=== PATIENT | male | born 1965 | race Caucasian/White ===

== ENCOUNTER 2018-06-10 08:28 | Day surgery (SDC) | payer OTHER ==
--- OUTSIDE RECORDS SUMMARY | 2018-06-10 08:30 | XMS REPORT | Continuity of Care Document ---
:1965 Author Organization Interface Problems Problem Status Onset Date Classification Date Comments Source Reported Medications Medication Details Route Status Patient Ordering Order Source Instructions Provider Date Allergies, Adverse Reactions, Alerts Substance Category Reaction Severity Reaction Status Date Comments Source type Reported Immunizations Immunization Date Given Site Status Last Updated Comments Source Results Order Results Value Reference Date Interpretation Comments Source Name Range Vital Signs Vital Sign Value Date Comments Source Encounters Location Location Encounter Encounter Reason Attending ADM DC Status Source Details Type Number For Provider Date Date Visit Outpatient [id number] LAINEY 04/19 [facility] [place] Outpatient [id number] LAINEY 05/11 [facility] [address] [place] [address] Outpatient [id number] LAINEY 06/21 [facility]2018 [facility] [place] [id number] Roderick Smith Active Surgical Specialty [facility] Procedures Procedure Code Date Perfomer Comments Source
[2018-06-10 08:50] LABS: Potassium 4.1 mmol/L (3.5-5.1)
[2018-06-10] MEDS ORDERED: NA CHLORIDE 0.9% 1,000 ML ONE (08:51)
[2018-06-10 08:52] LABS: Absolute Lymphocytes (CBC) 2.3 K/uL (0.7-4.9); Absolute Monocytes 0.6 K/uL (0.1-1.3); Absolute Neutrophil 7.6 K/uL (1.8-8.0); Basophils % 1.4 % (0-1.3); Eosinophils % 4.5 % (0-4.4); Hematocrit 40.7 % (39.6-49.0); RBC Red Blood Cell Count 5.13 M/uL (4.33-5.43)
[2018-06-10] MEDS ORDERED: HEPARIN 5000 UNIT/ML 1 ML VIAL ONE (08:55)
[2018-06-10] MEDS ORDERED: NS 0.9% VIAL 20 ML ONE (08:55)
[2018-06-10] MEDS: LIDOCAINE 1% MPF 30 ML VIAL ONE ×2 (09:05→10:04)
[2018-06-10] MEDS ORDERED: CEFAZOLIN/SWI 1gm 1 GM/10 ML SYR ONE (09:06)
[2018-06-10] MEDS ORDERED: FENTANYL CITR 100 MCG/2 ML ONE (09:48)
[2018-06-10] MEDS ORDERED: PROPOFOL 200 MG/20 ML VIAL IV ONE (09:48)
[2018-06-10] MEDS ORDERED: LIDOCAINE 2% MPF 5 ML VIAL ONE (09:48)
[2018-06-10] MEDS ORDERED: MIDAZOLAM HCL 2 MG/2 ML INJ ONE (09:48)
[2018-06-10] MEDS ORDERED: ONDANSETRON 4 MG/2 ML VIAL ONE (10:02)
--- NOTE | 2018-06-10 11:01 | RAD REPORT ---
EXAM DESCRIPTION: RAD - Fluoroscopy <1 Hour - 06/10/2018 10:56 am CLINICAL HISTORY: Venous catheter insertion. PORT A CATH COMPARISON: No comparisons FINDINGS: Fluoroscopy time 0.5 minutes.
--- NOTE | 2018-06-10 11:42 | RAD REPORT ---
EXAM DESCRIPTION: RAD - Chest Single View - 06/10/2018 11:36 am CLINICAL HISTORY: port-a-cath insertion Chest pain. COMPARISON: CHEST PA AND LAT 2 VIEW dated 01/30/2013 FINDINGS: Portable technique limits examination quality. The lungs are grossly clear. The heart is normal in size. Right-sided Port-A-Cath has been placed wit h tip in the SVC.No postprocedure pneumothorax. IMPRESSION: No postprocedure pneumothorax seen.
[2018-06-10] MEDS ORDERED: TRAMADOL 37.5mg/APAP 325mg PER TAB ONE (12:14)
--- NOTE | 2018-06-10 22:13 | OP ---
Date of Procedure: 06/10/2018 Surgeon: Phill Garcia MD Preoperative Diagnosis: Colon cancer. Postoperative Diagnosis: Colon cancer. Procedure: Right internal jugular Port-A-Cath placement, interpretation of fluoroscopy. Estimated Blood Loss: Minimal. Specimen: None. Findings: Normal anatomy. Anesthesia: MAC. Complications: None. Disposition: The patient tolerated the procedure in stable condition and taken to the recovery in go od general condition. Description Of Procedure: The patient was brought to the OR and placed in supine position. MAC anes thesia was begun. The patient was prepped and draped in usual sterile fashion. Lidocaine 1% infiltr ated locally. An 18-gauge needle was used to access the right IJ vein. Guidewire was passed. Posit ion was confirmed with fluoroscopy. A 3 cm counter incision was made and a pocket created. Tunnelin g device was used to tunnel the catheter between the 2 wounds. Seldinger technique used and the tip of the catheter under fluoroscopy placed at the SVC right atrial region, and then the catheter attach ed to the Port-A-Cath device. Port-A-Cath device was attached to the subcutaneous tissue with 3-0 Vi cryl. Port-A-Cath device was flushed with heparin and packed with heparin with good blood flow, and then 3-0 chromic was used to approximate the subcutaneous tissue and close the skin. Sterile dressing was applied. The patient was awakened and taken to Recovery in good gene ral condition. /MODL Voice ID: [id number] Report ID: [id number]
--- NOTE | 2018-06-10 22:13 | DS ---
Date of Discharge: 06/10/2018 Discharge Note: The patient will go to Day Surgery and home when stable. If the chest x-ray is nega tive, he will be discharged to home. Disposition: Home. Condition: Stable. Discharge Instructions: Resume home medications and diet. Activity as tolerated. No heavy lifting. Remove outer dressing in 2 days. Shower. Keep wound clean and dry. Follow up in my office in two weeks; call for appointment. Ultracet one tablet p.o. q.4 p.r.n. pain. Keep Steri-Strips on at all times. JESSICA/SHANNA Voice ID: [id number] Report ID: [id number]
== END 2018-06-10 12:45 | disposition home or self-care (01) ==
LOC: OR 08:28
PROVIDERS: ATTEND Surgery
PROC: 02HV33Z Insertion of Infusion Device into Superior Vena Cava, Percutaneous Approach (ICD-10-PCS; 2018-06-10)
PROC: 0JH63XZ Insertion of Tunneled Vascular Access Device into Chest Subcutaneous Tissue and Fascia, Percutaneous Approach (ICD-10-PCS; principal; 2018-06-10 10:00)
DX: C18.9 Malignant neoplasm of colon, unspecified (principal); E11.9 Type 2 diabetes mellitus without complications; I10 Essential (primary) hypertension; I25.10 Atherosclerotic heart disease of native coronary artery without angina pectoris; Z95.5 Presence of coronary angioplasty implant and graft; Z79.82 Long term (current) use of aspirin; Z79.84 Long term (current) use of oral hypoglycemic drugs; Z79.899 Other long term (current) drug therapy
CPT/HCPCS: 36415; 71045; 76000; 80048; 82962; 85025; C1788; J0690; J1644; J2250; J2405; J2704; J3010; J7030

== ENCOUNTER 2018-07-14 16:58 | Emergency (ER) | payer OTHER ==
--- OUTSIDE RECORDS SUMMARY | 2018-07-14 17:00 | XMS REPORT | Continuity of Care Document ---
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 Heart attack Active Problem 06/15/2018 [facility] 3 Diabetes Active Problem 06/15/2018 [facility] mellitus 0 Acid reflux Active Problem 06/15/2018 [facility] Arthritis Active Problem 06/15/2018 [facility] Change in bowel Active Problem 06/15/2018 [facility] habit Colorectal Active Problem 06/15/2018 [facility] cancer Constipation Active Problem 06/15/2018 [facility] Coronary heart Active Problem 06/15/2018 stent X1 [facility] disease<sup>1</s placed 2013 up> Diarrhea Active Problem 06/15/2018 [facility] Foot Active Problem 06/15/2018 bilateral [facility] pain<sup>2</sup> foot and nerve Gout Active Problem 06/15/2018 [facility] High cholesterol Active Problem 06/15/2018 [facility] Hypertension Active Problem 06/15/2018 [facility] Hypothyroid Active Problem 06/15/2018 [facility] Loss of appetite Active Problem 06/15/2018 [facility] Neuropathy Active Problem 06/15/2018 bilateral [facility] (<span legs and ID="[id number]" feet, walks >Confirmed</span with >)<sup>3</sup> crutches or walker Rectal bleeding Active Problem 06/15/2018 [facility] Medications Medication Details Route Status Patient Ordering Order Source Instructions Provider Date Misc Medication 350 mL, Inactive [facility] Soln-IV, IV, 019 Once, first dose 06/13/18 10:13:00 CDT, stop date 06/13/18 10:13:00 CDT propofol 30 mg=3 mL, Inactive [facility] Emulsion, IV, 019 Once, first dose 06/13/18 10:05:00 CDT, stop date 06/13/18 10:05:00 CDT propofol 50 mg=5 mL, Inactive [facility] Emulsion, IV, 019 Once, first dose 06/13/18 10:04:00 CDT, stop date 06/13/18 10:04:00 CDT lidocaine 1 mL, Inactive [facility] Injection, 019 IV, Once, first dose 06/13/18 10:04:00 CDT, stop date 06/13/18 10:04:00 CDT lidocaine 1 mL, Inactive [facility] Injection, 019 IV, Once, first dose 06/13/18 10:01:00 CDT, stop date 06/13/18 10:01:00 CDT propofol 50 mg=5 mL, Inactive [facility] Emulsion, IV, 019 Once, first dose 06/13/18 10:01:00 CDT, stop date 06/13/18 10:01:00 CDT lidocaine 1 mL, Inactive [facility] Injection, 019 IV, Once, first dose 06/13/18 9:58:00 CDT, stop date 06/13/18 9:58:00 CDT propofol 50 mg=5 mL, Inactive [facility] Emulsion, IV, 019 Once, first dose 06/13/18 9:58:00 CDT, stop date 06/13/18 9:58:00 CDT midazolam 1 mg=1 mL, Inactive [facility] Injection, 019 IV, Once, first dose 06/13/18 9:45:00 CDT, stop date 06/13/18 9:45:00 CDT fentaNYL 50 mcg=1 mL, Inactive [facility] Injection, 019 IV, Once, first dose 06/13/18 9:45:00 CDT, stop date 06/13/18 9:45:00 CDT midazolam 1 mg=1 mL, Inactive [facility] Injection, 019 IV, Once, first dose 06/13/18 9:40:00 CDT, stop date 06/13/18 9:40:00 CDT fentaNYL 50 mcg=1 mL, Inactive [facility] Injection, 019 IV, Once, first dose 06/13/18 9:40:00 CDT, stop date 06/13/18 9:40:00 CDT Lidocaine 2% 0.2 0.2 mL, Inactive [facility] mL IV Start Injection, 019 [[place]] Subcutaneous, Once PRN for other (see comment), first dose 06/13/18 8:19:00 CDT LR 1,000 mL 1,000 mL, IV, Inactive [facility] 30 mL/hr, 019 start date 06/13/18 8:19:00 CDT Aspirin 325 MG 325 mg=1 Active [facility] Enteric Coated tabs, Oral, 019 Tablet Daily, heart health Metoprolol 100 mg=1 Active [facility] Tartrate 100 MG tabs, Oral, 019 Oral Tablet BID, HTN 24 HR Isosorbide 30 mg=1 tabs, Active [facility] Mononitrate 30 Oral, qAM, 019 MG Extended heart Release Tablet furosemide 40 mg 40 mg=1 tabs, Active [facility] oral tablet Oral, Daily, 019 fluid Omeprazole 20 MG 20 mg=1 caps, Active [facility] Enteric Coated Oral, Daily, 019 Capsule acid reflux allopurinol 100 100 mg=1 Active [facility] mg oral tablet tabs, Oral, 019 BID, Gout atorvastatin 20 20 mg=1 tabs, Active [facility] mg oral tablet Oral, Daily, 019 cholesterol Metformin 1,000 mg=1 Active [facility] hydrochloride tabs, Oral, 019 1000 MG Oral BID, DM Tablet levothyroxine 25 25 mcg=1 Active [facility] mcg (0.025 mg) caps, Oral, 019 oral capsule Daily, thyroid 0.5 ML 1.5 mg, Active [facility] dulaglutide 3 Subcutaneous, 019 MG/ML Prefilled weekly on Syringe Mondays, DM [Trulicity] 3 ML insulin 60 units, Active [facility] degludec 100 Subcutaneous, 019 UNT/ML Pen Daily, DM Injector [Tresiba] Spironolactone 25 mg=1 tabs, Active [facility] 25 MG Oral Oral, Daily, 019 Tablet diuretic duloxetine 20 MG 20 mg=1 caps, Active [facility] Enteric Coated Oral, Daily, 019 Capsule depression [Cymbalta] gabapentin 300 300 mg=1 Active [facility] MG Oral Capsule caps, Oral, 019 TID, nerve pain Acetaminophen 1 tabs, Oral, Active [facility] 325 MG / As Indicated, 019 Hydrocodone PRN only, 0 Bitartrate 7.5 Refill(s), MG Oral Tablet pain Allergies, Adverse Reactions, Alerts Substance Category Reaction Severity Reaction Status Date Comments Source type Reported Tylox Assertion tongue Severe Drug Active [facility] swelling, allergy face swelling Immunizations Immunization Date Given Site Status Last Updated Comments Source Results Order Name Results Value Reference Date Interpretation Comments Source Range LABORATORY Blood 236 74 - 106 I Glucose, mg/dL 2018 Capillary Vital Signs Vital Sign Value Date Comments Source Systolic (mm Hg) 143 06/13/2018 [facility] Diastolic (mm Hg) 84 06/13/2018 [facility] Respitory Rate 20 06/13/2018 [facility] Peripheral Pulse Rate 89 06/13/2018 [facility] Systolic (mm Hg) 143 06/13/2018 [facility] Diastolic (mm Hg) 86 06/13/2018 [facility] Heart Rate 88 06/13/2018 [facility] Respitory Rate 16 06/13/2018 [facility] Respitory Rate 16 06/13/2018 [facility] Systolic (mm Hg) 135 06/13/2018 [facility] Diastolic (mm Hg) 83 06/13/2018 [facility] Heart Rate 86 06/13/2018 [facility] Temperature Oral (F) 36.6 Geri 06/13/2018 [facility] Heart Rate 87 06/13/2018 [facility] Height 175.26 cm 06/13/2018 [facility] Weight Measured 114.8 06/13/2018 [facility] Peripheral Pulse Rate 96 06/13/2018 [facility] Temperature Oral (F) 37 Geri 06/13/2018 [facility] Weight Measured 114.76 06/08/2018 [facility] Height 175.26 cm 06/08/2018 [facility] Encounters Location Location Encounter Encounter Reason Attending ADM DC Status Source Details Type Number For Provider Date Date Visit Outpatient [id number] LAINEY 04/19 [facility] [place] Outpatient [id number] LAINEY 05/11 [facility] Outpatient [id number] Roderick Smith 06/13 06/13 Active Surgical /2018 Specialty [facility] Outpatient [id number] Roderick Smith 06/13 06/13 [facility] [place] [facility] Outpatient [id number] LAINEY 06/22 [facility] [place] Outpatient [id number] LAINEY 12/21 Active [facility] [place] Procedures Procedure Code Date Perfomer Comments Source SIGMOIDOSCOPY auto-populated from [facility] FLEXIBLE W/DIRECTED 9 documented surgical SUBMUCOSAL case INJECTION ANY SUBSTANCE 50503 (N/A)<sup>1</sup&gt ; Colonoscopy [id number] [facility] 9 cardiac stent [facility] 3 Foot<sup>2</sup> [id number] bilateral foot surgery no hardware implanted [facility] patient uses crutches Knee<sup>3</sup> [id number] Right knee scope [facility] Left knee reconstruction with hardware Tonsillectomy [id number] [facility]
--- NOTE | 2018-07-14 18:17 | RAD REPORT ---
EXAM DESCRIPTION: US UPPER EXTREMITY VENOUS UNILATE07/14/2018 6:01 pm CLINICAL HISTORY: Right arm pain COMPARISON: None FINDINGS: Echogenic material consistent with acute thrombus is present within the right internal jug ular vein measuring about 5 centimeters in length. The right subclavian, right cephalic, right axillary, right brachial, right basilic, right ulnar an d right radial veins are generally compressible and demonstrate augmentation. Doppler demonstrates go od flow. IMPRESSION: Acute thrombus within the right internal jugular vein
--- NOTE | 2018-07-14 18:27 | ER ---
Nurse's Notes [facility] Name: Tl Goodwin Age: 53 yrs Sex: Male : 1965 Arrival Date: 07/14/2018 Time: 17:01 Bed 8 Private MD: Diagnosis: Venous thrombosis of right internal jugular vein Presentation: 07/14 17:04 Presenting complaint: Patient states: sent by cancer center to r/o blood clot, pt sv stated that he gets chemo all week and gets radiation weekly, stated that he noticed yesterday he started having pain and redness to the right side of his neck, he has a port a cath. Transition of care: patient was not received from another setting of care. Onset of symptoms was July 13, 2018. Care prior to arrival: None. 17:04 Method Of Arrival: Ambulatory sv 17:04 Acuity: ROSA 3 sv 18:00 Risk Assessment: Do you want to hurt yourself or someone else? Patient reports no iw desire to harm self or others. Initial Sepsis Screen: Does the patient meet any 2 criteria? No. Patient's initial sepsis screen is negative. Does the patient have a suspected source of infection? No. Patient's initial sepsis screen is negative. Historical: - Allergies: 17:06 Tylox; sv 17:06 OxyContin; sv - Home Meds: 17:31 aspirin 325 mg Oral tab 1 tab once daily [Active]; metoprolol tartrate 100 mg Oral tab sg 1 tab 2 times per day [Active]; isosorbide mononitrate 30 mg Oral Tb24 1 tab once daily [Active]; furosemide 40 mg Oral tab 1 tab 2 times per day [Active]; omeprazole 20 mg Oral cpDR 1 cap once daily [Active]; allopurinol 100 mg Oral tab 1 tab once daily [Active]; Jardiance 25 mg oral tab 1 tab once daily [Active]; atorvastatin oral 1 tab once daily [Active]; Trulicity 1.5 mg/0.5 mL subcutaneous pnij once wkly [Active]; Tresiba FlexTouch U-100 subcutaneous subcutaneous daily [Active]; levothyroxine 25 mcg tab 1 tab once daily [Active]; spironolactone 25 mg Oral tab 1 tab once daily [Active]; duloxetine 20 mg oral cpDR 1 cap [Active]; gabapentin 300 mg oral cap 2 caps 3 times per day [Active]; hydrocodone-acetaminophen 7.5-325 mg Oral tab 1 tab every 4 hours [Active]; - PMHx: 17:06 colon cancer; sv - Immunization history:: Adult Immunizations up to date. - Social history:: Smoking status: Patient/guardian denies using tobacco. - Family history:: not pertinent. - Ebola Screening: : Patient negative for fever greater than or equal to 101.5 degrees Fahrenheit, and additional compatible Ebola Virus Disease symptoms Patient denies exposure to infectious person Patient denies travel to an Ebola-affected area in the 21 days before illness onset No symptoms or risks identified at this time. - Hospitalizations: : No recent hospitalization is reported. Screenin:28 Abuse screen: Denies threats or abuse. Denies injuries from another. Nutritional iw screening: No deficits noted. Tuberculosis screening: No symptoms or risk factors identified. Fall Risk None identified. Assessment: 18:00 General: Appears in no apparent distress. Behavior is calm. Pain: Complains of pain in iw neck. Neuro: Level of Consciousness is awake, alert, obeys commands, Oriented to person, place, time, Moves all extremities. Cardiovascular: Patient's skin is warm and dry. Respiratory: Respiratory effort is even, unlabored, Respiratory pattern is regular, Denies cough. Derm: Skin is intact, is fragile. Musculoskeletal: Range of motion: intact in all extremities. Vital Signs: 17:06 BP 129 / 78; Pulse 98; Resp 18; Temp 98.3(O); Pulse Ox 100% ; Weight 112.04 kg; Height sv 5 ft. 9 in. (175.26 cm); Pain 0/10; 17:06 Body Mass Index 36.48 (112.04 kg, 175.26 cm) sv ED Course: 17:01 Patient arrived in ED. tw3 17:05 Triage completed. sv 17:07 Arm band placed on. sv 17:09 Cristina Salazar, RN is Primary Nurse. iw 17:23 Wilfrid Gutierrez MD is Attending Physician. rn 17:30 Initial lab(s) drawn, by me. Inserted saline lock: 20 gauge in right forearm, using em1 aseptic technique. Blood collected. 18:00 UPPER EXTREMITY VENOUS UNILATE In Process Unspecified. EDMS 18:00 Patient has correct armband on for positive identification. iw 18:26 XRAY Chest (1 view) In Process Unspecified. EDMS 18:26 Keri Escudero MD is Referral Physician. rn 19:00 No provider procedures requiring assistance completed. IV discontinued, intact, iw bleeding controlled, No redness/swelling at site. Pressure dressing applied. Administered Medications: 18:44 Drug: Lovenox 1 mg/kg Route: Sub-Q; Site: right lower abdomen; iw Outcome: : Discharge ordered by MD. rn 19:00 Discharged to home via wheelchair, with family. iw 19:00 Condition: good 19:00 Discharge instructions given to patient, family, Instructed on discharge instructions, follow up and referral plans. medication usage, Demonstrated understanding of instructions, follow-up care, medications, Prescriptions given X 1. 19:01 Patient left the ED. iw Signatures: Dispatcher [employer] EDMS Jazmín Dyson RN RN sv Gay, Steven, RN RN sg Williams, Irene, RN RN iw Nieto, Roman, MD MD rn Martinez, Eric em1 Ministerio, Wandy tw3
--- NOTE | 2018-07-14 18:27 | EDPHYS ---
Physician Documentation [facility] Name: Tl Goodwin Age: 53 yrs Sex: Male : 1965 Arrival Date: 07/14/2018 Time: 17:01 Bed 8 Private MD: ED Physician Wilfrid Gutierrez HPI: 07/14 17:45 This 53 yrs old Male presents to ER via Ambulatory with complaints of rn POSSIBLE BLOOD CLOT. 17:45 The patient or guardian complains of pain. The symptoms are located on the neck. Onset: rn The symptoms/episode began/occurred yesterday. Context: The problem was sustained at home, The neck injury/problem resulted from from unknown cause. The pain does not radiate. Modifying factors: The symptoms are alleviated by nothing. the symptoms are aggravated by pressure. Severity of symptoms: At their worst the symptoms were mild, in the emergency department the symptoms are unchanged. Reports sent by cancer center to rule out blood clot, reports has port-a-cath for chemo for colon cancer, reports ongoing chemo and no problem but yesterday noticed pain in right neck, mild, and line in neck portion more prominent than has been, no sob. no arm swelling. . Historical: - Allergies: 17:06 Tylox; sv 17:06 OxyContin; sv - Home Meds: 17:31 aspirin 325 mg Oral tab 1 tab once daily [Active]; metoprolol tartrate 100 mg Oral tab sg 1 tab 2 times per day [Active]; isosorbide mononitrate 30 mg Oral Tb24 1 tab once daily [Active]; furosemide 40 mg Oral tab 1 tab 2 times per day [Active]; omeprazole 20 mg Oral cpDR 1 cap once daily [Active]; allopurinol 100 mg Oral tab 1 tab once daily [Active]; Jardiance 25 mg oral tab 1 tab once daily [Active]; atorvastatin oral 1 tab once daily [Active]; Trulicity 1.5 mg/0.5 mL subcutaneous pnij once wkly [Active]; Tresiba FlexTouch U-100 subcutaneous subcutaneous daily [Active]; levothyroxine 25 mcg tab 1 tab once daily [Active]; spironolactone 25 mg Oral tab 1 tab once daily [Active]; duloxetine 20 mg oral cpDR 1 cap [Active]; gabapentin 300 mg oral cap 2 caps 3 times per day [Active]; hydrocodone-acetaminophen 7.5-325 mg Oral tab 1 tab every 4 hours [Active]; - PMHx: 17:06 colon cancer; sv - Immunization history:: Adult Immunizations up to date. - Social history:: Smoking status: Patient/guardian denies using tobacco. - Family history:: not pertinent. - Ebola Screening: : Patient negative for fever greater than or equal to 101.5 degrees Fahrenheit, and additional compatible Ebola Virus Disease symptoms Patient denies exposure to infectious person Patient denies travel to an Ebola-affected area in the 21 days before illness onset No symptoms or risks identified at this time. - Hospitalizations: : No recent hospitalization is reported. ROS: 17:45 Constitutional: Negative for fever, chills, and weight loss, Eyes: Negative for injury, rn pain, redness, and discharge, Neck: + right neck pain and mild swelling Cardiovascular: Negative for chest pain, palpitations, and edema, Respiratory: Negative for shortness of breath, cough, wheezing, and pleuritic chest pain, Abdomen/GI: Negative for abdominal pain, nausea, vomiting, diarrhea, and constipation, MS/Extremity: Negative for injury and deformity, Skin: Negative for injury, rash, and discoloration, Neuro: Negative for headache, weakness, numbness, tingling, and seizure. Exam: 17:45 Constitutional: This is a well developed, well nourished patient who is awake, alert, rn and in no acute distress. Head/Face: Normocephalic, atraumatic. Neck: Trachea midline, no thyromegaly or masses palpated, and no cervical lymphadenopathy. + palpable line in subcutaneous tissues, no erythema or masses. No crepitus. Chest/axilla: Normal chest wall appearance and motion. Nontender with no deformity. No lesions are appreciated. Respiratory: No increased work of breathing, no retractions or nasal flaring. Skin: Warm, dry with normal turgor. Normal color with no rashes, no lesions, and no evidence of cellulitis. MS/ Extremity: Pulses equal, no cyanosis. Neurovascular intact. Full, normal range of motion. Equal circumference. Neuro: Awake and alert, GCS 15, oriented to person, place, time, and situation. Cranial nerves II-XII grossly intact. Motor strength 5/5 in all extremities. Sensory grossly intact. Vital Signs: 17:06 BP 129 / 78; Pulse 98; Resp 18; Temp 98.3(O); Pulse Ox 100% ; Weight 112.04 kg; Height sv 5 ft. 9 in. (175.26 cm); Pain 0/10; 17:06 Body Mass Index 36.48 (112.04 kg, 175.26 cm) sv MDM: 17:23 Patient medically screened. rn 18:06 ED course: Consulted Dr. Garcia, unable to contact Dr. Duong, awaiting rn recommendations. . 18:24 Differential diagnosis: blood clot, line migration. Data reviewed: vital signs, nurses rn notes, radiologic studies, ultrasound, and as a result, I will discharge patient. Counseling: I had a detailed discussion with the patient and/or guardian regarding: the historical points, exam findings, and any diagnostic results supporting the discharge/admit diagnosis, radiology results, the need for outpatient follow up, to return to the emergency department if symptoms worsen or persist or if there are any questions or concerns that arise at home. Special discussion: I discussed with the patient/guardian in detail that at this point there is no indication for admission to the hospital. It is understood, however, that if the symptoms persist or worsen the patient needs to return immediately for re-evaluation. ED course: Spoke with Dr. Garcia, who spoke with Dr. Duong, requests dc home with lovenox 1mg/kg bid and f/u with dr duong for further instructions given ongoing chemo and wants to keep the line, only has 1 more week of chemo left. Patient knows how to inject himself as has gives himself insulin. . 07/14 17:30 Order name: XRAY Chest (1 view); Complete Time: 18:41 rn 07/14 17:33 Order name: UPPER EXTREMITY VENOUS UNILATE; Complete Time: 18:41 EDMS Administered Medications: 18:44 Drug: Lovenox 1 mg/kg Route: Sub-Q; Site: right lower abdomen; iw Disposition: 07/14/18 18:26 Discharged to Home. Impression: Venous thrombosis of right internal jugular vein. - Condition is Stable. - Discharge Instructions: Venous Thromboembolism Prevention. - Prescriptions for Lovenox 100 mg/mL Subcutaneous syringe - inject 1.1 milliliter by SUBCUTANEOUS route every 12 hours for 14 days; 1 box. - Medication Reconciliation Form, Thank You Letter, Antibiotic Education, Prescription Opioid Use form. - Follow up: Keri Escudero MD; When: 1 - 2 days; Reason: Recheck today's complaints, Re-evaluation by your physician. - Problem is new. - Symptoms are unchanged. Signatures: Dispatcher [employer] [facility] Jazmín Dyson RN RN sv Deonte Morse RN RN sg Cristina Salazar RN RN iw Wilfrid Gutierrez MD MD engine turner: (The following items were deleted from the chart) 17:33 17:30 Extremity Venous Uni [email or web address] ordered. [facility] 19:01 18:26 07/14/2018 18:26 Discharged to Home. Impression: Venous thrombosis of right iw internal jugular vein. Condition is Stable. Prescriptions for Lovenox 100 mg/mL Subcutaneous syringe - inject 1.1 milliliter by SUBCUTANEOUS route every 12 hours for 14 days; 1 box. and Forms are Medication Reconciliation Form, Thank You Letter, Antibiotic Education, Prescription Opioid Use. Follow up: Keri óLpez; When: 1 - 2 days; Reason: Recheck today's complaints, Re-evaluation by your physician. Problem is new. Symptoms are unchanged. rn
--- NOTE | 2018-07-14 18:33 | RAD REPORT ---
EXAM DESCRIPTION: Raina Single View07/14/2018 6:26 pm CLINICAL HISTORY: Chest pain COMPARISON: June 2018 FINDINGS: A central venous line has its tip in the superior vena cava. Right hemidiaphragm is elevat ed. The lungs appear clear of acute infiltrate. The heart is normal size IMPRESSION: No acute abnormalities displayed
[2018-07-14] MEDS ORDERED: ENOXAPARIN 100 MG/ML SYR SQ ONE (18:51)
== END 2018-07-14 19:01 | disposition home or self-care (01) ==
LOC: ER 16:58
DX: I82.C11 Acute embolism and thrombosis of right internal jugular vein (principal); D01.0 Carcinoma in situ of colon; Z79.82 Long term (current) use of aspirin; Z88.6 Allergy status to analgesic agent; Z88.5 Allergy status to narcotic agent
CPT/HCPCS: 71045; 93971; 96372; 99284; J1650

== ENCOUNTER 2018-08-05 08:26 | Day surgery (SDC) | payer OTHER ==
--- OUTSIDE RECORDS SUMMARY | 2018-08-05 08:29 | XMS REPORT | Continuity of Care Document ---
[...] Problem 06/15/2018 bilateral [facility] (<span legs and ID="[id number]" feet, walks >Confirmed</span with >)<sup>3</sup> crutches or [...] Number For Provider Date Date Visit Outpatient [id number] LAINEY 04/19 [facility] [place] Outpatient [id number] LAINEY 05/11 [facility] Outpatient [id number] Roderick Smith 06/13 06/13 [facility] /2018 [facility]ty [facility] Outpatient [id number] Roderick Smith 06/13 06/13 [facility] [place] [facility] Outpatient [id number] LAINEY 06/22 [facility] [place] Outpatient [id number] LAINEY 12/21 Active [facility] [place] Procedures Procedure Code Date Perfomer Comments Source SIGMOIDOSCOPY auto-populated from [facility] FLEXIBLE W/DIRECTED 9 documented surgical SUBMUCOSAL case INJECTION ANY SUBSTANCE 73024 (N/A)<sup>1</sup&gt ; Colonoscopy [id number] [facility] 9 cardiac stent [facility] 3 Foot<sup>2</sup> [id number] bilateral foot surgery no hardware implanted [facility] patient uses crutches Knee<sup>3</sup> [id number] Right knee scope [facility] Left knee reconstruction with hardware Tonsillectomy [id number] [facility]
[2018-08-05] MEDS ORDERED: LIDOCAINE 1% MPF 30 ML VIAL ONE (08:36)
[2018-08-05 08:45] LABS: Absolute Lymphocytes (CBC) 0.7 K/uL (0.7-4.9); Absolute Monocytes 0.5 K/uL (0.1-1.3); Basophils % 0.4 % (0-1.3); Eosinophils % 13.4 % (0-4.4); Hematocrit 37.2 % (39.6-49.0); Lymphocytes % 9.4 % (15.3-44.8); MPV 7.5 fL (7.6-11.3); Monocytes % 6.5 % (3.3-12.3); RBC Red Blood Cell Count 4.34 M/uL (4.33-5.43)
[2018-08-05] MEDS ORDERED: NA CHLORIDE 0.9% 1,000 ML ONE (08:48)
[2018-08-05] MEDS ORDERED: CEFAZOLIN/SWI 1gm 1 GM/10 ML SYR ONE (08:48)
[2018-08-05] MEDS ORDERED: MIDAZOLAM HCL 2 MG/2 ML INJ ONE (09:08)
[2018-08-05] MEDS ORDERED: PROPOFOL 200 MG/20 ML VIAL IV ONE (09:08)
[2018-08-05] MEDS ORDERED: FENTANYL CITR 100 MCG/2 ML ONE (09:09)
[2018-08-05] MEDS ORDERED: LIDOCAINE 1% MPF 2 ML AMPULE ONE (09:09)
[2018-08-05] MEDS ORDERED: INSULIN -REGULAR HUMAN 50 UNIT/0.5 ML ML ONE (09:18)
[2018-08-05 09:43] LABS: Anisocytosis 1+; Blood Morphology Comment NOTED (NOT SEEN); Platelet Estimate ADEQ
--- NOTE | 2018-08-05 20:20 | OP ---
Date of Procedure: 08/05/2018 Surgeon: Phill Garcia MD Preoperative Diagnosis: Rectal carcinoma. Postoperative Diagnosis: Rectal carcinoma. Procedure: Removal of right chest Port-A-Cath. Estimated Blood Loss: Minimal. Specimen: Port-A-Cath. Finding: Normal anatomy. Anesthesia: MAC. Complications: None. Disposition: The patient tolerated the procedure in stable condition and taken to Recovery in good g eneral condition. Procedure In Detail: The patient was brought to the OR and placed in supine position. MAC anesthesi a was begun. The patient was prepped and draped in the usual sterile fashion. Marcaine 0.5% was inf iltrated locally. A 15-blade was used to make a 3 cm incision. Subcutaneous tissue divided. Port-A -Cath device identified, freed from the surrounding tissue with sharp and blunt dissection, and then removed and sent to Pathology for identification. Wound irrigated. Bleeding controlled with cautery . Then 3-0 chromic used to reapproximate subcutaneous tissue and close the skin. Sterile dressing was applied. The patient was awakened and taken to Recovery in good general condition. /MODL Voice ID: [id number] Report ID: [id number]
--- NOTE | 2018-08-05 20:25 | DS ---
Date of Discharge: 08/05/2018 The patient will go to Day Surgery and home when stable. Disposition: Home. Condition: Stable. Discharge Instructions: Resume home medications and diet. Activity as tolerated. No heavy lifting. Remove outer dressing in 2 days. Shower. Keep wound clean and dry. Follow up in my office in 2 w eeks. Call for appointment. Tylenol No. 3 one tablet p.o. q.4 p.r.n. pain. Keep Steri-Strips on at all times. JESSICA/SHANNA Voice ID: [id number] Report ID: [id number]
== END 2018-08-05 10:58 | disposition home or self-care (01) ==
LOC: OR 08:26
PROVIDERS: ATTEND Surgery
PROC: 02PYX3Z Removal of Infusion Device from Great Vessel, External Approach (ICD-10-PCS; 2018-08-05)
PROC: 0JPT3XZ Removal of Tunneled Vascular Access Device from Trunk Subcutaneous Tissue and Fascia, Percutaneous Approach (ICD-10-PCS; principal; 2018-08-05 09:15)
DX: Z45.2 Encounter for adjustment and management of vascular access device (principal); C20 Malignant neoplasm of rectum; I10 Essential (primary) hypertension; E11.9 Type 2 diabetes mellitus without complications; Z79.82 Long term (current) use of aspirin; Z79.4 Long term (current) use of insulin; Z79.899 Other long term (current) drug therapy; Z95.5 Presence of coronary angioplasty implant and graft
CPT/HCPCS: 36415; 82947; 82962; 85025; 88300; J0690; J2001; J2250; J2704; J3010; J7030

== ENCOUNTER 2021-09-05 23:50 | Emergency (ER) | payer MEDICARE ==
--- OUTSIDE RECORDS SUMMARY | 2021-09-06 00:03 | XMS REPORT | Continuity of Care Document ---
:1965 Author Organization [facility] t Address [address] [place] [address] Care Team Providers Name Role Phone Lita Starr Primary Care Physician SMITH Attending Clinician Unavailable RUBEN Attending Clinician Unavailable Moustapha KENT OLambert Attending Clinician Stephen Rosas MD Attending Clinician [phone] Samuel Barrera Attending Clinician Clarita KENT Attending Clinician MD MOUSTAPHA O. Attending Clinician Unavailable SANAM Attending Clinician Unavailable Pastor Gerard DO Attending Clinician Sanam KENT Attending Clinician Liang SEE C Attending Clinician Unavailable Tiffany Foreman Attending Clinician [phone] MIKO Attending Clinician Unavailable DO JUDSON CROUCH Attending Clinician Unavailable MD EDA WALKER Attending Clinician Unavailable Abundio aDnielson MD Attending Clinician ABUNDIO DANIELSON Attending Clinician Unavailable ZI Attending Clinician Unavailable HUBERT MAIN Attending Clinician Unavailable DR GEMMA Attending Clinician Unavailable Joi SEE, Minerva Attending Clinician Unavailable Laurel MAGANA R Attending Clinician Cecilio KENT Attending Clinician CECILIO Attending Clinician Unavailable SCHAUBROECK_L Admitting Clinician Unavailable JARVIS Admitting Clinician Unavailable MOUSTAPHA Admitting Clinician Unavailable MD Jacquelyn GERARD Admitting Clinician Unavailable SANAM Admitting Clinician Unavailable Sanam KENT Admitting Clinician SCOUT Admitting Clinician Unavailable MD SCOUT Admitting Clinician Unavailable ABUNDIO DANIELSON Admitting Clinician Unavailable RAYRAY FUNES Admitting Clinician Unavailable DR GEMMA Admitting Clinician Unavailable Cecilio KENT Admitting Clinician CECILIO Admitting Clinician Unavailable Payers Payer Name Policy Type Policy Number Effective Date Expiration Date S ource BCBS OUT OF [id number] 2020 2020 [facility] 00:00:00 00:00:00 [facility] [id number] 2021 00:00:00 [place] [id number] 2020 [place] (PPO) 00:00:00 BCBS OF [facility] [place] [id number] 2020 OUT OF STATE 00:00:00 Problems Condition Condition Condition Status Onset Resolution Last Treating Co mments Source Name Details Category Date Date Treatment Clinician Date Stenosis Stenosis Disease Active 2020-04 Metho di of right of right 2-13 st carotid carotid 00:00: Hospita artery artery 00 l Chest pain Chest pain Disease Active 2020-04 M ethodi 2-08 st 00:00: Hospita 00 l Coronary Coronary Disease Active 2020-04 Metho di artery artery 2-08 st disease disease 00:00: Hospita involving involving 00 [place] coronary coronary artery artery Type 2 Type 2 Disease Active 2020-04 Methodi diabetes diabetes 2-08 st mellitus mellitus 00:00: Hospit a 00 l Syncope Syncope Disease Active 2020-04 Univers and and 2-06 ity of collapse collapse 00:00: [place] [id number] Medical Branch CHRISTIANO (acute CHRISTIANO (acute Disease Active 2020-04 U nivers kidney kidney 2-06 ity of injury) injury) 00:00: [place] [address] Medical Branch Perirectal Perirectal Disease Active 0 M ethodi abscess abscess 6-18 st 00:00: Hospita 00 l CHRISTIANO (acute CHRISTIANO (acute Disease Active 0 M ethodi kidney kidney 6-18 st injury) injury) 00:00: Hospita 00 l Emesis, Emesis, Disease Active 2020-[address] [facility] persistent persistent 3-05 Chloe kes 00:00: Medical 00 Center [place] Disease Active 2020-[address] lithiasis lithiasis 3-05 [facility] 00:[facility]: Medical 00 Center Transamini Transamini Disease Active 2020-[address] tis tis 3-05 [facility] Acute Acute Disease Active 2020-0 Univers diastolic diastolic 2-17 ity of congestive [place] heart 00 Medical failure failure Branch Pulmonary Pulmonary Disease Active 2020-0 Uni vers hypertensi hypertensi 2-17 it y of on on 00:00: [place] [id number] Medical Branch Chronic Chronic Disease Active 2020-0 Univers diastolic diastolic 2-17 ity of congestive [place]ive [place] heart 00 Medical failure failure Branch Dyslipidem Dyslipidem Disease Active 2020-0 U nivers ia ia 2-14 ity of 00:00: [place] [address] Medical Branch Coronary Coronary Disease Active 2020-0 Unive rs artery artery 2-14 ity of disease disease 00:00: [place] involving involving 00 Medi cherry [place] Branch coronary coronary artery of artery of [place] heart heart without without angina angina pectoris pectoris Coronary Coronary Disease Active 2020-0 [facility] artery artery 2-14 [facility] disease disease 00:00: Medical involving involving 00 Cent er [place] coronary coronary artery of artery of [place] heart heart without without angina angina pectoris pectoris Essential Essential Disease Active 2019-[address] hypertensi hypertensi 2-14 Chloe kes on on 00:00: Medical 00 Center New onset New onset Disease Active 2020-0 Uni vers of of 2-13 ity of congestive [place]ive [place] 00 Medical failure failure Branch Obesity Obesity Disease Active 2020-[address] (BMI (BMI 2-13 [facility] 30-39.9) 30-39.9) 00:00: Medica l 00 Center PROSTATIS- Diagnosis Active 2018-042019-02-20 Memoria N41.9 / 04-16 05:01:00 l UNSPECIFIE 00:00: Melecio kurtz D INJURY PROSTATIS- 00 OF N41.9 / UNSPECIFIE D INJURY OF Active 9 [facility] [place] Chronic Chronic Disease Active [facility] diastolic diastolic 11-24 [facility] heart heart 00:00: Medical failure failure 00 Center Allergic Allergic Disease Active [facility] rhinitis rhinitis 11-24 [facility] 00:[facility]: [facility] 00 Center Chronic Chronic Disease Active [facility] diarrhea diarrhea 11-24 [facility] 00:[facility]: Medical 00 Center Chronic Chronic Disease Active [facility] kidney kidney 11-24 [facility] disease disease 00:00: Medical due to due to 00 Center type 2 type 2 diabetes diabetes mellitus mellitus Hyperlipid Hyperlipid Disease Active [facility] emia emia 11-24 [facility] 00:[facility]: Medical 00 Center Peripheral Peripheral Disease Active [facility] venous venous 11-24 [facility] insufficie insufficie 00:00: Me dical ncy ncy 00 Center Polyneurop Polyneurop Disease Active [facility] athy due athy due 11-24kes to type 2 to type 2 00:00: Medi cherry diabetes diabetes 00 Center mellitus mellitus Rectal Rectal Disease Active [facility] cancer cancer 11-15 [facility] 00:00: Medical 00 [place] 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 M emoria n 1-01 17:00:25 l resistant 00:00: Yoel Staphyloco Methicilli 00 ccus n aureus resistant (organism) Staphyloco ccus aureus (organism) Active 04/05/2006 Problem 06/11/2020 MRSA X2 2006 hand MD treated Forehead MD treated no recurrence , patient states from job [facility] No known No known Disease [place] active active Health problems problems Malignant Problem 2020-06-11 Me moria neoplasm 17:00:25 l of rectum [place] Malignant neoplasm of rectum 06/11/2020 [facility] Polyp of Problem 2020-06-11 Mem oria colon 17:00:25 l Polyp of Melecio n colon 06/11/2020 [facility] Diabetes Problem Resolve 2021-02-09 Me moria mellitus d 01:21:31 l (disorder) Diabetes He rmann mellitus (disorder) Resolved Problem 02/09/2021 Medical Group,[facility] Myocardial Problem Resolve 2021-02-09 Memoria infarction d 01:21:31 l (disorder) Melecio n Myocardial infarction (disorder) Resolved Problem 02/09/2021 Medical Group,[facility] her Neuro,[facility] [place] Hypertensi Problem Active 2021-02-09 M emoria ve 01:21:31 l disorder, Yoel systemic Hypertensi arterial ve (disorder) disorder, systemic arterial (disorder) Active Problem 02/09/2021 Medical Group,[facility] her Neuro,[facility] [place] Hypothyroi Problem Active 2021-02-09 M emoria dism 01:21:31 l (disorder) Melecio n Hypothyroi dism (disorder) Active Problem 02/09/2021 Medical Group,[facility] her Neuro,[facility] [place] Morbid Problem Active 2021-02-09 Memor ia obesity 01:21:31 l (disorder) Morbid Herm katrina obesity (disorder) Active Problem 02/09/2021 Medical Group,[facility] her Neuro,[facility] [place] Neuropathy Problem Active 2021-02-09 M emoria (disorder) 01:21:31 l [place] Neuropathy (disorder) Active Problem 02/09/2021 Medical Group,[facility] her Neuro,[facility] Tremor Problem Active 2021-02-09 Memor ia (finding) 01:21:31 l Tremor [place] (finding) Active Problem 02/09/2021 Medical Group,[facility] her Neuro,[facility] [place] Fistula Problem Active 2021-02-09 Ulysses tala (disorder) 01:21:31 l Fistula [place] (disorder) Active Problem 02/09/2021 [facility] Lumbar Problem Active 2021-02-09 Memor ia radiculopa 01:21:31 l thy Lumbar [place] (disorder) radiculopa thy (disorder) Active Problem 02/09/2021 [facility] Acid Problem Active 2020-06-11 Memor ia reflux 17:00:25 l (finding) Acid [place] reflux (finding) Active Problem 06/11/2020 [facility] Arthritis Problem Active 2020-06-11 Me moria (disorder) 17:00:25 l [place] Arthritis (disorder) Active Problem 06/11/2020 [facility] Altered Problem Active 2020-06-11 Ulysses tala bowel 17:00:25 l function Altered Hayley nn (finding) bowel function (finding) Active Problem 06/11/2020 [facility] Malignant Problem Active 2020-06-11 Me moria tumor of 17:00:25 l large [place] intestine Malignant (disorder) tumor of large intestine (disorder) Active Problem 06/11/2020 [facility] Constipati Problem Active 2020-06-11 M emoria on 17:00:25 l (disorder) Melecio n Constipati on (disorder) Active Problem 06/11/2020 [facility] Coronary Problem Active 2020-06-11 Mem oria arterioscl 17:00:25 l erosis Coronary Melecio n (disorder) arterioscl erosis (disorder) Active Problem 06/11/2020 no recent problems No CP or SOB, or dizzinesss tent X1 placed 2012 [facility] Diarrhea Problem Active 2020-06-11 Mem oria (finding) 17:00:25 l Diarrhea Melecio n (finding) Active Problem 06/11/2020 [facility] Foot pain Problem Active 2020-06-11 Me moria (finding) 17:00:25 l Foot Yoel pain (finding) Active Problem 06/11/2020 bilateral foot and nerve [facility] Gout Problem Active 2020-06-11 Memor ia (disorder) 17:00:25 l Gout [place] (disorder) Active Problem 06/11/2020 [facility] Hyperchole Problem Active 2020-06-11 M emoria sterolemia 17:00:25 l (disorder) Melecio n Hyperchole sterolemia (disorder) Active Problem 06/11/2020 [facility] Loss of Problem Active 2020-06-11 Ulysses tala appetite 17:00:25 l (finding) Loss of Herm katrina appetite (finding) Active Problem 06/11/2020 [facility] Rectal Problem Active 2020-06-11 Memor ia hemorrhage 17:00:25 l (disorder) Rectal Herm katrina hemorrhage (disorder) Active Problem 06/11/2020 [facility] Colostomy Problem Active 2020-06-11 Me moria - stoma 17:00:25 l (morpholog Melecio n ic Colostomy abnormalit - stoma y) (morpholog ic abnormalit y) Active Problem [facility] Foot-drop Problem Active 2020-06-11 Me moria gait 17:00:25 l (finding) [place] Foot-drop gait (finding) Active Problem 06/11/2020 walks with a walker [facility] Incontinen Problem Active 2020-06-11 M emoria ce 17:00:25 l (finding) Yoel Incontinen ce (finding) Active Problem 06/11/2020 [facility] INFLAMMATO Diagnosis Active 2019-02-20 Memoria RY DISEASE 05:01:00 l OF [place] PROSTATE, INFLAMMATO UNSPEC RY DISEASE OF PROSTATE, UNSPEC Active [place] Allergies, Adverse Reactions, Alerts Allergy Allergy Status Severity Reaction(s) Onset Inactive Treating Comm ents Source Name Type Date Date Clinician Tyloxapo Propensi Active [place] l ty to 08-21 Health adverse 00:00: reaction 00 s Oxycodon Drug Active Swelling Per pt, [facility] t e-Acetam Allergy 06-06 swelling [facility] inophen 00:00: of the Medical face. Center Oxycodon Propensi Active Anaphylaxis M ethodi e-Acetam ty to 11-02 st inophen adverse 00:00: Hospita reaction 00 l s to drug Oxycodon Propensi Active Anaphylaxis U nivers e-Acetam ty to 10-10 ity of inophen adverse 00:00: [place] reaction 00 Medical s Branch OXYCODON DRUG Active Anaphylaxis Uni vers E-ACETAM 10-10 ity of INOPHEN 00:00: [place] 00 Medical Branch No DA Active [facility] Allergy [facility] ion Availabl e Tylox DA Active Unknown [facility] OXYCODON Allergy Active [facility]OP[facility]EN [facility] Tylox Tylox Active Memoria l Yoel Family History Family Member Diagnosis Comments Start Date Stop Date Source Natural father Diabetes [facility] Natural father Heart disease [facility] Natural mother COPD [facility] mother Diabetes [facility] Natural mother Heart disease [facility] Natural sister Heart disease [facility] Social History Social Habit Start Date Stop Date Quantity Comments Source Exposure to Not sure [facility] SARS-CoV-2 (event) History SDOH [facility] Alcohol Comment Medical C enter History SDOH [facility] Alcohol Std Drinks Medica l Center History SDOH [facility] Alcohol Binge Medical [address] ter Alcohol intake 2019-06-12 2019-06-[address] Skye es 00:00:00 00:00:00 non-drinker of Medical Ce nter alcohol (finding) Tobacco use and 2019-06-08 2019-06-[address] Chloe kes exposure 00:00:00 00:00:00 Medical Center History SDOH 2019-06-08 2019-06-08 1 ALEX Dunlap Alcohol Frequency 00:00:00 00:00:00 [facility] Social History 2019-02-17 2019-02-17 [facility] Mariya alexander 19:33:07 19:33:07 [birth year] ALEX Peck 00:00:00 00:00:00 Medical Center Smoking Status Start Date Stop Date Source Never smoked tobacco [facility] Medications Ordered Filled Start Stop Current Ordering Indication Dosage Frequency Signature Comments Components Source Medication Medication Date Date Medication? Clinician (SIG) Name Name Sod Yes [id number] DISPENSE [facility] Picosulfate 2-24 [id number] ONE KIT Hea lth -Mag Ox-Cit 00:00: Acd 00 (Clenpiq) 10-3.5-12 MG-GM -GM/160ML solution Na Yes [id number] DISPENSE [facility] Sulfate-K 2-22 [id number] ONE KIT Healt h Sulfate-Mg 00:00: Sulf 00 (Suprep Bowel Prep Kit) 17.5-3.13-1 .6 GM/177ML solution HYDROcodone 2020-04 Yes 1{tbl} Q.5D Take 1 M ethodi -acetaminop 2-[address] hen ([employer]) 21:16: mouth 2 Hos jessica 10-325 mg 00 (two) l per tablet times a day .acute pain. aspirin 325 2020-04 Yes 325mg QD Take 325 M ethodi MG tablet 2-[address] 21:16: mouth Hospita 00 daily. l levothyroxi 2020-04 Yes 50ug QD Take 50 Met hodi ne 2-[address] (SYNTHROID) 21:16: mouth Hospi ta 50 mcg 00 daily. l tablet Patient is taking Euthyrox topiramate 2020-04 Yes 100mg Q.5D Take 100 Me thodi (TOPAMAX) 2-[address] 100 MG 21:16: mouth 2 Hospita tablet 00 (two) l times a day. HYDROcodone 2020-04 Yes 1{tbl} Q.5D Take 1 M ethodi -acetaminop 2-[address] hen ([employer]) 21:16: mouth 2 Hos jessica 10-325 mg 00 (two) l per tablet times a day .acute pain. aspirin 325 2020-04 Yes 325mg QD Take 325 M ethodi MG tablet 2-[address] 21:16: mouth Hospita 00 daily. l levothyroxi 2020-04 Yes 50ug QD Take 50 Met hodi ne 2-[address] (SYNTHROID) 21:16: mouth Hospi ta 50 mcg 00 daily. l tablet Patient is taking Euthyrox topiramate 2020-04 Yes 100mg Q.5D Take 100 Me thodi (TOPAMAX) 2-[address] 100 MG 21:16: mouth 2 Hospita tablet 00 (two) l times a day. metOLazone 2020-04- No 5mg Q.[id number] Take 5 mg Methodi (ZAROXOLYN) 2-18 12-17 [id number] mouth [address] 5 MG tablet 21:16: 00:00 3D (three) Ho spita 00 :00 times a l day. Only when experienci ng excess fluid retention metOLazone 2020-04- No 5mg Q.[id number] Take 5 mg Methodi (ZAROXOLYN) 2-18 12-17 [id number] by mouth 3 [address] 5 MG tablet 21:16: 00:00 3D (three) Ho spita 00 :00 times a l day. Only when experienci ng excess fluid retention clopidogreL 2020-04- No 75mg QD Take 1 Met hodi (PLAVIX) 75 2-18 -18 tablet (75 s t mg tablet 00:00: 05:59 mg total) Ho spita 00 :00 by mouth l daily for 30 days. clopidogreL 2020-04 No 75mg QD Take 1 Met hodi (PLAVIX) 75 2-18 01-18 tablet (75 s t mg tablet 00:00: 05:59 mg total) Ho spita 00 :00 by mouth l daily for 30 days. metFORMIN 2020-04 No 1000mg QD Take 1,000 Methodi (GLUCOPHAGE 2-17 12-[address] ) 1,000 mg 21:16: 00:00 mouth Hospi ta tablet 22 :00 daily with l breakfast. insulin 2021-1 2021- No 62U QD Inject 62 Meth michael glargine 2-17 12-[address] U-300 conc 21:16: 00:00 under the H ospita (Toujeo Max 22 :00 skin l U-300 nightly. SoloStar) 300 unit/mL (3 mL) insulin pen metFORMIN 2020-04- No 1000mg QD Take 1,000 Methodi (GLUCOPHAGE 2-17 12-[address] ) 1,000 mg 21:16: 00:00 mouth Hospi ta tablet 22 :00 daily with l breakfast. insulin 2020-04- No 62U QD Inject 62 Meth michael glargine 2-17 12-[address] U-300 conc 21:16: 00:00 under the H ospita (Toujeo Max 22 :00 skin l U-300 nightly. [employer]Star) 300 unit/mL (3 mL) insulin pen metoprolol 2020-04 Yes 100mg Q.5D Take 100 Me thodi tartrate 2-[address] (LOPRESSOR) 21:16: mouth 2 Hos jessica 100 mg 18 (two) l tablet times a day. omeprazole 2020-04 Yes 20mg QD Take 20 mg M ethodi (PriLOSEC) 2-[address] 20 MG 21:16: daily. Hospita capsule 18 l empaglifloz 2020-04 Yes 25mg QD Take 25 mg Methodi in 2-[address] (JARDIANCE) 21:16: daily. Hosp rudy 25 mg 18 l tablet atorvastati 2020-04 Yes 40mg QD Take 40 mg Methodi n (LIPITOR) 2-[address] 40 MG 21:16: every Hospita tablet 18 evening. l dulaglutide 2020-04 Yes 1.5mg Q1W Inject 1.5 Methodi (TRULICITY) 2-[address] 1.5 mg/0.5 21:16: the skin Hos jessica mL pen 18 every 7 l injector days. Q Sundays gabapentin 2020-04 Yes 900mg Q.5D Take 900 Me thodi (NEURONTIN) 2-[address] 300 mg 21:16: mouth 2 Hospita capsule 18 (two) l times a day. DULoxetine 2020-04 Yes 30mg QD Take 30 mg M ethodi (CYMBALTA) 2-[address] 30 MG 21:16: every Hospita capsule 18 evening. l bromfenac 2020-04 Yes Apply to Meth michael (BROMSITE) 2-[address] 0.075 % 21:16: other Hospita drops 18 month l after injection from Dr. Cristian Pichardo metoprolol 2020-04 Yes 100mg Q.5D Take 100 Me thodi tartrate 2-[address] (LOPRESSOR) 21:16: mouth 2 Hos jessica 100 mg 18 (two) l tablet times a day. omeprazole 2020-04 Yes 20mg QD Take 20 mg M ethodi (PriLOSEC) 2-[address] 20 MG 21:16: daily. Hospita capsule 18 l empaglifloz 2020-04 Yes 25mg QD Take 25 mg Methodi in 2-[address] (JARDIANCE) 21:16: daily. Hosp rudy 25 mg 18 l tablet atorvastati 2020-04 Yes 40mg QD Take 40 mg Methodi n (LIPITOR) 2-[address] 40 MG 21:16: every Hospita tablet 18 evening. l dulaglutide 2020-04 Yes 1.5mg Q1W Inject 1.5 Methodi (TRULICITY) 2-[address] 1.5 mg/0.5 21:16: the skin Hos jessica mL pen 18 every 7 l injector days. Q Sundays gabapentin 2020-04 Yes 900mg Q.5D Take 900 Me thodi (NEURONTIN) 2-[address] 300 mg 21:16: mouth 2 Hospita capsule 18 (two) l times a day. DULoxetine 2020-04 Yes 30mg QD Take 30 mg M ethodi (CYMBALTA) 2-[address] 30 MG 21:16: every Hospita capsule 18 evening. l bromfenac 2020-04 Yes Apply to Meth michael (BROMSITE) 2-[address] 0.075 % 21:16: other Hospita drops 18 month l after injection from Dr. Cristian Pichardo furosemide 2020-04- No 40mg Q.5D Take 40 mg Methodi (LASIX) 40 2-17 12-[address] mg tablet 18:58: 00:00 (two) Hospit a 31 :00 times a l day. furosemide 2020-04- No 40mg Q.5D Take 40 mg Methodi (LASIX) 40 2-17 12-[address] mg tablet 18:58: 00:00 (two) Hospit a 31 :00 times a l day. furosemide 2020-04 Yes 40mg QD Take 1 Metho di (LASIX) 40 2-17 tablet (40 st mg tablet 00:00: mg total) Hos jessica 00 by mouth l daily. furosemide 2020-04 Yes 40mg QD Take 1 Metho di (LASIX) 40 2-17 tablet (40 st mg tablet 00:00: mg total) Hos jessica 00 by mouth l daily. insulin 2020-04- No 7U Q.[id number] Inject M ethodi LISPRO 2-17 - [id number] 0.07 mL (7 st (ADMELOG) 00:00: 05:59 3D Units Hospit a 100 unit/mL 00 :00 total) l subcutaneou under the s vial skin 3 (three) times a day with meals for 30 days. insulin 2020-04- No 7U Q.[id number] Inject M ethodi LISPRO 05-22- [id number] 0.07 mL (7 st (ADMELOG) 00:00: 05:59 3D Units Hospit a 100 unit/mL 00 :00 total) l subcutaneou under the s vial skin 3 (three) times a day with meals for 30 days. amoxicillin 2020-04- No 1{tbl} Q.5D Take 1 M ethodi -pot 2-17 12-[address] clavulanate 00:00: 05:59 mouth 2 Ho spita (Augmentin) 00 :00 (two) l 875-125 mg times a per tablet day for 7 days. amoxicillin 2020-04- No 1{tbl} Q.5D Take 1 M ethodi -pot 2-17 12-[address] clavulanate 00:00: 05:59 mouth 2 Ho spita (Augmentin) 00 :00 (two) l 875-125 mg times a per tablet day for 7 days. insulin 2020-04- No 31U Inject 31 Meth michael GLARGINE 2-17 12-[address] (LANTUS) 00:00: 05:59 under the Hos jessica 100 unit/mL 00 :00 skin once l injection for 1 (vial) dose. insulin 2020-04 No 31U Inject 31 Meth michael GLARGINE 2-17 12-[address] (LANTUS) 00:00: 05:59 under the Hos jessica 100 unit/mL 00 :00 skin once l injection for 1 (vial) dose. tolterodine 2020-04 No 4mg QD Take 4 mg Methodi LA (DETROL 2-10 12-[address] [place]) 4 MG 24 08:47: 00:00 daily. Hos jessica hr capsule 05 :00 l tolterodine 2020-04 No 4mg QD Take 4 mg Methodi LA (DETROL 2-10 12-[address] LA) 4 MG 24 08:47: 00:00 daily. Hos jessica hr capsule 05 :00 l HYDROcodone 2020-04 No 1{tbl} 1 tablet, Univers -acetaminop 05-13 12-08 Oral, ity of hen (NORCO) 07:45: 06:52 ONCE, 1 [place] 10-325 mg 00 :00 dose, On Medica l tablet 1 Wed tablet 03/12/21 at 0145, Routine DULoxetine 2020-04 Yes 30mg Take 30 mg U nivers 30 mg 2-08 by mouth ity of capsule 03:04: daily. [address] gabapentin 2020-04 Yes 900mg Take 900 Un amauri 300 mg 2-08 mg by ity of capsule 03:04: mouth 2 [place] [address] (two) Medical times Branch daily. omeprazole 2020-04 Yes 20mg Take 20 mg U nivers 20 mg 2-08 by mouth ity of capsule 03:04: daily. [address] metFORMIN 2020-04 Yes 1000mg Take 1,000 Univers 1,000 mg 2-08 mg by ity of tablet 03:04: mouth 2 [place] [address] ([facility]) Medical times [place] daily with meals. empaglifloz 2020-04 Yes 25mg Take 25 mg Univers in 2-08 by mouth ity of ([place]) 03:04: [place]. [place] [address] Branch dulaglutide 2020-04 Yes 1.5mg inject 1.5 Univers (TRULICITY) 2-08 mg under ity of 1.5 mg/0.5 03:04: the skin [place] as mL PnIj 23 weekly. Medical Indication Branch s: on wednesday insulin 2020-04 Yes 62U inject 62 Unive rs degludec 2-08 Units ity of (TRESIBA 03:04: under the [place] FLEXTOUCH 23 skin at Medical U-200) 200 bedtime. Branc h unit/mL (3 mL) InPn insulin 2020-04 Yes inject Univers lispro 2-08 under the ity of (HUMALOG 03:04: skin. [place] JOE 23 Indication Medical KWIKPEN s: per Branch U-100) 100 sliding unit/mL scale as inph needed. levothyroxi 2020-04 Yes 50ug Take 50 Uni vers ne 2-08 mcg by ity of (EUTHYROX) 03:04: mouth [place] 50 mcg 23 every Medical tablet morning. Branch furosemide 2020-04 Yes 40mg Take 40 mg U nivers 40 mg 2-08 by mouth ity of tablet 03:04: every [place] 23 morning Medical and Branch evening. tamsulosin 2020-04 Yes .4mg Take 0.4 Uni vers (FLOMAX) 2-08 mg by ity of 0.4 mg 24 03:04: mouth [place] hr capsule 23 daily. Medical Branch topiramate 2020-04 Yes 100mg Take 100 Un amauri 100 mg 2-08 mg by ity of tablet 03:04: mouth [place] 23 every Medical morning Branch and evening. aspirin 325 2020-04 Yes 325mg Take 325 U nivers mg tablet 2-08 mg by ity of 03:04: mouth [place] 23 daily. Medical Branch sulfur 2020-04- No [id number] 5mL 5 mL, Univ ers hexafluorid - 12-07 Intravenou i ty of e microsphr 17:30: 17:30 s, ONCE, 1 [place] (LUMASON) 00 :00 dose, On Medica l injection 5 Tue Branch mL 03/11/21 at 1130, Routine
philosophy faculty member approving Restricted medication : ANGELINE GRANDE KLambertHLambert omeprazole 2020-04 Yes 20mg 20 mg, Unive rs (PRILOSEC) 2-07 Oral, ity of capsule 20 15:00: DAILY, [place] mg 00 First dose Medical on [facility] 03/11/21 at 0900, Until Discontinu ed, Routine tamsulosin 2020-04 Yes .4mg 0.4 mg, [facility] ers (FLOMAX) 2 Oral, ity of capsule 0.4 15:00: DAILY, [place] mg 00 First dose Medical on [facility] 03/11/21 at 0900, Until Discontinu ed, Routine DULoxetine 2020-04 Yes 30mg 30 [facility] 2 Oral, ity of capsule 30 15:00: DAILY, [place] mg 00 First dose Medical on [facility] 03/11/21 at 0900, Until Discontinu ed, Routine atorvastati 2020-04 Yes 40mg 40 mg, [facility] ers n (LIPITOR) 2 Oral, ity of tablet 40 15:00: DAILY, [place] mg 00 First dose Medical on [facility] 03/11/21 at 0900, Until Discontinu ed, Routine aspirin 2020-04 Yes 325mg [facility], [facility] 05-12 Oral, ity of mg 15:00: DAILY, [place] 00 First dose Medical on [facility] 03/11/21 at 0900, Until Discontinu ed, Routine furosemide 2020-04 No 40mg 40 mg, [facility] ers (LASIX) 2 12- Oral, ity of tablet 40 15:00: 22:35 QAM+PM, [place] mg 00 :24 First dose Medical on [facility] 03/11/21 at 0900, Until Discontinu ed, Routine Sliding 2020-04 Yes Subcutaneo [facility] ers Scale 2-07 us, TID ity of Insulin - 14:00: MEALS, [place] Lispro 00 First dose Medical (HumaLOG) + on [facility]sbg 03/11/21 at Testing 0800, Until Discontinu ed, Routine levothyroxi 2020-04 Yes 50ug 50 mcg, Uni vers ne 2-07 Oral, ity of (SYNTHROID) 12:00: QAM-0600, [place] tablet 50 00 First dose Medi cherry mcg on [facility] 03/11/21 at 0600, Until Discontinu ed, Routine metoprolol 2020-04 Yes 100mg 100 mg, Uni vers tartrate 2-07 Oral, BID, ity o f (LOPRESSOR) 02:00: First dose [place] tablet 100 00 on [facility] Medical mg 03/10/21 at Branch 1999, Until Discontinu ed, Routine gabapentin 2020-04 Yes 900mg 900 mg, Uni vers (NEURONTIN) 2-07 Oral, BID, it y of capsule 900 02:00: First dose [place] mg 00 on [facility] Medical 03/10/21 at Branch 1999, Until Discontinu ed, Routine HYDROcodone 2020-04 Yes 1{tbl} 1 tablet, Univers -acetaminop 2-06 Oral, ity of hen (NORCO 23:55: Q6HPRN, [place] 5) 5-325 mg 52 Starting Medi cherry tablet 1 on [facility] tablet 03/10/21 at 1755, Until Discontinu ed, Routine, Pain (scale 4-6) glucagon 2020-04 Yes 1mg 1 mg, Univers (GLUCAGEN 2- Intramuscu ity of DIAGNOSTIC 23:53: lar, PRN, [place] KIT) 18 Starting Medical injection 1 on [facility] mg 03/10/21 at 1753, Until Discontinu ed, KRISTY, Blood Glucose < or = 70 mg/dL and patient is unable to swallow or has mental changes. dextrose 50 2020-04 Yes 25mL 25 mL, Univ ers % in water 2-06 Slow IV ity of (D50W) 23:53: Push, PRN, [place] injection 18 Starting Medica l 25 mL on [facility] 03/10/21 at 1753, Until Discontinu ed, KRISTY, Blood Glucose < or = 70 mg/dL and patient is unable to swallow or has mental status changes. enoxaparin 2020-04 Yes 30mg 30 mg, Unive rs (LOVENOX) 2-06 Subcutaneo ity of injection 23:00: [place], DAILY, [place] 30 mg 00 First dose Medical on Wed [place] 03/10/21 at 1700, Until Discontinu ed, Routine acetaminoph 2020-04 Yes 650mg 650 mg, Un amauri en 2-06 Oral, ity of (TYLENOL) 21:34: Q6HPRN, [place] tablet 650 54 Starting Medic al mg on [facility] 03/10/21 at 1534, Until Discontinu ed, Routine, Pain (scale 1-3) levothyroxi 2020-04- No 25ug Take 25 Un amauri ne 25 mcg 206 12-06 mcg by ity of tablet 17:01: 00:00 mouth [place] 06 :00 every Medical morning. Branch topiramate 2020-04 Yes 100 mg = 1 M emoria 100 mg oral 1-04 tab, PO, l tablet 14:57: BID, # 60 Melecio n 00 tab, 5 Refill(s), Pharmacy: [facility] 482, 175.26, cm, 05/15/20 11:11:00 PRODUCTION COORDINATOR, Height, 108.636, kg, 05/15/20 11:11:00 PRODUCTION COORDINATOR, Weight Levothyroxi 2020-04 Yes 0 Memori a ne Sodium 04 Refill(s) l 0.05 MG 14:48: [place] Oral Tablet 00 [Euthyrox] aspirin 325 2020-0 Yes 325mg QD Take 325 U T MG tablet 5-24 mg by Health 03:03: mouth 1 39 (one) time each day. ciprofloxac 0 Yes Q.5D Take by [facility] in (Cipro) 5-24 mouth 2 Health 500 MG 03:03: (two) tablet 39 times a day. loperamide Yes 2mg Take 2 mg UT (Imodium 5-24 by mouth 4 Healt h A-D) 2 MG 03:03: (four) tablet 39 times a day if needed. HYDROcodone 2020-0 Yes UT -acetaminop 5-24 Health hen ([place]) 03:03: 7.5-325 MG 39 tablet gabapentin Yes 300mg Q.[id number] Take 300 UT (Neurontin) 5-24 [id number] mg by H ealth 300 MG 03:03: 3D mouth 3 capsule 39 (three) times a day. DULoxetine Yes 20mg QD Take 20 mg U T (Cymbalta) 5-24 by mouth 1 Hea lth [address] 03:03: (one) time capsule 39 each day. Do not crush or chew. spironolact 2020-0 Yes QD Take by UT one 5-24 mouth 1 Health (Aldactone) 03:03: (one) time 25 MG 39 each day. tablet levothyroxi 2020-0 Yes Take by UT ne 5-24 mouth 1 Health (Tirosint) 03:03: (one) time 25 MCG 39 each day capsule before breakfast. Insulin 2020-0 Yes Inject UT Degludec 5-24 under the Health (TRESIBA 03:03: skin. FLEXTOUCH 39 SC) dulaglutide 2020-0 Yes 1.5mg Inject 1.5 UT (Trulicity) 5-24 mg under Heal th 1.5 03:03: the skin 1 MG/0.5ML 39 (one) time solution per week. pen-injecto r ATORVASTATI 2020-0 Yes Take by UT N CALCIUM 5-24 mouth. Health PO 03:03: 39 empaglifloz 2020-0 Yes Take by UT in 5-24 mouth. Health (Jardiance) 03:03: 25 MG 39 allopurinol 2020-0 Yes 100mg QD Take 100 U T (Zyloprim) 5-24 mg by [facility] 100 MG 03:03: mouth 1 tablet 39 (one) time each day. METFORMIN 2020-0 Yes Take by UT HCL PO 5-24 mouth. Health 03:03: 39 omeprazole 2020-0 Yes 20mg QD Take 20 mg U T (PriLOSEC) 5-24 by mouth 1 Hea lth [address] 03:03: (one) time capsule 39 each day. Do not crush or chew. furosemide 2020-0 Yes Take by UT (Lasix) 40 5-24 mouth. Health MG tablet 03:03: 39 isosorbide 2020-0 Yes 30mg QD Take 30 mg U T mononitrate 5-24 by mouth 1 He alth ER (Imdur) 03:03: (one) time 30 MG 24 hr 39 each day. tablet Do not crush or chew. metoprolol 2020-0 Yes 100mg Q.5D Take 100 UT tartrate 5-24 mg by Health (Lopressor) 03:03: mouth 2 100 MG 39 (two) tablet times a day. metoprolol 202-0 Yes 100mg Q.5D Take 100 UT tartrate 5-23 mg by Health (Lopressor) 22:03: mouth 2 100 MG 39 (two) tablet times a day. aspirin 325 2020-0 Yes 325mg QD Take 325 U T MG tablet 5-23 mg by Health 22:03: mouth 1 39 (one) time each day. ciprofloxac 0 Yes Q.5D Take by UT in (Cipro) 08-25 mouth 2 Health 500 MG 22:03: (two) tablet 39 times a day. loperamide Yes 2mg Take 2 mg UT (Imodium -23 by mouth 4 Healt h A-D) 2 MG 22:03: (four) tablet 39 times a day if needed. HYDROcodone 0 Yes UT -acetaminop 08-25 Health hen ([place]) 22:03: 7.5-325 MG 39 tablet gabapentin Yes 300mg Q.[id number] Take 300 UT (Neurontin) 08-25 [id number] mg by H ealth 300 MG 22:03: 3D mouth 3 capsule 39 (three) times a day. DULoxetine Yes 20mg QD Take 20 mg U T (Cymbalta) 08-25 by mouth 1 Hea lth [address] 22:03: (one) time capsule 39 each day. Do not crush or chew. spironolact Yes QD Take by UT one 08-25 mouth 1 Health (Aldactone) 22:03: (one) time 25 MG 39 each day. tablet levothyroxi Yes Take by UT ne 08-25 mouth 1 Health (Tirosint) 22:03: (one) time 25 MCG 39 each day capsule before breakfast. Insulin Yes Inject UT Degludec 08-25 under the Health (TRESIBA 22:03: skin. FLEXTOUCH 39 SC) dulaglutide Yes 1.5mg Inject 1.5 UT (Trulicity) 5-23 mg under Heal th 1.5 22:03: the skin 1 MG/0.5ML 39 (one) time solution per week. pen-injecto r ATORVASTATI Yes Take by UT N CALCIUM 08-25 mouth. Health PO 22:03: 39 empaglifloz Yes Take by UT in 08-25 mouth. Health (Jardiance) 22:03: 25 MG 39 allopurinol Yes 100mg QD Take 100 U T (Zyloprim) 5-23 mg by Health 100 MG 22:03: mouth 1 tablet 39 (one) time each day. METFORMIN Yes Take by UT HCL PO 5-23 mouth. Health 22:03: 39 omeprazole Yes 20mg QD Take 20 mg U T (PriLOSEC) 5-23 by mouth 1 Hea lth [address] 22:03: (one) time capsule 39 each day. Do not crush or chew. furosemide Yes Take by UT (Lasix) 40 5-23 mouth. Health MG tablet 22:03: 39 isosorbide Yes 30mg QD Take 30 mg U T mononitrate 5-23 by mouth 1 He alth ER (Imdur) 22:03: (one) time 30 MG 24 hr 39 each day. tablet Do not crush or chew. metoprolol Yes 100mg Q.5D Take 100 UT tartrate 5-23 mg by Health (Lopressor) 22:03: mouth 2 100 MG 39 (two) tablet times a day. aspirin 325 Yes 325mg QD Take 325 U T MG tablet 5-23 mg by Health 22:03: mouth 1 39 (one) time each day. ciprofloxac 0 Yes Q.5D Take by UT in (Cipro) 5-23 mouth 2 Health 500 MG 22:03: (two) tablet 39 times a day. loperamide Yes 2mg Take 2 mg UT (Imodium 5-23 by mouth 4 Healt h A-D) 2 MG 22:03: (four) tablet 39 times a day if needed. HYDROcodone 0 Yes UT -acetaminop 5-23 Health hen ([place]) 22:03: 7.5-325 MG 39 tablet gabapentin 0 Yes 300mg Q.[id number] Take 300 UT (Neurontin) 5-23 [id number] mg by H ealth 300 MG 22:03: 3D mouth 3 capsule 39 (three) times a day. DULoxetine Yes 20mg QD Take 20 mg U T (Cymbalta) 5-23 by mouth 1 Hea lth [address] 22:03: (one) time capsule 39 each day. Do not crush or chew. spironolact Yes QD Take by UT one 5-23 mouth 1 Health (Aldactone) 22:03: (one) time 25 MG 39 each day. tablet levothyroxi Yes Take by UT ne 5-23 mouth 1 Health (Tirosint) 22:03: (one) time 25 MCG 39 each day capsule before breakfast. Insulin Yes Inject UT Degludec 5-23 under the Health (TRESIBA 22:03: skin. FLEXTOUCH 39 SC) dulaglutide Yes 1.5mg Inject 1.5 UT (Trulicity) 5-23 mg under Heal th 1.5 22:03: the skin 1 MG/0.5ML 39 (one) time solution per week. pen-injecto r ATORVASTATI Yes Take by UT N CALCIUM 5-23 mouth. Health PO 22:03: 39 empaglifloz Yes Take by UT in 5-23 mouth. Health (Jardiance) 22:03: 25 MG 39 allopurinol Yes 100mg QD Take 100 U T (Zyloprim) 5-23 mg by [facility] 100 MG 22:03: mouth 1 tablet 39 (one) time each day. METFORMIN Yes Take by UT HCL PO 5-23 mouth. Health 22:03: 39 omeprazole Yes 20mg QD Take 20 mg U T (PriLOSEC) 5-23 by mouth 1 Hea lth [address] 22:03: (one) time capsule 39 each day. Do not crush or chew. furosemide Yes Take by [place] (Lasix) 40 5-23 mouth. Health MG tablet 22:03: 39 isosorbide Yes 30mg QD Take 30 mg U T mononitrate 5-23 by mouth 1 He alth ER (Imdur) 22:03: (one) time 30 MG 24 hr 39 each day. tablet Do not crush or chew. metoprolol 0 Yes 100mg Q.5D Take 100 UT tartrate 5-23 mg by [facility] (Lopressor) 22:03: mouth 2 100 MG 39 (two) tablet times a day. aspirin 325 0 Yes 325mg QD Take 325 U T MG tablet 5-23 mg by Health 22:03: mouth 1 39 (one) time each day. ciprofloxac 2020-0 Yes Q.5D Take by UT in (Cipro) 08-25 mouth 2 Health 500 MG 22:03: (two) tablet 39 times a day. loperamide Yes 2mg Take 2 mg UT (Imodium 08-25 by mouth 4 Healt h A-D) 2 MG 22:03: (four) tablet 39 times a day if needed. HYDROcodone 0 Yes UT -acetaminop 08-25 Health hen ([place]) 22:03: 7.5-325 MG 39 tablet gabapentin Yes 300mg Q.[id number] Take 300 UT (Neurontin) 08-25 [id number] mg by H ealth 300 MG 22:03: 3D mouth 3 capsule 39 (three) times a day. DULoxetine Yes 20mg QD Take 20 mg U T (Cymbalta) 08-25 by mouth 1 Hea lth [address] 22:03: (one) time capsule 39 each day. Do not crush or chew. spironolact Yes QD Take by UT one 08-25 mouth 1 Health (Aldactone) 22:03: (one) time 25 MG 39 each day. tablet levothyroxi Yes Take by UT ne 08-25 mouth 1 Health (Tirosint) 22:03: (one) time 25 MCG 39 each day capsule before breakfast. Insulin Yes Inject UT Degludec 08-25 under the Health (TRESIBA 22:03: skin. FLEXTOUCH 39 SC) dulaglutide Yes 1.5mg Inject 1.5 UT (Trulicity) -23 mg under Heal th 1.5 22:03: the skin 1 MG/0.5ML 39 (one) time solution per week. pen-injecto r ATORVASTATI Yes Take by UT N CALCIUM 08-25 mouth. Health PO 22:03: 39 empaglifloz 0 Yes Take by UT in 08-25 mouth. Health (Jardiance) 22:03: 25 MG 39 allopurinol 0 Yes 100mg QD Take 100 U T (Zyloprim) 5- mg by Health 100 MG 22:03: mouth 1 tablet 39 (one) time each day. METFORMIN Yes Take by UT HCL PO 5-23 mouth. Health 22:03: 39 omeprazole Yes 20mg QD Take 20 mg U T (PriLOSEC) 5-23 by mouth 1 Hea lth [address] 22:03: (one) time capsule 39 each day. Do not crush or chew. furosemide Yes Take by UT (Lasix) 40 5-23 mouth. Health MG tablet 22:03: 39 isosorbide Yes 30mg QD Take 30 mg U T mononitrate 5-23 by mouth 1 He alth ER (Imdur) 22:03: (one) time 30 MG 24 hr 39 each day. tablet Do not crush or chew. topiramate Yes 50 mg = 1 Me moria 50 MG Oral 2-10 tab, PO, l Tablet 17:26: BID, # 60 Melecio n [Topamax] 00 tab, 4 Refill(s), Pharmacy: [facility] 482, 175.26, cm, 05/15/20 11:11:00 PRODUCTION COORDINATOR, Height, 108.636, kg, 05/15/20 11:11:00 PRODUCTION COORDINATOR, Weight Lactated No IV, start Ulysses tala Ringers 1-25 date l Injection 19:56: 04/29/20 Herm katrina 13:56:00 PRODUCTION COORDINATOR, stop date 04/29/20 13:56:00 PRODUCTION COORDINATOR propofol No 40 mg = 4 Ulysses tala 1-25 mL, l 19:33: Emulsion, [place] 00 IV, Once, first dose 04/29/20 13:33:00 PRODUCTION COORDINATOR, stop date 04/29/20 13:33:00 PRODUCTION COORDINATOR propofol No 40 mg = 4 Ulysses tala 1-25 mL, l 19:29: Emulsion, [place] 00 IV, Once, first dose 04/29/20 13:29:00 PRODUCTION COORDINATOR, stop date 04/29/20 13:29:00 PRODUCTION COORDINATOR LR 1,000 mL No 1,000 mL, M emoria 1-25 IV, 75 l 19:29: mL/hr, Yoel 00 start date 04/29/20 13:29:00 PRODUCTION COORDINATOR, 2.28, m2 Saline Lock No 10 mL, Ulysses tala Flush 1-25 Soln, IV l 19:29: Push, As [place] 00 Indicated PRN for flush, first dose 04/29/20 13:29:00 PRODUCTION COORDINATOR Demerol HCl No 12.5 mg = M emoria 1-25 0.5 mL, l 19:29: Injection, [place] 00 IV Push, Once PRN for shivers, first dose 04/29/20 13:29:00 PRODUCTION COORDINATOR Albuterol No 2.5 mg = 3 Me moria 0.83 MG/ML 1-25 mL, Soln, l Inhalant 19:29: NEB, Once Herm katrina Solution 00 PRN for wheezing, first dose 04/29/20 13:29:00 PRODUCTION COORDINATOR Levalbutero No 0.63 mg = M emoria l 0.21 1-25 3 mL, l MG/ML 19:29: Soln, NEB, Melecio n Inhalant 00 Once PRN Solution for [Xopenex] wheezing, first dose 04/29/20 13:29:00 PRODUCTION COORDINATOR Ondansetron No 4 mg = 2 Me moria 1-25 mL, l 19:29: Injection, [place] 00 IV Push, q15min PRN for nausea, order duration: 2 doses, first dose 04/29/20 13:29:00 PRODUCTION COORDINATOR, stop date Limited # of times Promethazin No 12.5 mg = M emoria e 1-25 0.5 mL, l 19:29: Injection, [place] 00 IM, Once PRN for vomiting, first dose 04/29/20 13:29:00 PRODUCTION COORDINATOR Hydralazine No 10 mg = Mem oria 1-25 0.5 mL, l 19:29: Injection, [place] 00 IV Push, As Indicated PRN for hypertensi on, first dose 04/29/20 13:29:00 PRODUCTION COORDINATOR, SBP Hold Parameter: less than 100 mmHg Diphenhydra No 25 mg = Mem oria mine 1-25 0.5 mL, l 19:29: Injection, [place] 00 IV Push, Once PRN for itching, first dose 04/29/20 13:29:00 PRODUCTION COORDINATOR propofol No 40 mg = 4 Ulysses tala 1-25 mL, l 19:26: Emulsion, [place] 00 IV, Once, first dose 04/29/20 13:26:00 PRODUCTION COORDINATOR, stop date 04/29/20 13:26:00 PRODUCTION COORDINATOR Lactated 2020-0 No IV, start Ulysses tala Ringers 1-25 date l Injection 19:25: 04/29/20 Herm 13:25:00 PRODUCTION COORDINATOR, stop date 04/29/20 13:25:00 PRODUCTION COORDINATOR lidocaine No 100 mg = 5 Me moria 1-25 mL, l 19:24: Injection, [place] 00 IV, Once, first dose 04/29/20 13:24:00 PRODUCTION COORDINATOR, stop date 04/29/20 13:24:00 PRODUCTION COORDINATOR LR 1,000 mL No 1,000 mL, M emoria 1-25 IV, 30 l 17:00: mL/hr, start date 04/29/20 11:00:00 PRODUCTION COORDINATOR, 2.28, m2 Lidocaine Yes 0.2 mL, Memor ia 2% 0.2 mL 04-29 Injection, l IV Start 17:00: Subcutaneo Her bradshaw [[facility]] 00 , Once PRN for other (see comment), first dose 04/29/20 11:00:00 PRODUCTION COORDINATOR topiramate 2019-0 Yes 50 mg = 1 Me moria 50 MG Oral 01-01 tab, PO, l Tablet 16:25: BID, # 60 Melecio n [Topamax] 00 tab, 4 Refill(s), Pharmacy: [facility] 482, 175.26, cm, 01/02/20 11:03:00 CDT, Height, 107.273, kg, 01/02/20 11:03:00 CDT, Weight Metolazone 2019-0 Yes 5 mg, PO, Me moria 9- Daily, # l 16:11: 15 tab, 0 Refill(s) proMETHazin 2020-0 2020- No 12.5mg 12.5 mg, Univers e 6-17 06-17 IV ity of (PHENERGAN) 06:30: 05:25 [place], [place] 12.5 mg in 00 :00 ONCE, 1 Medica l NaCl 0.9% dose, Wed Branc h (NS) 50 mL 09/20/19 at piggyback 0130, 50 mL metroNIDAZO 2019- 2020- No 500mg 500 mg, U nivers LE (FLAGYL) 09-19 Oral, ity of tablet 500 06:15: 05:10 ONCE, 1 [place] as mg 00 :00 dose, Wed Medical 09/20/19 at Branch 0115, KRISTY
Re ason for Anti-Infec tive: Documented Infection< br>Documen wesley Infection Site: Urine
D uration of Therapy: 7 days levoFLOXaci 2019- 2020- No 500mg 500 mg, IV Univers n in D5W 09-19 [facility], ity of (LEVAQUIN) 05:15: 05:33 ONCE, 1 [place] 500 mg/100 00 :00 dose, Wed Medi cherry mL 09/20/19 at [place] 0015, 100 500 mg mL
Reas on for Anti-Infec tive: Documented Infection< br>Documen [place] Infection Site: Urine
D uration of Therapy: 7 days FENTanyl PF 2020- No 50ug 50 mcg, Un amauri (SUBLIMAZE 09-19 Slow IV ity o f (PF)) 04:30: 03:29 Push, [place] injection 00 :00 ONCE, 1 Medical 50 mcg dose, [facility] 09/19/19 at 2330, STAT iohexol 2019-0 2020- No 115mL 115 mL, Unive rs (OMNIPAQUE 09-19 Intravenou it y of 350 02:15: 02:06 s, ONCE, 1 [place] BULK-100 00 :00 dose, Tue Medica l mL) 09/19/19 at [place] injection 2115, 115 mL Routine FENTanyl PF 2019- 2020- No 50ug 50 mcg, Un amauri (SUBLIMAZE 09-19 Slow IV ity o f (PF)) 01:45: 01:00 Push, [place] injection 00 :00 ONCE, 1 Medical 50 mcg dose, [facility] 09/19/19 at 2045, STAT NaCl 0.9% 2019- 2020- No 500mL at 999 Univ ers (NS) bolus 09-19 mL/hr, 500 it y of infusion 01:15: 02:55 mL, IV [place] 500 mL 00 :00 Infusion, Medical ONCE, 1 Branch dose, 09/19/19 at 2015, KRISTY proMETHazin 2020-0 Yes [id number] 25mg Take 1 Univers e 25 mg 6-17 tablet by ity of tablet 00:00: mouth [place] 00 every 6 Medical (six) Branch hours as needed for Nausea and Vomiting (N/V). proMETHazin 2020-0 2020- No [id number] 25mg Take 1 Univers e 25 mg 6-17 12-06 tablet by ity of tablet 00:00: 00:00 mouth [place] 00 :00 every 6 Medical (six) Branch hours as needed for Nausea and Vomiting (N/V). levoFLOXaci 2020-0 2020- No [id number] 500mg Take 1 Univers n 500 mg -19 09-28 tablet by ity o f tablet 00:00: 04:59 mouth [place] 00 :00 every 24 Medical (twenty-fo Branch ur) hours for 10 days. metroNIDAZO 2019-0 2019- No [id number] 500mg Take 1 Univers LE 500 mg -19 09-28 tablet by ity of tablet 00:00: 04:59 mouth [place] 00 :00 every 8 Medical (eight) Branch hours for 10 days. furosemide 2020-0 Yes hypertensio 40mg Take [address] [facility] (LASIX) 40 3-09 n by mouth [facility] tablet 12:19: once in Medic al 08 morning. Center DULoxetine 2020-0 Yes 30mg Take [address] [facility] [address] [facility] (CYMBALTA) 3-09 by mouth [facility] 30 MG 12:19: once in Medical capsule 08 evening. Center gabapentin 2020-0 Yes 300mg Q.5D Take [address] (NEURONTIN) 3-09 mg by [facility] 300 MG 12:19: mouth 2 Medical capsule 08 (two) Center times daily. atorvastati 2020-0 Yes 40mg QD Take [address] [facility] n (LIPITOR) 3-09 by mouth Luke s 40 MG 12:19: daily. Medical tablet 08 Center levothyroxi 2020-0 Yes 25ug Take [address] [facility] ne 3-09 mcg by [facility] (SYNTHROID, 12:19: mouth Medic al LEVOTHROID) 08 Every Center 25 MCG morning on tablet an empty stomach. tamsulosin 2020-0 Yes .4mg Take 0.[address] [facility] (FLOMAX) 3-09 mg by [facility] 0.4 mg Cap 12:19: mouth once M edical 24 hr 08 in Center capsule morning. metoprolol 2020-0 Yes 100mg QD Take [address] succinate 3-09 mg by [facility] (TOPROL-XL) 12:19: mouth Medic al 100 MG 24 08 daily. Center hr tablet omeprazole 2020-0 Yes 20mg Take [address] (PRILOSEC 3-09 by mouth [facility] OTC) 20 MG 12:19: once in Medi cherry tablet 08 morning. Center insulin 2020-[address] [facility] lispro 3-09 subcutaneo [facility] (HUMALOG) 12:19: usly 3 Medica l 100 unit/mL 08 (three) Cente r InPn times daily before meals. insulin 2020-0 Yes 60U Inject 60 [facility] degludec 3-09 Units [facility] (TRESIBA 12:19: subcutaneo Med ical FLEXTOUCH 08 usly once Cente r U-200) 200 at unit/mL (3 bedtime. mL) InPn metFORMIN 2020-0 Yes 1000mg Q.5D Take 1,[address] [facility] (GLUCOPHAGE 3-09 mg by [facility] ) 1000 MG 12:19: mouth 2 Medic al tablet 08 (two) Center times daily. empaglifloz 2020-0 Yes 25mg Take [address] [facility] in 3-09 by mouth [facility] (JARDIANCE) 12:19: once in Med ical 25 mg 08 morning. Center tablet dulaglutide 2020-0 Yes 1.5mg Inject 1.[address] [facility] (TRULICITY) 3-09 mg [facility] 1.5 mg/0.5 12:19: subcutaneo M edical mL PnIj 08 usly every Center 7 days Every Wednesday.Onc e a week. . bromfenac 2020-0 Yes .075% Q.5D Apply [facility] (BROMSITE) 3-09 0.075 % to Skye es 0.075 % 12:19: eye(s) 2 Medica l Drop 08 (two) Center times daily Administer ed by post shots in the eye. . AMILoride 2020-0 Yes 5mg Take [address] [facility] (MIDAMOR) 5 3-09 by mouth 2 Chloe kes MG tablet 12:19: (two) Medical 08 times Center daily with breakfast and dinner Patient states he takes two 5mg tablets twice daily before breakfast and dinner. . furosemide 2020-0 Yes hypertensio 40mg Take [address] [facility] (LASIX) 40 3-09 n by mouth [facility] MG tablet 12:19: once in Medic al 08 morning. Center DULoxetine 2020-0 Yes 30mg Take [address] (CYMBALTA) 3-09 by mouth [facility] 30 MG 12:19: once in Medical capsule 08 evening. Center gabapentin 2020-0 Yes 300mg Q.5D Take [address] (NEURONTIN) 3-09 mg by [facility] 300 MG 12:19: mouth 2 Medical capsule 08 (two) Center times daily. atorvastati 2020-0 Yes 40mg QD Take [address] [facility] n (LIPITOR) 3-09 by mouth Luke s 40 MG 12:19: daily. Medical tablet 08 Center levothyroxi 2020-0 Yes 25ug Take [address] [facility] ne 3-09 mcg by [facility] (SYNTHROID, 12:19: mouth Medic al LEVOTHROID) 08 Every Center 25 MCG morning on tablet an empty stomach. tamsulosin 2020-0 Yes .4mg Take 0.[address] [facility] (FLOMAX) 3-09 mg by [facility] 0.4 mg Cap 12:19: mouth once M edical 24 hr 08 in Center capsule morning. metoprolol 2020-0 Yes 100mg QD Take [address] succinate 3-09 mg by [facility] (TOPROL-XL) 12:19: mouth Medic al 100 MG 24 08 daily. Center hr tablet omeprazole 2020-0 Yes 20mg Take [address] (PRILOSEC 3-09 by mouth [facility] OTC) 20 MG 12:19: once in Medi cherry tablet 08 morning. Center insulin 2020-[address] [facility] lispro 3-09 subcutaneo [facility] (HUMALOG) 12:19: usly 3 Medica l 100 unit/mL 08 (three) Cente r InPn times daily before meals. insulin 2020-0 Yes 60U Inject 60 [facility] degludec 3-09 Units [facility] (TRESIBA 12:19: subcutaneo Med ical FLEXTOUCH 08 usly once Cente r U-200) 200 at unit/mL (3 bedtime. mL) InPn metFORMIN 2020-0 Yes 1000mg Q.5D Take 1,[address] [facility] (GLUCOPHAGE 3-09 mg by [facility] ) 1000 MG 12:19: mouth 2 Medic al tablet 08 (two) Center times daily. empaglifloz 2020-0 Yes 25mg Take [address] [facility] in 3-09 by mouth [facility] (JARDIANCE) 12:19: once in Med ical 25 mg 08 morning. Center tablet dulaglutide 2020-0 Yes 1.5mg Inject 1.[address] [facility] (TRULICITY) 3-09 mg [facility] 1.5 mg/0.5 12:19: subcutaneo M edical mL PnIj 08 usly every Center 7 days Every Wednesday.Onc e a week. . bromfenac 2020-0 Yes .075% Q.5D Apply [facility] (BROMSITE) 3-09 0.075 % to Skye es 0.075 % 12:19: eye(s) 2 Medica l Drop 08 (two) Center times daily Administer ed by MD post shots in the eye. . AMILoride 2020-0 Yes 5mg Take [address] [facility] (MIDAMOR) 5 3-09 by mouth 2 Chloe kes MG tablet 12:19: (two) Medical 08 times Center daily with breakfast and dinner Patient states he takes two 5mg tablets twice daily before breakfast and dinner. . ergocalcife 2020-0 Yes [id number] Take Univers rol, 2-22 50,000 ity of vitamin d2, 00:00: Units by [place] 2,500 unit 00 mouth Medical Cap weekly. Branch ergocalcife 2020-0 Yes [id number] Take [facility], 2-22 50,000 ity of vitamin d2, 00:00: Units by [place] 2,500 unit 00 mouth Medical Cap weekly. Branch ergocalcife 2020-0 Yes [id number] Take [facility], 2-22 50,000 ity of vitamin d2, 00:00: Units by [place] 2,500 unit 00 mouth Medical Cap weekly. Branch ergocalcife 2020-0 202- No [id number] Take [facility] ro[facility], 2-22 12-06 50,000 ity of vitamin d2, 00:00: 00:00 Units by [place] 2,500 unit 00 :00 mouth Medical Cap weekly. Branch calcitrioL 2020-0 Yes [id number] .5ug Take 1 U nivers 0.5 mcg 2-21 capsule by ity of capsule 00:00: mouth [place] 00 daily. Medical [facility] calcitrioL 2020-0 Yes [id number] .5ug Take 1 [facility] n[facility] 0.5 mcg 2-21 capsule by ity of capsule 00:00: mouth [place] 00 daily. Medical Branch calcitrioL 2020-0 Yes [id number] .5ug Take 1 [facility] nivers 0.5 mcg 2-21 capsule by ity of capsule 00:00: mouth [place] 00 daily. Medical Branch calcitrioL 2020-0 2021- No [id number] .5ug Take 1 [facility] 0.5 mcg 2-21 12-06 capsule by ity o f capsule 00:00: 00:00 mouth [place] 00 :00 daily. Medical Branch DULoxetine 2020-0 Yes 30mg Take 30 mg U nivers 30 mg 2-20 by mouth ity of capsule 21:41: daily. [place] [address] Medical Branch gabapentin 2020-0 Yes 900mg Take 900 Un amauri 300 mg 2-20 mg by ity of capsule 21:41: mouth 2 [place] [address] (two) Medical times Branch daily. omeprazole 2020-0 Yes 20mg Take 20 mg U nivers 20 mg 2-20 by mouth ity of capsule 21:41: daily. [place] [address] Medical Branch metFORMIN 2020-0 Yes 1000mg Take 1,000 Univers 1,000 mg 2-20 mg by ity of tablet 21:41: mouth 2 [place] [address] (two) Medical times Branch daily with meals. empaglifloz 2020-0 Yes 25mg Take 25 mg Univers in 2-20 by mouth ity of (JARDIANCE) 21:41: [place]. [place] 25 [place] Tab 16 Medical Branch dulaglutide 2020-0 Yes 1.5mg inject 1.5 Univers (TRULICITY) 2-20 mg under ity of 1.5 mg/0.5 21:41: the skin [place] as mL PnIj 16 weekly. Medical Indication Branch s: on wednesday insulin 2020-0 Yes 60U inject 60 Unive rs degludec 2-20 Units ity of (TRESIBA 21:41: under [place] FLEXTOUCH 16 skin at Medical U-200) 200 bedtime. Branc h unit/mL (3 mL) InPn levothyroxi 2020-0 Yes 25ug Take 25 Uni vers ne 25 mcg 2-20 mcg by ity of tablet 21:41: mouth [place] 16 every Medical morning. Branch insulin 2020-0 Yes inject Univers lispro 2-20 under the ity of (HUMALOG 21:41: skin. [place] [address] Indication Medical KWIKPEN s: per Branch U-100) 100 sliding unit/mL scale as inph needed. DULoxetine 2020-0 Yes 30mg Take 30 mg U nivers 30 mg 2-20 by mouth ity of capsule 21:41: daily. [address] Branch gabapentin 2020-0 Yes 900mg Take 900 Un amauri 300 mg 2-20 mg by ity of capsule 21:41: mouth 2 [place] [address] (two) Medical times [place] daily. omeprazole 2020-0 Yes 20mg Take 20 mg U nivers 20 mg 2-20 by mouth ity of capsule 21:41: daily. [address] metFORMIN 2020-0 Yes 1000mg Take 1,000 Univers 1,000 mg 2-20 mg by ity of tablet 21:41: mouth 2 [place] [address] (two) Medical times [place] daily with meals. empaglifloz 2020-0 Yes 25mg Take 25 mg Univers in 2-20 by mouth ity of (JARDIANCE) 21:41: daily. [place] 25 mg [facility] dulaglutide 2020-0 Yes 1.5mg inject 1.5 Univers (TRULICITY) 2-20 mg under ity of 1.5 mg/0.5 21:41: the skin [place] as mL PnIj 16 weekly. Medical Indication Branch s: on wednesday insulin 2020-0 Yes 60U inject 60 Unive rs degludec 2-20 Units ity of (TRESIBA 21:41: under [place] FLEXTOUCH 16 skin at Medical U-200) 200 bedtime. Branc h unit/mL (3 mL) InPn levothyroxi 2020-0 Yes 25ug Take 25 Uni vers ne 25 mcg 2-20 mcg by ity of tablet 21:41: mouth [place] 16 every Medical morning. Branch insulin 2020-0 Yes inject Univers lispro 2-20 under the ity of (HUMALOG 21:41: skin. [place] [address] Indication Medical KWIKPEN s: per Branch U-100) 100 sliding unit/mL scale as inph needed. DULoxetine 2020-0 Yes 30mg Take 30 mg U nivers 30 mg 2-20 by mouth ity of capsule 21:41: daily. [address] Branch gabapentin 2020-0 Yes 900mg Take 900 Un amauri 300 mg 2-20 mg by ity of capsule 21:41: mouth 2 [place] [address] (two) Medical times Branch daily. omeprazole 2020-0 Yes 20mg Take 20 mg U nivers 20 mg 2-20 by mouth ity of capsule 21:41: daily. [address] Branch metFORMIN 2020-0 Yes 1000mg Take 1,000 Univers 1,000 mg 2-20 mg by ity of tablet 21:41: mouth 2 [place] [address] (two) Medical times [place] daily with meals. empaglifloz 2020-0 Yes 25mg Take 25 mg Univers in 2-20 by mouth ity of (JARDIANCE) 21:41: daily. [place] 25 mg [facility] Medical Branch dulaglutide 2019-0 Yes 1.5mg inject 1.5 Univers (TRULICITY) 2-20 mg under ity of 1.5 mg/0.5 21:41: the skin [place] as mL PnIj 16 weekly. Medical Indication Branch s: on wednesday insulin 2019-0 Yes 60U inject 60 Unive rs degludec 2-20 Units ity of (TRESIBA 21:41: under the [place] FLEXTOUCH 16 skin at [facility] U-200) 200 bedtime. Branc h unit/mL (3 mL) InPn levothyroxi 2020-0 Yes 25ug Take 25 Uni vers ne 25 mcg 2-20 mcg by ity of tablet 21:41: mouth [place] [address] every Medical morning. Branch insulin 2019-0 Yes inject Univers lispro 2-20 under the ity of (HUMALOG 21:41: skin. [place] JOE 16 Indication Medical KWIKPEN s: per Branch U-100) 100 sliding unit/mL scale as inph needed. furosemide 2019-0 2020- No 40mg Take 40 mg Univers 40 mg 2-20 02-20 by mouth ity of tablet 19:18: 00:00 every [place] 25 :00 morning Medical and Branch evening. furosemide 2020-0 Yes 80mg 80 mg, Unive rs (LASIX) 2-20 Oral, ity of tablet 80 15:00: QAM+PM, [place] mg 00 First dose Medical on [place] Branch 05/25/19 at 0900, Until Discontinu ed, Routine losartan 2020-0 Yes 50mg 50 mg, Univers (COZAAR) 2-20 Oral, ity of tablet 50 15:00: DAILY, [place] mg 00 First dose Medical on [place] Branch 05/25/19 at 0900, Until Discontinu ed, Routine furosemide 2019-0 2020- No 10mg/h 10 mg/hr Univers (LASIX) 250 2-20 -20 (10 ity of mg in NaCl 00:30: 14:44 mL/hr), IV [place] 0.9% (NS) 00 :00 Infusion, Medic al infusion CONTINUOUS Branc h , Starting 05/24/19 at 1830, Until [place] 05/25/19 at 0844 aMILoride 5 2020-0 Yes [id number] 10mg Take 2 Univers mg tablet 2-20 tablets by ity of 00:00: mouth 2 [place] 00 (two) Medical times Branch daily before breakfast and dinner. HYDROcodone 2020-0 Yes [id number] 1{tbl} Take 1 Univers -acetaminop 2-20 tablet by ity of hen 10-325 00:00: mouth [place] mg tablet 00 every 6 Medical (six) Branch hours as needed for Pain (scale 4-6). metOLazone 2020-0 Yes [id number] Take 1 U nivers 5 mg tablet 2-20 tablet po ity of 00:00: qd prn for [place] 00 weight Medical gain more Branch than 2 pounds or swelling thiamine 2020-0 Yes [id number] 500mg Take 1 Un amauri HCl 2-20 tablet by ity of (VITAMIN 00:00: mouth [place] B-1) 500 mg 00 daily. Medica l tablet Branch bumetanide 2020-0 Yes [id number] 2mg Take 1 U nivers 2 mg tablet 2-20 tablet by ity of 00:00: mouth 2 [place] 00 (two) Medical times Branch daily. aMILoride 5 2020-0 Yes [id number] 10mg Take 2 Univers mg tablet 2-20 tablets by ity of 00:00: mouth 2 [place] 00 (two) Medical times Branch daily before breakfast and dinner. HYDROcodone 2020-0 Yes [id number] 1{tbl} Take 1 Univers -acetaminop 2-20 tablet by ity of hen 10-325 00:00: mouth [place] mg tablet 00 every 6 Medical (six) Branch hours as needed for Pain (scale 4-6). metOLazone 2020-0 Yes [id number] Take 1 U nivers 5 mg tablet 2-20 tablet po ity of 00:00: qd prn for weight Medical gain more Branch than 2 pounds or swelling thiamine 2020-0 Yes [id number] 500mg Take 1 Un amauri HCl 2-20 tablet by ity of (VITAMIN 00:00: mouth [place] B-1) 500 mg 00 daily. Medica l tablet Branch bumetanide 2020-0 Yes [id number] 2mg Take 1 U nivers 2 mg tablet 2-20 tablet by ity of 00:00: mouth 2 [place] 00 (two) Medical times Branch daily. HYDROcodone 2020-0 Yes [id number] 1{tbl} Take 1 Univers -acetaminop 2-20 tablet by ity of hen 10-325 00:00: mouth [place] mg tablet 00 every 6 Medical (six) Branch hours as needed for Pain (scale 4-6). metOLazone 2020-0 Yes [id number] Take 1 U nivers 5 mg tablet 2-20 tablet po ity of 00:00: qd prn for weight Medical gain more Branch than 2 pounds or swelling aMILoride 5 2020-0 Yes [id number] 10mg Take 2 Univers mg tablet 2-20 tablets by ity of 00:00: mouth 2 (two) Medical times Branch daily before breakfast and dinner. HYDROcodone 2020-0 Yes [id number] 1{tbl} Take 1 Univers -acetaminop 2-20 tablet by ity of hen 10-325 00:00: mouth [place] mg tablet 00 every 6 Medical (six) Branch hours as needed for Pain (scale 4-6). metOLazone 2020-0 Yes [id number] Take 1 U nivers 5 mg tablet 2-20 tablet po ity of 00:00: qd prn for weight Medical gain more Branch than 2 pounds or swelling thiamine 2020-0 Yes [id number] 500mg Take 1 Un amauri HCl 2-20 tablet by ity of (VITAMIN 00:00: mouth [place] B-1) 500 mg 00 daily. Medica l tablet Branch bumetanide 2020-0 Yes [id number] 2mg Take 1 U nivers 2 mg tablet 2-20 tablet by ity of 00:00: mouth 2 [place] (two) Medical times Branch daily. aMILoride 5 2020- No [id number] 10mg Take 2 Univers mg tablet 05-25- tablets by ity of 00:00: 00:00 mouth 2 [place] 00 :00 (two) Medical times Branch daily before breakfast and dinner. thiamine 2020- No [id number] 500mg Take 1 U nivers HCl -20 - tablet by ity of (VITAMIN 00:00: 00:00 mouth [place] B-1) 500 mg 00 :00 daily. Medica l tablet Branch bumetanide 2020- No [id number] 2mg Take 1 Univers 2 mg tablet 05-25- tablet by it y of 00:00: 00:00 mouth 2 [place] 00 :00 (two) Medical times Branch daily. thiamine 2019- Yes 100mg 100 mg, Unive rs (VITAMIN 2-18 Slow IV ity of B1) 22:45: Push, [place] injection 00 DAILY, Medical 100 mg First dose Branch on Wed05/23/19 at 1645, Until Discontinu ed, Routine aMILoride 2019-0 Yes 10mg 10 mg, Univer s (MIDAMOR) 05-22 Oral, ity of tablet 10 22:30: BIDAC, [place] mg 00 First dose Medical on Wed [place] 05/22/19 at 1630, Until Discontinu ed, Routine furosemide 2019- No 80mg 80 mg, IV U nivers (LASIX) 05-22 Push, TID, ity o f injection 20:00: 23:25 First dose [place] 80 mg 00 :56 on [facility] 05/22/19 at Branch 1400, Until Discontinu ed, KRISTY KCL 2019-0 2020- No 40meq 40 mEq, Univers (KLOR-CON 05-22 Oral, ity of M20) tablet 16:45: 17:35 ONCE, 1 [place] 40 mEq 00 :00 dose, [facility] 05/22/19 at Branch 1045, Routine metOLazone 2020-0 Yes 5mg 5 mg, Univer s (ZAROXOLYN) 2-17 Oral, ity of tablet 5 mg 16:00: DAILY, [place] 00 First dose Medical on [facility] 05/22/19 at 1000, Until Discontinu ed, Routine insulin 2020-0 Yes 65U 65 Units, Unive rs glargine 2-17 Subcutaneo ity o f (LANTUS 03:00: us, QHS, [place] U-100) 00 First dose Medical injection on [place] Branch 65 Units 05/21/19 at 2100, Until Discontinu ed omeprazole 2020-0 Yes 20mg 20 mg, Unive rs (PRILOSEC) 2-17 Oral, BID, ity of capsule 20 02:00: First dose [place] mg 00 on [facility] 05/21/19 at Branch 2000, Until Discontinu ed, Routine furosemide 2020-0 2020- No 80mg 80 mg, IV U nivers (LASIX) 2-17 02-17 Push, ity of injection 02:00: 15:49 Q12H, [place] 80 mg 00 :39 First dose Medical on [facility] 05/21/19 at 2000, Until Discontinu ed, KRISTY KCL 2020-0 2020- No 40meq 40 mEq, Univers (KLOR-CON 16 -16 Oral, ity of M20) tablet 18:00: 18:12 ONCE, 1 [place] 40 mEq 00 :00 dose, [facility] 05/21/19 at Branch 1200, Routine HYDROcodone 2020-0 Yes 1{tbl} 1 tablet, Univers -acetaminop 2-16 Oral, ity of hen (NORCO) 03:11: Q6HPRN, [place] 10-325 mg 35 Starting Medica l tablet 1 [facility] tablet 05/20/19 at 2111, Until Discontinu ed, Routine, Pain (scale 4-6) calcitrioL 2020-0 Yes .5ug 0.5 mcg, Uni vers (ROCALTROL) 2-15 Oral, ity of capsule 0.5 15:00: DAILY, [place] mcg 00 First dose Medical on [facility] 05/20/19 at 0900, Until Discontinu ed, Routine ergocalcife 2020-0 Yes [id number] 50,000 Un amauri rol 2-15 Units, ity of (vitamin 15:00: Oral, [place] d2) 00 QWEEKLY, Medical (CALCIFEROL First dose Br anch ) capsule on [facility] 50,000 05/20/19 at Units 0900, Until Discontinu ed, Routine losartan 2020-0 2020- No 100mg 100 mg, Univ ers (COZAAR) 2-15 02-20 Oral, ity of tablet 100 15:00: 03:05 DAILY, [place] mg 00 :38 First dose Medical on Sat Branch 05/20/19 at 0900, Until Discontinu ed, Routine simethicone 2020-0 Yes 80mg 80 mg, Univ ers (GAS RELIEF 2-15 Oral, ity of (SIMETHICON 02:46: PC+HSPRN, [place] E)) 44 Starting Medical chewable Fri Branch tablet 80 05/19/19 at mg 2045, Until Discontinu ed, Routine, Gas alum-mag 2020-0 Yes 30mL 30 mL, Univers hydroxide-s -15 Oral, ity of imeth 02:46: Q6HPRN, [place] (MAALOX 31 Starting Medical PLUS / Fri Branch MAG-AL 05/19/19 at PLUS) 2045, 200-200-20 Until mg/5 mL Discontinu suspension ed, 30 mL Routine, Indigestio n aMILoride 2019-0 2020- No 10mg 10 mg, Unive rs (MIDAMOR) 05-19-17 Oral, ity of tablet 10 17:30: 15:37 DAILY, [place] mg 00 :24 First dose Medical on Wed Branch 05/19/19 at 1130, Until Discontinu ed, Routine DULoxetine 2019-0 Yes 30mg 30 mg, Unive rs (CYMBALTA) - Oral, ity of capsule 30 15:00: DAILY, [place] mg 00 First dose Medical on Wed Branch 05/19/19 at 0900, Until Discontinu ed, Routine Sliding 2020-0 Yes Subcutaneo Univ ers Scale 2-14 us, TID ity of Insulin - 14:00: MEALS+HS, [place] Lispro 00 First dose Medical (HumaLOG) + on Wed Branch Fsbg 05/19/19 at Testing 0800, Until Discontinu ed, Routine furosemide 2019-0 2020- No 40mg 40 mg, IV U nivers (LASIX) 05-19-16 Push, ity of injection 14:00: 21:46 Q12H, [place] 40 mg 00 :11 First dose Medical on Fri Branch 05/19/19 at 0800, Until Discontinu ed, KRISTY glucagon 2020-0 Yes 1mg 1 mg, Univers (GLUCAGEN -14 Intramuscu ity of DIAGNOSTIC 03:22: lar, PRN, [place] KIT) 19 Starting Medical injection 1 [place] mg 05/18/19 at 2121, Until Discontinu ed, KRISTY, Blood Glucose < or = 70 mg/dL and patient is unable to swallow or has mental changes. dextrose 50 2020-0 Yes 25mL 25 mL, Univ ers % in water 2-14 Slow IV ity of (D50W) 03:22: Push, PRN, [place] injection 19 Starting Medica l 25 mL [place] Branch 05/18/19 at 2121, Until Discontinu ed, KRISTY, Blood Glucose < or = 70 mg/dL and patient is unable to swallow or has mental status changes. gabapentin 2020-0 Yes 900mg 900 mg, Uni vers (NEURONTIN) 2-14 Oral, BID, it y of capsule 900 03:00: First dose [place] mg 00 on [place] Medical 05/18/19 at Branch 2100, Until Discontinu ed, Routine metoprolol 2020-0 Yes 100mg 100 mg, Uni vers tartrate 2-14 Oral, BID, ity o f (LOPRESSOR) 03:00: First dose [place] tablet 100 00 on [place] Medical mg 05/18/19 at Branch 2100, Until Discontinu ed, Routine insulin 2020-0 2020- No 60U 60 Units, Univ ers glargine -14 -16 Subcutaneo ity of (LANTUS 03:00: 21:46 us, [facility], [place] U-100) 00 :48 First dose Medical injection on [place] Branch 60 Units 05/18/19 at 2100, Until Discontinu ed aspirin 325 2020-0 2020- No 325mg Take 325 Univers mg tablet 05-19-13 mg by ity of 02:47: 00:00 mouth [place] 45 :00 daily. Medical Branch acetaminoph 2020-0 2020- No 650mg 650 mg, U nivers en 2-14 -14 Oral, ity of (TYLENOL) 02:30: 01:23 ONCE, 1 [place] tablet 650 00 :00 dose, [place] Medi cherry mg 05/18/19 at Branch 2030, KRISTY acetaminoph 2020-0 Yes 650mg 650 mg, Un amauri en 2-14 Oral, ity of (TYLENOL) 02:14: Q6HPRN, [place] tablet 650 52 Starting Medic al mg [place] 05/18/19 at 2014, Until Discontinu ed, Routine, Pain (scale 1-3) furosemide 2019- 2020- No 40mg 40 mg, IV U nivers (LASIX) 05-19 Push, ity of injection 02:00: 01:06 ONCE, 1 [place] 40 mg 00 :00 dose, [place] [facility] 05/18/19 at Branch 2000, KRISTY Phenazopyri 2018-04 Yes 200 mg = 1 Memoria dine 18 tab, PO, l hydrochlori 14:37: TID, PRN He rmann de 200 MG 00 Dysuria, X Oral Tablet 3 day, # 9 [Pyridium] tab, 0 Refill(s), Pharmacy: [facility] [id number] lidocaine 2018-04 No Route: IV, Me moria (ANES) 04-22 Drug form: l 14:35: INJ, ONCE, Stop date: 02/20/19 8:35:00 PRODUCTION COORDINATOR fentaNYL 2018-04 No Route: IV, Mem oria (ANES) 04-22 Drug form: l 14:35: INJ, ONCE, Stop date: 02/20/19 8:35:00 PRODUCTION COORDINATOR propofol 2018-04 No Route: IV, Mem oria (ANES) 04-22 Drug form: l 14:35: INJ, ONCE, Stop date: 02/20/19 8:35:00 PRODUCTION COORDINATOR ceFAZolin 2018-04 No Route: IV, Me moria (ANES) 04-22 Drug form: l 14:35: INJ, ONCE, Stop date: 02/20/19 8:35:00 PRODUCTION COORDINATOR ondansetron 2018-04 No Route: IV, Memoria (ANES) 04-22 Drug form: l 14:35: INJ, ONCE, Stop date: 02/20/19 8:35:00 PRODUCTION COORDINATOR dexamethaso 2018-04 No Route: IV, Memoria ne (ANES) 04-22 Drug form: l 14:35: INJ, ONCE, Stop date: 02/20/19 8:35:00 PRODUCTION COORDINATOR Hydralazine 2018-04 No Notes: [place]a 04-22 (Same as: l 14:24: Apresoline ) Push over 5 minutes Labetalol 2018-04 No 10 mg, 2 [place] 1-18 mL, Route: l 14:24: IVP, Drug [place] 00 form: INJ, Q5Min, Dosing Weight 105, kg, PRN Elevated BP, Start date: 02/20/19 8:24:00 PRODUCTION COORDINATOR, Duration: 5 doses or times, Stop date: Limited # of times, 0 Ketorolac 2018-04 Yes 4 days Memor ia -18 l 14:24: MEDICATION WASTE Product Size: 30 mg Product Wasted: ___ mg Oxycodone 2018-04 No 5 mg, Memoria Hydrochlori 04-22 Route: PO, l de 5 MG 14:24: Drug form: Herm katrina Oral Tablet 00 TAB, Q4H, Dosing Weight 105, kg, PRN Pain Score 4-6, Start date: 02/20/19 8:24:00 PRODUCTION COORDINATOR, Duration: 30 day, Stop date: 03/22/19 8:23:00 PRODUCTION COORDINATOR Fentanyl 2018-04 No Notes: Memoria 18 (Same as: l 14:24: Sublimaze) Preservat nupur free. Oxycodone 2018-04 No 10 mg, Memori a 18 Route: NG, l 14:24: Drug form: Yoel 00 LIQ, Q4H, Dosing Weight 105, kg, PRN Pain Score 7-10, Start date: 02/20/19 8:24:00 PRODUCTION COORDINATOR, Duration: 30 day, Stop date: 03/22/19 8:23:00 PRODUCTION COORDINATOR Hydromorpho 2018-04 No Notes: Ulysses tala ne -18 Same as: l 14:24: Dilaudid Flumazenil 2018-04 No Notes: Memor ia -18 (Same as: l 14:24: Romazicon) Naloxone 2018-04 No Notes: Memoria -18 Same as l 14:24: Narcan Atropine 2018-04 No Notes: Mem oria -18 MEDICATION l 14:24: WASTE Product Size: 0.4 mg Product Wasted: ___ mg Diphenhydra 2018-04 No Notes: Ulysses tala mine -18 (Same as: l 14:24: Benadryl) Racepinephr 2018-04 No Notes: Ulysses tala ine -18 (racepinep l 14:24: hrine *2.25% inh 0.5ml SOLN) (Same as:S2) Meperidine 2018-04 No Notes: Memor ia 1-18 (Same as: l 14:24: Demerol) "Use Precaution in Elderly, Seizure disorders, and Renal impairment " Ondansetron 2018-04 No Notes: Ulysses tala 1-18 (Same as: l 14:24: Zofran) MEDICATION WASTE Product Size: 4 mg Product Wasted: ___ mg Dexamethaso 2018-04 No Notes: U[place]es tala ne -18 Concentrat l 14:24: ion: Yoel 00 4mg/ml Promethazin 2018-04 No Notes: Do M emoria e -18 not give l 14:24: IV push. (Same as: Phenergan) 72 HR 2018-04 Yes Notes: Memoria Scopolamine -18 Change l 0.0139 14:24: patch [place] MG/HR 00 every 72 Transdermal hours Patch (Same as: Transderm- Scop) Insulin 2018-04 No Notes: Memoria Lispro -18 (Same as: l 14:24: Humalog) Roll in palms of hands gently; Do not shake vigorously . WASTE: F/P - Black; E - Municipal Trash Bin Stable for 28 days at room temperatur e. Expires in days from ____Date midazolam 2018-04 No Route: IV, Me moria (ANES) -18 Drug form: l 14:24: SOLN, [place] 00 ONCE, Stop date: 02/20/19 8:24:00 PRODUCTION COORDINATOR Reglan 2018-04 No 20 mg, Memoria 1-18 Route: IV, l 14:00: PRE OP, Yoel 00 Dosing Weight 105, kg, Start date: 02/20/19 8:00:00 PRODUCTION COORDINATOR, Duration: 30 day, Stop date: 03/22/19 7:59:00 PRODUCTION COORDINATOR Famotidine 2018-04 No 20 mg, Memor ia 18 Route: IV, l 14:00: PRE OP, Yoel 00 Dosing Weight 105, kg, Start date: 02/20/19 8:00:00 PRODUCTION COORDINATOR, Duration: 30 day, Stop date: 03/22/19 7:59:00 PRODUCTION COORDINATOR Acetaminoph 2018-04 No 1,000 mg, M emoria en 18 Route: PO, l 14:00: PRE OP, [place] Dosing Weight 105, kg, Start date: 02/20/19 8:00:00 PRODUCTION COORDINATOR, Duration: 30 day, Stop date: 03/22/19 7:59:00 PRODUCTION COORDINATOR Lactated 2018-04 No Route: IV, Mem oria [place] -18 Total l Injection 13:48: Volume: Hayley nn IV (ANES) 00 1,000, 1000 mL Start date: 02/20/19 7:48:00 PRODUCTION COORDINATOR, Stop date: 02/20/19 8:48:00 PRODUCTION COORDINATOR Calcium 2018-04 No 1,000 mL, Memor ia Chloride 18 Rate: 75 l 0.0014 12:07: ml/hr, MEQ/ML / 00 Infuse Potassium over: 13.3 Chloride hr, Route: 0.004 IV, Dosing MEQ/ML / Weight 105 Sodium kg, Total Chloride Volume: 0.103 1,000, MEQ/ML / Start Sodium date: Lactate 02/20/19 0.028 6:07:00 MEQ/ML PRODUCTION COORDINATOR, Injectable Duration: Solution 30 day, Stop date: 03/22/19 6:06:00 PRODUCTION COORDINATOR, 2.29, m2, 0 celecoxib 2018-04 No Notes: Memori a 1-18 NSAID. l 12:07: Please Yoel check indication . Not for seizure. (Same As: CeleBREX) gabapentin 2018-04 No Notes: Memor ia 1-18 (Same as: l 12:07: Neurontin) Yoel 00 Lidocaine 2018-04 No Notes: Memori a Hydrochlori 1-18 Preservati l de 10 MG/ML 12:07: ve free. He rmann Injectable 00 (Same as: Solution Xylocaine MPF) Hydralazine 2018-04 No Notes: Ulysses tala 1-18 (Same as: l 12:07: Apresoline [place] 00 ) Push over 5 minutes 72 HR 2018-04 No Notes: Memoria Scopolamine 1-18 Change l 0.0139 12:07: patch [place] MG/HR 00 every 72 Transdermal hours Patch (Same as: Transderm- Scop) Insulin 2018-04 No Notes: Memoria Lispro 1-18 (Same as: l 12:07: Humalog) Yoel 00 Roll in palms of hands gently; Do not shake vigorously . WASTE: F/P - Black; E - Municipal Trash Bin Stable for 28 days at room temperatur e. Expires in days from ____Date 3 ML 2018-04 Yes SUB-Q Memoria Insulin 1-15 l Lispro 100 19:44: Yoel UNT/ML Pen 00 Injector [Humalog] 0.5 ML 2018-04 Yes SUB-Q, 0 Memoria dulaglutide 1-15 Refill(s) l 3 MG/ML 19:43: Yoel Prefilled 00 Syringe [Trulicity] rivaroxaban 2018-04 Yes 4 tabs, Mem oria 2.5 MG Oral 1-15 PO, QAM l Tablet 19:42: Yoel [Xarelto] 00 duloxetine 2018-04 Yes 30 mg = 1 Me moria 30 MG 0-23 cap, PO, l Enteric 20:26: Daily, # Melecio n Coated 00 90 cap, 1 Capsule Refill(s), [Cymbalta] Pharmacy: [facility] 808 Ciprofloxac 2018-04 Yes 250 mg = 1 Memoria in 250 MG 0-17 tab, PO, l Oral Tablet 16:11: Q12H, # 60 Yoel [Cipro] 00 tab, 0 Refill(s), Pharmacy: [facility] 482 tramadol 2018-04 Yes 50 mg = 1 Ulysses tala hydrochlori 0-17 tab, PO, l de 50 MG 16:11: Q6H, PRN Hayley nn Oral Tablet 00 Pain Score [Ultram] 7-10, # 20 tab, 0 Refill(s) Phenazopyri Yes 200 mg = 1 Memoria dine 9-25 tab, PO, l hydrochlori 19:18: TID, PRN He rmkatrina de 200 MG 00 Dysuria, X Oral Tablet 5 day, # [Pyridium] 15 tab, 0 Refill(s), Pharmacy: [facility] 482 Fluconazole Yes 150 mg = 1 Memoria 150 MG Oral 9-23 tab, PO, l Tablet 15:24: ONCE, # 1 Melecio n [Diflucan] 00 tab, 0 Refill(s), Pharmacy: [facility] Cephalexin No 500 mg = 1 M emoria 500 MG Oral 9-23 cap, PO, l Capsule 14:15: BID, start Herm katrina [Keflex] 00 the day before scope procedure, X 3 day, # 6 cap, 0 Refill(s), Pharmacy: [facility] Ciprofloxac Yes 500 mg = 1 Memoria in 500 MG 9-20 tab, PO, l Oral Tablet 16:46: Q12H, Hayley nn [Cipro] 00 Start the day before your scope procedure, X 3 day, # 6 tab, 0 Refill(s), Pharmacy: [facility] Tamsulosin Yes 0.4 mg = 1 M emoria hydrochlori 9-20 cap, PO, l de 0.4 MG 14:55: Daily, # Herm katrina Oral 00 90 cap, 3 Capsule Refill(s), [Flomax] Pharmacy: [facility] tamsulosin Yes .4mg QD Take 0.4 Met hodi (FLOMAX) 9-[address] 0.4 mg 00:00: [facility] capsule 00 daily. l tamsulosin Yes .4mg QD Take 0.4 Met hodi (FLOMAX) 9-[address] 0.4 mg 00:00: mouth [facility] capsule 00 daily. l Misc No 350 mL, Memoria Medication 3-11 Soln-IV, l 15:13: IV, Once, first dose 06/13/18 10:13:00 CDT, stop date 06/13/18 10:13:00 CDT propofol 2018-0 No 30 mg = 3 Ulysses tala 3-11 mL, l 15:05: Emulsion, Yoel 00 IV, Once, first dose 06/13/18 10:05:00 CDT, stop date 06/13/18 10:05:00 CDT propofol 2018-0 No 50 mg = 5 Ulysses tala 3-11 mL, l 15:04: Emulsion, [place] 00 IV, Once, first dose 06/13/18 10:04:00 CDT, stop date 06/13/18 10:04:00 CDT lidocaine 2019-0 No 1 mL, Memoria 3-11 Injection, l 15:04: IV, Once, Yoel 00 first dose 06/13/18 10:04:00 CDT, stop date 06/13/18 10:04:00 CDT lidocaine 2019-0 No 1 mL, Memoria 3-11 Injection, l 15:01: IV, Once, first dose 06/13/18 10:01:00 CDT, stop date 06/13/18 10:01:00 CDT propofol 2019-0 No 50 mg = 5 Ulysses tala 3-11 mL, l 15:01: Emulsion, [place] 00 IV, Once, first dose 06/13/18 10:01:00 CDT, stop date 06/13/18 10:01:00 CDT lidocaine 2019-0 No 1 mL, [place] 3-11 Injection, l 14:58: IV, Once, first dose 06/13/18 9:58:00 CDT, stop date 06/13/18 9:58:00 CDT propofol 2019-0 No 50 mg = 5 [place] 3-11 mL, l 14:58: Emulsion, [place] 00 IV, Once, first dose 06/13/18 9:58:00 CDT, stop date 06/13/18 9:58:00 CDT midazolam 2019-0 No 1 mg = 1 [place] 3-11 mL, l 14:45: Injection, [place] 00 IV, Once, first dose 06/13/18 9:45:00 CDT, stop date 06/13/18 9:45:00 CDT fentaNYL 2019-0 No 50 mcg = 1 Mem oria 3-11 mL, l 14:45: Injection, Yoel 00 IV, Once, first dose 06/13/18 9:45:00 CDT, stop date 06/13/18 9:45:00 CDT midazolam 2019-0 No 1 mg = 1 Ulysses tala 3-11 mL, l 14:40: Injection, [place] 00 IV, Once, first dose 06/13/18 9:40:00 CDT, stop date 06/13/18 9:40:00 CDT fentaNYL 2019-0 No 50 mcg = 1 Mem oria 3-11 mL, l 14:40: Injection, [place] 00 IV, Once, first dose 06/13/18 9:40:00 CDT, stop date 06/13/18 9:40:00 CDT Lidocaine 2018-0 No 0.2 mL, Memor ia 2% 0.2 mL 3-11 Injection, l IV Start 13:19: Subcutaneo [facility] [[facility]] 00 , Once PRN for other (see comment), first dose 06/13/18 8:19:00 CDT LR 1,000 mL 2019-0 No 1,000 mL, M emoria 3-11 IV, 30 l 13:19: mL/hr, [place] 00 start date 06/13/18 8:19:00 CDT Aspirin 325 2019- Yes 325 mg = 1 Memoria MG Enteric 3-06 tabs, l Coated 18:10: Oral, Yoel Tablet 00 Daily, heart health Metoprolol 2018- Yes 100 mg = 1 M emoria Tartrate 3-06 tabs, l 100 MG Oral 18:10: Oral, BID, Yoel Tablet 00 HTN 24 HR 2018-0 No 30 mg = 1 Memoria Isosorbide 3-06 tabs, l Mononitrate 18:10: Oral, qAM, [place] 30 MG 00 heart Extended Release Tablet furosemide 2018- Yes 40 mg = 1 Me moria 40 mg oral 3-06 tabs, l tablet 18:10: Oral, [place] 00 Daily, fluid Omeprazole 2019- Yes 20 mg = 1 Me moria 20 MG 3-06 caps, l Enteric 18:10: Oral, Yoel Coated 00 Daily, Capsule acid reflux allopurinol 2018-0 No 100 mg = 1 Memoria 100 mg oral 3-06 tabs, l tablet 18:06: Oral, BID, Hayley nn 00 Gout atorvastati 2018-0 Yes 20 mg = 1 M emoria n 20 mg 3-06 tabs, l oral tablet 18:06: Oral, Hayley nn 00 Daily, cholestero l Metformin 2018-0 Yes 1,000 mg = Me moria hydrochlori 3-06 1 tabs, l de 1000 MG 18:06: Oral, BID, H ermann Oral Tablet 00 DM levothyroxi No 25 mcg = 1 Memoria ne 25 mcg 3-06 caps, l (0.025 mg) 18:04: Oral, Melecio n oral 00 Daily, capsule thyroid 0.5 ML Yes 1.5 mg, Memoria dulaglutide -06 Subcutaneo l 3 MG/ML 18:04: us, weekly Herm katrina Prefilled 00 on Syringe Mondays, [Trulicity] DM 3 ML Yes 60 units, Memoria insulin - Subcutaneo l degludec 18:04: us, Daily, Her bradshaw 100 UNT/ML 00 DM Pen Injector [Tresiba] Spironolact No 25 mg = 1 M emoria one 25 MG 3-06 tabs, l Oral Tablet 17:59: Oral, Hayley nn 00 Daily, diuretic duloxetine Yes 20 mg = 1 Me moria 20 MG 3-06 caps, l Enteric 17:59: Oral, Yoel Coated Daily, Capsule depression [Cymbalta] gabapentin Yes 300 mg = 1 M emoria 300 MG Oral 3-06 caps, l Capsule 17:59: Oral, TID, Herm katrina 00 nerve pain Acetaminoph Yes 1 tabs, Mem oria en 325 MG / 3-06 Oral, As l Hydrocodone 17:59: Indicated, [place] Bitartrate 00 PRN only, 7.5 MG Oral 0 Tablet Refill(s), pain duloxetine No 20 mg = 1 Me moria 20 MG 2-06 cap, PO, l Enteric 22:26: Daily, X Melecio n Coated 00 30 day, # Capsule 30 cap, 3 [Cymbalta] Refill(s), Pharmacy: [id number] levothyroxi Yes 25 Memori a ne 25 mcg 1-15 microgram l (0.025 mg) 17:30: = 1 tab, Her bradshaw oral tablet 00 PO, Daily, # 30 tab, 0 Refill(s) empaglifloz Yes 25 mg = 1 M emoria in 25 MG 1-15 tab, PO, l Oral Tablet 17:30: QAM, 0 Herm katrina [Jardiance] 00 Refill(s) omeprazole Yes 20 mg = 1 Me moria 20 mg oral 1-15 cap, PO, l delayed 17:30: Daily, # Melecio n release 00 30 cap, 0 capsule Refill(s) allopurinol Yes 100 mg = 1 Memoria 100 mg oral 1-15 tab, PO, l tablet 17:30: Daily, # Yoel 00 90 tab, 1 Refill(s) Tresiba 2018-0 Yes SUB-Q, Memoria FlexTouch 1-15 Daily, 0 l 17:30: Refill(s) Yoel 00 metoprolol Yes 100 mg = 1 M emoria tartrate 1-15 tab, PO, l 100 mg oral 17:30: BID, # 60 H ermann tablet 00 tab, 0 Refill(s) Aspirin 325 Yes 325 mg = 1 Memoria MG Oral 1-15 tab, PO, l Tablet 17:30: Daily, # Yoel 00 30 tab, 0 Refill(s) atorvastati Yes 40 mg = 1 M emoria n 40 mg 1-15 tab, PO, l oral tablet 17:30: Bedtime, # Yoel 00 30 tab, 0 Refill(s) isosorbide Yes 30 mg = 1 Me moria mononitrate 1-15 tab, PO, l 30 mg oral 17:30: QAM, # 30 He rmann tablet, 00 tab, 0 extended Refill(s) release gabapentin Yes 600 mg = 1 M emoria 600 MG Oral 1-15 tab, PO, l Tablet 17:30: TID, # 270 Hayley nn 00 tab, 0 Refill(s) Furosemide Yes 40 mg = 1 Me moria 40 MG Oral 1-15 tab, PO, l Tablet 17:30: BID, 0 [place] 00 Refill(s) Acetaminoph 20190 Yes 1 tab, PO, Memoria en 325 MG / 1-15 Q6H, PRN l Hydrocodone 17:30: Pain, # 28 [place] Bitartrate 00 tab, 0 7.5 MG Oral Refill(s) Tablet spironolact Yes 25 mg = 1 M emoria one 25 mg 1-15 tab, PO, l oral tablet 17:30: Daily, # He rmann 00 30 tab, 3 Refill(s) Metformin 2019-0 Yes 1,000 mg = Me moria hydrochlori 1-15 1 tab, PO, l de 1000 MG 17:30: BID-Meals, H ermann Oral Tablet 00 # 30 tab, 0 Refill(s) Insulin Yes Use three Unive rs Syringe-Nee 7-08 needles ity o f dle U-100 00:00: daily [place] (BD INSULIN 00 Medical SYRINGE Branch ULTRA-FINE) 0.5 mL 31 gauge x 5/16 Syrg Insulin Yes Use as Univers [place], 7-08 directed ity of Disposable, 00:00: daily [place] (PEN 00 Medical NEEDLE) 31 Branch gauge x 5/16" Ndle Insulin Yes Use three Unive rs Syringe-Nee 7-08 needles ity o f dle U-100 00:00: daily [place] (BD INSULIN 00 Medical SYRINGE Branch ULTRA-FINE) 0.5 mL 31 gauge x 5/16 Syrg Insulin Yes Use as Univers [place], 10-10 directed ity of Disposable, 00:00: daily [place] (PEN 00 Medical NEEDLE) 31 Branch gauge x 5/16" Ndle Insulin Yes Use three Unive rs Syringe-Nee 7-08 needles ity o f dle U-100 00:00: daily [place] (BD INSULIN 00 Medical SYRINGE Branch ULTRA-FINE) 0.5 mL 31 gauge x 5/16 Syrg Insulin Yes Use as Univers [place], 08 directed ity of Disposable, 00:00: daily [place] (PEN 00 Medical NEEDLE) 31 Branch gauge x 5/16" Ndle Insulin Yes Use three Unive rs Syringe-Nee 7-08 needles ity o f dle U-100 00:00: daily [place] (BD INSULIN 00 Medical SYRINGE Branch ULTRA-FINE) 0.5 mL 31 gauge x 5/16 Syrg Insulin Yes Use as Univers [place], 08 directed ity of Disposable, 00:00: daily [place] (PEN 00 Medical NEEDLE) 31 Branch gauge x 5/16" Ndle Insulin 2020- No 40U inject 40 Univ ers Detemir 10-10 02-13 Units ity of (LEVEMIR 00:00: 00:00 under the [place] as FLEXTOUCH) 00 :00 skin at Medica l 100 unit/mL bedtime. Bran ch (3 mL) injection insulin 2019- No 8U inject 8 Unive rs regular 10-10- Units ity of human 00:00: 00:00 under the [place] (NOVOLIN R) 00 :00 skin 3 Medica l 100 unit/mL (three) Branc h injection times daily before meals. losartan-hy 2020- No 1{tbl} Take 1 U nivers drochloroth 09-29 tablet by it y of iazide 00:00: 00:00 mouth [place] (HYZAAR) 00 :00 daily. Medical 100-25 mg Branch per tablet acetaminoph 2019- No TAKE 1 Uni vers en-codeine 09-13 TABLET BY ity of (TYLENOL 00:00: 00:00 MOUTH [place] #3) 300-30 00 :00 EVERY 6 Medica l mg tablet HOURS Branch NEEDED FOR PAIN INVOKANA 2019- No TAKE 1/2 Univ ers 100 mg 09-13 TABLET BY ity of tablet 00:00: 00:00 MOUTH [place] 00 :00 TWICE A Medical DAY Branch isosorbide 2020- No 30mg Take 30 mg Univers mononitrate 09-13 by mouth ity of (IMDUR) 30 00:00: 00:00 [place]. [place] mg 24 hr 00 :00 Medical tablet Branch sulfamethox 2020- No TAKE 2 Uni vers azole-trime 08-25- TABLETS BY i ty of thoprim 00:00: 00:00 MOUTH [place] (BACTRIM 00 :00 TWICE A Medical DS) 800-160 DAY FOR 7 Bra nch mg per DAYS tablet metoprolol Yes TAKE 1 Unive rs tartrate 5-21 TABLET BY ity of (LOPRESSOR) 00:00: MOUTH [place] 100 mg 00 TWICE A Medical tablet DAY Branch metoprolol Yes TAKE 1 Unive rs tartrate 5-21 TABLET BY ity of (LOPRESSOR) 00:00: MOUTH [place] 100 mg 00 TWICE A Medical tablet DAY Branch metoprolol Yes TAKE 1 Unive rs tartrate 5-21 TABLET BY ity of (LOPRESSOR) 00:00: MOUTH [place] 100 mg 00 TWICE A Medical tablet DAY Branch metoprolol Yes TAKE 1 Unive rs tartrate 5-21 TABLET BY ity of (LOPRESSOR) 00:00: MOUTH [place] 100 mg 00 TWICE A Medical tablet DAY Branch atorvastati Yes 40mg Take 40 mg Univers n (LIPITOR) 5-19 by mouth ity of 40 mg 00:00: daily. [place] tablet Medical [place] atorvastati Yes 40mg Take 40 mg Univers n (LIPITOR) 5-19 by mouth ity of 40 mg 00:00: daily. [place] tablet Medical [place] atorvastati Yes 40mg Take 40 mg Univers n (LIPITOR) 5-19 by mouth ity of 40 mg 00:00: daily. [place] tablet Medical [place] atorvastati Yes 40mg Take 40 mg Univers n (LIPITOR) 5-19 by mouth ity of 40 mg 00:00: daily. [place] tablet Medical [place] Vital Signs Vital Name Observation Time Observation Value Comments Source Systolic blood 2021-03-12 05:36:00 134 mm[Hg] Univer sity of pressure [facility] Diastolic blood 2021-03-12 05:36:00 78 mm[Hg] Unive rsity of [facility] Heart rate 2021-03-12 05:36:00 80 /min [facility] Body temperature 2021-03-12 05:36:00 36.5 Geri [facility] 2021-03-12 05:36:00 16 /min [facility] Oxygen saturation in 2021-03-12 05:36:00 98 /min [facility] Arterial blood by [facility] Pulse oximetry [place] Body weight 2021-03-11 10:18:00 113.399 kg [facility] BMI 2021-03-11 10:18:00 36.92 kg/m2 [facility] Body height 2021-03-10 22:45:00 175.3 cm [facility] Systolic blood 2019-09-20 05:00:00 136 mm[Hg] Univer sity of [facility] Diastolic blood 2019-09-20 05:00:00 94 mm[Hg] Unive rsity of pressure [facility] Heart rate 2019-09-20 05:00:00 93 /min [facility] Respiratory rate 2019-09-20 05:00:00 19 /min Univ ersity of [place] [facility] Oxygen saturation in 2019-09-20 05:00:00 94 /min University of Arterial blood by [facility] Pulse oximetry Branch Body temperature 2019-09-20 03:02:05 37.22 Geri Univ ersity of [place] [facility] Body height 2019-09-20 00:15:00 175.3 cm Universi ty [facility] [place] [facility] Body weight 2019-09-20 00:15:00 102.059 kg Universi ty [facility] [place] [facility] BMI 2019-09-20 00:15:00 33.23 kg/m2 [facility]i ty [facility] [place] [facility] Systolic blood 2019-09-20 05:00:00 136 mm[Hg] Univer sity of pressure [place] [facility] Diastolic blood 2019-09-20 05:00:00 94 mm[Hg] Unive rsity of pressure [facility] Branch Heart rate 2019-09-20 05:00:00 93 /min Universi ty of [place] [facility] Respiratory rate 2019-09-20 05:00:00 19 /min Univ ersity of [place] [facility] Oxygen saturation in 2019-09-20 05:00:00 94 /min University of Arterial blood by [facility] Pulse oximetry Branch Body temperature 2019-09-20 03:02:05 37.22 Geri Univ ersity of [place] [facility] Body height 2019-09-20 00:15:00 175.3 cm Universi ty [facility] [place] [facility] Body weight 2019-09-20 00:15:00 102.059 kg [facility]i ty [facility] [place] [facility] BMI 2019-09-20 00:15:00 33.23 kg/m2 [facility]i ty [facility] [place] [facility] Height 2019-06-04 21:53:00 175.26 CM Weight 2019-06-04 21:53:00 101.78 KG Systolic blood 2019-05-25 17:00:00 126 mm[Hg] Univer sity of pressure [place] [facility] Diastolic blood 2019-05-25 17:00:00 70 mm[Hg] Unive rsity of pressure [place] [facility] Heart rate 2019-05-25 17:00:00 77 /min Universi ty of [facility] Branch Body temperature 2019-05-25 17:00:00 36.61 Geri Univ ersity of [place] [facility] Respiratory rate 2019-05-25 17:00:00 18 /min Univ ersity [facility] Oxygen saturation in 2019-05-25 17:00:00 92 /min University of Arterial blood by [facility] Pulse oximetry Branch Body weight 2019-05-24 13:21:00 112.492 kg Universi ty of [facility] BMI 2019-05-24 13:21:00 36.62 kg/m2 Universi ty [facility] Body height 2019-05-22 10:18:00 175.3 cm Universi ty [facility] Systolic blood 2019-05-25 17:00:00 126 mm[Hg] Univer sity of pressure [facility] Diastolic blood 2019-05-25 17:00:00 70 mm[Hg] Unive rsity of pressure [facility] Heart rate 2019-05-25 17:00:00 77 /min Universi ty [facility] Body temperature 2019-05-25 17:00:00 36.61 Geri Univ ersity [facility] Respiratory rate 2019-05-25 17:00:00 18 /min Univ ersity [facility] Oxygen saturation in 2019-05-25 17:00:00 92 /min University of Arterial blood by [facility] Pulse oximetry Branch Body weight 2019-05-24 13:21:00 112.492 kg Universi ty of [facility] BMI 2019-05-24 13:21:00 36.62 kg/m2 Universi ty [facility] Body height 2019-05-22 10:18:00 175.3 cm Universi ty [facility] Systolic blood 2021-03-22 01:35:51 127 mm[Hg] Method ist [facility] pressure Diastolic blood 2021-03-22 01:35:51 76 mm[Hg] [facility] pressure Heart rate 2021-03-22 01:35:51 67 /min [facility] Body temperature 2021-03-22 01:35:51 35.89 Geri [facility] Respiratory rate 2021-03-22 01:35:51 18 /min [facility] Oxygen saturation in 2021-03-22 01:35:51 98 /min [facility] Arterial blood by Pulse oximetry Body weight 2021-03-21 10:36:20 118.888 kg [facility] BMI 2021-03-21 10:36:20 39.85 kg/m2 [facility] Body height 2021-03-12 10:00:00 172.7 cm [facility] Systolic (mm Hg) 2021-02-06 14:32:00 Ulysses rial [place] Diastolic (mm Hg) 2021-02-06 14:32:00 Mem orial Yoel Heart Rate 2021-02-06 14:32:00 Memorial [place] Respitory Rate 2021-02-06 14:32:00 Memori al Yoel Systolic (mm Hg) 2020-05-15 17:11:00 Ulysses rial [place] Diastolic (mm Hg) 2020-05-15 17:11:00 Mem orial Yoel Heart Rate 2020-05-15 17:11:00 [facility] [place] Height 2020-05-15 17:11:00 [facility] 2020-05-15 17:11:00 [facility] BMI Calculated 2020-05-15 17:11:00 Memori al [place] Respitory Rate 2020-04-29 20:41:00 Memori al [place] Systolic (mm Hg) 2020-04-29 20:41:00 Ulysses rial [place] Diastolic (mm Hg) 2020-04-29 20:41:00 Mem orial [place] Heart Rate 2020-04-29 20:20:00 Memorial Yoel Respitory Rate 2020-04-29 20:20:00 Memori al Yoel Systolic (mm Hg) 2020-04-29 20:20:00 Ulysses rial [place] Diastolic (mm Hg) 2020-04-29 20:20:00 Mem orial Yoel Heart Rate 2020-04-29 20:10:00 Memorial [place] Respitory Rate 2020-04-29 20:10:00 Memori al [place] Systolic (mm Hg) 2020-04-29 20:10:00 Ulysses rial [place] Diastolic (mm Hg) 2020-04-29 20:10:00 Mem orial [place] Heart Rate 2020-04-29 20:00:00 Memorial Yoel Temperature Oral (F) 2020-04-29 19:50:00 36.1 Geri [facility] Yoel Temperature Oral (F) 2020-04-29 17:05:00 36.8 Geri [facility] Yoel Height 2020-04-29 17:05:00 175.26 cm Memorial [place] Height 2020-04-24 23:24:00 175.26 cm Memorial [place] Systolic (mm Hg) 2020-01-02 16:03:00 Ulysses rial [place] Diastolic (mm Hg) 2020-01-02 16:03:00 Mem orial Yoel Heart Rate 2020-01-02 16:03:00 Memorial Yoel Respitory Rate 2020-01-02 16:03:00 Memori al Yoel Height 2020-01-02 16:03:00 175.26 cm [facility] Yoel Weight 2020-01-02 16:03:00 Memorial [place] BMI Calculated 2020-01-02 16:03:00 Memori al Yoel Systolic (mm Hg) 2019-08-25 19:37:00 Ulysses rial Yoel Diastolic (mm Hg) 2019-08-25 19:37:00 Mem orial Yoel Heart Rate 2019-08-25 19:37:00 Memorial [place] Respitory Rate 2019-08-25 19:37:00 Memori al [place] Temperature Oral (F) 2019-08-25 19:37:00 98.2 F Memorial Yoel Height 2019-08-25 19:37:00 175.26 cm Memorial [place] Weight 2019-08-25 19:37:00 Memorial Yoel BMI Calculated 2019-08-25 19:37:00 Memori al [place] Systolic (mm Hg) 2019-03-09 17:04:00 Ulysses rial [place] Diastolic (mm Hg) 2019-03-09 17:04:00 Mem orial Yoel Heart Rate 2019-03-09 17:04:00 Memorial Yoel Height 2019-03-09 17:04:00 175.26 cm Memorial [place] Weight 2019-03-09 17:04:00 Memorial [place] BMI Calculated 2019-03-09 17:04:00 Memori al [place] Respitory Rate 2019-02-20 15:40:00 Memori al [place] Systolic (mm Hg) 2019-02-20 15:40:00 Ulysses rial [place] Diastolic (mm Hg) 2019-02-20 15:40:00 Mem orial Yoel Respitory Rate 2019-02-20 15:25:00 Memori al [place] Systolic (mm Hg) 2019-02-20 15:25:00 Ulysses rial [place] Diastolic (mm Hg) 2019-02-20 15:25:00 Mem orial Yoel Respitory Rate 2019-02-20 15:10:00 Memori al [place] Systolic (mm Hg) 2019-02-20 15:10:00 Ulysses rial [place] Diastolic (mm Hg) 2019-02-20 15:10:00 Mem orial [place] Heart Rate 2019-02-20 12:30:00 Memorial Yoel Weight 2019-02-20 12:15:00 Memorial [place] BMI Calculated 2019-02-20 12:15:00 Memori al Yoel Heart Rate 2019-02-17 19:15:00 [facility] Yoel Height 2019-02-17 19:15:00 175.26 cm [facility] Yoel Systolic (mm Hg) 2019-01-25 19:48:00 Ulysses rial Yoel Diastolic (mm Hg) 2019-01-25 19:48:00 Mem orial Yoel Heart Rate 2019-01-25 19:48:00 [facility] Yoel Respitory Rate 2019-01-25 19:48:00 Memori al [place] Height 2019-01-25 19:48:00 175.26 cm [facility] Yoel Weight 2019-01-25 19:48:00 [facility] [place] BMI Calculated 2019-01-25 19:48:00 Memori al [place] Systolic (mm Hg) 2019-01-19 15:41:00 Ulysses rial [place] Diastolic (mm Hg) 2019-01-19 15:41:00 Mem orial Yoel Heart Rate 2019-01-19 15:41:00 Memorial [place] Height 2019-01-19 15:41:00 175.26 cm Memorial [place] Weight 2019-01-19 15:41:00 Memorial [place] BMI Calculated 2019-01-19 15:41:00 Memori al [place] Systolic (mm Hg) 2018-12-28 18:17:00 Ulysses rial Yoel Diastolic (mm Hg) 2018-12-28 18:17:00 Mem orial [place] Heart Rate 2018-12-28 18:17:00 [facility] [place] Temperature Oral (F) 2018-12-28 18:17:00 97.8 F [facility] [place] Height 2018-12-28 18:17:00 175.26 cm [facility] Yoel Weight 2018-12-28 18:17:00 [facility] [place] BMI Calculated 2018-12-28 18:17:00 Memori al [place] Height 2018-12-23 14:14:00 175.26 cm [facility] [place] Weight 2018-12-23 14:14:00 [facility] Yoel BMI Calculated 2018-12-23 14:14:00 Memori al [place] Systolic (mm Hg) 2018-12-23 14:14:00 Ulysses rial [place] Diastolic (mm Hg) 2018-12-23 14:14:00 Mem orial [place] Heart Rate 2018-12-23 14:14:00 [facility] [place] Systolic (mm Hg) 2018-11-21 18:52:00 Ulysses rial Yoel Diastolic (mm Hg) 2018-11-21 18:52:00 Mem orial [place] Heart Rate 2018-11-21 18:52:00 Memorial [place] Height 2018-11-21 18:52:00 175.26 cm [facility] [place] Weight 2018-11-21 18:52:00 [facility] Yoel BMI Calculated 2018-11-21 18:52:00 Memori al [place]el Systolic (mm Hg) 2018-06-13 15:51:00 Ulysses rial [place] Diastolic (mm Hg) 2018-06-13 15:51:00 Mem orial [place] Respitory Rate 2018-06-13 15:51:00 Memori al Yoel Systolic (mm Hg) 2018-06-13 15:20:00 Ulysses rial [place] Diastolic (mm Hg) 2018-06-13 15:20:00 Mem orial [place] Heart Rate 2018-06-13 15:20:00 [facility] Yoel Respitory Rate 2018-06-13 15:20:00 Memori al [place] Respitory Rate 2018-06-13 15:10:00 Memori al [place] Systolic (mm Hg) 2018-06-13 15:10:00 Ulysses rial [place] Diastolic (mm Hg) 2018-06-13 15:10:00 Mem orial Yoel Heart Rate 2018-06-13 15:10:00 [facility] [place] Temperature Oral (F) 2018-06-13 15:00:00 36.6 Geri [facility] [place] Heart Rate 2018-06-13 15:00:00 [facility] [place] Height 2018-06-13 13:17:00 175.26 cm [facility] Yo[place] Temperature Oral (F) 2018-06-13 13:17:00 37 Geri [facility] [place] Height 2018-06-08 17:11:00 175.26 cm [facility] [place]el Systolic (mm Hg) 2018-05-11 22:33:00 Ulysses rial [place] Heart Rate 2018-05-11 22:33:00 [facility] [place] Respitory Rate 2018-05-11 22:33:00 Memori al Yoel Height 2018-05-11 22:33:00 175.26 cm [facility] Yo[place] Weight 2018-05-11 22:33:00 [facility] [place] BMI Calculated 2018-05-11 22:33:00 Memori al [place] BMI Calculated 2018-04-19 16:50:00 Memori al [place] Height 2018-04-19 16:50:00 172.72 cm [facility] [place] Weight 2018-04-19 16:50:00 [facility] [place] Heart Rate 2018-04-19 16:50:00 [facility] [place] Systolic (mm Hg) 2018-04-19 16:50:00 Ulysses rial [place] Diastolic (mm Hg) 2018-04-19 16:50:00 Mem orial Yoel Respitory Rate 2018-04-19 16:50:00 Memori al [place] Procedures Procedure Date / Time Performing Source Performed Clinician POC GLUCOSE 2021-03-22 [facility] 01:38:00 BASIC METABOLIC PANEL 2021-03-21 [facility] 22:08:00 [facility]UCOSE 2021-03-21 [facility] 20:38:00 POC GLUCOSE 2021-03-21 Adam [facility] 18:09:00 POC GLUCOSE 2021-03-21 Adam Ger[facility] 13:55:00 POC GLUCOSE 2021-03-21 Adam Ger[facility] 12:34:00 POC GLUCOSE 2021-03-21 Adam Gerard [facility] 03:46:00 POC GLUCOSE 2021-03-21 Adam [facility] 01:23:00 POC GLUCOSE 2021-03-21 Adam [facility] 00:44:00 POC GLUCOSE 2021-03-21 Adam Ger[facility] 00:24:00 POC GLUCOSE 2021-03-20 [facility] 23:36:00 POC GLUCOSE 2021-03-20 [facility] 22:00:00 IR STENT CERVICAL CAROTID W 2021-03-20 [facility] EMBOLIZATION PROTEC RIGHT 21:43:15 US GUIDED VASCULAR ACCESS 2021-03-20 CharlesadwoaMatthias alejandre [facility] 21:43:15 Wilberto ARTERIAL LINE 2021-03-20 [facility]endra [facility] 20:06:45 Samuel POC GLUCOSE 2021-03-20 [facility] 19:02:00 POC GLUCOSE 2021-03-20 [facility] 17:47:00 POC GLUCOSE 2021-03-20 [facility] 13:39:00 POC GLUCOSE 2021-03-20 [facility] 12:44:00 HC COMPLETE BLD COUNT W/AUTO 2021-03-20 Adma Gerard [facility] DIFF 10:26:00 BASIC METABOLIC PANEL 2021-03-20 Adam Gerard [facility] 10:26:00 ESTIMATED GFR 2021-03-20 Adam Gerard [facility] 10:26:00 MAGNESIUM LEVEL 2021-03-20 Adam Gerard [facility] 10:26:00 PHOSPHORUS LEVEL 2021-03-20 [facility] 10:26:00 POC GLUCOSE 2021-03-20 Adam [facility] 03:29:00 POC GLUCOSE 2021-03-19 Adam [facility] 22:49:00 POC GLUCOSE 2021-03-19 Adam [facility] 18:22:00 POC GLUCOSE 2021-03-19 Adam [facility]ard [facility] 15:11:00 BASIC METABOLIC PANEL 2021-03-19 [facility] 10[facility]00 [facility] COMPLETE BLD COUNT W/AUTO 2021-03-19 Adam Gerard [facility] DIFF 10:25:00 ESTIMATED GFR 2021-03-19 Adam Gerardist [facility] 10:25:00 POC GLUCOSE 2021-03-19 [facility] 03:03:00 POC GLUCOSE 2021-03-18 [facility] 22:48:00 POC GLUCOSE 2021-03-18 [facility] 18:34:00 COVID-19 QUALITATIVE RT-PCR 2021-03-18 Adam Gerard [facility] 18:30:00 POC GLUCOSE 2021-03-18 [facility] 13:43:00 BASIC METABOLIC PANEL 2021-03-18 [facility] 12:25:00 ESTIMATED GFR 2021-03-18 Adam Gerardist [facility] 12:25:00 POC GLUCOSE 2021-03-18 [facility] 03:46:00 POC GLUCOSE 2021-03-17 [facility] 23:20:00 POC GLUCOSE 2021-03-17 [facility] 17:26:00 PLATELET FUNCTION P2Y12 2021-03-17 Matthias Huntley [facility] 15:13:00 Wilberto POC GLUCOSE 2021-03-17 [facility] 13:32:00 BASIC METABOLIC PANEL 2021-03-17 [facility] 11:33:00 ESTIMATED GFR 2021-03-17 [facility] 11:33:00 POC GLUCOSE 2021-03-17 [facility] 10:51:00 URINE CULTURE 2021-03-17 [facility] 05:50:00 SODIUM LEVEL, URINE, RANDOM 2021-03-17 [facility] [facility] 03:51:00 UREA NITROGEN, URINE, RANDOM 2021-03-17 [facility] 03:51:00 CREATININE LEVEL, URINE, 2021-03-17 [facility] RANDOM 03:51:00 URINALYSIS SCREEN AND 2021-03-17 [facility] MICROSCOPY, WITH REFLEX TO 03:49:00 CULTURE POC GLUCOSE 2021-03-17 [facility] 03:08:00 POC GLUCOSE 2021-03-16 [facility] 22:56:00 US RENAL 2021-03-16 [facility] 22:15:00 BASIC METABOLIC PANEL 2021-03-16 Adam Gerard [facility] 20:41:00 ESTIMATED GFR 2021-03-16 [facility] 20:41:00 POC GLUCOSE 2021-03-16 [facility] 17:54:00 POC GLUCOSE 2021-03-16 [facility] 12:43:00 POC GLUCOSE 2021-03-16 [facility]ist [facility] 01:07:00 POC GLUCOSE 2021-03-15 [facility] 23:17:00 POC GLUCOSE 2021-03-15 [facility] 19:14:00 POC GLUCOSE 2021-03-15 [facility]ist [facility] 14:06:00 BASIC METABOLIC PANEL 2021-03-15 Adam Gerard [facility] 11:07:00 ESTIMATED GFR 2021-03-15 [facility] 11:07:00 CBC HEMOGRAM 2021-03-15 [facility] 11:07:00 POC GLUCOSE 2021-03-15 [facility] 02:06:00 POC GLUCOSE 2021-03-15 [facility]ist [facility] 00:16:00 POC GLUCOSE 2021-03-14 [facility] 17:34:00 POC GLUCOSE 2021-03-14 [facility]ist [facility] 12:28:00 HC COMPLETE BLD COUNT W/AUTO 2021-03-14 Adam Gerard [facility] DIFF 11:40:00 BASIC METABOLIC PANEL 2021-03-14 Adam Gerard [facility] 11:40:00 ESTIMATED GFR 2021-03-14 Moustapha, [facility] 11:40:00 POC GLUCOSE 2021-03-14 [facility] 03:14:00 MRA NECK WO CONTRAST [facility] 23[facility]50:00 Russel MRI BRAIN WO CONTRAST [facility] 23:30:00 MRA HEAD WO CONTRAST 2021 [facility] 23:15:00 Russel POC GLUCOSE 2021 [facility] 22:37:00 POC GLUCOSE 2021 [place] Adam Jacquelyn [facility] 21:24:00 POC GLUCOSE 2021 [facility] 17:28:00 POC GLUCOSE 2021 Adam [facility] 15:04:00 HC COMPLETE BLD COUNT W/AUTO 2021 MoustaphaAdam Lambert [facility] DIFF 10:50:00 BASIC METABOLIC PANEL 2021 [place] [facility] 10:50:00 ESTIMATED GFR 2021 [facility] 10:50:00 ECG PRE/POST OP 2021 Yesenia, [facility] 08:24:59 Leobardo ECG PRE/POST OP 2021 Yesenia, [facility] 04:01:19 Leobardo POC GLUCOSE 2021 [facility] 02:30:00 CV LEFT HE[facility] CATH LV [facility] 01:58:18 [facility]18 CV ANGIOGRAM CAROTID OR 2021 [facility] INNOMINATE ARTERY UNILATERAL 01:58:18 BASIC METABOLIC PANEL 2021-03-12 [facility] 19:32:00 ESTIMATED GFR 2021-03-12 [facility]00 TROPONIN T 2021-03-12 [facility] 19:32:00 TTE COMPLETE, W CONTRAST, W 2021-03-12 [facility] DOPPLER ([id number]) 19:29:00 POC GLUCOSE 2021-03-12 [facility] 19:11:00 POC GLUCOSE 2021-03-12 [facility] 14:23:00 US CAROTID DUPLEX BILATERAL 2021-03-12 [facility] 14:15:00 COVID-19 ANTI-SPIKE IGG 2021-03-12 [facility] ANTIBODY TITER 12:25:00 COVID-19 SEROLOGY PATIENT 2021-03-12 [facility] SURVEILLANCE 12:25:00 HC COMPLETE BLD COUNT W/AUTO 2021-03-12 [facility] DIFF 12:25:00 HEMOGLOBIN A1C 2021-03-12 [place] Adam [facility] 12:25:00 LIPID PANEL 2021-03-12 [facility] 12:25:00 THYROID STIMULATING HORMONE 2021-03-12 [facility] 12:25:00 T4, FREE 2021-03-12 [place] Adam [facility] 12:25:00 TROPONIN T 2021-03-12 [place] Adam [facility] 12:25:00 PROTHROMBIN TIME WITH INR 2021-03-12 [facility] 12:25:00 SMEAR REVIEW 2021-03-12 [facility] 12:25:00 ECG 12-LEAD 2021-03-12 [facility] 12:21:06 POC GLUCOSE 2021-03-12 [place] Adam [facility] 11:05:00 POCT GLUCOSE (AUTOMATED) 2021-03-12 [facility] 01:37:00 [facility] POCT GLUCOSE (AUTOMATED) 2021-03-11 [facility] 22:40:00 [facility] TRANSTHORACIC ECHO (TTE) 2021-03-11 [facility] COMPLETE W/ CONTRAST 16:51:00 Medical [facility] CAROTID DUPLEX BILATERAL - BY 2021-03-11 Fariba Marion [facility] VASCULAR LAB 16:07:22 [facility] POCT GLUCOSE (AUTOMATED) 2021-03-11 Fariba Marion [facility] 13:34:00 [facility] BASIC METABOLIC PANEL (NA, K, 2021-03-11 Fariba Marion [facility] CL, CO2, GLUCOSE, BUN, 10:52:00 [facility] ranch CREATININE, CA) LIPID PANEL ([id number])(TOTAL 2021-03-11 [facility] CHOLESTEROL, TRIGLYCERIDES, 10:52:00 [facility] HDL) CBC WITH DIFF 2021-03-11 Fariba Marion [facility] 10:52:00 [facility] GLYCOSYLATED HEMOGLOBIN (A1C) 2021-03-11 [facility] 10:52:00 [facility] XR CHEST 1 VW 2021-03-11 [facility] 06:27:00 [facility] COVID-19 (ID NOW RAPID 2021-03-[address] [facility] TESTING) 18:28:00 [facility] LAB ONLY COVID INTERPRETATION 2021-03-10 Rochelle Gerard [facility] 18:28:00 [facility] MAGNESIUM 2021-03-10 Rochelle Gerard [facility] 18:27:00 [facility] TROPONIN I 2021-03-10 Rochelle Gerard [facility] 18:27:00 [facility] COMP. METABOLIC PANEL ([id number]) 2021-03-10 Rochelle Gerard [facility] 18:27:00 [facility] CBC WITH DIFF 2021-03-10 Rochelle Gerard [facility] 18:27:00 [facility] N-TERMINAL PRO-BNP 2021-03-10 Rochelle Gerard [facility] 18:27:00 [facility] HB ECG ROUTINE & RHYTHM STRIP 2021-03-10 Rochelle Gerard [facility] 17:53:52 [facility] CONSENT/REFUSAL FOR DIAGNOSIS 2021-03-10 Doctor Unassigned, [facility] AND TREATMENT 17:49:43 [facility] COLONOSCOPY FLEXIBLE; 2020-04-29 [facility] DIAGNOSTIC; INCL. COLLECTION 19:31:00 OF SPECIMENS [id number] (N/A)<sup>1</sup> Colon<sup>2</sup> 2019-10-04 [facility] Hayley nn 05:00:00 CT ABDOMEN PELVIS W CONTRAST 2019-09-20 Dell Danielson [facility] 02:10:51 Medical Branch US TESTICULAR TORSION 2019-09-20 Kelly Sauer [facility] 01:45:30 Medical Branch COMP. METABOLIC PANEL ([id number]) 2019-09-20 [facility] 01:01[facility]00 [facility] CBC WITH DIFFERENTIAL 2019-09-20 [facility] 01:01:00 Medical Branch URINALYSIS 2019-09-20 Dell Danielson [facility] 01:01:00 Medical Branch NOTICE OF PRIVACY PRACTICES 2019-09-20 Doctor Unassigned, [facility] 00:09:47 [facility] CONSENT/REFUSAL FOR DIAGNOSIS 2019-09-20 Doctor Unassigned, [facility] AND TREATMENT 00:08:07 [facility] POCT GLUCOSE (AUTOMATED) 2019-05-25 [facility] 17:04:00 [facility] POCT GLUCOSE (AUTOMATED) 2019-05-25 [facility] 14:05:00 [facility] BASIC METABOLIC PANEL (NA, K, 2019-05-25 Fariba Marion [facility] CL, CO2, GLUCOSE, BUN, 10:28:00 [facility] CREATININE, CA) N-TERMINAL PRO-BNP 2019-05-25 Ayala Samuels [facility] 10:28:00 Medical Branch POCT GLUCOSE (AUTOMATED) 2019-05-25 [facility] 06:14:00 [facility] POCT GLUCOSE (AUTOMATED) 2019-05-25 [facility] 02:51:00 [facility] POCT GLUCOSE (AUTOMATED) 2019-05-24 [facility] 21:17:00 [facility] POCT GLUCOSE (AUTOMATED) 2019-05-24 Cecilio [facility] 17:28:00 Medical Branch POCT GLUCOSE (AUTOMATED) 2019-05-24 [facility] 13:29:00 [facility] BASIC METABOLIC PANEL (NA, K, 2019-05-24 Fariba [facility] [place] CL, CO2, GLUCOSE, BUN, 10:29:00 Medical B ranch CREATININE, CA) CBC WITH DIFFERENTIAL 2019-05-24 Fariba Marion [facility] 10:29:00 Medical Branch POCT GLUCOSE (AUTOMATED) 2019-05-24 Cecilio [facility] [place] 07:00:00 Medical Branch POCT GLUCOSE (AUTOMATED) 2019-05-24 Cecilio, [facility] [place] 01:25:00 Medical Branch POCT GLUCOSE (AUTOMATED) 2019-05-23 Cecilio, [facility] [place] 22:21:00 Medical Branch POCT GLUCOSE (AUTOMATED) 2019-05-23 Cecilio, [facility] [place] 16:49:00 Medical Branch POCT GLUCOSE (AUTOMATED) 2019-05-23 Cecilio, [facility] [place] 13:39:00 Medical Branch BASIC METABOLIC PANEL (NA, K, 2019-05-23 Giuliano [facility] [place] CL, CO2, GLUCOSE, BUN, 09:08:00 Medical B ranch CREATININE, CA) POCT GLUCOSE (AUTOMATED) 2019-05-23 Cecilio [facility] [place] 01:46:00 Medical Branch POCT GLUCOSE (AUTOMATED) 2019-05-22 Cecilio [facility] [place] 22:18:00 Medical Branch POCT GLUCOSE (AUTOMATED) 2019-05-22 Cecilio [facility] [place] 17:20:00 Medical Branch US RETROPERITONEAL COMPLETE 2019-05-22 Cecilio [facility] 17:00:17 [facility] Branch POCT GLUCOSE (AUTOMATED) 2019-05-22 Cecilio [facility] [place] 13:12:00 Medical Branch MAGNESIUM 2019-05-22 Cecilio [facility] 09:49:00 Medical Branch BASIC METABOLIC PANEL (NA, K, 2019-05-22 Giuliano Hernandes [facility] [place] CL, CO2, GLUCOSE, BUN, 09:49:00 Medical B ranch CREATININE, CA) POCT GLUCOSE (AUTOMATED) 2019-05-22 Cecilio [facility] [place] 03:07:00 Medical Branch POCT GLUCOSE (AUTOMATED) 2019-05-21 Cecilio, [facility] [place] 22:37:00 Medical Branch POCT GLUCOSE (AUTOMATED) 2019-05-21 Cecilio Giuliano [facility] 17:34:00 Medical Branch POCT GLUCOSE (AUTOMATED) 2019-05-21 Cecilio [facility] 13:23:00 Medical Branch BASIC METABOLIC PANEL (NA, K, 2019-05-21 Giuliano Hernandes [facility] [place] CL, CO2, GLUCOSE, BUN, 09:20:00 Medical B ranch CREATININE, CA) POCT GLUCOSE (AUTOMATED) 2019-05-21 Giuliano Hernandes [facility] 01:49:00 Medical Branch POCT GLUCOSE (AUTOMATED) 2019-05-20 Cecilio [facility] 21:43:00 Medical Branch POCT GLUCOSE (AUTOMATED) 2019-05-20 Cecilio [facility] 17:28:00 [facility] MICROALBUMIN URINE 2019-05-20 Keenan Morales [facility] 14:18:00 [facility] URINALYSIS 2019-05-20 Keenan Morales [facility] 14:18:00 Medical Branch ELECTROPHORESIS, URINE FOR 2019-05-20 Keenan Morales [facility] PANEL 14:18:00 Medical Branch POCT GLUCOSE (AUTOMATED) 2019-05-20 Giuliano Hernandes [facility] 13:35:00 Medical Branch NEUTROPHIL CYTOPLASMIC AB, 2019-05-20 Keenan Morales [facility] IGG 11:04:00 [facility] PHOSPHORUS 2019-05-20 Keenan Morales [facility] ex 11:04:00 Medical Branch MAGNESIUM 2019-05-20 Cecilio [facility] 11:04:00 [facility] RHEUMATOID FACTOR 2019-05-20 Keenan Morales [facility] 11:04:00 Medical Branch BASIC METABOLIC PANEL (NA, K, 2019-05-20 Giuliano Hernandes [facility] [place] CL, CO2, GLUCOSE, BUN, 11:04:00 Medical B ran CREATININE, CA) ELECTROPHORESIS, SERUM 2019-05-20 Keenan Morales [facility] 11:03:00 [facility] ANTI-NUCLEAR ANTIBODY SCREEN 2019-05-20 [facility] 11:03[facility]00 [facility] HEPATITIS B SURFACE ANTIBODY 2019-05-20 [facility] 11:03:00 [facility] HEPATITIS B SURFACE ANTIGEN 2019-05-20 Keenan Morales [facility] 11:03:00 [facility] HCV ANTIBODY 2019-05-20 Keenan Morales [facility] 11:03:00 [facility] HBC ANTIBODY (IGM & IGG) 2019-05-[address] [facility] 11:03:00 [facility] IMMUNOFIXATION, SERUM 2019-05-20 Keenan Moraels [facility] 11:03:00 [facility] POCT GLUCOSE (AUTOMATED) 2019-05-20 Cecilio [facility] 01:53:00 [facility] POCT GLUCOSE (AUTOMATED) 2019-05-19 Cecilio [facility] 22:32:00 [facility] POCT GLUCOSE (AUTOMATED) 2019-05-19 Cecilio [facility] 17:17:00 [facility] ECHO ROUTINE W/DOPPLER COLOR 2019-05-19 Angeline Grande K.HLambert [facility] 15:40:23 [facility] BILATERAL VENOUS DUPLEX LOWER 2019-05-19 Omega Sendkay K.H Lambert [facility] EXTREMITY BY VASCULAR LAB 15:00:26 [facility] POCT GLUCOSE (AUTOMATED) 2019-05-19 Cecilio [facility] 14:04:00 [facility]INALYSIS 2019-05-19 [facility] 11:45:00 [facility] PROTEIN CREAT RATIO URINE 2019-05-19 [facility] 11:45:00 [facility] VITAMIN B12, LEVEL 2019-05-19 [facility] 09:57:00 [facility] FOLATE 2019-05-19 [facility] 09:57:00 [facility] BASIC METABOLIC PANEL (NA, K, 2019-05-19 Connor [facility] CL, CO2, GLUCOSE, BUN, 09:57:00 [facility] ran CREATININE, CA) IRON PANEL 2019-05-19 [facility] 09:57:00 [facility] CBC WITH DIFFERENTIAL 2019-05-19 [facility] 09:57:00 [facility] VITAMIN D, 25-OH 2019-05-19 [facility] 09:57:00 [facility] Branch VITAMIN B1 (THIAMINE), WHOLE 2019-05-19 [facility] 09:57:00 [facility] POCT GLUCOSE (AUTOMATED) 2019-05-19 Giuliano Hernandes [facility] 02:34:00 Medical Branch EKG-12 LEAD 2019-05-18 Epifanio Chapman [facility] 23:27:21 [facility] GAMMA GLUTAMYLTRANSFERASE 2019-05-[address] [facility] 22:33:00 Medical Branch CREATINE KINASE 2019-05-18 [facility] 22:33:00 Medical Branch LIPASE 2019-05-18 Jessenia Barragan [facility] 22:33:00 [facility] FERRITIN SERUM 2019-05-18 [facility] 22:33:00 [facility] TROPONIN I 2019-05-18 Jessenia Barragan [facility] 22:33:00 [facility] THYROID STIMULATING HORMONE 2019-05-18 [facility] 22:33:00 [facility] COMP. METABOLIC PANEL ([id number]) 2019-05-18 Jessenia Barragan [facility] 22:33:00 [facility] CBC WITH DIFFERENTIAL 2019-05-18 Jessenia Barragan [facility] 22:33:00 [facility] GLYCOSYLATED HEMOGLOBIN (A1C) 2019-05-18 Fariba Marion [facility] 22:33:00 [facility] N-TERMINAL PRO-BNP 2019-05-18 Jessenia Barragan [facility] 22:33:00 [facility] XR CHEST 2 VW 2019-05-18 Jessenia Barragan [facility] 21:29:15 [facility] EKG-12 LEAD 2019-05-18 Jessenia Barragan [facility] xa 21:11:21 Medical Branch CONSENT/REFUSAL FOR DIAGNOSIS 2019-05-18 Doctor Unassigned, [facility] AND TREATMENT 20:56:58 [facility] Measurement of post-voiding 2019-03-09 Ulysses Diallo residual urine and/or bladder 17:15:00 capacity by ultrasound, non-imaging Cystoscopy<sup>1</sup> 2019-02-20 [facility] 06:00:00 SIGMOIDOSCOPY FLEXIBLE 2018-06-13 [facility] W/DIRECTED SUBMUCOSAL 14:59:00 INJECTION ANY SUBSTANCE [id number] (N/A)<sup>1</sup> cardiac stent 2012-04-05 [facility] 00:00:00 Amputation [facility] Angiogram [facility] Arthroscopy of knee [facility] bradshaw Colectomy [facility] Colonoscopy [facility] Foot joint operations [facility] Hernia repair [facility] Tonsillectomy [facility] Foot<sup>2</sup> [facility] n Knee<sup>3</sup> [facility] n Plan of Care Planned Activity Planned Date Details Comments Source Future Scheduled 2021-05-13 COVID-19 VACCINE (1) Met [facility] Test 15:06:30 [code = COVID-19 VACCINE (1)] Future Scheduled 2021-05-13 DIABETES: RETINAL EYE [facility] Test 15:06:30 EXAM [code = DIABETES: RETINAL EYE EXAM] Future Scheduled 2021-05-13 DIABETIC FOOT EXAM [facility] Test 15:06:30 [code = DIABETIC FOOT EXAM] Future Scheduled 2021-05-13 Hepatitis C screening [facility] Test 15:06:30 (procedure) [code = 695362298] Future Scheduled 2021-05-13 COLONOSCOPY SCREENING [facility] Test 15:06:30 [code = COLONOSCOPY SCREENING] Future Scheduled 2021-05-13 SHINGLES VACCINES (#1) [facility] Test 15:06:30 [code = SHINGLES VACCINES (#1)] Future Scheduled 2021-05-13 INFLUENZA VACCINE Method [facility] Test 15:06:30 [code = INFLUENZA VACCINE] Future Scheduled 2021-05-06 COVID-19 VACCINE (1) Met [facility] Test 15:21:26 [code = COVID-19 VACCINE (1)] Future Scheduled 2021-05-06 DIABETES: RETINAL EYE [facility] Test 15:21:26 EXAM [code = DIABETES: RETINAL EYE EXAM] Future Scheduled 2021-05-06 DIABETIC FOOT EXAM [facility] Test 15:21:26 [code = DIABETIC FOOT EXAM] Future Scheduled 2021-05-06 Hepatitis C screening [facility] Test 15:21:26 (procedure) [code = 216841757] Future Scheduled 2021-05-06 [facility] 15:21:26 [code = COLONOSCOPY SCREENING] Future Scheduled 2021-05-06 [facility]LES [facility]INES (#[facility] 15:21:26 [code = SHINGLES VACCINES (#1)] Future Scheduled 2021-05-06 INFLUENZA VACCINE [facility] Test 15:21:26 [code = INFLUENZA VACCINE] Future Scheduled 2020-12-04 INFLUENZA VACCINE (#1) [facility] 00:[facility]00 [code = INFLUENZA Medical Ce nter VACCINE (#1)] Future Scheduled 2020-12-04 INFLUENZA VACCINE (#1) [facility] 00:00:00 [code = INFLUENZA Medical Ce nter VACCINE (#1)] Future Scheduled 2020-05-20 Urine screening for [facility] Test 00:00:00 protein (procedure) Medical Center [code = 296417279] Future Scheduled 2020-05-20 Urine screening for [facility] Test 00:00:00 protein (procedure) Medical Center [code = 786655871] Future Scheduled 2020-04-[address] [facility] Test 00:00:00 (12+) [code = Medical Center DEPRESSION SCREENING (12+)] Future Scheduled 2020-04-[address] [facility] Test 00:00:00 (12+) [code = Medical Center DEPRESSION SCREENING (12+)] Future Scheduled 2019-06-[address] [facility] Test 00:00:00 measurement Medical Center (procedure) [code = 81399627] Future Scheduled 2019-06-[address] [facility] Test 00:00:00 [facility] Center (procedure) [code = 79211330] Future Scheduled 2015 SHINGLES VACCINES ([address] [facility] Test 00:00:00 of 2) [code = SHINGLES Medic al Center VACCINES (1 of 2)] Future Scheduled 2015 SHINGLES VACCINES ([address] [facility] Test 00:00:00 of 2) [code = SHINGLES Medic al Center VACCINES (1 of 2)] Future Scheduled [address] [facility] 00:[facility]:00 (procedure) [code = Medical Center 72251402] Future Scheduled [address] [facility] Test 00:00:00 (procedure) [code = Medical Center 41359357] Future Scheduled 1984 DTAP/TDAP/TD VACCINES [facility] 00:00:00 (1 - Tdap) [code = Medical C enter DTAP/TDAP/TD VACCINES (1 - Tdap)] Future Scheduled 1984 DTAP/TDAP/TD VACCINES [facility] 00:00:00 (1 - Tdap) [code = Medical C enter DTAP/TDAP/TD VACCINES (1 - Tdap)] Future Scheduled 1983 HEPATITIS C [facility]CRE[facility]ING [facility] 00:00:00 [code = HEPATITIS C Medical Center SCREENING] Future Scheduled 1983 HEPATITIS C [facility]CRE[facility] 00:00:00 [code = HEPATITIS C Medical Center SCREENING] Future Scheduled 1977 COVID-19 VACCINE (1) [facility] Test 00:00:00 [code = COVID-[address] VACCINE (1)] Future Scheduled 1977 COVID-19 VACCINE (1) [facility] Test 00:00:00 [code = COVID-[address] VACCINE (1)] Future Scheduled 1975 DIABETIC EYE EXAM [facility] Test 00:00:00 [code = DIABETIC EYE Medical Center EXAM] Future Scheduled [address] [facility] Test 00:00:00 examination Medical Center (regime/therapy) [code = 718374003] Future Scheduled 1975 DIABETIC EYE EXAM [facility] Test 00:00:00 [code = DIABETIC EYE Medical Center EXAM] Future Scheduled [address] [facility] Test 00:00:00 examination Medical Center (regime/therapy) [code = 764491437] Future Scheduled [address] [facility] Test 00:00:00 0-64 YRS (1 of 2 - Medical C enter PPSV23) [code = PNEUMOCOCCAL VACCINE 0-64 YRS (1 of 2 - PPSV23)] Future Scheduled [address] [facility] Test 00:00:00 0-64 YRS (1 of 2 - Medical C enter PPSV23) [code = PNEUMOCOCCAL VACCINE 0-64 YRS (1 of 2 - PPSV23)] Future Scheduled [address] [facility] 00:00:00 [facility] ([facility] [code = 408442066] Future Scheduled [address] [facility] Test 00:00:00 [facility] colon (procedure) [code = 720218164] Encounters Start End Encounter Admission Attending Care Care Encounter Source Date/Time Date/Time Type Type Clinicians Facility Department ID 2021-09-02 Outpatient SMITH, DELROY [facility] [id number] [place] 11:57:08 [id number] [facility] 2021-06-25 Outpatient SMITH, [facility] [id number] [place] 12:06:05 [id number] [facility] 2021-06-24 [facility] [id number] [place] 10:47:00 [id number] [facility] 2021-05-19 Outpatient SMITH, DELROY [facility] [id number] [place] 12:41:00 [facility] 2021-01-06 Outpatient SMITH, [facility] [id number] [place] 12:28:28 [facility] 2020-08-22 Outpatient SMITH, [facility] [id number] [place] 17:28:02 [facility] 2020-08-10 Outpatient SMITH, [facility] [id number] [place] 03:01:55 [facility] 2019-06-07 Inpatient [facility] [id number] [place] 22:22:00 [id number] 2021-08-25 2021-08-25 Outpatient [facility] 108 86-2021 [place] 10:01:00 10:01:00 _L 0523 [facility] 2021-08-06 2021-08-06 Outpatient SARAH SMITH [id number] [place] 09:30:00 09:30:00 23 l Yoel 2021-06-25 2021-06-25 Office Delroy Smith 1.2.840.114 [id number] [place] 11:45:00 13:16:41 [facility] 350.1.13.58 [facility] 9.2.7.2.686 [phone] 3 2021-06-13 2021-06-13 Outpatient DELROY SMITH [facility] 021 [id number] [place] 00:00:00 00:00:[address] 2021-06-09 2021-06-09 Outpatient DELROY SMITH [facility] [id number] [place] 00:00:00 00:00:[address] 2021-05-19 2021-05-19 Office Delroy Smith [facility] 1.2.840.114 [id number] [place] 12:00:00 12:48:58 Visit SUG[place] 350.1.13.58 [facility] 9.2.7.2.686 PLA[address] 4 [id number] AND 3 WOMENS 2021-04-03 2021-04-03 Outpatient [facility] 108 86-2020 [place] 10:16:00 10:16:00 _L 1230 [facility] 2021-03-12 2021-03-21 [facility] Moustapha, 1.2.840.1 [id number] Methodi 03:21:00 21:16:00 Encounter Adam Valladares 51209.1.[address] 3.430.2.7 Hospit a .3.330806 l .8 2021-03-20 2021-03-20 Anesthesia Zac Rosas 1.2.840.1 [id number] Methodi 13:39:00 15:55:00 Event Mich Barrera 90572.1.[address] 3.430.2.7 Hospit a .3.750453 l .8 2021-03-12 2021-03-12 Surgery Attar, 1.2.840.1 [id number] Methodi 18:20:00 19:45:[address] 3.430.2.7 Hospit a .3.461669 l .8 2021-03-10 2021-03-12 Outpatient [facility] [id number] [facility] 11:51:00 02:14:00 FARIBA landaverde [facility] 2021-03-10 2021-03-12 Emergency Rochelle Gerard [facility] 1.2.8 40.114 [id number] [facility] 11:51:00 02:14:00 Fariba Marion 350.1.13.10 ity [facility] 4.2.7.2.686 [facility] [id number] [facility] 081 Branch 2021-03-12 2021-03-12 Orders Liang, 1.2.840.1 [id number] Methodi 00:00:00 00:00:00 Only Holly C [address]18.1.[address] 3.430.2.7 Hospit a .3.515455 l .8 2021-03-12 2021-03-12 Travel 1.2.840.1 1.2.099.140 [id number] Methodi 00:00:00 00:00:[address] 3.430.2.7 0.2.7.3.698 Ho spita .3.575057 084.8 l .8 2021-02-06 2021-02-07 Outpatient nullFlavo MNA [id number] [place] 14:00:00 04:59:59 r Neurology 22 l Austin Yoel 2021-01-06 2021-01-06 Office Delroy Smith [facility] 1.2.840.114 12 [id number] [place] 11:27:34 12:48:30 Visit [place] 350.1.13.58 [facility] 9.2.7.2.686 PLA[address] 2 [id number] AND 3 WOMENS 2020-11-18 2020-11-18 Outpatient [facility] 108 86-2020 [place] 05:14:00 05:14:00 _L 0816 [facility] 2020-11-18 2020-11-18 Outpatient [facility] cd4 [id number] 00:00:00 00:00:00 , Lili ed6-11eb-9 Tiffany [id number]-[id number] 99315e 2020-11-18 2020-11-18 Outpatient [facility] 2ae hj39s-n 00:00:00 00:00:00 , Lili ef3-11eb-b Tiffany [id number] [id number] 2020-09-04 2020-09-04 Ambulatory nullFlavo MNA [id number] [place] 16:00:00 16:00:00 Pre-Reg r Neurology 21 l Vivien [place] 2020-08-22 2020-08-22 Office Delroy Smith [facility] 1.2.840.114 12 [id number] [place] 16:06:20 17:25:30 Visit [place] 350.1.13.58 [facility] 9.2.7.2.686 PLA[address] 6 [id number] AND 3 WOMENS 2020-05-15 2020-05-16 Outpatient nullFlavo MNA [id number] [place] 16:45:00 05:59:59 r Neurology 20 l [place] 2020-04-29 2020-04-29 Outpatient nullFlavo [facility] 9706 2 [place] 16:35:25 20:47:00 r [facility] 2020-01-02 2020-01-03 Outpatient nullFlavo MNA [id number] [place] 16:00:00 04:59:59 r Neurology 19 l [facility] 2019-10-31 2019-10-31 Outpatient [facility] [id number] [place] 11:00:00 11:00:00 18 l [place] 2019-10-27 2019-10-27 Ambulatory nullFlavo MNA [id number] [place] 19:15:00 19:15:00 Pre-Reg r Neurology 17 l [facility] 2019-09-21 2019-10-11 Inpatient MCCARTAN, [facility] [id number] [place] 00:00:00 00:00:00 JOVANY [address] 2019-10-10 2019-10-10 Ambulatory nullFlavo MNA [id number] [place] 19:45:00 19:45:00 Pre-Reg r Neurology 14 l [facility] 2019-10-10 2019-10-10 Ambulatory nullFlavo MNA 85143 [id number] [place] 19:45:00 19:45:00 Pre-Reg r Neurology 16 l [facility] 2019-10-10 2019-10-10 Ambulatory nullFlavo MNA [id number] [id number] [place] 19:45:00 19:45:00 Pre-Reg r Neurology 15 l [place] Yoel 2019-09-19 2019-09-20 Emergency Erum [facility] 1.2.716.453 [id number] [facility] 19:09:28 00:57:00 Dell Sung 350.1.13.10 itfarida [facility] 4.2.7.2.686 [facility] [id number] [place] [address] Branch 2019-09-19 2019-09-20 Emergency X ERUM [facility] ERT [id number] Univers 19:09:28 00:57:00 DELL itfarida [facility] 2019-09-19 2019-09-20 [facility] 1.2.378.142 [id number] 19:09:28 00:57:00 Dell Sung 350.1.13.10 [place] 4.2.7.2.686 [place] [id number] [facility] 2019-08-30 2019-08-30 Emergency BANG PINON [facility] 064 [id number] [place] 00:00:00 00:00:00 214 Method i 2019-08-25 2019-08-26 Outpatient nullFlavo MNA [id number] [place] 19:15:00 04:59:59 r Neurology 13 l [place] 2019-08-23 2019-08-23 Outpatient DELROY SMITH [facility] [id number] [place] 00:00:00 00:00:00 872 Method i 2019-07-21 2019-07-21 [facility] [id number] [place] 00:00:00 00:00:00 086 Method i 2019-06-27 2019-06-27 Ambulatory nullFlavo MNA [id number] [id number] [place] 21:00:00 21:00:00 Pre-Reg r Neurology 12 l [place] 2019-06-20 2019-06-20 Ambulatory nullFlavo [facility] [id number] [place] 14:30:00 14:30:00 Pre-Reg r Urology 11 l Wilburn Hayley [facility] 2019-06-04 2019-06-06 Inpatient C MARILYN MENENDEZ [facility] TELE [id number] [facility] 18:11:00 12:35:00 [facility] 2019-05-31 2019-05-31 Ambulatory nullFlavo [place] [id number] [place] 17:15:00 17:15:00 Pre-Reg r Neurology 09 l [place] 2019-05-26 2019-05-26 Transition Milla Tamez 1.2.840.114 [id number] [facility] 00:00:00 00:00:00 of Care Regulo Baly 350.1.13.10 ity [facility] 4.2.7.2.686 [facility] [id number] [facility] 403 Branch 2019-05-26 2019-05-26 Transition Milla Tamez 1.2.840.114 [id number] 00:00:00 00:00:00 of Care Regulo Baly 350.1.13.10 [place] 4.2.7.2.686 [id number] [facility] 2019-05-18 2019-05-25 [facility] 1.2.840.11 4 [id number] Univers 16:11:39 15:40:00 Encounter Giuliano Hernandes 350.1.13.10 ity [facility] 4.2.7.2.686 [facility] [id number] [facility] 081 Branch 2019-05-18 2019-05-25 Inpatient X GIULIANO HERNANDES [facility] [id number] Univers 16:11:39 15:40:00 ity [facility] 2019-05-18 2019-05-25 [facility] 1.2.840.11 [id number] 16:11:39 15:40:00 Encounter Giuliano Hernandes 350.1.13.10 [place] 4.2.7.2.686 [place] [id number] [facility] 2019-04-03 2019-04-03 Outpatient DELROY SMITH [facility] [id number] [place] 00:00:00 00:00:[address] 2019-03-09 2019-03-10 Outpatient nullFlavo [facility] [id number] [place] 17:00:00 05:59:59 r Urology 08 l [facility] 2019-02-20 2019-02-20 Day nullFlavo [facility] [id number] [place] 11:01:00 15:45:00 Surgery r [place] 08 l Wilburn Hayley 2019-02-20 2019-02-20 Outpatient [facility] URO 7508 FB 05:01:00 05:01:00 2019-02-17 2019-02-17 Outpatient DELROY SMITH [facility] [id number] [place] 00:00:00 00:00:[address] 2019-02-09 2019-02-09 Ambulatory nullFlavo [facility] [id number] [place] 20:00:00 20:00:00 Pre-Reg r Urology 10 l Wilburn Hayley [facility] 2019-01-25 2019-01-26 Outpatient nullFlavo [place] [id number] [place] 19:45:00 04:59:59 r Neurology 03 l [place] 2019-01-19 2019-01-20 Outpatient nullFlavo [facility] [id number] [place] 15:45:00 04:59:59 r Urology 07 l Wilburn Hayley [facility] 2018-12-28 2018-12-29 Outpatient nullFlavo [facility] [id number] [place] 18:30:00 04:59:59 r Urology 06 l Wilburn Hayley [facility] 2018-12-26 2018-12-28 Phone nullFlavo [facility] [id number] Mem[place] 14:14:37 04:59:59 Message r Urology 01 l Wilburn Hayley [facility] 2018-12-26 2018-12-27 Between nullFlavo [facility] [id number] [place] 15:23:07 15:23:07 Visit r Urology 05 l Wilburn Hayley [facility] 2018-12-23 2018-12-24 Outpatient nullFlavo [facility] [id number] [place] 14:15:00 04:59:59 r Urology 05 l Wilburn Hayley [facility] 2018-11-21 2018-11-22 Outpatient nullFlavo [facility] [id number] [place] 18:30:00 04:59:59 r Urology 04 l Wilburn Hayley [facility] 2018-06-22 2018-06-22 Outpatient MHIE [facility] [id number] [place] 14:45:00 14:45:00 02 l Yoel 2018-06-13 2018-06-13 Outpatient nullFlavo [facility] [id number] 2 Mem[place] 12:37:00 16:00:00 r Yoel l [facility] 2018-05-11 2018-05-12 Outpatient nullFlavo MNA [id number] [place] 21:00:00 05:59:59 r Neurology 01 l Vivien [place] 2018-04-19 2018-04-20 Outpatient nullFlavo MNA [id number] [id number] [place] 17:15:00 05:59:59 r Neurology 00 l [facility] Results Test Description Test Time Test Comments Results Result Comments Source SARS-CoV-2 (COVID-19) RNA [Presence] in Respiratory sp ecimen by 2021-06-10 00:32:00 SEBASTIÁN with probe detection Test Item Value Reference Range Interpretation Comme nts SARS-CoV-2 (COVID-19) RNA [Presence] in Respiratory specimen by Not detected SEBASTIÁN with probe detection (test code = 64458-2) Whether patient is employed in a healthcare setting (test code = Un known 39104-8) Whether the patient has symptoms related to condition of interest U nknown (test code = 91419-4) Whether the patient was hospitalized for condition of interest Unkn own (test code = 63216-7) Whether the patient was admitted to intensive care unit (ICU) for U nknown condition of interest (test code = 25166-9) Whether patient resides in a congregate care setting (test code = U nknown 08547-2) status (test code = 33908-1) Unknown Date and time of symptom onset (test code = 48347-0) Unknown POC qatcbip0206-07-10 01:39:32 Test Item Value Reference Range Interpretation Comments POC glucose (test code 128 mg/dL 65-99 H Opera tor Name: = 67308-5) SocietyOnen Device ID: [id number] able: TM Notified release engineer Interpretation Abnormal (test code = 58567-4) [facility] bdexhks1824-14-42 01:39:32 Test Item Value Reference Range Interpretation Comments POC glucose (test code 128 mg/dL 65-99 H Opera tor Name: = 29866-0) Tiempyhawn Device ID: [id number] able: TM Notified release engineer Interpretation Abnormal (test code = 53241-8) [facility] RNA [Presence] in Respiratory specimen by SEBASTIÁN with probe dbbimqhex7880-83-59 13:42:31 Test Item Value Reference Range Interpretation Comments SARS-CoV-2 (COVID-19) RNA Not detected Not-Detected [Presence] in Respiratory specimen by SEBASTIÁN with probe detection (test code = 20685-1) Whether patient is employed in a healthcare setting (test code = 18125-3) Whether the patient has symptoms related to condition of interest (test code = 56465-6) Patient was hospitalized because of this condition (test code = 19286-3) Whether the patient was admitted to intensive care unit (ICU) for condition of interest (test code = 02642-0) Whether patient resides in a congregate care setting (test code = 21845-9) ECG Pre/Post Op (PRN)2021 17:59:26 Test Item Value Reference Range Interpretation Comments Ventricular rate (test code = 253) Atrial rate (test code = 255) MO interval (test code = 266) QRSD interval (test code = 260) QT interval (test code = 264) QTC interval (test code = 265) P axis 1 (test code = 267) QRS axis 1 (test code = 268) T wave axis (test code = 270) EKG impression (test Sinus rhythm with code = 273) frequent premature ventricular complexes-Left axis deviation-Nonspecific intraventricular block-Inferior infarct (cited on or before 12-MAR-2021)-T wave abnormality, consider anterolateral ischemia-Abnormal ECG-In automated comparison with ECG of 12-MAR-2021 22:01,-premature ventricular complexes are now present-Nonspecific intraventricular block has replaced Right bundle branch block- Massiel SerranoECG Pre/Post Op (PRN)2021 17:59:26 Test Item Value Reference Range Interpretation Comments Ventricular rate (test code = 253) Atrial rate (test code = 255) MO interval (test code = 266) QRSD interval (test code = 260) QT interval (test code = 264) QTC interval (test code = 265) P axis 1 (test code = 267) QRS axis 1 (test code = 268) T wave axis (test code = 270) EKG impression (test Sinus rhythm with code = 273) frequent premature ventricular complexes-Left axis deviation-Nonspecific intraventricular block-Inferior infarct (cited on or before 12-MAR-2021)-T wave abnormality, consider anterolateral ischemia-Abnormal ECG-In automated comparison with ECG of 12-MAR-2021 22:01,-premature ventricular complexes are now present-Nonspecific intraventricular block has replaced Right bundle branch block- [address]2021-12-08 22:45:11 Test Item Value Reference Range Interpretation Comments Ventricular rate (test code = 253) Atrial rate (test code = 255) MO interval (test code = 266) QRSD interval (test code = 260) QT interval (test code = 264) QTC interval (test code = 265) P axis 1 (test code = 267) QRS axis 1 (test code = 268) T wave axis (test code = 270) EKG impression (test ^^^ Poor data quality, code = 273) interpretation may be adversely affected-Normal sinus rhythm-Left axis deviation-Right bundle branch block- [address]2021-12-08 22:45:11 Test Item Value Reference Range Interpretation Comments Ventricular rate (test code = 253) Atrial rate (test code = 255) MO interval (test code = 266) QRSD interval (test code = 260) QT interval (test code = 264) QTC interval (test code = 265) P axis 1 (test code = 267) QRS axis 1 (test code = 268) T wave axis (test code = 270) EKG impression (test ^^^ Poor data quality, code = 273) interpretation may be adversely affected-Normal sinus rhythm-Left axis deviation-Right bundle branch block- [facility] GLUCOSE (AUTOMATED)2021-03-12 03:00:06 Test Item Value Reference Range Interpretation Comments POCT GLU (test code = 7235506119) 279 mg/dL 70-110 H Lab Interpretation (test code = Abnormal 10163-4) [facility] GLUCOSE (AUTOMATED)2021-03-11 22:53:20 Test Item Value Reference Range Interpretation Comments POCT GLU (test code = 0650520760) 262 mg/dL 70-110 H Lab Interpretation (test code = Abnormal 34587-3) [facility] GLUCOSE (AUTOMATED)2021-03-11 13:49:43 Test Item Value Reference Range Interpretation Comments POCT GLU (test code = 3939503441) 225 mg/dL 70-110 H Lab Interpretation (test code = Abnormal 09706-1) [facility] Metabolic Panel (NA, K, CL, CO2, GLUCOSE, BUN, CREATININE, CA)2021-03-11 13:32:17 Test Item Value Reference Range Interpretation Comments NA (test code = 137 mmol/L 135-145 4214369950) K (test code = 3.8 mmol/L 3.5-5.0 2024551145) CL (test code = 99 mmol/L 98-108 2704309506) CO2 TOTAL (test code = 28 mmol/L 23-31 2419536073) AGAP (test code = 2-16 7280026893) BUN (test code = 50 mg/dL 7-23 H 5769313921) GLUCOSE (test code = 243 mg/dL 70-110 H 5188932159) CREATININE (test code = 1.55 mg/dL 0.60-1.25 H 3138029458) CALCIUM (test code = 9.4 mg/dL 8.6-10.6 4056782713) eGFR (test code = mL/min/1.73m2 5602642414) CAROLIN (test code = CAROLIN) Association of Glomerular Filtration Rate (GFR) and Staging of Kidney Disease* + --+ --+ ------+| GFR (mL/min/1.73 m2) ?| With Kidney Damage ?| ?Without Kidney Damage+ --------+ --------+ +| ?>90 ?| ?Stage one ?| ? Normal ?+ ---+ ---+ -------+| ?60-89 ?| ?Stage two ?| ? Decreased GFR ? + --+ --+ ------+| ?30-59 ?| ?Stage three ?| ? Stage three ? + --+ --+ ------+| ?15-29 ?| ?Stage four ? | ? Stage four ?+ ---+ ---+ -------+| ?<15 (or dialysis) ? ?| ?Stage five ? | ? Stage five ?+ ---+ ---+ -------+ *Each stage assumes the associated GFR level has been in effect for at least three months. ?Stages 1 to 5, with or without kidney disease, indicate chronic kidney disease. Notes: Determination of stages one and two (with eGFR >59mL/min/1.73 m2) requires estimation of kidney damage for at least three months as defined by structural or functional abnormalities of the kidney, manifested by either:Pathological abnormalities or Markers of kidney damage (including abnormalities in the composition of the blood or urine or abnormalities in imaging tests). Lab Interpretation Abnormal (test code = 81426-1) [facility]11 13:29:15 Test Item Value Reference Range Interpretation Comments HGB A1C (test code = 8.9 % 4.0-5.7 H 4548-4) CAROLIN (test code = CAROLIN) Reference RangesNormal: <5.7%Prediabetes: 5.7 - 6.4%Diabetes: > 6.5% Lab Interpretation (test Abnormal code = 97730-8) [facility] (Total Cholesterol, Triglycerides, HDL) - Npmhtal6204-79-87 12:53:15 Test Item Value Reference Range Interpretation Comments CHOL (test code = 149 mg/dL 120-200 2209999488) HDL (test code = 21 mg/dL >40 L 9381136410) HDLC RATIO (test code = See_Comment H [Au tomated message] 7976642123) The system cartmi generated this result transmit wesley reference range : <=5.0. The refe rence range was not u sed to interpret th is result as normal/abnormal . TRIG (test code = 275 mg/dL 30-170 H 8925288138) LDL CHOL (test code = 73 mg/dL See_Comment [Auto mated message] 06266-7) The system cartmi generated this result transmit wesley reference range : <=160. The refe rence range was not u sed to interpret th is result as normal/abnormal . VLDL (test code = 55 mg/dL 5-60 6685102073) Lab Interpretation (test Abnormal code = 60411-5) [facility] Adzgypzmoohs1779-74-70 12:19:51 Test Item Value Reference Range Interpretation Comments WBC (test code = See_Comment [Automated 6690-2) message] The sy stem which generated this result transmitted reference range : 4.20 - 10.70 10*3/?L. The reference range was not used to interpret this result as normal/abnormal . RBC (test code = See_Comment [Automated 789-8) message] The sy stem which generated this result transmitted reference range : 4.26 - 5.52 10*6/?L. The reference range was not used to interpret this result as normal/abnormal . HGB (test code = 12.6 g/dL 12.2-16.4 718-7) HCT (test code = 39.0 % 38.4-49.3 4544-3) MCV (test code = 80.2 fL 81.7-95.6 L 787-2) MCH (test code = 25.9 pg 26.1-32.7 L 785-6) MCHC (test code = 32.3 g/dL 31.2-35.0 786-4) RDW-SD (test code = 47.0 fL 38.5-51.6 37242-5) RDW-CV (test code = 16.3 % 12.1-15.4 H 788-0) PLT (test code = See_Comment [Automated 777-3) message] The sy stem which generated this result transmitted reference range : 150 - 328 10*3/ ?L. The reference r siddharth was not used to interpret this result as normal/abnormal . MPV (test code = 10.0 fL 9.8-13.0 77164-0) NRBC/100 WBC (test See_Comment [Automat ed code = 1649749785) message] The system which generated this result transmitted reference range : 0.0 - 10.0 /100 WBCs. The refer ence range was not u sed to interpret th is result as normal/abnormal . NRBC x10^3 (test code <0.01 See_Comment [Auto mated = 2857336898) message] The s ystem which generated this result transmitted reference range : 10*3/?L. The reference range was not used to interpret this result as normal/abnormal . GRAN MAT (NEUT) % 67.9 % (test code = 770-8) IMM GRAN % (test code 0.60 % = 2569342356) LYMPH % (test code = 16.3 % 736-9) MONO % (test code = 7.2 % 5905-5) EOS % (test code = 6.6 % 713-8) BASO % (test code = 1.4 % 706-2) GRAN MAT x10^3(ANC) 6.42 10*3/uL 1.99-6.95 (test code = 5173059968) IMM GRAN x10^3 (test 0.06 10*3/uL 0.00-0.06 code = 5067198653) LYMPH x10^3 (test code 1.54 10*3/uL 1.09-3.23 = 731-0) MONO x10^3 (test code 0.68 10*3/uL 0.36-1.02 = 742-7) EOS x10^3 (test code = 0.62 10*3/uL 0.06-0.53 H 711-2) BASO x10^3 (test code 0.13 10*3/uL 0.01-0.09 H = 704-7) Lab Interpretation Abnormal (test code = 69446-0) [facility] [id number] 19:00:01 Test Item Value Reference Interpretation Comments Range TROPONIN I (test 0.019 ng/mL See_Comment [Automated code = 7626176917) message] The system which generated this result transmitted reference range : <=0.034. The reference range was not used to interpret this result as normal/abnormal . CAROLIN (test code = Reference (Normal) CAROLIN) Range (defined by the 99th percentile reference limit): <= 0.034 ng/mL Note: Cardiac troponin begins to rise 3-4 hours after the onset of ischemia. Repeat in 4-6 hours if the sample was drawn within 3-4 hours of the onset of the symptom and found normal. Diagnosis of myocardial injury is made with acute changes in cTn concentrations with at least one serial sample above the 99th percentile upper reference limit (URL), taken together with the patient's clinical presentation. Biotin has been reported to cause a negative bias, interpret results relative to patient's use of biotin. Lab Interpretation Normal (test code = 42367-0) [facility] A[facility]-[id number] 18:56:59 Test Item Value Reference Range Interpretation Comments NT-proBNP (test code 1970 pg/mL See_Comment H [Autom ated = 8189476647) message] The system which generated this result transmitted reference range : <=125. The reference range was not used to interpret this result as normal/abnormal . CAROLIN (test code = CAROLIN) Biotin has been reported to cause a negative bias, interpret results relative to patient's use of biotin. Lab Interpretation Abnormal (test code = 25937-5) [facility] 18:48:20 Test Item Value Reference Range Interpretation Comments MAGNESIUM (test code = 7773846975) 2.0 mg/dL 1.7-2.4 Lab Interpretation (test code = Normal 76099-0) [facility]OLIC PAN[facility] (56328)2021-03-10 18:48:19 Test Item Value Reference Range Interpretation Comments NA (test code = 134 mmol/L 135-145 L 0833144820) K (test code = 4.9 mmol/L 3.5-5.0 0602926159) CL (test code = 98 mmol/L 98-108 6771630396) CO2 TOTAL (test code = 24 mmol/L 23-31 8074310698) AGAP (test code = 2-16 4548117274) BUN (test code = 54 mg/dL 7-23 H 4197261557) GLUCOSE (test code = 307 mg/dL 70-110 H 9772258192) CREATININE (test code = 1.52 mg/dL 0.60-1.25 H 7513383147) TOTAL BILI (test code = 0.7 mg/dL 0.1-1.7 5743593581) CALCIUM (test code = 9.0 mg/dL 8.6-10.6 9250714519) T PROTEIN (test code = 7.1 g/dL 6.3-8.2 3119609999) ALBUMIN (test code = 3.8 g/dL 3.5-5.0 0335767356) ALK PHOS (test code = 91 U/L 34-122 4929042192) ALTv (test code = 15 U/L 5-50 2-6) AST(SGOT) (test code = 32 U/L 13-40 4055790060) eGFR (test code = mL/min/1.73m2 8686138332) CAROLIN (test code = CAROLIN) Association of Glomerular Filtration Rate (GFR) and Staging of Kidney Disease* + --+ --+ ------+| GFR (mL/min/1.73 m2) ?| With Kidney Damage ?| ?Without Kidney Damage+ --------+ --------+ +| ?>90 ?| ?Stage one ?| ? Normal ?+ ---+ ---+ -------+| ?60-89 ?| ?Stage two ?| ? Decreased GFR ? + --+ --+ ------+| ?30-59 ?| ?Stage three ?| ? Stage three ? + --+ --+ ------+| ?15-29 ?| ?Stage four ? | ? Stage four ?+ ---+ ---+ -------+| ?<15 (or dialysis) ? ?| ?Stage five ? | ? Stage five ?+ ---+ ---+ -------+ *Each stage assumes the associated GFR level has been in effect for at least three months. ?Stages 1 to 5, with or without kidney disease, indicate chronic kidney disease. Notes: Determination of stages one and two (with eGFR >59mL/min/1.73 m2) requires estimation of kidney damage for at least three months as defined by structural or functional abnormalities of the kidney, manifested by either:Pathological abnormalities or Markers of kidney damage (including abnormalities in the composition of the blood or urine or abnormalities in imaging tests). Lab Interpretation Abnormal (test code = 60843-5) [facility] WITH [id number] 18:36:20 Test Item Value Reference Range Interpretation Comments WBC (test code = See_Comment H [Automated 9190-2) message] The sy stem which generated this result transmitted reference range : 4.20 - 10.70 10*3/?L. The reference range was not used to interpret this result as normal/abnormal . RBC (test code = See_Comment [Automated 789-8) message] The sy stem which generated this result transmitted reference range : 4.26 - 5.52 10*6/?L. The reference range was not used to interpret this result as normal/abnormal . HGB (test code = 12.7 g/dL 12.2-16.4 718-7) HCT (test code = 39.8 % 38.4-49.3 4544-3) MCV (test code = 80.7 fL 81.7-95.6 L 787-2) MCH (test code = 25.8 pg 26.1-32.7 L 785-6) MCHC (test code = 31.9 g/dL 31.2-35.0 786-4) RDW-SD (test code = 47.2 fL 38.5-51.6 30679-8) RDW-CV (test code = 16.2 % 12.1-15.4 H 788-0) PLT (test code = See_Comment [Automated 777-3) message] The sy stem which generated this result transmitted reference range : 150 - 328 10*3/ ?L. The reference r siddharth was not used to interpret this result as normal/abnormal . MPV (test code = 9.5 fL 9.8-13.0 L 75923-9) NRBC/100 WBC (test See_Comment [Automat ed code = 9033069840) message] The system which generated this result transmitted reference range : 0.0 - 10.0 /100 WBCs. The refer ence range was not u sed to interpret th is result as normal/abnormal . NRBC x10^3 (test code <0.01 See_Comment [Auto mated = 9208790656) message] The s ystem which generated this result transmitted reference range : 10*3/?L. The reference range was not used to interpret this result as normal/abnormal . GRAN MAT (NEUT) % 76.2 % (test code = 770-8) IMM GRAN % (test code 0.70 % = 4389898921) LYMPH % (test code = 10.3 % 736-9) MONO % (test code = 6.4 % 5905-5) EOS % (test code = 5.1 % 713-8) BASO % (test code = 1.3 % 706-2) GRAN MAT x10^3(ANC) 8.46 10*3/uL 1.99-6.95 H (test code = 6136287769) IMM GRAN x10^3 (test 0.08 10*3/uL 0.00-0.06 H code = 0582984419) LYMPH x10^3 (test code 1.14 10*3/uL 1.09-3.23 = 731-0) MONO x10^3 (test code 0.71 10*3/uL 0.36-1.02 = 742-7) EOS x10^3 (test code = 0.57 10*3/uL 0.06-0.53 H 711-2) BASO x10^3 (test code 0.14 10*3/uL 0.01-0.09 H = 704-7) Lab Interpretation Abnormal (test code = 87387-0) [facility] Test Item Value Reference Range Interpretation Comments Blood Glucose, Capillary (test code = 140 74-106 Blood Glucose, Capillary) [facility] coronavirus 2 RNA [Presence] in Respiratory specimen by SEBASTIÁN with probe [id number] 17:49:09 Test Item Value Reference Range Interpretation Comments SARS coronavirus 2 RNA Not detected Not-Detected [Presence] in Respiratory specimen by SEBASTIÁN with probe detection (test code = 15157-9) SARS coronavirus 2 RNA [Presence] in Respiratory specimen by SEBASTIÁN with probe [id number] 07:53:35 Test Item Value Reference Range Interpretation Comments SARS coronavirus 2 RNA Not detected Not-Detected [Presence] in Respiratory specimen by SEBASTIÁN with probe detection (test code = 85120-0) SARS coronavirus 2 RNA [Presence] in Respiratory specimen by SEBASTIÁN with probe [id number] 05:34:32 Test Item Value Reference Range Interpretation Comments SARS coronavirus 2 RNA Not detected Not-Detected [Presence] in Respiratory specimen by SEBASTIÁN with probe detection (test code = 56071-4) CT ABDOMEN PELVIS W [id number] 03:51:27 1. ?Focal circumferential thickening of the rectum is consistent patient'shistory of known rectal ma lignancy. Locules of free air surrounding thisthickened segment of rectum likely represent containedperforation.2. 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 No perirenalfluid collections.4. Hepatosplenomegaly with diffuse hepatic steatosis. These findings were relayed to and acknowledged by at 2237 09/2019. Preliminary Report Dictated by Resident: Hugo Torres MD., have reviewed this study and agree with the abovereport.EXAM: CT ABDOMEN AND PELVIS WITH CONTRAST HISTORY: History of metastatic rectal cancer. COMPARISON: None. DOSE: Total exam DLP 642 mGy-cm TECHNIQUE AND FINDINGS: Contiguous axial imaging from the level of the lungbases through the pubic symphysis was performed after the uncomplicatedadministration of 120 cc of intravenous Omnipaque contrast. Coronal andsagittal reconstructions were obtained. ?Auto mA and/or iterativereconstruction were used to reduce radiation dose. FINDINGS: LOWER THORAX: The lungs bases are clear. Left lower lobe pleuralthickening. No cardiomegaly. Dense coronary arterial calcification of theleft anterior descending coronary artery. Multivessel coronarycalcifications. LIVER: Hepatomegaly (22.2 cm in the craniocaudal dimension). The he paticparenchyma is mildly heterogenous, suggestive of geographic regions ofill- defined fatty sparing. No focal hepatic lesions. ?Normal contour. GALLBLADDER AND BILIARY TREE: Prior cholecystectomy. SPLEEN: Splenomegaly (14.3 cm).. PANCREAS: No ductal dilation or masses. ADRENAL GLANDS: No adrenal nodules. KIDNEYS: Diffuse perinephric stranding. The left renal cortex appearspatchy and heterogenous (2:80). Mild left hydronephrosis and hydroureterwith enhancing uroepithelium. Mild right hydroureter with enhancinguroepithelium. No perinephric fluid collections identified. No stones ormasses. PERITONEUM AND RETROPERITONEUM: Bilateral inguinal hernias contain fat. LYMPH NODES: A 1.1 cm paraesophageal lymph node (2:2). Multiple nonspecificretroperitoneal lymph nodes as well as lymph nodes at the root of themesentery measuring up to 9 mm in size. GI TRACT: The tyler of the rectum are diffusely thickened, consistent withpatient's history of rectal malignancy. Multiple locules of free air areseen surrounding the rectum which raises suspicion for rectal perforation.. PELVIS/BLADDER: A 2.7 x 3.8 by 9.4 cm (AP x TV x CC) ill-defined presacralfluid collection with locules of free air most likely represents aperirectal abscess (6:79). The urinary bladder is markedly distended with air-fluid level andcircum ferentially thickened tyler. This raises suspicion for fistulaformation with the aforementioned rectal malignancy. Diabetic type vas deferens calcifications VESSELS: Calcifications of the ostium of theceliac trunk and proximal SHERRIE. BONES AND SOFT TISSUES: No suspicious lytic or sclerotic bony lesions. Diffuse caudal body wall anasarca. [facility], Radiant Results Inft User - 09/19/2019 10:52 PM CDTEXAM: CT ABDOMEN AND PELVIS WITH CONTRASTHISTORY: History of metastatic rectal cancer.COMPARISON: None.DOSE:Total exam DLP 642 mGy-cmTECHNIQUE AND FINDINGS: Contiguous axial imaging from the level of the lungbases through the pubic symphysis was performed after the uncomplicatedadministration of 120 cc of intravenous Omnipaque contrast. Coronal andsagittal reconstructions were obtained. Auto mA and/or iterativereconstruction were used to reduce radiation dose.FINDINGS:LOWER THORAX: The lungs bases are clear. Left lower lobe pleuralthickening. No cardiomegaly. Dense coronary arterial calcification of theleft anterior descending coronary artery. Multivessel coronarycalcifications.LIVER: Hepatomegaly (22.2cm in the craniocaudal dimension). The hepaticparenchyma is mildly heterogenous, suggestive of geogra phic regions ofill-defined fatty sparing. No focal hepatic lesions. Normal contour.GALLBLADDER AND BILIARY TREE: Prior cholecystectomy. SPLEEN: Splenomegaly (14.3 cm)..PANCREAS: No ductal dilation or masses.ADRENAL GLANDS: No adrenal nodules.KIDNEYS: Diffuse perinephric stranding. The left renal cortex appearspatchy and heterogenous (2:80). Mild left hydronephrosis and hydroureterwith enhancing uroepithelium. Mild right hydroureter with enhancinguroepithelium. No perinephric fluid collections identified. No stones ormasses.PERITONEUM AND RETROPERITONEUM: Bilateral inguinal hernias contain fat.LYMPH NODES: A 1.1 cm paraesophageal lymph node (2:2). Multiple nonspecificretroperitoneal lymph nodes aswell as lymph nodes at the root of themesentery measuring up to 9 mm in size.GI TRACT: The tyler of the rectum are diffusely thickened, consistent withpatient's history of rectal malignancy. Multiple locules of free air areseen surrounding the rectum which raises suspicion for rectal perforation..PELVIS/BLADDER: A 2.7 x 3.8 by 9.4 cm (AP x TV x CC) ill-defined presacralfluid collection with locules of free air most likely represents aperirectal abscess (6:79).The urinary bladder is markedly distended with air-fluid level andcircumferentially thickened tyler. This raises suspicion for fistulaformation with the aforementioned rectal malignancy.Diabetic type vas deferens calcificationsVESSELS: Calcifications of the ostium of the celiac trunk and proximal SHERRIE.BONES AND SOFT TISSUES: No suspicious lytic or sclerotic bony lesions.Diffuse caudal body wall anasarca.IMPRESSION1. Focal circumferential thickening of the rectum is consistent patient'shistory of known rectal malignancy. Locules of free air surrounding thisthickened segment of rectum likely represent contained perforation.2. A 2.7 x 3.8 by9.4 cm (AP x TV x CC) cm presacral perirectal abscess.This abscess is likely secondary to rectal fistula formation.3. 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 No perirenalfluid collections.4. Hepatosplenomegaly with diffuse hepatic steatosis.These findings were relayed to and acknowledged by at 2237 09/19/2019.Preliminary Report Dictated by Resident: Hugo Mahoney MD., have reviewed this study and agree with the abovereport.[facility] [id number] 02:41:28 No sonographic features of testicular torsion. Small left hydrocele, possibly reactive. PreliminaryReport Dictated by Resident: Jakob Watson I, Hugo ?Deluna, MD., have reviewed this study and agree with the abovereport.EXAM: US TESTICULAR TORSION HISTORY: testicular pain COMPARISON: No prior studies available for comparison. TECHNIQUE: Real-time grayscale and color Doppler images through thescrotum. FINDINGS: RIGHT TESTICLE: Normal size, shape, and echotexture without a focal lesion.The right testicle measures 4.1 x 3.0 x 2.4 cm (16 mL). LEFT TESTICLE: Normal size, shape, and echotexture without a focal lesion.The left testicle measures 4.0 x 2.3 x 2.7 cm (13 mL). EPIDIDYMIDES: The right epididymal head is heterogeneously echogenic andmildly enlarged measuring 1.3 x 1.4 x 1.3 cm. The left epididymal headmeasures 0.7 x 1.1 x 1.0 cm and contains two subcentimeter epididymal headcysts. BLOOD FLOW: Symmetric flow on color and spectral Doppler. SCROTUM: Small left hydrocele. VARICOCELE: None. [facility], Radiant Results Inft User - 09/19/2019 9:42 PM CDTEXAM: US TESTICULAR TORSIONHISTORY: testicular pain COMPARISON: No prior studies available for comparison. TECHNIQUE: Real-time grayscale and color Doppler images through thescrotum.FINDINGS: RIGHT TESTICLE: Normal size, shape, and echotexture without a focal lesion.The right testicle measures 4.1 x 3.0 x 2.4 cm (16 mL). LEFT TESTICLE: Normal size, shape, and echotexture without a focal lesion.The left testicle measures 4.0 x 2.3 x 2.7 cm (13 mL). EPIDIDYMIDES: The right epididymal head is heterogeneously echogenic andmildly enlarged measuring 1.3 x 1.4 x 1.3 cm. The left epididymal headmeasures 0.7 x 1.1 x 1.0 cm and contains two subcentimeter epididymal headcysts.BLOOD FLOW: Symmetric flow on color and spectral Doppler. SCROTUM: Small left hydrocele.VARICOCELE: None.IMPRESSIONNo sonographic features of testicular torsion.Small left hydrocele, possibly reactive.Preliminary Report Dictated by Resident: Jakob Reyes, Hugo Deluna MD., have reviewed this study and agree with the abovereport.[facility]. METABOLIC PANEL ([id number])2019-09-20 01:49:00 Test Item Value Reference Range Interpretation Comments NA (test code = 141 mmol/L 135-145 9175184902) K (test code = 4.2 mmol/L 3.5-5 9182182615) CL (test code = 100 mmol/L 98-108 3755142576) CO2 TOTAL (test code = 29 mmol/L 23-31 0090225589) AGAP (test code = 2-16 3620448540) BUN (test code = 20 mg/dL 7-23 3018397753) GLUCOSE (test code = 150 mg/dL 70-110 H 5348904833) CREATININE (test code = 0.96 mg/dL 0.6-1.25 2308391640) TOTAL BILI (test code = 0.4 mg/dL 0.1-1.9 3811446459) CALCIUM (test code = 8.8 mg/dL 8.6-10.6 9817600978) T PROTEIN (test code = 7.0 g/dL 6.3-8.2 2539693071) ALBUMIN (test code = 3.4 g/dL 3.5-5 L 1696875955) ALK PHOS (test code = 95 U/L 34-122 5905217359) ALTv (test code = 8 U/L 5-50 1742-6) AST(SGOT) (test code = 12 U/L 13-40 L 7813961986) eGFR Calculation mL/min/1.73m2 (Non-) (test code = 8512856566) eGFR Calculation mL/min/1.73m2 () (test code = 7489930147) CAROLIN (test code = CAROLIN) Association of Glomerular Filtration Rate (GFR) and Staging of Kidney Disease* + --+ --+ ------+| GFR (mL/min/1.73 m2) ?| With Kidney Damage ?| ?Without Kidney Damage+ --------+ --------+ +| ?>90 ?| ?Stage one ?| ? Normal ?+ ---+ ---+ -------+| ?60-89 ?| ?Stage two ?| ? Decreased GFR ? + --+ --+ ------+| ?30-59 ?| ?Stage three ?| ? Stage three ? + --+ --+ ------+| ?15-29 ?| ?Stage four ? | ? Stage four ?+ ---+ ---+ -------+| ?<15 (or dialysis) ? ?| ?Stage five ? | ? Stage five ?+ ---+ ---+ -------+ *Each stage assumes the associated GFR level has been in effect for at least three months. ?Stages 1 to 5, with or without kidney disease, indicate chronic kidney disease. Notes: Determination of stages one and two (with eGFR >59mL/min/1.73 m2) requires estimation of kidney damage for at least three months as defined by structural or functional abnormalities of the kidney, manifested by either:Pathological abnormalities or Markers of kidney damage (including abnormalities in the composition of the blood or urine or abnormalities in imaging tests). Lab Interpretation Abnormal (test code = 13382-2) [facility] Test Item Value Reference Range Interpretation Comments APPEARANCE (test code = Cloudy Clear A 2979693905) COLOR (test code = Yellow Yellow 7942001446) PH (test code = 4.8-8.0 3151070715) SP GRAVITY (test code = 1.003-1.030 6518027171) GLU U QUAL (test code = 500 mg/dL Normal A 8295584618) BLOOD (test code = 2+ Negative A 4271268390) KETONES (test code = Negative Negative 0815906786) PROTEIN (test code = 100 mg/dL Negative A 2887-8) UROBILIN (test code = Normal Normal 8784802546) BILIRUBIN (test code = Negative Negative 1518815464) NITRITE (test code = Negative Negative 9841281008) LEUK RAÚL (test code = 500/uL Negative A 5969890780) RBC/HPF (test code = See_Comment H [Autom ated message] 3533958277) The system cartmi generated this result transmit wesley reference range : 0 - 3 HPF. The refe rence range was not u sed to interpret th is result as normal/abnormal . WBC/HPF (test code = >182 See_Comment H [Autom ated message] 0163093631) The system cartmi generated this result transmit wesley reference range : 0 - 5 HPF. The refe rence range was not u sed to interpret th is result as normal/abnormal . BACTERIA (test code = Many Negative A 6619842244) MUCOUS (test code = Slight Negative LPF A 0644252082) WBC CLUMPS (test code = See_Comment H [Au tomated message] 0635147465) The system cartmi generated this result transmit wesley reference range : <=1 HPF. The refere nce range was not u sed to interpret th is result as normal/abnormal . YEAST BUD (test code = See_Comment [Aut omated message] 4939093041) The system cartmi generated this result transmit wesley reference range : <=1 HPF. The refere nce range was not u sed to interpret th is result as normal/abnormal . Lab Interpretation (test Abnormal code = 40676-9) [facility] WITH [id number] 01:11:00 Test Item Value Reference Range Interpretation Comments WBC (test code = See_Comment [Automated 6690-2) message] The sy stem which generated this result transmitted reference range : 4.20 - 10.70 10*3/?L. The reference range was not used to interpret this result as normal/abnormal . RBC (test code = See_Comment L [Automated 789-8) message] The sy stem which generated this result transmitted reference range : 4.26 - 5.52 10*6/?L. The reference range was not used to interpret this result as normal/abnormal . HGB (test code = 10.0 g/dL 12.2-16.4 L 718-7) HCT (test code = 31.9 % 38.4-49.3 L 4544-3) MCV (test code = 79.8 fL 81.7-95.6 L 787-2) MCH (test code = 25.0 pg 26.1-32.7 L 785-6) MCHC (test code = 31.3 g/dL 31.2-35 786-4) RDW-SD (test code = 42.2 fL 38.5-51.6 60349-6) RDW-CV (test code = 14.5 % 12.1-15.4 788-0) PLT (test code = See_Comment H [Automated 777-3) message] The sy stem which generated this result transmitted reference range : 150 - 328 10*3/ ?L. The reference r siddharth was not used to interpret this result as normal/abnormal . MPV (test code = 8.8 fL 9.8-13 L 51428-6) NRBC/100 WBC (test See_Comment [Automat ed code = 5889574865) message] The system which generated this result transmitted reference range : 0.0 - 10.0 /100 WBCs. The refer ence range was not u sed to interpret th is result as normal/abnormal . NRBC x10^3 (test code <0.01 See_Comment [Auto mated = 6700655029) message] The s ystem which generated this result transmitted reference range : 10*3/?L. The reference range was not used to interpret this result as normal/abnormal . GRAN MAT (NEUT) % 78.5 % (test code = 770-8) IMM GRAN % (test code 0.60 % = 4070806757) LYMPH % (test code = 9.7 % 736-9) MONO % (test code = 7.3 % 5905-5) EOS % (test code = 3.0 % 713-8) BASO % (test code = 0.9 % 706-2) GRAN MAT x10^3(ANC) 7.75 10*3/uL 1.99-6.95 H (test code = 0666877874) IMM GRAN x10^3 (test 0.06 10*3/uL 0-0.06 code = 4897324024) LYMPH x10^3 (test code 0.96 10*3/uL 1.09-3.23 L = 731-0) MONO x10^3 (test code 0.72 10*3/uL 0.36-1.02 = 742-7) EOS x10^3 (test code = 0.30 10*3/uL 0.06-0.53 711-2) BASO x10^3 (test code 0.09 10*3/uL 0.01-0.09 = 704-7) Lab Interpretation Abnormal (test code = 62573-9) [facility], [facility], NON-SPECIFIC, UP TO 1 HOUR 2019-06-27 09:22:00Reason for exam:->ERCPFINAL REPORT A fluoroscopic unit was utilized for a procedure performed in the operating room. No interpretation was requested. Please refer to the operative report regarding findings. Please refer to PACS for patient radiation dose information. Signed: JR Meena, Dell Mccauleydennis Verified Date/Time: 06/27/2019 09:22:30 Reading Location: [facility] Reading Room TISSUE [id number] 19:28:00Surgical Pathology Report Case: [id number] Authorizing Provider: Rubén Thakur MD Collected: 06/09/20192227 Ordering Location: [address] Received: 06/12/2019 0849 Service Pathologist: Cristina Ruano MD Specimen: Gallbladder A. GALLBLADDER, CHOLECYSTECTOMY: - ACUTE GANGRENOUS CHOLECYSTITIS WITH CHOLELITHIASIS - NEGATIVE FOR DYSPLASIA OR MAL IGNANCY Signing Pathologist Direct Phone Line: [phone] signed by Cristina Ruano MD on 06/18/2019 at 7:28 [id number] cholecystitis Gallbladder Received in formalin labeled with the patient's name, accession number and "gallbladder" is a 5.5 x 1.9 x 1.5 cm previously disrupted gallbladder with a 0.2 cm in length x 0.2 cm in diameter attached cystic duct. The serosa is purple-pink, focally hemorrhagic and smooth to diffusely disrupted. Sectioning reveals a 2.0 x 1.5 x 0.6 cm aggregate of black multifaceted calculi and green soft tissue. The mucosa is dillon-brown, focally green and trabeculated. There are no calculi lodged within the cystic duct. The wall measures 0.3 cmthick. Approver sections are submitted as follows in A1-A2, with the inked cystic structure margin in A1. PA/ew Performed.POCT- GLUCOSE [id number] 07:56:00 Test Item Value Reference Range Interpretation Comments POC-GLUCOSE METER 313 mg/dL 70-110 H : TESTED A T [facility] 6720 (SORIN) (test code = RON [place]DANA RI, 1538) [address]: Trade Union Secretary/Techni edward ID = [id number] for TERESA CELESTE BASIC METABOLIC [id number] 05:30:00 Test Item Value Reference Range Interpretation Comments SODIUM (BEAKER) (test 134 meq/L 136-145 L code = 381) POTASSIUM (BEAKER) 4.2 meq/L 3.5-5.1 (test code = 379) CHLORIDE (BEAKER) 104 meq/L 98-107 (test code = 382) CO2 (BEAKER) (test 23 meq/L 22-29 code = 355) BLOOD UREA NITROGEN 27 mg/dL 7-21 H (BEAKER) (test code = 354) CREATININE (BEAKER) 1.26 mg/dL 0.57-1.25 H (test code = 358) GLUCOSE RANDOM 370 mg/dL 70-105 H (BEAKER) (test code = 652) CALCIUM (BEAKER) 8.3 mg/dL 8.4-10.2 L (test code = 697) EGFR (BEAKER) (test INSUFFIC IENT CLINICAL code = 1092) DATA TO CALCULA TE ESTIMATED GFR. [employer] Secretary ID - NICO [id number] 05:29:00 Test Item Value Reference Range Interpretation Comments PHOSPHORUS (BEAKER) (test code = 2.0 mg/dL 2.3-4.7 L 604) [employer] Secretary ID - NICO [id number] 05:29:00 Test Item Value Reference Range Interpretation Comments MAGNESIUM (BEAKER) (test code = 2.1 mg/dL 1.6-2.6 627) [employer] Secretary ID - NICO LHEPATIC FUNCTION [id number] 05:29:00 Test Item Value Reference Range Interpretation Comments TOTAL PROTEIN (BEAKER) (test code = 6.0 gm/dL 6.0-8.3 770) ALBUMIN (BEAKER) (test code = 1145) 2.8 g/dL 3.5-5.0 L BILIRUBIN TOTAL (BEAKER) (test code 0.8 mg/dL 0.2-1.2 = 377) BILIRUBIN DIRECT (BEAKER) (test 0.5 mg/dL 0.1-0.5 code = 706) ALKALINE PHOSPHATASE (BEAKER) (test 636 U/L 40-150 H code = 346) AST (SGOT) (BEAKER) (test code = 19 U/L 5-34 353) ALT (SGPT) (BEAKER) (test code = 34 U/L 6-55 347) [employer] Secretary ID - PIAYA LCBC W/PLT COUNT & AUTO [id number] 05:07:00 Test Item Value Reference Range Interpretation Comments WHITE BLOOD CELL COUNT (BEAKER) 10.7 K/ L 3.5-10.5 H (test code = 775) RED BLOOD CELL COUNT (BEAKER) 3.65 M/ L 4.63-6.08 L (test code = 761) HEMOGLOBIN (BEAKER) (test code = 9.6 GM/DL 13.7-17.5 L 410) HEMATOCRIT (BEAKER) (test code = 31.1 % 40.1-51.0 L 411) MEAN CORPUSCULAR VOLUME (BEAKER) 85.2 fL 79.0-92.2 (test code = 753) MEAN CORPUSCULAR HEMOGLOBIN 26.3 pg 25.7-32.2 (BEAKER) (test code = 751) MEAN CORPUSCULAR HEMOGLOBIN CONC 30.9 GM/DL 32.3-36.5 L (BEAKER) (test code = 752) RED CELL DISTRIBUTION WIDTH 14.8 % 11.6-14.4 H (BEAKER) (test code = 412) PLATELET COUNT (BEAKER) (test 269 K/CU MM 150-450 code = 756) MEAN PLATELET VOLUME (BEAKER) 9.7 fL 9.4-12.4 (test code = 754) NUCLEATED RED BLOOD CELLS 0 /100 WBC 0-0 (BEAKER) (test code = 413) NEUTROPHILS RELATIVE PERCENT 80 % (BEAKER) (test code = 429) LYMPHOCYTES RELATIVE PERCENT 8 % (BEAKER) (test code = 430) MONOCYTES RELATIVE PERCENT 6 % (BEAKER) (test code = 431) EOSINOPHILS RELATIVE PERCENT 6 % (BEAKER) (test code = 432) BASOPHILS RELATIVE PERCENT 1 % (BEAKER) (test code = 437) NEUTROPHILS ABSOLUTE COUNT 8.54 K/ L 1.78-5.38 H (BEAKER) (test code = 670) LYMPHOCYTES ABSOLUTE COUNT 0.80 K/ L 1.32-3.57 L (BEAKER) (test code = 414) MONOCYTES ABSOLUTE COUNT (BEAKER) 0.59 K/ L 0.30-0.82 (test code = 415) EOSINOPHILS ABSOLUTE COUNT 0.60 K/ L 0.04-0.54 H (BEAKER) (test code = 416) BASOPHILS ABSOLUTE COUNT (BEAKER) 0.07 K/ L 0.01-0.08 (test code = 417) IMMATURE GRANULOCYTES-RELATIVE 1 % 0-1 PERCENT (BEAKER) (test code = 2801) POCT-GLUCOSE [id number] 21:49:00 Test Item Value Reference Range Interpretation Comments POC-GLUCOSE METER 298 mg/dL 70-110 H : TESTED A T [facility] 6720 (BEAKER) (test code = [facility], 153) 21645: Trade Union Secretary/Techni edward ID = [id number] for GR AHAM, DANIELLE POCT-GLUCOSE [id number] 16:11:00 Test Item Value Reference Range Interpretation Comments POC-GLUCOSE METER 250 mg/dL 70-110 H : TESTED A T [facility] 6720 (BEAKER) (test code = [facility], 1538) [id number]: Trade Union Secretary/Techni edward ID = [id number] for SHIELDS-YANEZ, D OROTHY POCT-GLUCOSE [id number] 12:15:00 Test Item Value Reference Range Interpretation Comments POC-GLUCOSE METER 202 mg/dL 70-110 H : TESTED A T [facility] 6720 (BEAKER) (test code = [facility], 1538) [id number]: Trade Union Secretary/Techni edward ID = [id number] for SHIELDS-YANEZ, D OROTHY POCT-GLUCOSE [id number] 08:23:00 Test Item Value Reference Range Interpretation Comments POC-GLUCOSE METER 206 mg/dL 70-110 H : TESTED A T [facility] 6720 (BEAKER) (test code = [facility], 1538) [id number]: Trade Union Secretary/Techni edward ID = [id number] for SHIELDS-YANEZ, D OROTHY CBC W/PLT COUNT & AUTO [id number] 07:45:00 Test Item Value Reference Range Interpretation Comments WHITE BLOOD CELL COUNT (BEAKER) 12.6 K/ L 3.5-10.5 H (test code = 775) RED BLOOD CELL COUNT (BEAKER) 3.80 M/ L 4.63-6.08 L (test code = 761) HEMOGLOBIN (BEAKER) (test code = 10.1 GM/DL 13.7-17.5 L 410) HEMATOCRIT (BEAKER) (test code = 32.6 % 40.1-51.0 L 411) MEAN CORPUSCULAR VOLUME (BEAKER) 85.8 fL 79.0-92.2 (test code = 753) MEAN CORPUSCULAR HEMOGLOBIN 26.6 pg 25.7-32.2 (BEAKER) (test code = 751) MEAN CORPUSCULAR HEMOGLOBIN CONC 31.0 GM/DL 32.3-36.5 L (BEAKER) (test code = 752) RED CELL DISTRIBUTION WIDTH 15.2 % 11.6-14.4 H (BEAKER) (test code = 412) PLATELET COUNT (BEAKER) (test 274 K/CU MM 150-450 code = 756) MEAN PLATELET VOLUME (BEAKER) 10.0 fL 9.4-12.4 (test code = 754) NUCLEATED RED BLOOD CELLS 0 /100 WBC 0-0 (BEAKER) (test code = 413) NEUTROPHILS RELATIVE PERCENT 84 % (BEAKER) (test code = 429) LYMPHOCYTES RELATIVE PERCENT 6 % (BEAKER) (test code = 430) MONOCYTES RELATIVE PERCENT 6 % (BEAKER) (test code = 431) EOSINOPHILS RELATIVE PERCENT 3 % (BEAKER) (test code = 432) BASOPHILS RELATIVE PERCENT 1 % (BEAKER) (test code = 437) NEUTROPHILS ABSOLUTE COUNT 10.52 K/ L 1.78-5.38 H (BEAKER) (test code = 670) LYMPHOCYTES ABSOLUTE COUNT 0.75 K/ L 1.32-3.57 L (BEAKER) (test code = 414) MONOCYTES ABSOLUTE COUNT (BEAKER) 0.69 K/ L 0.30-0.82 (test code = 415) EOSINOPHILS ABSOLUTE COUNT 0.42 K/ L 0.04-0.54 (BEAKER) (test code = 416) BASOPHILS ABSOLUTE COUNT (BEAKER) 0.08 K/ L 0.01-0.08 (test code = 417) IMMATURE GRANULOCYTES-RELATIVE 1 % 0-1 PERCENT (BEAKER) (test code = 2801) BASIC METABOLIC [id number] 07:37:00 Test Item Value Reference Range Interpretation Comments SODIUM (BEAKER) (test 136 meq/L 136-145 code = 381) POTASSIUM (BEAKER) 4.2 meq/L 3.5-5.1 (test code = 379) CHLORIDE (BEAKER) 103 meq/L 98-107 (test code = 382) CO2 (BEAKER) (test 21 meq/L 22-29 L code = 355) BLOOD UREA NITROGEN 29 mg/dL 7-21 H (BEAKER) (test code = 354) CREATININE (BEAKER) 1.45 mg/dL 0.57-1.25 H (test code = 358) GLUCOSE RANDOM 222 mg/dL 70-105 H (BEAKER) (test code = 652) CALCIUM (BEAKER) 8.2 mg/dL 8.4-10.2 L (test code = 697) EGFR (BEAKER) (test INSUFFIC IENT CLINICAL code = 1092) DATA TO CALCULA TE ESTIMATED GFR. Trade Union Secretary ID Jie WALSH [id number] 07:33:00 Test Item Value Reference Range Interpretation Comments PHOSPHORUS (BEAKER) (test code = 3.5 mg/dL 2.3-4.7 604) Trade Union Secretary ID - NICO [id number] 07:33:00 Test Item Value Reference Range Interpretation Comments MAGNESIUM (BEAKER) (test code = 2.0 mg/dL 1.6-2.6 627) Trade Union Secretary ID - NICO LHEPATIC FUNCTION [id number] 07:33:00 Test Item Value Reference Range Interpretation Comments TOTAL PROTEIN (BEAKER) (test code = 6.0 gm/dL 6.0-8.3 770) ALBUMIN (BEAKER) (test code = 1145) 2.8 g/dL 3.5-5.0 L BILIRUBIN TOTAL (BEAKER) (test code 1.0 mg/dL 0.2-1.2 = 377) BILIRUBIN DIRECT (BEAKER) (test 0.7 mg/dL 0.1-0.5 H code = 706) ALKALINE PHOSPHATASE (BEAKER) (test 802 U/L 40-150 H code = 346) AST (SGOT) (BEAKER) (test code = 33 U/L 5-34 353) ALT (SGPT) (BEAKER) (test code = 57 U/L 6-55 H 347) Trade Union Secretary ID - NICO FOYOCT-GLUCOSE [id number] 21:46:00 Test Item Value Reference Range Interpretation Comments POC-GLUCOSE METER 258 mg/dL 70-110 H : TESTED A T [facility] 6720 (BEAKER) (test code = [facility] [place], 1538) [id number]: Trade Union Secretary/Techni edward ID = [id number] for DANIELLE MCDOWELL POCT-GLUCOSE [id number] 16:01:00 Test Item Value Reference Range Interpretation Comments POC-GLUCOSE METER 229 mg/dL 70-110 H : TESTED A T [facility] 6720 (BEAKER) (test code = [facility] [place], 1538) 17045: Trade Union Secretary/Techni edward ID = [id number] for LEFTY, D OROTHY CBC W/PLT COUNT & AUTO [id number] 06:42:00 Test Item Value Reference Range Interpretation Comments WHITE BLOOD CELL COUNT (BEAKER) 12.8 K/ L 3.5-10.5 H (test code = 775) RED BLOOD CELL COUNT (BEAKER) 4.38 M/ L 4.63-6.08 L (test code = 761) HEMOGLOBIN (BEAKER) (test code = 11.5 GM/DL 13.7-17.5 L 410) HEMATOCRIT (BEAKER) (test code = 37.4 % 40.1-51.0 L 411) MEAN CORPUSCULAR VOLUME (BEAKER) 85.4 fL 79.0-92.2 (test code = 753) MEAN CORPUSCULAR HEMOGLOBIN 26.3 pg 25.7-32.2 (BEAKER) (test code = 751) MEAN CORPUSCULAR HEMOGLOBIN CONC 30.7 GM/DL 32.3-36.5 L (BEAKER) (test code = 752) RED CELL DISTRIBUTION WIDTH 15.0 % 11.6-14.4 H (BEAKER) (test code = 412) PLATELET COUNT (BEAKER) (test 303 K/CU MM 150-450 code = 756) MEAN PLATELET VOLUME (BEAKER) 9.7 fL 9.4-12.4 (test code = 754) NUCLEATED RED BLOOD CELLS 0 /100 WBC 0-0 (BEAKER) (test code = 413) NEUTROPHILS RELATIVE PERCENT 89 % (BEAKER) (test code = 429) LYMPHOCYTES RELATIVE PERCENT 5 % (BEAKER) (test code = 430) MONOCYTES RELATIVE PERCENT 4 % (BEAKER) (test code = 431) EOSINOPHILS RELATIVE PERCENT 1 % (BEAKER) (test code = 432) BASOPHILS RELATIVE PERCENT 1 % (BEAKER) (test code = 437) NEUTROPHILS ABSOLUTE COUNT 11.37 K/ L 1.78-5.38 H (BEAKER) (test code = 670) LYMPHOCYTES ABSOLUTE COUNT 0.60 K/ L 1.32-3.57 L (BEAKER) (test code = 414) MONOCYTES ABSOLUTE COUNT (BEAKER) 0.55 K/ L 0.30-0.82 (test code = 415) EOSINOPHILS ABSOLUTE COUNT 0.08 K/ L 0.04-0.54 (BEAKER) (test code = 416) BASOPHILS ABSOLUTE COUNT (BEAKER) 0.09 K/ L 0.01-0.08 H (test code = 417) IMMATURE GRANULOCYTES-RELATIVE 1 % 0-1 PERCENT (BEAKER) (test code = 2801) [id number] 06:42:00 Test Item Value Reference Range Interpretation Comments PHOSPHORUS (BEAKER) (test code = 4.9 mg/dL 2.3-4.7 H 604) Trade Union Secretary ID - SAMMY [id number] 06:42:00 Test Item Value Reference Range Interpretation Comments MAGNESIUM (BEAKER) (test code = 2.2 mg/dL 1.6-2.6 627) Trade Union Secretary ID - SAMMY MHEPATIC FUNCTION [id number] 06:42:00 Test Item Value Reference Range Interpretation Comments TOTAL PROTEIN (BEAKER) (test code = 6.7 gm/dL 6.0-8.3 770) ALBUMIN (BEAKER) (test code = 1145) 3.3 g/dL 3.5-5.0 L BILIRUBIN TOTAL (BEAKER) (test code 1.3 mg/dL 0.2-1.2 H = 377) BILIRUBIN DIRECT (BEAKER) (test 0.8 mg/dL 0.1-0.5 H code = 706) ALKALINE PHOSPHATASE (BEAKER) (test 1240 U/L 40-150 H code = 346) AST (SGOT) (BEAKER) (test code = 50 U/L 5-34 H 353) ALT (SGPT) (BEAKER) (test code = 83 U/L 6-55 H 347) Trade Union Secretary ID - SAMMY MBASIC METABOLIC [id number] 06:42:00 Test Item Value Reference Range Interpretation Comments SODIUM (BEAKER) (test 137 meq/L 136-145 code = 381) POTASSIUM (BEAKER) 4.5 meq/L 3.5-5.1 (test code = 379) CHLORIDE (BEAKER) 103 meq/L 98-107 (test code = 382) CO2 (BEAKER) (test 20 meq/L 22-29 L code = 355) BLOOD UREA NITROGEN 28 mg/dL 7-21 H (BEAKER) (test code = 354) CREATININE (BEAKER) 1.48 mg/dL 0.57-1.25 H (test code = 358) GLUCOSE RANDOM 224 mg/dL 70-105 H (BEAKER) (test code = 652) CALCIUM (BEAKER) 8.7 mg/dL 8.4-10.2 (test code = 697) EGFR (BEAKER) (test INSUFFIC IENT CLINICAL code = 1092) DATA TO CALCULA TE ESTIMATED GFR. Trade Union Secretary ID - SAMMY MPOCT-GLUCOSE [id number] 22:31:00 Test Item Value Reference Range Interpretation Comments POC-GLUCOSE METER 185 mg/dL 70-110 H : TESTED A T [facility] 6720 (BEAKER) (test code = [facility], 1538) [id number]: Trade Union Secretary/Techni edward ID = [id number] for SA COJULIANNA POCT-GLUCOSE [id number] 18:54:00 Test Item Value Reference Range Interpretation Comments POC-GLUCOSE METER 165 mg/dL 70-110 H : TESTED A T [facility] 6720 (BEAKER) (test code = [facility], 1538) [id number]: Trade Union Secretary/Techni edward ID = [id number] for SM LILIBETH GONG POCT-GLUCOSE [id number] 16:45:00 Test Item Value Reference Range Interpretation Comments POC-GLUCOSE METER 175 mg/dL 70-110 H : TESTED A T [facility] 6720 (BEAKER) (test code = [facility], 1538) 10467: Trade Union Secretary/Techni edward ID = [id number] for BE MJ CHAIDEZ POCT-GLUCOSE [id number] 13:11:00 Test Item Value Reference Range Interpretation Comments POC-GLUCOSE METER 212 mg/dL 70-110 H : TESTED A T [facility] 6720 (BEAKER) (test code = [facility] [place], 1538) [id number]: Trade Union Secretary/Techni edward ID = [id number] for Blake OLEA BASIC METABOLIC [id number] 07:00:00 Test Item Value Reference Range Interpretation Comments SODIUM (BEAKER) (test 136 meq/L 136-145 code = 381) POTASSIUM (BEAKER) 3.8 meq/L 3.5-5.1 (test code = 379) CHLORIDE (BEAKER) 100 meq/L 98-107 (test code = 382) CO2 (BEAKER) (test 29 meq/L 22-29 code = 355) BLOOD UREA NITROGEN 28 mg/dL 7-21 H (BEAKER) (test code = 354) CREATININE (BEAKER) 1.34 mg/dL 0.57-1.25 H (test code = 358) GLUCOSE RANDOM 186 mg/dL 70-105 H (BEAKER) (test code = 652) CALCIUM (BEAKER) 9.1 mg/dL 8.4-10.2 (test code = 697) EGFR (BEAKER) (test INSUFFIC IENT CLINICAL code = 1092) DATA TO CALCULA TE ESTIMATED GFR. Trade Union Secretary ID - SAMMY [id number] 06:51:00 Test Item Value Reference Range Interpretation Comments PHOSPHORUS (BEAKER) (test code = 4.0 mg/dL 2.3-4.7 604) Trade Union Secretary ID - SAMMY [id number] 06:51:00 Test Item Value Reference Range Interpretation Comments MAGNESIUM (BEAKER) (test code = 2.1 mg/dL 1.6-2.6 627) Trade Union Secretary ID - SAMMY MHEPATIC FUNCTION [id number] 06:51:00 Test Item Value Reference Range Interpretation Comments TOTAL PROTEIN (BEAKER) (test code = 6.4 gm/dL 6.0-8.3 770) ALBUMIN (BEAKER) (test code = 1145) 3.1 g/dL 3.5-5.0 L BILIRUBIN TOTAL (BEAKER) (test code 1.3 mg/dL 0.2-1.2 H = 377) BILIRUBIN DIRECT (BEAKER) (test 0.8 mg/dL 0.1-0.5 H code = 706) ALKALINE PHOSPHATASE (BEAKER) (test 1450 U/L 40-150 H code = 346) AST (SGOT) (BEAKER) (test code = 63 U/L 5-34 H 353) ALT (SGPT) (BEAKER) (test code = 125 U/L 6-55 H 347) Trade Union Secretary DAISY CHRISTIANSON [facility] W/PLT COUNT & AUTO [id number] 06:29:00 Test Item Value Reference Range Interpretation Comments WHITE BLOOD CELL COUNT (BEAKER) 6.8 K/ L 3.5-10.5 (test code = 775) RED BLOOD CELL COUNT (BEAKER) 4.26 M/ L 4.63-6.08 L (test code = 761) HEMOGLOBIN (BEAKER) (test code = 11.2 GM/DL 13.7-17.5 L 410) HEMATOCRIT (BEAKER) (test code = 35.1 % 40.1-51.0 L 411) MEAN CORPUSCULAR VOLUME (BEAKER) 82.4 fL 79.0-92.2 (test code = 753) MEAN CORPUSCULAR HEMOGLOBIN 26.3 pg 25.7-32.2 (BEAKER) (test code = 751) MEAN CORPUSCULAR HEMOGLOBIN CONC 31.9 GM/DL 32.3-36.5 L (BEAKER) (test code = 752) RED CELL DISTRIBUTION WIDTH 14.9 % 11.6-14.4 H (BEAKER) (test code = 412) PLATELET COUNT (BEAKER) (test 277 K/CU MM 150-450 code = 756) MEAN PLATELET VOLUME (BEAKER) 9.8 fL 9.4-12.4 (test code = 754) NUCLEATED RED BLOOD CELLS 0 /100 WBC 0-0 (BEAKER) (test code = 413) NEUTROPHILS RELATIVE PERCENT 63 % (BEAKER) (test code = 429) LYMPHOCYTES RELATIVE PERCENT 19 % (BEAKER) (test code = 430) MONOCYTES RELATIVE PERCENT 8 % (BEAKER) (test code = 431) EOSINOPHILS RELATIVE PERCENT 7 % (BEAKER) (test code = 432) BASOPHILS RELATIVE PERCENT 1 % (BEAKER) (test code = 437) NEUTROPHILS ABSOLUTE COUNT 4.28 K/ L 1.78-5.38 (BEAKER) (test code = 670) LYMPHOCYTES ABSOLUTE COUNT 1.31 K/ L 1.32-3.57 L (BEAKER) (test code = 414) MONOCYTES ABSOLUTE COUNT (BEAKER) 0.52 K/ L 0.30-0.82 (test code = 415) EOSINOPHILS ABSOLUTE COUNT 0.50 K/ L 0.04-0.54 (BEAKER) (test code = 416) BASOPHILS ABSOLUTE COUNT (BEAKER) 0.08 K/ L 0.01-0.08 (test code = 417) IMMATURE GRANULOCYTES-RELATIVE 1 % 0-1 PERCENT (BEAKER) (test code = 2801) CREATININE, RANDOM [id number] 20:38:00 Test Item Value Reference Range Interpretation Comments CREATININE URINE (BEAKER) (test 28.9 mg/dL code = 375) Reference Range: No NormalsOperator ID - BSUREA NITROGEN, RANDOM [id number] 20:38:00 Test Item Value Reference Range Interpretation Comments UREA NITROGEN URINE (BEAKER) (test 213 mg/dL code = 538) Reference Range: No NormalsOperator ID - BSMR, ABDOMEN, [id number] 17:57:00 Reason for exam:->elevated lftsWhat is the patient's sedation requirement?- >No SedationIs the patient claustrophobic?->NoFINAL REPORT TECHNIQUE: MRI of the abdomen and MRCP WITHOUT intravenous contrast. 3- D volume reconstructions were obtained to evaluate the biliary ductal system. INDICATION: 54-year-old man with elevated LFTs and biliary obstruction suspected. COMPARISON: Abdomen ultrasound 06/08/2019. FINDINGS: ABSENCE OF INTRAVENOUS CONTRAST DECREASES SENSITIVITY FOR DETECTION OF FOCAL LESIONSAND VASCULAR PATHOLOGY. LOWER THORAX: Unremarkable. LIVER: No hepatic signal abnormality. No focal hepatic lesions. BILIARY: Gallbladder is contracted, limiting its evaluation. Apparent focal thickenedwall of the midportion of the gallbladder. Punctate T1 hyperintense foci in the gallbladder lumen. No pericholecystic edema/fluid. 0.5 cm round T2 hypointense filling defect in the distal common bile duct, likely a stone. Intrahepatic and extrahepatic bile ducts are normal in caliber.SPLEEN: No splenomegaly.PANCREAS: No focal masses or ductal dilatation. ADRENALS: No adrenal nodules.KIDNEYS/URETERS: No hydronephrosis or solid mass lesions. PERITONEUM/RETROPERITONEUM: No free fluid.LYMPH NODES: No lymphadenopathy.VESSELS: Unremarkable. GI TRACT: No distention or wall thickening. BONES AND SOFT TISSUES: Unremarkable. IMPRESSION:Contracted gallbladder with apparent focal thickened wall in its midportion. This finding is nonspecific, however sessile gallbladder polyp/neoplasm cannot be excluded. Suspected gallbladder sludge and/or cholelithiasis. Choledocholithiasis in the distal common bile duct without biliary ductal dilatation. Signed: Nimo De Dios MDReport Verified Date/Time: 06/08/2019 17:57:22 Reading Location: [facility] C013Y CT Body Reading Room POCT- GLUCOSE [id number] 17:01:00 Test Item Value Reference Range Interpretation Comments POC-GLUCOSE METER 309 mg/dL 70-110 H : TESTED A T [facility] 6720 ([employer]) (test code = [place], 1538) 41[address]: Trade Union Secretary/Techni edward ID = [id number] for DA VIS, KEYAIRA U/S, ABDOMINAL, [id number] 10:54:00Abdomen limited area? Add comment if clarification is needed.->Gall BladderReason for exam:->RUQ pain and vomitingShould this be performed at the bedside?->YesFINAL REPORT Ultrasound of the Abdomen and Duplex Doppler dated 06/08/2019. ARTURO HNIQUE: Sonographic assessment of the abdomen was performed as well as a detailed duplex Doppler assessment of the liver including spectral wave forms and color-flow analysis of the major vascular structures. Clinical History: R/O Portal vein thrombosis. Comparison study: None. Findings: The liver is normal in echotexture with no focal masses. It measures 16 cm in length. There is no evidence of intra or extrahepatic biliary dilatation with the common bile duct measuring 3.2 mm. The gallbladder is markedly contracted. Echogenic foci seen in the region of the gallbladder may represent stones or sludge. The spleen measures 12 cm no splenic masses visualized. The pancreas is within normal limits. Noascites is present. The right kidney measures 12.6 x 6.6 x 5.9 cm and left kidney measures 11.6 x 6.4 x 4.9 cm, both within normal limits. No pleural effusions are seen. The proximal aorta and IVC are unremarkable. Doppler interrogation of the liver demonstrates a main portal vein diameter measuring8.6 cm with a peak systolic velocity of 26 cm/sec. Hepatopetal inflow is seen in the right, left, main portal and splenic veins. The resistive indices in the proper, right and left hepatic arteries are 0.7, 0.6, and 0.6 respectively. Outflow with appropriate directionality is seen in the IVC, hepaticvenous confluence as well as the right, middle and left hepatic veins. Impression: 1. Markedly contracted gallbladder with possible stones or sludge. Recommend HIDA scan to exclude cholecystitis.2. Normal hepatic Doppler. Signed: Ashkan Palmer MDReport Verified Date/Time: 06/08/2019 10:54:35 Reading Location: [address] Radiology Reading Room U/S, DUPLEX, [id number] 10:54:00Reason for exam:->Rule out portal vein thrombosisShould this be performed at the bedside?->YesFINAL REPORT Ultrasound of the Abdomen and Duplex Doppler dated 06/08/2019. TECHNIQUE: Sonographic assessment of the abdomen was performed as well as a detailed duplex Doppler assessment of the liver including spectral wave forms and color-flow analysis of the major vascular structures. Clinical History: R/O Portal vein thrombosis. Comparison study: None. Findings: The liver is normal in echotexture with no focal masses. It measures 16 cm in length. There is no evidence of intra or extrahepatic biliary dilatation with the common bile duct measuring 3.2 mm. The gallbladder is markedly contracted. Echogenic foci seen in the region of the gallbladder may represent stones or sludge. The spleen measures 12 cm no splenic masses visualized. The pancreas is within normal limits. Noascites is present. The right kidney measures 12.6 x 6.6 x 5.9 cm and left kidney measures 11.6 x 6.4 x 4.9 cm, both within normal limits. No pleural effusions are seen. The proximal aorta and IVC are unremarkable. Doppler interrogation of the liver demonstrates a main portal vein diameter measuring8.6 cm with a peak systolic velocity of 26 cm/sec. Hepatopetal inflow is seen in the right, left, main portal and splenic veins. The resistive indices in the proper, right and left hepatic arteries are 0.7, 0.6, and 0.6 respectively. Outflow with appropriate directionality is seen in the IVC, hepaticvenous confluence as well as the right, middle and left hepatic veins. Impression: 1. Markedly contracted gallbladder with possible stones or sludge. Recommend HIDA scan to exclude cholecystitis.2. Normal hepatic Doppler. Signed: Ashkan Palmer MDReport Verified Date/Time: 06/08/2019 10:54:35 Reading Location: [address] Radiology Reading Room COMPREHENSIVE METABOLIC [id number] 07:11:00 Test Item Value Reference Range Interpretation Comments TOTAL PROTEIN 6.5 gm/dL 6.0-8.3 (BEAKER) (test code = 770) ALBUMIN (BEAKER) 3.2 g/dL 3.5-5.0 L (test code = 1145) ALKALINE PHOSPHATASE 1747 U/L 40-150 H (BEAKER) (test code = 346) BILIRUBIN TOTAL 3.5 mg/dL 0.2-1.2 H (BEAKER) (test code = 377) SODIUM (BEAKER) (test 137 meq/L 136-145 code = 381) POTASSIUM (BEAKER) 4.1 meq/L 3.5-5.1 (test code = 379) CHLORIDE (BEAKER) 103 meq/L 98-107 (test code = 382) CO2 (BEAKER) (test 24 meq/L 22-29 code = 355) BLOOD UREA NITROGEN 34 mg/dL 7-21 H (BEAKER) (test code = 354) CREATININE (BEAKER) 1.62 mg/dL 0.57-1.25 H (test code = 358) GLUCOSE RANDOM 143 mg/dL 70-105 H (BEAKER) (test code = 652) CALCIUM (BEAKER) 8.9 mg/dL 8.4-10.2 (test code = 697) AST (SGOT) (BEAKER) 256 U/L 5-34 H (test code = 353) ALT (SGPT) (BEAKER) 210 U/L 6-55 H (test code = 347) EGFR (BEAKER) (test INSUFFIC IENT CLINICAL code = 1092) DATA TO CALCULA TE ESTIMATED GFR. Trade Union Secretary DAISY - TYRA WSpecimen slightly [id number] 07:02:00 Test Item Value Reference Range Interpretation Comments LIPASE (BEAKER) (test code = 749) 52 U/L 8-78 Trade Union Secretary ID - TYRA SALAMANCApecimen slightly ictericCBC W/PLT COUNT & AUTO [id number] 06:41:00 Test Item Value Reference Range Interpretation Comments WHITE BLOOD CELL COUNT (BEAKER) 7.8 K/ L 3.5-10.5 (test code = 775) RED BLOOD CELL COUNT (BEAKER) 4.26 M/ L 4.63-6.08 L (test code = 761) HEMOGLOBIN (BEAKER) (test code = 11.3 GM/DL 13.7-17.5 L 410) HEMATOCRIT (BEAKER) (test code = 35.3 % 40.1-51.0 L 411) MEAN CORPUSCULAR VOLUME (BEAKER) 82.9 fL 79.0-92.2 (test code = 753) MEAN CORPUSCULAR HEMOGLOBIN 26.5 pg 25.7-32.2 (BEAKER) (test code = 751) MEAN CORPUSCULAR HEMOGLOBIN CONC 32.0 GM/DL 32.3-36.5 L (BEAKER) (test code = 752) RED CELL DISTRIBUTION WIDTH 15.0 % 11.6-14.4 H (BEAKER) (test code = 412) PLATELET COUNT (BEAKER) (test 284 K/CU MM 150-450 code = 756) MEAN PLATELET VOLUME (BEAKER) 10.1 fL 9.4-12.4 (test code = 754) NUCLEATED RED BLOOD CELLS 0 /100 WBC 0-0 (BEAKER) (test code = 413) NEUTROPHILS RELATIVE PERCENT 70 % (BEAKER) (test code = 429) LYMPHOCYTES RELATIVE PERCENT 15 % (BEAKER) (test code = 430) MONOCYTES RELATIVE PERCENT 7 % (BEAKER) (test code = 431) EOSINOPHILS RELATIVE PERCENT 7 % (BEAKER) (test code = 432) BASOPHILS RELATIVE PERCENT 1 % (BEAKER) (test code = 437) NEUTROPHILS ABSOLUTE COUNT 5.43 K/ L 1.78-5.38 H (BEAKER) (test code = 670) LYMPHOCYTES ABSOLUTE COUNT 1.20 K/ L 1.32-3.57 L (BEAKER) (test code = 414) MONOCYTES ABSOLUTE COUNT (BEAKER) 0.51 K/ L 0.30-0.82 (test code = 415) EOSINOPHILS ABSOLUTE COUNT 0.51 K/ L 0.04-0.54 (BEAKER) (test code = 416) BASOPHILS ABSOLUTE COUNT (BEAKER) 0.09 K/ L 0.01-0.08 H (test code = 417) IMMATURE GRANULOCYTES-RELATIVE 1 % 0-1 PERCENT (BEAKER) (test code = 2801) COMPREHENSIVE METABOLIC [id number] 04:22:00 Test Item Value Reference Range Interpretation Comments TOTAL PROTEIN 6.3 gm/dL 6.0-8.3 (BEAKER) (test code = 770) ALBUMIN (BEAKER) 3.1 g/dL 3.5-5.0 L (test code = 1145) ALKALINE PHOSPHATASE 1731 U/L 40-150 H (BEAKER) (test code = 346) BILIRUBIN TOTAL 3.9 mg/dL 0.2-1.2 H (BEAKER) (test code = 377) SODIUM (BEAKER) (test 137 meq/L 136-145 code = 381) POTASSIUM (BEAKER) 4.0 meq/L 3.5-5.1 (test code = 379) CHLORIDE (BEAKER) 102 meq/L 98-107 (test code = 382) CO2 (BEAKER) (test 24 meq/L 22-29 code = 355) BLOOD UREA NITROGEN 37 mg/dL 7-21 H (BEAKER) (test code = 354) CREATININE (BEAKER) 1.61 mg/dL 0.57-1.25 H (test code = 358) GLUCOSE RANDOM 159 mg/dL 70-105 H (BEAKER) (test code = 652) CALCIUM (BEAKER) 8.7 mg/dL 8.4-10.2 (test code = 697) AST (SGOT) (BEAKER) 272 U/L 5-34 H (test code = 353) ALT (SGPT) (BEAKER) 208 U/L 6-55 H (test code = 347) EGFR (BEAKER) (test INSUFFIC IENT CLINICAL code = 1092) DATA TO CALCULA TE ESTIMATED GFR. [employer] Secretary ID - TYRA WSpecimen slightly ictericHEPATIC FUNCTION [id number] 04:05:00 Test Item Value Reference Range Interpretation Comments TOTAL PROTEIN (BEAKER) (test code = 6.3 gm/dL 6.0-8.3 770) ALBUMIN (BEAKER) (test code = 1145) 3.1 g/dL 3.5-5.0 L BILIRUBIN TOTAL (BEAKER) (test code 3.9 mg/dL 0.2-1.2 H = 377) BILIRUBIN DIRECT (BEAKER) (test 3.1 mg/dL 0.1-0.5 H code = 706) ALKALINE PHOSPHATASE (BEAKER) (test 1731 U/L 40-150 H code = 346) AST (SGOT) (BEAKER) (test code = 272 U/L 5-34 H 353) ALT (SGPT) (BEAKER) (test code = 208 U/L 6-55 H 347) [employer] Secretary ID - TYRA SALAMANCApecimejerardo slightly ictericCBC W/PLT COUNT & AUTO [id number] 03:43:00 Test Item Value Reference Range Interpretation Comments WHITE BLOOD CELL COUNT (BEAKER) 7.6 K/ L 3.5-10.5 (test code = 775) RED BLOOD CELL COUNT (BEAKER) 4.15 M/ L 4.63-6.08 L (test code = 761) HEMOGLOBIN (BEAKER) (test code = 11.1 GM/DL 13.7-17.5 L 410) HEMATOCRIT (BEAKER) (test code = 34.3 % 40.1-51.0 L 411) MEAN CORPUSCULAR VOLUME (BEAKER) 82.7 fL 79.0-92.2 (test code = 753) MEAN CORPUSCULAR HEMOGLOBIN 26.7 pg 25.7-32.2 (BEAKER) (test code = 751) MEAN CORPUSCULAR HEMOGLOBIN CONC 32.4 GM/DL 32.3-36.5 (BEAKER) (test code = 752) RED CELL DISTRIBUTION WIDTH 15.1 % 11.6-14.4 H (BEAKER) (test code = 412) PLATELET COUNT (BEAKER) (test 280 K/CU MM 150-450 code = 756) MEAN PLATELET VOLUME (BEAKER) 10.1 fL 9.4-12.4 (test code = 754) NUCLEATED RED BLOOD CELLS 0 /100 WBC 0-0 (BEAKER) (test code = 413) NEUTROPHILS RELATIVE PERCENT 70 % (BEAKER) (test code = 429) LYMPHOCYTES RELATIVE PERCENT 15 % (BEAKER) (test code = 430) MONOCYTES RELATIVE PERCENT 7 % (BEAKER) (test code = 431) EOSINOPHILS RELATIVE PERCENT 6 % (BEAKER) (test code = 432) BASOPHILS RELATIVE PERCENT 1 % (BEAKER) (test code = 437) NEUTROPHILS ABSOLUTE COUNT 5.34 K/ L 1.78-5.38 (BEAKER) (test code = 670) LYMPHOCYTES ABSOLUTE COUNT 1.13 K/ L 1.32-3.57 L (BEAKER) (test code = 414) MONOCYTES ABSOLUTE COUNT (BEAKER) 0.55 K/ L 0.30-0.82 (test code = 415) EOSINOPHILS ABSOLUTE COUNT 0.42 K/ L 0.04-0.54 (BEAKER) (test code = 416) BASOPHILS ABSOLUTE COUNT (BEAKER) 0.08 K/ L 0.01-0.08 (test code = 417) IMMATURE GRANULOCYTES-RELATIVE 1 % 0-1 PERCENT (BEAKER) (test code = 2801) COMPREHENSIVE METABOLIC MEJIA *WW*2019-06-06 03:41:00 Test Item Value Reference Range Interpretation Comments GLUCOSE (test code = 06D) 126 mg/dL 75-100 H SODIUM (test code = 01A) 137 mmol/L 136-145 POTASSIUM (test code = 01B) 3.9 mmol/L 3.6-5.1 CHLORIDE (test code = 04A) 103 mmol/L 98-107 CO2 (test code = 02A) 26 mmol/L 22-32 ANION GAP (test code = ANG) 11.9 mmol/L BUN (test code = 05D) 51 mg/dL 7-18 H CREATININE (test code = 03E) 1.6 mg/dL 0.7-1.3 H BUN/CREA (test code = BCR) 32 12-20 H CALCIUM (test code = 09D) 8.3 mg/dL 8.3-9.5 BILI TOTAL (test code = 11A) 0.6 mg/dL 0.2-1.0 PROTEIN (test code = 07D) 7.1 g/dL 6.4-8.2 ALBUMIN (test code = 08D) 2.6 g/dL 3.5-4.8 L GLOBULIN (test code = GLB) 4.6 g/dL 1.5-3.8 H ALB/GLOB (test code = AGRR) 0.6 1.0-2.6 L ALK PHOS (test code = 35A) 736 IU/L 42-121 H AST (test code = 30A) 17 IU/L <=42 ALT (test code = 31A) 62 IU/L <=78 CBC (INCLUDES AUTOMATED DIFFERENTIAL)*[id number] 03:22:00 Test Item Value Reference Range Interpretation Comments WBC (test code = WBC) 9.4 10\\S\\3/uL 4.5-11.0 RBC (test code = RBC) 4.34 10\\S\\6/uL 4.20-5.60 HGB (test code = HBG) 11.7 g/dL 14.0-18.0 L HCT (test code = HCT) 35.2 % 35.0-46.0 MCV (test code = MCV) 81.1 fL 80.0-94.0 MCH (test code = MCH) 27.0 pg 27.0-31.0 MCHC (test code = MCHC) 33.2 g/dL 32.0-36.0 RDW (test code = RDW) 14.5 % 11.5-14.5 PLT (test code = PLT) 302 10\\S\\3/uL 130-400 MPV (test code = MPV) 9.5 fL 9.4-12.4 NEUTROP # (test code = NE#) 6.4 10\\S\\3/uL 2.0-8.0 LYMPH # (test code = LY#) 1.5 10\\S\\3/uL 1.2-4.0 MONOCYTE # (test code = MO#) 0.8 10\\S\\3/uL 0.0-1.1 EOSINOPH # (test code = EO#) 0.4 10\\S\\3/uL 0.0-0.7 BASOPHIL # (test code = BA#) 0.1 10\\S\\3/uL 0.0-0.3 IG # (test code = IG#) 0.10 10\\S\\3/uL 0.00-0.06 H NRBC # (test code = NRBC#) 0.00 10\\S\\3/uL 0.00-0.01 NEUTROPH % (test code = NE%) 68.1 % 35.0-73.0 LYMPH % (test code = LY%) 16.2 % 20.0-55.0 L MONO % (test code = MO%) 8.8 % 2.5-10.0 EOSINOPH % (test code = EO%) 4.6 % 0.0-5.0 BASOPHIL % (test code = BA%) 1.2 % 0.0-2.0 IG % (test code = IG%) 1.1 % 0.0-0.8 H NRBC% (test code = NRBC%) 0.0 % 0.0-0.2 MANDIFF (test code = WMDIFF) NO NO RBC MORPH (test code = NORMAL WRBCMOR) GLUCOMETER GLUCOSE- LAB USE [id number] 20:50:00 Test Item Value Reference Range Interpretation Comments GLUCOMETER (test code 438 mg/dL 70-100 H CLEANE D METERMeter ID: = GMG) [id number] tor: 3103 EPI FLORES GLUCOMETER GLUCOSE- LAB USE [id number] 20:48:00 Test Item Value Reference Range Interpretation Comments GLUCOMETER (test code 264 mg/dL 70-100 H CLEANE D METERMeter ID: = GMG) [id number] tor: 3103 EPI FLORES GLUCOMETER GLUCOSE- LAB USE [id number] 17:04:00 Test Item Value Reference Range Interpretation Comments GLUCOMETER (test code = 350 mg/dL 70-100 H Mete r ID: GMG) [id number] tor: 9507 HAYDE K AUR GLUCOMETER GLUCOSE- LAB USE [id number] 12:36:00 Test Item Value Reference Range Interpretation Comments GLUCOMETER (test code = 138 mg/dL 70-100 H Mete r ID: GMG) [id number] tor: 9507 HAYDE K AUR GLUCOMETER GLUCOSE- LAB USE [id number] 08:47:00 Test Item Value Reference Range Interpretation Comments GLUCOMETER (test code = 140 mg/dL 70-100 H Mete r ID: GMG) [id number] tor: 9507 HAYDE K AUR GLYCOHEMOGLOBIN *WW*2019-06-05 07:33:00 Test Item Value Reference Range Interpretation Comments Hb A1C % (test code = HBA) 9.3 % 4.2-6.3 H COMPREHENSIVE METABOLIC MEJIA *WW*2019-06-05 05:20:00 Test Item Value Reference Range Interpretation Comments GLUCOSE (test code = 06D) 233 mg/dL 75-100 H SODIUM (test code = 01A) 132 mmol/L 136-145 L POTASSIUM (test code = 01B) 3.9 mmol/L 3.6-5.1 CHLORIDE (test code = 04A) 96 mmol/L 98-107 L CO2 (test code = 02A) 28 mmol/L 22-32 ANION GAP (test code = ANG) 11.9 mmol/L BUN (test code = 05D) 59 mg/dL 7-18 H CREATININE (test code = 03E) 1.8 mg/dL 0.7-1.3 H BUN/CREA (test code = BCR) 33 12-20 H CALCIUM (test code = 09D) 8.5 mg/dL 8.3-9.5 BILI TOTAL (test code = 11A) 0.8 mg/dL 0.2-1.0 PROTEIN (test code = 07D) 7.3 g/dL 6.4-8.2 ALBUMIN (test code = 08D) 2.7 g/dL 3.5-4.8 L GLOBULIN (test code = GLB) 4.6 g/dL 1.5-3.8 H ALB/GLOB (test code = AGRR) 0.6 1.0-2.6 L ALK PHOS (test code = 35A) 938 IU/L 42-121 H AST (test code = 30A) 24 IU/L <=42 ALT (test code = 31A) 94 IU/L <=78 H MAGNESIUM WW2019-06-05 05:15:00 Test Item Value Reference Range Interpretation Comments MAGNESIUM (test code = 48A) 2.8 mg/dL 1.8-2.4 H CBC (INCLUDES AUTOMATED DIFFERENTIAL)*[id number] 05:07:00 Test Item Value Reference Range Interpretation Comments WBC (test code = WBC) 8.6 10\\S\\3/uL 4.5-11.0 RBC (test code = RBC) 4.34 10\\S\\6/uL 4.20-5.60 HGB (test code = HBG) 11.6 g/dL 14.0-18.0 L HCT (test code = HCT) 34.7 % 35.0-46.0 L MCV (test code = MCV) 80.0 fL 80.0-94.0 MCH (test code = MCH) 26.7 pg 27.0-31.0 L MCHC (test code = MCHC) 33.4 g/dL 32.0-36.0 RDW (test code = RDW) 14.5 % 11.5-14.5 PLT (test code = PLT) 323 10\\S\\3/uL 130-400 MPV (test code = MPV) 9.7 fL 9.4-12.4 NEUTROP # (test code = NE#) 5.7 10\\S\\3/uL 2.0-8.0 LYMPH # (test code = LY#) 1.6 10\\S\\3/uL 1.2-4.0 MONOCYTE # (test code = MO#) 0.7 10\\S\\3/uL 0.0-1.1 EOSINOPH # (test code = EO#) 0.5 10\\S\\3/uL 0.0-0.7 BASOPHIL # (test code = BA#) 0.1 10\\S\\3/uL 0.0-0.3 IG # (test code = IG#) 0.05 10\\S\\3/uL 0.00-0.06 NRBC # (test code = NRBC#) 0.00 10\\S\\3/uL 0.00-0.01 NEUTROPH % (test code = NE%) 66.0 % 35.0-73.0 LYMPH % (test code = LY%) 18.4 % 20.0-55.0 L MONO % (test code = MO%) 8.0 % 2.5-10.0 EOSINOPH % (test code = EO%) 5.6 % 0.0-5.0 H BASOPHIL % (test code = BA%) 1.4 % 0.0-2.0 IG % (test code = IG%) 0.6 % 0.0-0.8 NRBC% (test code = NRBC%) 0.0 % 0.0-0.2 MANDIFF (test code = WMDIFF) NO NO RBC MORPH (test code = NORMAL WRBCMOR) GLUCOMETER GLUCOSE- LAB USE [id number] 04:53:00 Test Item Value Reference Range Interpretation Comments GLUCOMETER (test code 240 mg/dL 70-100 H CLEANE D METERMeter ID: = GMG) [id number] tor: 5533 SG WAR A COMPREHENSIVE METABOLIC MEJIA *WW*2019-06-05 00:35:00 Test Item Value Reference Range Interpretation Comments GLUCOSE (test code = 06D) 291 mg/dL 75-100 H SODIUM (test code = 01A) 130 mmol/L 136-145 L POTASSIUM (test code = 01B) 4.6 mmol/L 3.6-5.1 CHLORIDE (test code = 04A) 93 mmol/L 98-107 L CO2 (test code = 02A) 30 mmol/L 22-32 ANION GAP (test code = ANG) 11.6 mmol/L BUN (test code = 05D) 62 mg/dL 7-18 H CREATININE (test code = 03E) 1.9 mg/dL 0.7-1.3 H BUN/CREA (test code = BCR) 32 12-20 H CALCIUM (test code = 09D) 8.5 mg/dL 8.3-9.5 BILI TOTAL (test code = 11A) 0.8 mg/dL 0.2-1.0 PROTEIN (test code = 07D) 7.2 g/dL 6.4-8.2 ALBUMIN (test code = 08D) 2.6 g/dL 3.5-4.8 L GLOBULIN (test code = GLB) 4.5 g/dL 1.5-3.8 H ALB/GLOB (test code = AGRR) 0.6 1.0-2.6 L ALK PHOS (test code = 35A) 969 IU/L 42-121 H AST (test code = 30A) 25 IU/L <=42 ALT (test code = 31A) 106 IU/L <=78 H LIPID PANEL WW2019-06-05 00:35:00 Test Item Value Reference Range Interpretation Comments CHOLESTROL (test code = 44A) 135 mg/dL 140-200 L TRIGLYCERI (test code = 42B) 268 mg/dL <=149 H HDL (test code = 83D) 27.0 mg/dL 40.0-60.0 L LDL (test code = 34B) 72 mg/dL <=99 CHL/HDL (test code = CHR) 4.9 0.0-3.4 H GLUCOMETER GLUCOSE- LAB USE [id number] 00:29:00 Test Item Value Reference Range Interpretation Comments GLUCOMETER (test code 299 mg/dL 70-100 H CLEANE D METERMeter ID: = GM) [id number] tor: 5533 SG WAR A MAGNESIUM WW2019-06-05 00:29:00 Test Item Value Reference Range Interpretation Comments MAGNESIUM (test code = 48A) 2.5 mg/dL 1.8-2.4 H CBC (INCLUDES AUTOMATED DIFFERENTIAL)*[id number] 00:18:00 Test Item Value Reference Range Interpretation Comments WBC (test code = WBC) 9.9 10\\S\\3/uL 4.5-11.0 RBC (test code = RBC) 4.28 10\\S\\6/uL 4.20-5.60 HGB (test code = HBG) 11.3 g/dL 14.0-18.0 L HCT (test code = HCT) 34.1 % 35.0-46.0 L MCV (test code = MCV) 79.7 fL 80.0-94.0 L MCH (test code = MCH) 26.4 pg 27.0-31.0 L MCHC (test code = MCHC) 33.1 g/dL 32.0-36.0 RDW (test code = RDW) 14.4 % 11.5-14.5 PLT (test code = PLT) 326 10\\S\\3/uL 130-400 MPV (test code = MPV) 9.6 fL 9.4-12.4 NEUTROP # (test code = NE#) 7.0 10\\S\\3/uL 2.0-8.0 LYMPH # (test code = LY#) 1.6 10\\S\\3/uL 1.2-4.0 MONOCYTE # (test code = MO#) 0.7 10\\S\\3/uL 0.0-1.1 EOSINOPH # (test code = EO#) 0.4 10\\S\\3/uL 0.0-0.7 BASOPHIL # (test code = BA#) 0.1 10\\S\\3/uL 0.0-0.3 IG # (test code = IG#) 0.05 10\\S\\3/uL 0.00-0.06 NRBC # (test code = NRBC#) 0.00 10\\S\\3/uL 0.00-0.01 NEUTROPH % (test code = NE%) 71.1 % 35.0-73.0 LYMPH % (test code = LY%) 16.0 % 20.0-55.0 L MONO % (test code = MO%) 7.3 % 2.5-10.0 EOSINOPH % (test code = EO%) 3.8 % 0.0-5.0 BASOPHIL % (test code = BA%) 1.3 % 0.0-2.0 IG % (test code = IG%) 0.5 % 0.0-0.8 NRBC% (test code = NRBC%) 0.0 % 0.0-0.2 MANDIFF (test code = WMDIFF) NO NO RBC MORPH (test code = NORMAL WRBCMOR) GLUCOMETER GLUCOSE- LAB USE [id number] 20:50:00 Test Item Value Reference Range Interpretation Comments GLUCOMETER (test code 306 mg/dL 70-100 H CLEANE D METERMeter ID: = GMG) [id number] tor: 2013 RAFAEL MORALES ELECTROPHORESIS, [id number] 18:20:00 Test Item Value Reference Range Interpretation Comments T PROTEIN (test code = 5.7 g/dL 6.3-8.2 L 0743786967) ALBUMIN (test code = 2.4 g/dL 3-4.8 L 2692612353) ALPHA 1 (test code = 0.4 g/dL 0.2-0.4 6663574778) ALPHA 2 (test code = 1.2 g/dL 0.6-1.2 5867615689) BETA (test code = 0.9 g/dL 0.7-1.4 6035776814) GAMMA (test code = 0.8 g/dL 1-1.8 L 6646257222) Electrophoresis M-spike present in the Interpretation (test gamma region of serum code = 7586713856) (0.2 g/dL) (identified as IgM-[place] by immunofixation electrophoresis) and urine (identified as free kappa light chain by immunofixation electrophoresis).Moder ate hypoalbuminemia. Hypogammaglobulinemia. Non-selective proteinuria. Lab Interpretation Abnormal (test code = 57416-9) [id number] 18:19:00 Test Item Value Reference Range Interpretation Comments T PROTEIN (test code = 5.8 g/dL 6.3-8.2 L 0983817418) ALBUMIN (test code = 2.8 g/dL 3.5-5 L 2110942102) IgG (test code = 665 mg/dL 636-1600 8789776749) IgA (test code = 316 mg/dL 70-312 H 8806001285) IgM (test code = 222 mg/dL 56-352 3164778523) VAL INTERP (test code = M-spike present in 2610713701) the gamma region of serum, identified as IgM-[place]. There is an additional faint band present in urine identified as kappa free light chain. ?Gamma globulin at upper limit of normal in serum, IgA. Lab Interpretation (test Abnormal code = 85044-8) [facility] GLUCOSE (AUTOMATED)2019-05-25 17:37:00 Test Item Value Reference Range Interpretation Comments POCT GLU (test code = 7714738339) 242 mg/dL 70-110 H Lab Interpretation (test code = Abnormal 65057-4) [facility] GLUCOSE (AUTOMATED)2019-05-25 14:18:00 Test Item Value Reference Range Interpretation Comments POCT GLU (test code = 1847107486) 184 mg/dL 70-110 H Lab Interpretation (test code = Abnormal 87272-7) [id number] 12:16:00 Test Item Value Reference Range Interpretation Comments NT-proBNP (test code 1630 pg/mL See_Comment H [Autom ated = 7715584862) message] The system which generated this result transmitted reference range : <=125. The reference range was not used to interpret this result as normal/abnormal . CAROLIN (test code = CAROLIN) Biotin has been reported to cause a negative bias, interpret results relative to patient's use of biotin. Lab Interpretation Abnormal (test code = 99637-5) [facility] (NA, K, CL, CO2, GLUCOSE, BUN, CREATININE, CA)2019-05-25 12:09:00 Test Item Value Reference Range Interpretation Comments NA (test code = 136 mmol/L 135-145 2371222849) K (test code = 4.5 mmol/L 3.5-5 1155867636) CL (test code = 101 mmol/L 98-108 6716283478) CO2 TOTAL (test code = 26 mmol/L 23-31 5936319871) AGAP (test code = 2-16 9337561813) BUN (test code = 44 mg/dL 7-23 H 8597853018) GLUCOSE (test code = 215 mg/dL 70-110 H 7186308796) CREATININE (test code = 1.27 mg/dL 0.6-1.25 H 2512344233) CALCIUM (test code = 8.9 mg/dL 8.6-10.6 4754630755) eGFR Calculation mL/min/1.73m2 (Non-) (test code = 3107128433) eGFR Calculation mL/min/1.73m2 () (test code = 9086763324) CAROLIN (test code = CAROLIN) Association of Glomerular Filtration Rate (GFR) and Staging of Kidney Disease* + --+ --+ ------+| GFR (mL/min/1.73 m2) ?| With Kidney Damage ?| ?Without Kidney Damage+ --------+ --------+ +| ?>90 ?| ?Stage one ?| ? Normal ?+ ---+ ---+ -------+| ?60-89 ?| ?Stage two ?| ? Decreased GFR ? + --+ --+ ------+| ?30-59 ?| ?Stage three ?| ? Stage three ? + --+ --+ ------+| ?15-29 ?| ?Stage four ? | ? Stage four ?+ ---+ ---+ -------+| ?<15 (or dialysis) ? ?| ?Stage five ? | ? Stage five ?+ ---+ ---+ -------+ *Each stage assumes the associated GFR level has been in effect for at least three months. ?Stages 1 to 5, with or without kidney disease, indicate chronic kidney disease. Notes: Determination of stages one and two (with eGFR >59mL/min/1.73 m2) requires estimation of kidney damage for at least three months as defined by structural or functional abnormalities of the kidney, manifested by either:Pathological abnormalities or Markers of kidney damage (including abnormalities in the composition of the blood or urine or abnormalities in imaging tests). Lab Interpretation Abnormal (test code = 39403-8) [facility] GLUCOSE (AUTOMATED)2019-05-25 06:20:00 Test Item Value Reference Range Interpretation Comments POCT GLU (test code = 7312304073) 296 mg/dL 70-110 H Lab Interpretation (test code = Abnormal 60767-8) [facility] GLUCOSE (AUTOMATED)2019-05-25 02:54:00 Test Item Value Reference Range Interpretation Comments POCT GLU (test code = 1983869325) 316 mg/dL 70-110 H Lab Interpretation (test code = Abnormal 53230-2) [facility] GLUCOSE (AUTOMATED)2019-05-24 23:20:00 Test Item Value Reference Range Interpretation Comments POCT GLU (test code = 6086825298) 236 mg/dL 70-110 H Lab Interpretation (test code = Abnormal 30189-4) [facility], IGG (IFA)2019-05-24 19:08:00 Test Item Value Reference Range Interpretation Comments GBM IgG(IFA) Negative Negative Specimen is he molyzed. (test code = Results may be adversely 04008-8) affected.INTERP RETIVE INFORMATION: ?G BM Ab, IgG (IFA) When pres ent, IgG antibody to gold merular basement membra ne (GBM) antigen detecte d by either indirect fluore scent antibody (IFA) or multiplex bead assay help s support a diagnosis of Go odpasture syndrome. ?Vaz scott, the combined result of both assays performe d during initial evaluat ion improves the diagnostic sensitivity for disease. A positive result in one o r both assays should be confi rmed by renal biopsy. Test d eveloped and characteristics determined by [facility]. See Compliance Stat ement D: [facility]/CSP erformed by [facility],[address], [place] [address] nlg .[employer], Jimmie Womack MD, Lab. Senior Telecommunications SpecialistWin[facility] ([facility]2019-05-24 17:55:00 Test Item Value Reference Range Interpretation Comments POCT GLU (test code = 6665052865) 234 mg/dL 70-110 H Lab Interpretation (test code = Abnormal 17228-7) [facility] GLUCOSE (AUTOMATED)2019-05-24 13:46:00 Test Item Value Reference Range Interpretation Comments POCT GLU (test code = 6025033445) 193 mg/dL 70-110 H Lab Interpretation (test code = Abnormal 58238-9) [facility] METABOLIC PANEL (NA, K, CL, CO2, GLUCOSE, BUN, CREATININE, CA)2019-05-24 12:42:00 Test Item Value Reference Range Interpretation Comments NA (test code = 136 mmol/L 135-145 4879683919) K (test code = 4.3 mmol/L 3.5-5 0139451789) CL (test code = 99 mmol/L 98-108 9625881742) CO2 TOTAL (test code = 27 mmol/L 23-31 4266475954) AGAP (test code = 2-16 5610120862) BUN (test code = 40 mg/dL 7-23 H 7843863087) GLUCOSE (test code = 202 mg/dL 70-110 H 3891054774) CREATININE (test code = 1.26 mg/dL 0.6-1.25 H 4538124726) CALCIUM (test code = 8.4 mg/dL 8.6-10.6 L 9002483952) eGFR Calculation mL/min/1.73m2 (Non-) (test code = 6177542348) eGFR Calculation mL/min/1.73m2 () (test code = 5487285483) CAROLIN (test code = CAROLIN) Association of Glomerular Filtration Rate (GFR) and Staging of Kidney Disease* + --+ --+ ------+| GFR (mL/min/1.73 m2) ?| With Kidney Damage ?| ?Without Kidney Damage+ --------+ --------+ +| ?>90 ?| ?Stage one ?| ? Normal ?+ ---+ ---+ -------+| ?60-89 ?| ?Stage two ?| ? Decreased GFR ? + --+ --+ ------+| ?30-59 ?| ?Stage three ?| ? Stage three ? + --+ --+ ------+| ?15-29 ?| ?Stage four ? | ? Stage four ?+ ---+ ---+ -------+| ?<15 (or dialysis) ? ?| ?Stage five ? | ? Stage five ?+ ---+ ---+ -------+ *Each stage assumes the associated GFR level has been in effect for at least three months. ?Stages 1 to 5, with or without kidney disease, indicate chronic kidney disease. Notes: Determination of stages one and two (with eGFR >59mL/min/1.73 m2) requires estimation of kidney damage for at least three months as defined by structural or functional abnormalities of the kidney, manifested by either:Pathological abnormalities or Markers of kidney damage (including abnormalities in the composition of the blood or urine or abnormalities in imaging tests). Lab Interpretation Abnormal (test code = 90746-3) [facility] WITH [id number] 12:15:00 Test Item Value Reference Range Interpretation Comments WBC (test code = See_Comment [Automated 6690-2) message] The sy stem which generated this result transmitted reference range : 4.20 - 10.70 10*3/?L. The reference range was not used to interpret this result as normal/abnormal . RBC (test code = See_Comment L [Automated 209-8) message] The sy stem which generated this result transmitted reference range : 4.26 - 5.52 10*6/?L. The reference range was not used to interpret this result as normal/abnormal . HGB (test code = 10.2 g/dL 12.2-16.4 L 718-7) HCT (test code = 33.9 % 38.4-49.3 L 4544-3) MCV (test code = 86.7 fL 81.7-95.6 787-2) MCH (test code = 26.1 pg 26.1-32.7 785-6) MCHC (test code = 30.1 g/dL 31.2-35 L 786-4) RDW-SD (test code = 47.8 fL 38.5-51.6 20416-1) RDW-CV (test code = 15.0 % 12.1-15.4 788-0) PLT (test code = See_Comment H [Automated 777-3) message] The sy stem which generated this result transmitted reference range : 150 - 328 10*3/ ?L. The reference r siddharth was not used to interpret this result as normal/abnormal . MPV (test code = 10.0 fL 9.8-13 26383-2) NRBC/100 WBC (test See_Comment [Automat ed code = 6031136006) message] The system which generated this result transmitted reference range : 0.0 - 10.0 /100 WBCs. The refer ence range was not u sed to interpret th is result as normal/abnormal . NRBC x10^3 (test code <0.01 See_Comment [Auto mated = 4475835482) message] The s ystem which generated this result transmitted reference range : 10*3/?L. The reference range was not used to interpret this result as normal/abnormal . GRAN MAT (NEUT) % 65.5 % (test code = 770-8) IMM GRAN % (test code 0.70 % = 9355596442) LYMPH % (test code = 17.8 % 736-9) MONO % (test code = 7.6 % 5905-5) EOS % (test code = 7.1 % 713-8) BASO % (test code = 1.3 % 706-2) GRAN MAT x10^3(ANC) 4.40 10*3/uL 1.99-6.95 (test code = 6591324758) IMM GRAN x10^3 (test 0.05 10*3/uL 0-0.06 code = 2108698483) LYMPH x10^3 (test code 1.20 10*3/uL 1.09-3.23 = 731-0) MONO x10^3 (test code 0.51 10*3/uL 0.36-1.02 = 742-7) EOS x10^3 (test code = 0.48 10*3/uL 0.06-0.53 711-2) BASO x10^3 (test code 0.09 10*3/uL 0.01-0.09 = 704-7) Lab Interpretation Abnormal (test code = 33965-2) [facility] GLUCOSE (AUTOMATED)2019-05-24 07:05:00 Test Item Value Reference Range Interpretation Comments POCT GLU (test code = 9336029464) 249 mg/dL 70-110 H Lab Interpretation (test code = Abnormal 43019-0) [facility] GLUCOSE (AUTOMATED)2019-05-24 01:27:00 Test Item Value Reference Range Interpretation Comments POCT GLU (test code = 3613368003) 301 mg/dL 70-110 H Lab Interpretation (test code = Abnormal 34978-5) [facility], [id number] 22:59:00 Test Item Value Reference Range Interpretation Comments ANCA TITER (test code <1:20 See_Comment The AN CA IFA is <1:20; = 96910-0) therefore, no f urther testing will be performed.INTER PRETIVE INFORMATION: Anti-Neutrophil Cyto Ab, IgG Neutrophil Cytoplasmic Antibodies (C-A NCA = granular cytopl asmic staining, P-ANC A = perinuclear sta ining) are found in the se rum of over 90 percent of p atients with certain necroti zing systemic vascul itides, and usually in less than 5 percent of jamia ents with collagen vascul ar disease or arthritis.Pe rformed by [employer] [facility],[address] [facility], [facility] [address] snn .[employer] , Jimmie Womack MD, Lab. Director [Autom ated message] The sy stem which generated this result transmitted ref erence range: <1:20. T he reference range was not u sed to interpret this result as normal/abnormal . [facility] GLUCOSE (AUTOMATED)2019-05-23 22:28:00 Test Item Value Reference Range Interpretation Comments POCT GLU (test code = 7714879793) 239 mg/dL 70-110 H Lab Interpretation (test code = Abnormal 32500-7) [facility], [id number] 20:20:00 Test Item Value Reference Range Interpretation Comments ALB U EP (test code = 1754-1) 2+ [facility] (THIAMINE), WHOLE [id number] 19:41:00 Test Item Value Reference Range Interpretation Comments Vitamin B1, Whole 52 nmol/L 70-180 L INTERPRETI VE Blood (test code = INFORMATI ON: Vitamin 75923-0) B1, Whole Blood This assay measures the concentration o f thiamine diphos phate (TDP), the prim pierre active form of vitamin B1. Approximate ly 90 percent of rene min B1 present in whol e blood is TDP. Thiamin e and thiamine monophosphate, which comprise the re maining 10 percent, are not measured. Test developed and characteristics determined by [employer]. S ee Compliance Stat ement B: [employer]/CSP erforme d by [employer],50 0 [facility], [facility],[place] [address] slv .[employer], Jimmie Young MD, Lab. Direct or Lab Interpretation Abnormal (test code = 31738-0) [facility]CLEAR ANTIBODY [id number] 19:16:00 Test Item Value Reference Range Interpretation Comments FRANKY (test code = Negative Negative [id number]) CAROLIN (test code = CAROLIN) Negative - No Anti-Nuclear Antibodies detected by IFA.Positive - FRANKY IFA screen performed with a 1:80 dilution in adults and a 1:40 dilution in pediatrics. Any FRANKY "Positive" will have titer performed and reported separately.Negative - No Anti-Nuclear Antibodies detected by IFA.Positive - FRANKY IFA screen performed with a 1:80 dilution in adults and a 1:40 dilution in pediatrics. Any FRANKY "Positive" will have titer performed and reported separately. Lab Interpretation (test Normal code = 06619-0) [facility] GLUCOSE (AUTOMATED)2019-05-23 18:58:00 Test Item Value Reference Range Interpretation Comments POCT GLU (test code = 3486424080) 174 mg/dL 70-110 H Lab Interpretation (test code = Abnormal 46371-2) [facility] GLUCOSE (AUTOMATED)2019-05-23 17:17:00 Test Item Value Reference Range Interpretation Comments POCT GLU (test code = 0170338785) 281 mg/dL 70-110 H Lab Interpretation (test code = Abnormal 17408-8) [facility]NA, K, CL, CO2, GLUCOSE, BUN, CREATININE, CA)2019-05-23 10:25:00 Test Item Value Reference Range Interpretation Comments NA (test code = 135 mmol/L 135-145 3877730928) K (test code = 4.3 mmol/L 3.5-5 9691925409) CL (test code = 99 mmol/L 98-108 1971346441) CO2 TOTAL (test code = 28 mmol/L 23-31 0332582751) AGAP (test code = 2-16 4226202588) BUN (test code = 34 mg/dL 7-23 H 0033386111) GLUCOSE (test code = 230 mg/dL 70-110 H 7877615184) CREATININE (test code = 1.13 mg/dL 0.6-1.25 9445751021) CALCIUM (test code = 8.6 mg/dL 8.6-10.6 3110165703) eGFR Calculation mL/min/1.73m2 (Non-) (test code = 0418605603) eGFR Calculation mL/min/1.73m2 () (test code = 1334733738) CAROLIN (test code = CAROLIN) Association of Glomerular Filtration Rate (GFR) and Staging of Kidney Disease* + --+ --+ ------+| GFR (mL/min/1.73 m2) ?| With Kidney Damage ?| ?Without Kidney Damage+ --------+ --------+ +| ?>90 ?| ?Stage one ?| ? Normal ?+ ---+ ---+ -------+| ?60-89 ?| ?Stage two ?| ? Decreased GFR ? + --+ --+ ------+| ?30-59 ?| ?Stage three ?| ? Stage three ? + --+ --+ ------+| ?15-29 ?| ?Stage four ? | ? Stage four ?+ ---+ ---+ -------+| ?<15 (or dialysis) ? ?| ?Stage five ? | ? Stage five ?+ ---+ ---+ -------+ *Each stage assumes the associated GFR level has been in effect for at least three months. ?Stages 1 to 5, with or without kidney disease, indicate chronic kidney disease. Notes: Determination of stages one and two (with eGFR >59mL/min/1.73 m2) requires estimation of kidney damage for at least three months as defined by structural or functional abnormalities of the kidney, manifested by either:Pathological abnormalities or Markers of kidney damage (including abnormalities in the composition of the blood or urine or abnormalities in imaging tests). Lab Interpretation Abnormal (test code = 09393-3) [facility] GLUCOSE (AUTOMATED)2019-05-23 02:02:00 Test Item Value Reference Range Interpretation Comments POCT GLU (test code = 8346976135) 289 mg/dL 70-110 H Lab Interpretation (test code = Abnormal 20420-7) [facility] GLUCOSE (AUTOMATED)2019-05-22 22:38:00 Test Item Value Reference Range Interpretation Comments POCT GLU (test code = 7704572390) 228 mg/dL 70-110 H Lab Interpretation (test code = Abnormal 80238-5) [facility] GLUCOSE (AUTOMATED)2019-05-22 17:22:00 Test Item Value Reference Range Interpretation Comments POCT GLU (test code = 3705743058) 201 mg/dL 70-110 H Lab Interpretation (test code = Abnormal 56795-0) [facility] [id number] 17:06:40 Unremarkable sonographic appearance of kidneys and bladder. EXAM: US RETROPERITONEAL COMPLETE HISTORY: 54 year-old man with CHRISTIANO . TECHNIQUE: Ultrasound of kidneys and bladder was performed with grayscaleand selected color Doppler imaging. Approver images were obtained forthe record. COMPARISON: None FINDINGS: KIDNEYS:RIGHT:Length: Normal, 11.7 cm.Parenchyma: Normal renal cortical echogenicity and thickness. No focalsolid or cystic renal lesions are detected.Collecting System: No hydronephrosis.Other: None. LEFT:Length: Normal, 11.9 cm.Parenchyma: Normal renal cortical echogenicity and thickness. No focalsolid or cystic renal lesions are detected.Collecting System: No hydronephrosis.Other: None. BLADDER: Bladder is distended and unremarkable OTHER: None. [facility], Radiant Results Inft 05/22/2019 11:07 AM CSTEXAM: US RETROPERITONEAL COMPLETEHISTORY: 54 year-old man with CHRISTIANO .TECHNIQUE: Ultrasound of kidneys and bladder was performed with grayscaleand selected color Doppler imaging. Approver images were obtained forthe record.COMPARISON: NoneFINDINGS: KIDNEYS:RIGHT:Length: Normal, 11.7 cm.Parenchyma: Normal renal cortical echogenicity and thickness. No focalsolid or cystic renal lesions are detected.Collecting System: No hydronephrosis.Other: None.LEFT:Length: Normal, 11.9 cm.Parenchyma: Normal renal cortical echogenicity and thickness. No focalsolid or cystic renal lesionsare detected.Collecting System: No hydronephrosis.Other: None.BLADDER: Bladder is distended and unremarkableOTHER: None.IMPRESSIONUnremarkable sonographic appearance of kidneys and bladder. [facility]2019-05-22 13:42:00 Test Item Value Reference Range Interpretation Comments POCT GLU (test code = 0105939417) 162 mg/dL 70-110 H Lab Interpretation (test code = Abnormal 35173-7) [facility] (NA, K, CL, CO2, GLUCOSE, BUN, CREATININE, CA)2019-05-22 12:05:00 Test Item Value Reference Range Interpretation Comments NA (test code = 137 mmol/L 135-145 8126951134) K (test code = 3.8 mmol/L 3.5-5 9752966892) CL (test code = 101 mmol/L 98-108 6140641378) CO2 TOTAL (test code = 30 mmol/L 23-31 8393215387) AGAP (test code = 2-16 7532689874) BUN (test code = 30 mg/dL 7-23 H 8648492320) GLUCOSE (test code = 204 mg/dL 70-110 H 6917756178) CREATININE (test code = 1.08 mg/dL 0.6-1.25 1326266024) CALCIUM (test code = 8.3 mg/dL 8.6-10.6 L 9591265614) eGFR Calculation mL/min/1.73m2 (Non-) (test code = 9545911112) eGFR Calculation mL/min/1.73m2 () (test code = 5322415311) CAROLIN (test code = CAROLIN) Association of Glomerular Filtration Rate (GFR) and Staging of Kidney Disease* + --+ --+ ------+| GFR (mL/min/1.73 m2) ?| With Kidney Damage ?| ?Without Kidney Damage+ --------+ --------+ +| ?>90 ?| ?Stage one ?| ? Normal ?+ ---+ ---+ -------+| ?60-89 ?| ?Stage two ?| ? Decreased GFR ? + --+ --+ ------+| ?30-59 ?| ?Stage three ?| ? Stage three ? + --+ --+ ------+| ?15-29 ?| ?Stage four ? | ? Stage four ?+ ---+ ---+ -------+| ?<15 (or dialysis) ? ?| ?Stage five ? | ? Stage five ?+ ---+ ---+ -------+ *Each stage assumes the associated GFR level has been in effect for at least three months. ?Stages 1 to 5, with or without kidney disease, indicate chronic kidney disease. Notes: Determination of stages one and two (with eGFR >59mL/min/1.73 m2) requires estimation of kidney damage for at least three months as defined by structural or functional abnormalities of the kidney, manifested by either:Pathological abnormalities or Markers of kidney damage (including abnormalities in the composition of the blood or urine or abnormalities in imaging tests). Lab Interpretation Abnormal (test code = 89579-8) [facility] 12:05:00 Test Item Value Reference Range Interpretation Comments MAGNESIUM (test code = 6782982186) 2.2 mg/dL 1.7-2.4 Lab Interpretation (test code = Normal 45512-4) [facility] GLUCOSE (AUTOMATED)2019-05-22 03:38:00 Test Item Value Reference Range Interpretation Comments POCT GLU (test code = 4018104555) 274 mg/dL 70-110 H Lab Interpretation (test code = Abnormal 65772-4) [facility] GLUCOSE (AUTOMATED)2019-05-21 22:57:00 Test Item Value Reference Range Interpretation Comments POCT GLU (test code = 1726911829) 238 mg/dL 70-110 H Lab Interpretation (test code = Abnormal 43417-9) [facility] GLUCOSE (AUTOMATED)2019-05-21 17:37:00 Test Item Value Reference Range Interpretation Comments POCT GLU (test code = 6184573066) 213 mg/dL 70-110 H Lab Interpretation (test code = Abnormal 33319-2) [facility] [id number] 15:31:00 Test Item Value Reference Interpretation Comments Range CREAT U (test code 72.2 mg/dL = 0258779697) MICROALB U (test 1380 ug/mL 0-45 H code = 21210-3) MICROAL/CR (test See_Comment H [Automated code = 9318-7) message] The system which generated this result transmitted reference range: 0 - 30 mg/g of creatinine. The reference range was not used to interpret this result as normal/abnormal . CAROLIN (test code = Normal: <30 mg/g CAROLIN) creatinineMicroalbuminu tala: 30 - 299 mg/g creatinineClinical albuminuria: > 300 mg/g creatinine Lab Interpretation Abnormal (test code = 28925-6) [facility]2019-05-21 13:55:00 Test Item Value Reference Range Interpretation Comments POCT GLU (test code = 2023693602) 153 mg/dL 70-110 H Lab Interpretation (test code = Abnormal 05510-7) [facility] METABOLIC PANEL (NA, K, CL, CO2, GLUCOSE, BUN, CREATININE, CA)2019-05-21 10:28:00 Test Item Value Reference Range Interpretation Comments NA (test code = 137 mmol/L 135-145 7432451255) K (test code = 3.7 mmol/L 3.5-5 6712547104) CL (test code = 101 mmol/L 98-108 2231708217) CO2 TOTAL (test code = 31 mmol/L 23-31 9785578915) AGAP (test code = 2-16 6275379655) BUN (test code = 24 mg/dL 7-23 H 1925968385) GLUCOSE (test code = 199 mg/dL 70-110 H 2216206094) CREATININE (test code = 1.08 mg/dL 0.6-1.25 6486789276) CALCIUM (test code = 8.2 mg/dL 8.6-10.6 L 3332011653) eGFR Calculation mL/min/1.73m2 (Non-) (test code = 0984786896) eGFR Calculation mL/min/1.73m2 () (test code = 4919881116) CAROLIN (test code = CAROLIN) Association of Glomerular Filtration Rate (GFR) and Staging of Kidney Disease* + --+ --+ ------+| GFR (mL/min/1.73 m2) ?| With Kidney Damage ?| ?Without Kidney Damage+ --------+ --------+ +| ?>90 ?| ?Stage one ?| ? Normal ?+ ---+ ---+ -------+| ?60-89 ?| ?Stage two ?| ? Decreased GFR ? + --+ --+ ------+| ?30-59 ?| ?Stage three ?| ? Stage three ? + --+ --+ ------+| ?15-29 ?| ?Stage four ? | ? Stage four ?+ ---+ ---+ -------+| ?<15 (or dialysis) ? ?| ?Stage five ? | ? Stage five ?+ ---+ ---+ -------+ *Each stage assumes the associated GFR level has been in effect for at least three months. ?Stages 1 to 5, with or without kidney disease, indicate chronic kidney disease. Notes: Determination of stages one and two (with eGFR >59mL/min/1.73 m2) requires estimation of kidney damage for at least three months as defined by structural or functional abnormalities of the kidney, manifested by either:Pathological abnormalities or Markers of kidney damage (including abnormalities in the composition of the blood or urine or abnormalities in imaging tests). Lab Interpretation Abnormal (test code = 41487-9) [facility] GLUCOSE (AUTOMATED)2019-05-21 01:54:00 Test Item Value Reference Range Interpretation Comments POCT GLU (test code = 3608373657) 240 mg/dL 70-110 H Lab Interpretation (test code = Abnormal 47389-3) [facility] GLUCOSE (AUTOMATED)2019-05-20 22:11:00 Test Item Value Reference Range Interpretation Comments POCT GLU (test code = 5824766418) 207 mg/dL 70-110 H Lab Interpretation (test code = Abnormal 36370-8) [facility] [id number] 19:22:00 Test Item Value Reference Range Interpretation Comments RF (test code = <20 See_Comment [Automated message] 8292879184) The system cartmi generated this result transmitted ref erence range: <20 IU/m L. The reference range was not used to int erpret this result as normal/abnormal . Lab Interpretation (test Normal code = 94801-3) [facility] SURFACE [id number] 17:41:00 Test Item Value Reference Range Interpretation Comments HBsAB (test code = Negative 2821011443) HBsAb mIU/mL Semi-Quantitative (test code = 8686219579) CAROLIN (test code = Interpretation: CAROLIN) ?Hepatitis B Surface Antibody ? Negative - Patient is considered to be not immune to infection with HBV. ? ? Positive - Anti-HBs detected at greater than or equal to 12 mIU/mL. ?Patient is considered to be immune to infection with HBV. ? [facility]CV [id number] 17:41:00 Test Item Value Reference Range Interpretation Comments HCV Ab (test code = 41895-5) Negative HCV Semi-Quantitative (test code = 67032-3) [facility] ANTIBODY (IGM & IGG)2019-05-20 17:41:00 Test Item Value Reference Range Interpretation Comments HBC (test code = 7914792363) Negative HBC Semi-Quantitative (test code = 0766244447) [facility]2019-[facility]-20 17:40:00 Test Item Value Reference Range Interpretation Comments POCT GLU (test code = 0936706635) 195 mg/dL 70-110 H Lab Interpretation (test code = Abnormal 35856-3) [facility] B SURFACE [id number] 17:22:00 Test Item Value Reference Range Interpretation Comments HBsAg Semi-Quantitative (test code = Negative Negative 5195-3) [facility] 14:59:00 Test Item Value Reference Range Interpretation Comments APPEARANCE (test code = Clear Clear 1768173225) COLOR (test code = Zuleyma Yellow A 0899249776) PH (test code = 4.8-8.0 1063737955) SP GRAVITY (test code = 1.003-1.030 6808493684) GLU U QUAL (test code = 500 mg/dL Normal A 8537762593) BLOOD (test code = 1+ Negative A 1433634790) KETONES (test code = Negative Negative 1120492996) PROTEIN (test code = 100 mg/dL Negative A 2887-8) UROBILIN (test code = 4.0 mg/dL Normal A 5214141146) BILIRUBIN (test code = 2 mg/dL Negative A 7995279795) NITRITE (test code = Negative Negative 3042639262) LEUK RAÚL (test code = Negative Negative 8152733414) RBC/HPF (test code = See_Comment H [Autom ated message] 9029889673) The system cartmi generated this result transmit wesley reference range : 0 - 3 HPF. The refe rence range was not u sed to interpret th is result as normal/abnormal . WBC/HPF (test code = See_Comment [Autom ated message] 6751734845) The system cartmi generated this result transmit wesley reference range : 0 - 5 HPF. The refe rence range was not u sed to interpret th is result as normal/abnormal . BACTERIA (test code = Few Negative A 1836439184) MUCOUS (test code = Slight Negative LPF A 7639071788) Lab Interpretation (test Abnormal code = 23407-3) [facility]2019-05-20 13:41:00 Test Item Value Reference Range Interpretation Comments POCT GLU (test code = 0336450197) 191 mg/dL 70-110 H Lab Interpretation (test code = Abnormal 28668-2) [facility] METABOLIC PANEL (NA, K, CL, CO2, GLUCOSE, BUN, CREATININE, CA)2019-05-20 11:39:00 Test Item Value Reference Range Interpretation Comments NA (test code = 137 mmol/L 135-145 8869119613) K (test code = 4.5 mmol/L 3.5-5 1756479847) CL (test code = 101 mmol/L 98-108 2828281997) CO2 TOTAL (test code = 32 mmol/L 23-31 H 3070766621) AGAP (test code = 2-16 1038551831) BUN (test code = 20 mg/dL 7-23 4063748362) GLUCOSE (test code = 195 mg/dL 70-110 H 2349707198) CREATININE (test code = 0.87 mg/dL 0.6-1.25 5259197899) CALCIUM (test code = 8.5 mg/dL 8.6-10.6 L 2913353777) eGFR Calculation mL/min/1.73m2 (Non-) (test code = 6547739599) eGFR Calculation mL/min/1.73m2 () (test code = 1983951958) CAROLIN (test code = CAROLIN) Association of Glomerular Filtration Rate (GFR) and Staging of Kidney Disease* + --+ --+ ------+| GFR (mL/min/1.73 m2) ?| With Kidney Damage ?| ?Without Kidney Damage+ --------+ --------+ +| ?>90 ?| ?Stage one ?| ? Normal ?+ ---+ ---+ -------+| ?60-89 ?| ?Stage two ?| ? Decreased GFR ? + --+ --+ ------+| ?30-59 ?| ?Stage three ?| ? Stage three ? + --+ --+ ------+| ?15-29 ?| ?Stage four ? | ? Stage four ?+ ---+ ---+ -------+| ?<15 (or dialysis) ? ?| ?Stage five ? | ? Stage five ?+ ---+ ---+ -------+ *Each stage assumes the associated GFR level has been in effect for at least three months. ?Stages 1 to 5, with or without kidney disease, indicate chronic kidney disease. Notes: Determination of stages one and two (with eGFR >59mL/min/1.73 m2) requires estimation of kidney damage for at least three months as defined by structural or functional abnormalities of the kidney, manifested by either:Pathological abnormalities or Markers of kidney damage (including abnormalities in the composition of the blood or urine or abnormalities in imaging tests). Lab Interpretation Abnormal (test code = 47942-0) [facility] 11:39:00 Test Item Value Reference Range Interpretation Comments MAGNESIUM (test code = 4329167405) 2.1 mg/dL 1.7-2.4 Lab Interpretation (test code = Normal 73175-6) [facility]2020-[facility] 11:39:00 Test Item Value Reference Range Interpretation Comments PHOSPHORUS (test code = 3463521574) 3.4 mg/dL 2.5-5 Lab Interpretation (test code = Normal 40748-5) [facility]2019-05-20 02:21:00 Test Item Value Reference Range Interpretation Comments POCT GLU (test code = 1766818424) 284 mg/dL 70-110 H Lab Interpretation (test code = Abnormal 48004-6) [facility] GLUCOSE (AUTOMATED)2019-05-19 22:36:00 Test Item Value Reference Range Interpretation Comments POCT GLU (test code = 0778241710) 235 mg/dL 70-110 H Lab Interpretation (test code = Abnormal 12571-6) [facility] GLUCOSE (AUTOMATED)2019-05-19 18:01:00 Test Item Value Reference Range Interpretation Comments POCT GLU (test code = 6715027544) 284 mg/dL 70-110 H Lab Interpretation (test code = Abnormal 81133-7) [facility] B12, [id number] 17:49:00 Test Item Value Reference Range Interpretation Comments VIT B12 (test code = 331 pg/mL 240-930 7498219083) CAROLIN (test code = CAROLIN) Biotin has been reported to cause a positive bias, interpret results relative to patient's use of biotin. Lab Interpretation (test Normal code = 82069-1) [facility] 17:49:00 Test Item Value Reference Range Interpretation Comments FOLATE SER (test code = 9.1 ng/mL 3-20 Biot in has been 6965689054) reported to cau se a positive bias, interpret resul ts relative to patient's use o f biotin. Lab Interpretation (test Normal code = 01241-9) [facility] D, [id number] 17:03:00 Test Item Value Reference Range Interpretation Comments VIT D 25OH (test code = <13 25-80 L 98585-3) CAROLIN (test code = CAROLIN) Deficiency: <20 ng/mLInsufficiency: 20-24 ng/mLOptimal: 25-80 ng/mL Lab Interpretation (test Abnormal code = 55978-9) [facility] GLUCOSE (AUTOMATED)2019-05-19 14:10:00 Test Item Value Reference Range Interpretation Comments POCT GLU (test code = 7156372485) 152 mg/dL 70-110 H Lab Interpretation (test code = Abnormal 40661-8) [facility]OTE[facility] CREAT RATIO URINE [id number] 12:34:00 Test Item Value Reference Range Interpretation Comments T. PROT U (test code = 81 mg/dL 2888-6) CREAT U (test code = 34.6 mg/dL 1658413328) Protein/Creatinine Ratio 0.0-2.0 H Urine (test code = 5955969678) CAROLIN (test code = CAROLIN) Random Urine Total Protein Reference Ranges Random Specimen: ? Less than 10 mg/dLFirst Morning Specimen: ? ?Less than 20 mg/dL ? Lab Interpretation (test Abnormal code = 03510-6) [facility] 12:34:00 Test Item Value Reference Range Interpretation Comments APPEARANCE (test code = Clear Clear 8652303260) COLOR (test code = Yellow Yellow 5409836791) PH (test code = 4.8-8.0 9752962460) SP GRAVITY (test code = 1.003-1.030 6805538108) GLU U QUAL (test code = 500 mg/dL Normal A 3678039794) BLOOD (test code = 1+ Negative A 0588464659) KETONES (test code = Negative Negative 5389143285) PROTEIN (test code = 30 mg/dL Negative A 2887-8) UROBILIN (test code = 2.0 mg/dL Normal A 4497716749) BILIRUBIN (test code = Negative Negative 8952704445) NITRITE (test code = Negative Negative 2647109984) LEUK RAÚL (test code = Negative Negative 3698336178) RBC/HPF (test code = See_Comment [Autom ated message] 7116432424) The system cartmi generated this result transmit wesley reference range : 0 - 3 HPF. The refe rence range was not u sed to interpret th is result as normal/abnormal . WBC/HPF (test code = See_Comment [Autom ated message] 6875302824) The system cartmi generated this result transmit wesley reference range : 0 - 5 HPF. The refe rence range was not u sed to interpret th is result as normal/abnormal . BACTERIA (test code = Negative Negative 0979139599) MUCOUS (test code = Slight Negative LPF A 4913097595) Lab Interpretation (test Abnormal code = 13009-5) [facility]ON [id number] 12:12:00 Test Item Value Reference Range Interpretation Comments IRON (test code = 2289611385) 63 ug/dL 50-160 TIBC (test code = 0293405150) 224 ug/dL 250-410 L % FE SAT (test code = 8041721970) 28 % 20-50 Lab Interpretation (test code = Abnormal 65237-8) [facility] Metabolic Panel (NA, K, CL, CO2, GLUCOSE, BUN, CREATININE, CA)2019-05-19 11:25:00 Test Item Value Reference Range Interpretation Comments NA (test code = 140 mmol/L 135-145 0263434951) K (test code = 3.8 mmol/L 3.5-5 3927714484) CL (test code = 102 mmol/L 98-108 7621523573) CO2 TOTAL (test code = 34 mmol/L 23-31 H 4066807787) AGAP (test code = 2-16 9586805350) BUN (test code = 16 mg/dL 7-23 7603977578) GLUCOSE (test code = 203 mg/dL 70-110 H 1549918061) CREATININE (test code = 0.99 mg/dL 0.6-1.25 1951961051) CALCIUM (test code = 8.5 mg/dL 8.6-10.6 L 7421108858) eGFR Calculation mL/min/1.73m2 (Non-) (test code = 9229265996) eGFR Calculation mL/min/1.73m2 () (test code = 6404225149) CAROLIN (test code = CAROLIN) Association of Glomerular Filtration Rate (GFR) and Staging of Kidney Disease* + --+ --+ ------+| GFR (mL/min/1.73 m2) ?| With Kidney Damage ?| ?Without Kidney Damage+ --------+ --------+ +| ?>90 ?| ?Stage one ?| ? Normal ?+ ---+ ---+ -------+| ?60-89 ?| ?Stage two ?| ? Decreased GFR ? + --+ --+ ------+| ?30-59 ?| ?Stage three ?| ? Stage three ? + --+ --+ ------+| ?15-29 ?| ?Stage four ? | ? Stage four ?+ ---+ ---+ -------+| ?<15 (or dialysis) ? ?| ?Stage five ? | ? Stage five ?+ ---+ ---+ -------+ *Each stage assumes the associated GFR level has been in effect for at least three months. ?Stages 1 to 5, with or without kidney disease, indicate chronic kidney disease. Notes: Determination of stages one and two (with eGFR >59mL/min/1.73 m2) requires estimation of kidney damage for at least three months as defined by structural or functional abnormalities of the kidney, manifested by either:Pathological abnormalities or Markers of kidney damage (including abnormalities in the composition of the blood or urine or abnormalities in imaging tests). Lab Interpretation Abnormal (test code = 77778-5) [facility] WITH [id number] 11:00:00 Test Item Value Reference Range Interpretation Comments WBC (test code = See_Comment [Automated 2090-2) message] The sy stem which generated this result transmitted reference range : 4.20 - 10.70 10*3/?L. The reference range was not used to interpret this result as normal/abnormal . RBC (test code = See_Comment L [Automated 259-8) message] The sy stem which generated this result transmitted reference range : 4.26 - 5.52 10*6/?L. The reference range was not used to interpret this result as normal/abnormal . HGB (test code = 9.6 g/dL 12.2-16.4 L 718-7) HCT (test code = 31.6 % 38.4-49.3 L 4544-3) MCV (test code = 84.9 fL 81.7-95.6 787-2) MCH (test code = 25.8 pg 26.1-32.7 L 785-6) MCHC (test code = 30.4 g/dL 31.2-35 L 786-4) RDW-SD (test code = 43.7 fL 38.5-51.6 59505-9) RDW-CV (test code = 14.3 % 12.1-15.4 788-0) PLT (test code = See_Comment [Automated 777-3) message] The sy stem which generated this result transmitted reference range : 150 - 328 10*3/ ?L. The reference r siddharth was not used to interpret this result as normal/abnormal . MPV (test code = 9.5 fL 9.8-13 L 69432-0) NRBC/100 WBC (test See_Comment [Automat ed code = 1893496618) message] The system which generated this result transmitted reference range : 0.0 - 10.0 /100 WBCs. The refer ence range was not u sed to interpret th is result as normal/abnormal . NRBC x10^3 (test code <0.01 See_Comment [Auto mated = 0583623947) message] The s ystem which generated this result transmitted reference range : 10*3/?L. The reference range was not used to interpret this result as normal/abnormal . GRAN MAT (NEUT) % 77.3 % (test code = 770-8) IMM GRAN % (test code 0.40 % = 1006335171) LYMPH % (test code = 11.5 % 736-9) MONO % (test code = 6.3 % 5905-5) EOS % (test code = 3.8 % 713-8) BASO % (test code = 0.7 % 706-2) GRAN MAT x10^3(ANC) 6.94 10*3/uL 1.99-6.95 (test code = 4936762861) IMM GRAN x10^3 (test 0.04 10*3/uL 0-0.06 code = 4991585967) LYMPH x10^3 (test code 1.03 10*3/uL 1.09-3.23 L = 731-0) MONO x10^3 (test code 0.57 10*3/uL 0.36-1.02 = 742-7) EOS x10^3 (test code = 0.34 10*3/uL 0.06-0.53 711-2) BASO x10^3 (test code 0.06 10*3/uL 0.01-0.09 = 704-7) Lab Interpretation Abnormal (test code = 27878-0) [id number] 04:29:00 Test Item Value Reference Range Interpretation Comments FERRITIN (test code = 392.0 ng/mL 18-464 2783938425) CAROLIN (test code = CAROLIN) Biotin has been reported to cause a negative bias, interpret results relative to patient's use of biotin. Lab Interpretation (test Normal code = 37758-0) [facility] [id number] 04:25:00 Test Item Value Reference Range Interpretation Comments TSH (test code = See_Comment [Automated message] [id number]) The system cartmi generated this result transmitted ref erence range: 0.45 - 4 .70 mIU/L. The refe rence range was not u sed to interpret this result as normal/abnor mal. Lab Interpretation (test Normal code = 99338-6) [facility]AT[facility] [id number] 03:53:00 Test Item Value Reference Range Interpretation Comments CK (test code = 8169397002) 111 U/L 33-194 Lab Interpretation (test code = Normal 89549-9) [facility]AMMA [id number] 03:53:00 Test Item Value Reference Range Interpretation Comments GGT (test code = 9247154034) 273 U/L 13-58 H Lab Interpretation (test code = Abnormal 55427-2) [facility]YCOSYLATED H[facility]OGLOBIN (A1C)2019-05-19 03:11:00 Test Item Value Reference Interpretation Comments Range HGB A1C (test code = See_Comment H [Autom ated 4548-4) message] The system which generated this result transmitted reference range : 4.0 - 6.0 % NGSP. The reference range was not used to interpret this result as normal/abnormal . CAROLIN (test code = %A1C (NGSP) CAROLIN) Interpretation (ADA)4.8-5.6 ? ? Normal or (Non-Diabetic Range)5.7-6.4 ? ? Increased Risk (Pre-Diabetic)>6.5 ?Diabetes Indicated Lab Interpretation Abnormal (test code = 26687-2) [facility]2019-05-19 02:38:00 Test Item Value Reference Range Interpretation Comments POCT GLU (test code = 7777064273) 291 mg/dL 70-110 H Lab Interpretation (test code = Abnormal 09871-5) [facility]OPON[facility] [id number] 00:47:00 Test Item Value Reference Range Interpretation Comments TROPONIN I (test 0.026 ng/mL See_Comment [Automated code = 0088789140) message] The system which generated this result transmitted reference range : <=0.034. The reference range was not used to interpret this result as normal/abnormal . CAROLIN (test code = Equal or Less than CAROLIN) 0.034 ng/ml---Normal ?Note: Cardiac troponin begins to rise 3-4 hours after the onset of ischemia. Repeat in 4-6 hours if the sample was drawn within 3-4 hours of the onset of the symptom and found normal. Between 0.035 and 0.120 ng/mL--- Borderline. Questionable myocardial injury or necrosis ? ?Note: Serial measurement may be necessary to confirm or exclude the diagnosis of myocardial injury or necrosis; Clinical correlation (symptoms, EKGs, imaging studies, and others) required; Repeat in 4-6 hours if clinically indicated. ? Equal or Higher than 0.121 ng/mL---Abnormal. Myocardial Injury or Necrosis Likely ? Biotin has been reported to cause a negative bias, interpret results relative to patient's use of biotin. ? Lab Interpretation Normal (test code = 47829-2) [facility]N-TERMINAL [id number] 00:44:00 Test Item Value Reference Range Interpretation Comments NT-proBNP (test code 3530 pg/mL See_Comment H [Autom ated = 2100582565) message] The system which generated this result transmitted reference range : <=125. The reference range was not used to interpret this result as normal/abnormal . CAROLIN (test code = CAROLIN) Biotin has been reported to cause a negative bias, interpret results relative to patient's use of biotin. Lab Interpretation Abnormal (test code = 94261-3) [facility]LIPASE2020-[facility] 00:35:00 Test Item Value Reference Range Interpretation Comments LIPASE (test code = 2904724927) 34 U/L 0-220 Lab Interpretation (test code = Normal 67825-2) [facility]. METABOLIC PANEL (77095)2019-05-19 00:35:00 Test Item Value Reference Range Interpretation Comments NA (test code = 139 mmol/L 135-145 6558051017) K (test code = 3.5 mmol/L 3.5-5 6205597852) CL (test code = 101 mmol/L 98-108 1541119617) CO2 TOTAL (test code = 29 mmol/L 23-31 8325767881) AGAP (test code = 2-16 3154588779) BUN (test code = 14 mg/dL 7-23 1682715210) GLUCOSE (test code = 212 mg/dL 70-110 H 4129530334) CREATININE (test code = 0.99 mg/dL 0.6-1.25 5872906453) TOTAL BILI (test code = 1.1 mg/dL 0.1-1.4 5698495090) CALCIUM (test code = 8.8 mg/dL 8.6-10.6 1275953079) T PROTEIN (test code = 6.5 g/dL 6.3-8.2 4888709107) ALBUMIN (test code = 3.6 g/dL 3.5-5 8990393896) ALK PHOS (test code = 501 U/L 34-122 H 5527197133) ALTv (test code = 84 U/L 5-50 H 1742-6) AST(SGOT) (test code = 121 U/L 13-40 H 3128240470) eGFR Calculation mL/min/1.73m2 (Non-) (test code = 4192546251) eGFR Calculation mL/min/1.73m2 () (test code = 3950211037) CAROLIN (test code = CAROLIN) Association of Glomerular Filtration Rate (GFR) and Staging of Kidney Disease* + --+ --+ ------+| GFR (mL/min/1.73 m2) ?| With Kidney Damage ?| ?Without Kidney Damage+ --------+ --------+ +| ?>90 ?| ?Stage one ?| ? Normal ?+ ---+ ---+ -------+| ?60-89 ?| ?Stage two ?| ? Decreased GFR ? + --+ --+ ------+| ?30-59 ?| ?Stage three ?| ? Stage three ? + --+ --+ ------+| ?15-29 ?| ?Stage four ? | ? Stage four ?+ ---+ ---+ -------+| ?<15 (or dialysis) ? ?| ?Stage five ? | ? Stage five ?+ ---+ ---+ -------+ *Each stage assumes the associated GFR level has been in effect for at least three months. ?Stages 1 to 5, with or without kidney disease, indicate chronic kidney disease. Notes: Determination of stages one and two (with eGFR >59mL/min/1.73 m2) requires estimation of kidney damage for at least three months as defined by structural or functional abnormalities of the kidney, manifested by either:Pathological abnormalities or Markers of kidney damage (including abnormalities in the composition of the blood or urine or abnormalities in imaging tests). Lab Interpretation Abnormal (test code = 81820-7) [facility] WITH [id number] 00:26:00 Test Item Value Reference Range Interpretation Comments WBC (test code = See_Comment [Automated 8690-2) message] The sy stem which generated this result transmitted reference range : 4.20 - 10.70 10*3/?L. The reference range was not used to interpret this result as normal/abnormal . RBC (test code = See_Comment L [Automated 789-8) message] The sy stem which generated this result transmitted reference range : 4.26 - 5.52 10*6/?L. The reference range was not used to interpret this result as normal/abnormal . HGB (test code = 10.7 g/dL 12.2-16.4 L 718-7) HCT (test code = 35.2 % 38.4-49.3 L 4544-3) MCV (test code = 83.8 fL 81.7-95.6 787-2) MCH (test code = 25.5 pg 26.1-32.7 L 785-6) MCHC (test code = 30.4 g/dL 31.2-35 L 786-4) RDW-SD (test code = 43.2 fL 38.5-51.6 64371-5) RDW-CV (test code = 14.3 % 12.1-15.4 788-0) PLT (test code = See_Comment H [Automated 777-3) message] The sy stem which generated this result transmitted reference range : 150 - 328 10*3/ ?L. The reference r siddharth was not used to interpret this result as normal/abnormal . MPV (test code = 9.6 fL 9.8-13 L 47144-3) NRBC/100 WBC (test See_Comment [Automat ed code = 1668895868) message] The system which generated this result transmitted reference range : 0.0 - 10.0 /100 WBCs. The refer ence range was not u sed to interpret th is result as normal/abnormal . NRBC x10^3 (test code See_Comment [Auto mated = 7029746566) message] The s ystem which generated this result transmitted reference range : 10*3/?L. The reference range was not used to interpret this result as normal/abnormal . GRAN MAT (NEUT) % 79.2 % (test code = 770-8) IMM GRAN % (test code 0.80 % = 7336968360) LYMPH % (test code = 10.8 % 736-9) MONO % (test code = 4.8 % 5905-5) EOS % (test code = 3.7 % 713-8) BASO % (test code = 0.7 % 706-2) GRAN MAT x10^3(ANC) 7.64 10*3/uL 1.99-6.95 H (test code = 4001234410) IMM GRAN x10^3 (test 0.08 10*3/uL 0-0.06 H code = 9058801014) LYMPH x10^3 (test code 1.04 10*3/uL 1.09-3.23 L = 731-0) MONO x10^3 (test code 0.46 10*3/uL 0.36-1.02 = 742-7) EOS x10^3 (test code = 0.36 10*3/uL 0.06-0.53 711-2) BASO x10^3 (test code 0.07 10*3/uL 0.01-0.09 = 704-7) Lab Interpretation Abnormal (test code = 43826-4) [facility] 2 [id number] 21:34:42HISTORY: SOB. TECHNIQUE: 1 PA and 2 lateral views of the chest are obtained. No priorchest study available for comparison. FINDINGS: No acute pneumonia detected. Increased markings are seensurrounding the maycol and in the lower lungs which could be acute congestionsecondary to viral infection/bronchitis. Less likely possibility is chronicpulmonary fibrosis. Cardiothoracic ratio of approximately 14/36.2 cm isconsistent with normal cardiac size. Minimal old fracture deformity of T10 vertebral body noted. No acutecompression fracture detected. No aggressive bone lesions are visualized. CONCLUSIONS: Mild increased markings in central and lower lungs, probablyacute inflammatory congestion from viral infe ction/bronchitis.[facility], Radiant Results Inft User - 05/18/2019 3:35 PM CSTHISTORY: SOB.TECHNIQUE: 1 PA and 2 lateral views of the chest are obtained. No priorchest study available for comparison.FINDINGS: No acute pneumonia detected. Increased markings are seensurrounding the maycol and in the lower lungs which could be acute congestionsecondary to viral infection/bronchitis. Less likely possibility ischronicpulmonary fibrosis. Cardiothoracic ratio of approximately 14/36.2 cm isconsistent with normalcardiac size.Minimal old fracture deformity of T10 vertebral body noted. No acutecompression fracture detected. No aggressive bone lesions are visualized.CONCLUSIONS: Mild increased markings in centraland lower lungs, probablyacute inflammatory congestion from viral infection/bronchitis.[facility]EL 2019-[facility]-17 19:49:00 Test Item Value Reference Range Interpretation Comments Creatinine Lvl (test code = Creatinine 1.44 0.50-1.40 Lvl) [facility]2019-11-15 19:49:00 Test Item Value Reference Range Interpretation Comments Sodium Lvl (test code = Sodium Lvl) 137 135-145 [facility]2019-11-15 19:49:00 Test Item Value Reference Range Interpretation Comments Potassium Lvl (test code = Potassium 4.5 3.5-5.1 Lvl) [facility]2019-11-15 19:49:00 Test Item Value Reference Range Interpretation Comments Chloride Lvl (test code = Chloride Lvl) 105 95-109 [facility]2019-11-15 19:49:00 Test Item Value Reference Range Interpretation Comments CO2 (test code = CO2) 21 24-32 [facility]2019-11-15 19:49:00 Test Item Value Reference Range Interpretation Comments Calcium Lvl (test code = Calcium Lvl) 8.7 8.5-10.5 [facility]2019-11-15 19:49:00 Test Item Value Reference Range Interpretation Comments eGFR (test code = eGFR) 55 [facility]2019-11-15 19:49:00 Test Item Value Reference Range Interpretation Comments AGAP (test code = AGAP) 15.5 10.0-20.0 [facility]KudexxkYQSLZIUDII6888-79-57 19:49:00 Test Item Value Reference Range Interpretation Comments WBC (test code = WBC) 9.6 3.7-10.4 [facility] CenterHjbuvibTDRBSUSBWI9340-09-74 19:49:00 Test Item Value Reference Range Interpretation Comments RBC (test code = RBC) 5.02 4.70-6.10 [facility] CenterObapngaZLIBEHFNQQ5793-69-18 19:49:00 Test Item Value Reference Range Interpretation Comments Hgb (test code = Hgb) 14.2 14.0-18.0 [facility] CenterLpaxwajRDMRKZNYAB8630-02-83 19:49:00 Test Item Value Reference Range Interpretation Comments Hct (test code = Hct) 41.6 42.0-54.0 [facility] CenterUuopcizUECXTGLYKI7557-01-38 19:49:00 Test Item Value Reference Range Interpretation Comments MCV (test code = MCV) 82.9 80.0-94.0 [facility] CenterHnwgurzNBINAHCLRB9121-58-30 19:49:00 Test Item Value Reference Range Interpretation Comments MCH (test code = MCH) 28.3 pg 27.0-31.0 [facility] CenterYerxubaQRSCCCBBOA0622-13-36 19:49:00 Test Item Value Reference Range Interpretation Comments MCHC (test code = MCHC) 34.1 32.0-36.0 [facility] CenterZkajgxmXJSTJQBUQM9431-93-60 19:49:00 Test Item Value Reference Range Interpretation Comments RDW (test code = RDW) 19.4 11.5-14.5 [facility] CenterHxyyvvgLFJAXJCECE2970-82-54 19:49:00 Test Item Value Reference Range Interpretation Comments Platelet (test code = Platelet) 297 133-450 [facility] CenterBljaatnUXESQEPFTK6515-80-33 19:49:00 Test Item Value Reference Range Interpretation Comments MPV (test code = MPV) 7.0 7.4-10.4 [facility] CenterFcfefetXBXTSNTRDL4944-79-59 19:49:00 Test Item Value Reference Range Interpretation Comments Segs (test code = Segs) 81.8 45.0-75.0 [facility] CenterOzcevkwRJKPXMTRQG0013-11-36 19:49:00 Test Item Value Reference Range Interpretation Comments Lymphocytes (test code = Lymphocytes) 9.6 20.0-40.0 [facility] CenterHgnzbqtWDZDEIFRJA3421-98-36 19:49:00 Test Item Value Reference Range Interpretation Comments Monocytes (test code = Monocytes) 4.5 2.0-12.0 [facility] CenterRrenplgGGYOFKITZC1704-33-51 19:49:00 Test Item Value Reference Range Interpretation Comments Eosinophils (test code = 2.8 See_Comment [A utomated message] The Eosinophils) system which ge nerated this result tra nsmitted reference range : <=4.0. The reference r siddharth was not used to int erpret this result as normal/abnormal . [facility] CenterMancgyuSEAADNZGHR7629-00-82 19:49:00 Test Item Value Reference Range Interpretation Comments Basophils (test code = 1.3 See_Comment [Aut omated message] The Basophils) system which ge nerated this result tra nsmitted reference range : <=1.0. The reference r siddharth was not used to int erpret this result as normal/abnormal . [facility] CenterDkrbseiQFXLKBEYMR3688-23-46 19:49:00 Test Item Value Reference Range Interpretation Comments Neutrophils # (test code = Neutrophils 7.8 1.5-8.1 #) [facility] CenterUktlmrkFIGIOGPETI3151-02-65 19:49:00 Test Item Value Reference Range Interpretation Comments Lymphocytes # (test code = Lymphocytes 0.9 1.0-5.5 #) [facility] CenterUuslfvbSWXSQYLDAF0346-31-94 19:49:00 Test Item Value Reference Range Interpretation Comments Monocytes # (test code 0.4 See_Comment [Aut omated message] The = Monocytes #) system which generated this result tra nsmitted reference range : <=0.8. The reference r siddharth was not used to int erpret this result as normal/abnormal . [facility] CenterBscleujUXTRYMCUVJ1948-28-06 19:49:00 Test Item Value Reference Range Interpretation Comments Eosinophils # (test code 0.3 See_Comment [A utomated message] The = Eosinophils #) system whic h generated this result tra nsmitted reference range : <=0.5. The reference r siddharth was not used to int erpret this result as normal/abnormal . [facility] CenterQbgyzpgWXVZBQYCZQ8985-66-31 19:49:00 Test Item Value Reference Range Interpretation Comments Basophils # (test code 0.1 See_Comment [Aut omated message] The = Basophils #) system which generated this result tra nsmitted reference range : <=0.2. The reference r siddharth was not used to int erpret this result as normal/abnormal . [facility] [id number] 19:49:00 Test Item Value Reference Range Interpretation Comments Hgb A1C (test code = Hgb A1C) 10.4 [facility] CenterCHEM [id number] 19:49:00 Test Item Value Reference Range Interpretation Comments Glucose Lvl (test code = Glucose Lvl) 305 70-99 [facility] CenterSuper Heat Games [id number] 19:49:00 Test Item Value Reference Range Interpretation Comments BUN (test code = BUN) 30 7-22 [facility] CenterWasnkdnXCYENAKTAM3276-93-35 13:28:00 Test Item Value Reference Range Interpretation Comments Blood Glucose, Capillary (test code = 236 74-106 Blood Glucose, Capillary) [facility]
[2021-09-06] MEDS ORDERED: ONDANSETRON 4 MG/2 ML VIAL ONE (00:51)
[2021-09-06] MEDS ORDERED: MORPHINE 4 MG/ML SYR ONE (00:51)
[2021-09-06] MEDS ORDERED: NA CHLORIDE 0.9% 1,000 ML ONE (00:51)
[2021-09-06 01:19] LABS: Absolute Lymphocytes (CBC) 1.3 K/uL (0.7-4.9); Hematocrit 34.2 % (39.6-49.0); Lymphocytes % 7.7 % (15.3-44.8); RBC Red Blood Cell Count 4.29 M/uL (4.33-5.43)
[2021-09-06 01:30] LABS: Urine Amorphous Sediment 3+ /HPF (NONE SEEN); Urine Bacteria >50 /HPF (NONE SEEN); Urine Mucus 3+ /HPF (NONE SEEN); Urine RBC TNTC /HPF (NONE SEEN)
[2021-09-06 01:37] LABS: Albumin 2.6 g/dL (3.4-5.0); Bilirubin Total 0.3 mg/dL (0.2-1.0); Potassium 3.4 mmol/L (3.5-5.1); Protein, Total 7.8 g/dL (6.4-8.2)
[2021-09-06] MEDS ORDERED: CEFTRIAXONE 1000 MG/VIAL ONE (03:04)
[2021-09-06] MEDS ORDERED: NA CHLORIDE 0.9% 50 ML ONE (03:04)
--- NOTE | 2021-09-06 03:35 | ER ---
Nurse's Notes [facility] Name: Tl Goodwin Age: 56 yrs Sex: Male : 1965 Arrival Date: 09/05/2021 Time: 23:55 Bed 11 Private MD: Diagnosis: Stage IV Colon CA;Colovesicular fistula Presentation: 09/06 00:21 Chief complaint: Patient states: he noticed a change in the color of his urine about an bb hour ago and had blood in his urine. Coronavirus screen: At this time, the client does not indicate any symptoms associated with coronavirus-19. Ebola Screen: No symptoms or risks identified at this time. Initial Sepsis Screen: Does the patient meet any 2 criteria? No. Patient's initial sepsis screen is negative. Does the patient have a suspected source of infection? Yes: Dysuria/Frequency/Urgency/UTI Acute abdominal pain. Risk Assessment: Do you want to hurt yourself or someone else? Patient reports no desire to harm self or others. Onset of symptoms was September 06, 2021. 00:21 Method Of Arrival: Wheelchair bb 00:21 Acuity: ROSA 2 bb Historical: - Allergies: 00:23 OxyContin; bb 00:23 Tylox; bb - Immunization history:: Client reports having NOT received the Covid vaccine. - Social history:: Smoking status: Patient denies any tobacco usage or history of. Screenin:12 Abuse screen: Denies threats or abuse. Denies injuries from another. Nutritional as6 screening: No deficits noted. Tuberculosis screening: No symptoms or risk factors identified. Fall Risk None identified. Assessment: 01:11 General: Appears in no apparent distress. Behavior is calm, cooperative. Pain: as6 Complains of pain in right hand, left hand, right foot and left foot. Neuro: Lowe Agitation-Sedation Scale (RASS): 0 - Alert and Calm Level of Consciousness is awake, alert, obeys commands, Oriented to person, place, time, situation. Cardiovascular: JVD is absent Patient's skin is warm and dry. Respiratory: Respiratory effort is even, unlabored, Respiratory pattern is regular, symmetrical. : Reports burning with urination, hematuria. 04:14 Reassessment: Patient appears in no apparent distress at this time. Patient and/or as6 family updated on plan of care and expected duration. Pain level reassessed. 05:47 Reassessment: transfer initiated to [facility] spoke to transfer center who will call bb back with availability. 06:10 Reassessment: Patient is alert, oriented x 3, equal unlabored respirations, skin bb warm/dry/pink. Pt is A\\T\\O x 4, resp unlabored, pt states "I refuse to go to [facility]" Dr Horton notified and at bedside for discussion of pts plan of care. 06:28 Reassessment: pt decided to be discharged and will go to [facility] pt verbalized bb understanding of and agrees to plan of care discharge instructions given pt assisted to exit via wheelchair accompanied by spouse. 08:49 Reassessment: Spoke with patient to make him aware of positive covid results. Pt is ss grateful. Vital Signs: 00:21 BP 115 / 63; Pulse 89; Resp 18 S; Temp 99(O); Pulse Ox 99% on R/A; Weight 102.51 kg bb (R); Height 5 ft. 9 in. (175.26 cm) (R); Pain 9/10; 01:13 BP 103 / 46; Pulse 88; Resp 18 S; Pulse Ox 100% on R/A; Pain 8/10; as6 02:30 BP 116 / 62; Pulse 81; Resp 18 S; Pulse Ox 96% on R/A; as6 04:13 BP 111 / 68; Pulse 85; Resp 20 S; Pulse Ox 97% on R/A; as6 06:10 BP 113 / 63; Pulse 82; Resp 16 S; Pulse Ox 97% on R/A; bb 00:21 Body Mass Index 33.37 (102.51 kg, 175.26 cm) bb ED Course: 09/05 23:55 Patient arrived in ED. ja2 23:59 Sebastián Horton DO is Attending Physician. ms3 09/06 00:23 Triage completed. bb 00:23 Arm band placed on Patient placed in an exam room, on a stretcher, on pulse oximetry. bb Family accompanied patient. 00:37 Rico Sweeney, ESA is Primary Nurse. as6 00:58 Inserted saline lock: 22 gauge in right forearm, using aseptic technique. Blood as6 collected. 01:12 Placed in gown. Bed in low position. Call light in reach. Side rails up X2. Adult w/ as6 patient. Pulse ox on. NIBP on. Warm blanket given. 06:41 No provider procedures requiring assistance completed. IV discontinued, intact, bb bleeding controlled, No redness/swelling at site. Pressure dressing applied. Administered Medications: 01:00 Drug: NS 0.9% 1000 ml Route: IV; Rate: 1000 ml; Site: right forearm; as6 03:40 Follow up: Response: No adverse reaction; IV Status: Completed infusion; IV Intake: as6 1000ml 01:00 Drug: morphine 4 mg Route: IVP; Infused Over: 4 mins; Site: right forearm; as6 03:40 Follow up: Response: No adverse reaction; RASS: Alert and Calm (0) as6 01:00 Drug: Zofran (Ondansetron) 4 mg Route: IVP; Site: right forearm; as6 03:40 Follow up: Response: No adverse reaction as6 03:12 Drug: Rocephin (cefTRIAXone) 1 grams Route: IV; Rate: calculated rate; Site: right as6 forearm; 03:41 Follow up: Response: No adverse reaction; IV Status: Completed infusion; IV Intake: 35ybss2 06:41 Drug: HYDROcodone-acetaminophen 5 mg-325 mg 1 tabs Route: PO; bb 06:41 Follow up: Response: Medication administered at discharge. bb Medication: 01:12 VIS not applicable for this client. as6 Intake: 03:40 IV: 1000ml; Total: 1000ml. as6 03:41 IV: 50ml; Total: 1050ml. as6 Outcome: 03:35 ER care complete, transfer ordered by MD. ms3 06:23 Discharge ordered by MD. ms3 06:42 Discharged to home via wheelchair, with family. bb 06:42 Condition: stable 06:42 Discharge instructions given to patient, family, Instructed on discharge instructions, follow up and referral plans. Demonstrated understanding of instructions, follow-up care. 06:43 Patient left the ED. bb Signatures: Neeta Moore RN RN Amanda Morel RN RN Sebastián Nunes DO DO ms3 Mavis James 2 Rico Sweeney RN RN as6 Corrections: (The following items were deleted from the chart) 00:23 00:23 PMHx: colon cancer; bb bb
--- NOTE | 2021-09-06 03:36 | EDPHYS ---
Physician Documentation [facility] Name: Tl Goodwin Age: 56 yrs Sex: Male : 1965 Arrival Date: 09/05/2021 Time: 23:55 Bed 11 Private MD: ED Physician Sebastián Horton HPI: 09/06 02:31 This 56 yrs old Male presents to ER via Wheelchair with complaints of Fecal material in ms3 urine. 02:32 The patient presents with Fecal material in urine. Onset: The symptoms/episode ms3 began/occurred 1 hour(s) ago. Modifying factors: The symptoms are alleviated by nothing, the symptoms are aggravated by nothing. Associated signs and symptoms: Pertinent negatives: abdominal pain, fever. Severity of symptoms: At their worst the symptoms were mild, in the emergency department the symptoms are unchanged. Historical: - Allergies: 00:23 OxyContin; bb 00:23 Tylox; bb - Immunization history:: Client reports having NOT received the Covid vaccine. - Social history:: Smoking status: Patient denies any tobacco usage or history of. ROS: 02:32 Constitutional: Negative for fever, and chills. Neck: Negative for injury, pain, and ms3 swelling, Cardiovascular: Negative for chest pain, and palpitations. Respiratory: Negative for shortness of breath, cough, wheezing, and pleuritic chest pain, Abdomen/GI: Negative for abdominal pain, nausea, vomiting, diarrhea, and constipation. 02:32 Skin: Negative for injury, rash, and discoloration, Neuro: Negative for headache, weakness, numbness, tingling. 02:32 : Positive for Fecal material in urine. Exam: 02:32 Constitutional: This is a well developed, well nourished patient who is awake, alert, ms3 and in no acute distress. Head/Face: Normocephalic, atraumatic. Cardiovascular: Regular rate and rhythm with a normal S1 and S2. No gallops, murmurs, or rubs. Normal PMI, no JVD. No pulse deficits. Respiratory: Lungs have equal breath sounds bilaterally, clear to auscultation and percussion. No rales, rhonchi or wheezes noted. No increased work of breathing, no retractions or nasal flaring. Skin: Warm, dry with normal turgor. Normal color with no rashes, no lesions, and no evidence of cellulitis. 02:32 Abdomen/GI: Inspection: scar(s), are noted in the , Ostomy site without signs of infection, Bowel sounds: normal, Palpation: abdomen is soft and non-tender. Vital Signs: 00:21 BP 115 / 63; Pulse 89; Resp 18 S; Temp 99(O); Pulse Ox 99% on R/A; Weight 102.51 kg bb (R); Height 5 ft. 9 in. (175.26 cm) (R); Pain 9/10; 01:13 BP 103 / 46; Pulse 88; Resp 18 S; Pulse Ox 100% on R/A; Pain 8/10; as6 02:30 BP 116 / 62; Pulse 81; Resp 18 S; Pulse Ox 96% on R/A; as6 04:13 BP 111 / 68; Pulse 85; Resp 20 S; Pulse Ox 97% on R/A; as6 06:10 BP 113 / 63; Pulse 82; Resp 16 S; Pulse Ox 97% on R/A; bb 00:21 Body Mass Index 33.37 (102.51 kg, 175.26 cm) bb MDM: 00:44 Patient medically screened. ms3 02:17 ED course: Discussed case with patient's oncologist Dr Duong and she recommends calling ms3 patient's colorectal surgeon Dr Smith.. 02:32 Differential diagnosis: UTI, Colovesicular fistula. ms3 03:35 Data reviewed: vital signs, nurses notes, diagnostic data from outside facility, PET ms3 scan from 08/08/2021- Suggestion of fistula. Data interpreted: campus monitor: rate is 88 beats/min, rhythm is normal sinus rhythm, with no ectopy, Interpretation: normal rate, normal rhythm. Counseling: I had a detailed discussion with the patient and/or guardian regarding: the historical points, exam findings, and any diagnostic results supporting the discharge/admit diagnosis, lab results, the need to transfer to another facility, [facility] does not immediately have the required specialist. ED course: Patient and his request to go to [facility] where patient's colorectal surgeon is. Spoke with Dr Wells and he would like patient to be transferred to [facility] to the medicine service. They will consult on patient.. 04:42 ED course: Discussed case with Dr Herrera and he states patient will need colorectal ms3 surgeon.. 06:23 ED course: Patient states that he would like to be discharged. Patient declines ms3 transfer to [facility]. Patient is a/o x4, nad, non-toxic appearing. Patients present for conversation. All questions answered. Discussed with patient and his they may return at any time to continue care.. 09/06 00:30 Order name: CBC with Diff; Complete Time: 01:33 ms3 09/06 00:30 Order name: CMP; Complete Time: 01:59 ms3 09/06 01:21 Order name: Urine Microscopic Only; Complete Time: 01:33 EDMS 09/06 01:33 Order name: Urine Culture EDMS 09/06 02:07 Order name: Blood Culture Adult (2) ms3 09/06 00:30 Order name: Urine Dipstick-Ancillary (obtain specimen); Complete Time: 01:24 ms3 09/06 06:01 Order name: COVID-19 SARS RT PCR (Document "Date of Onset" if Symptomatic) ms3 Administered Medications: 01:00 Drug: NS 0.9% 1000 ml Route: IV; Rate: 1000 ml; Site: right forearm; as6 03:40 Follow up: Response: No adverse reaction; IV Status: Completed infusion; IV Intake: as6 1000ml 01:00 Drug: morphine 4 mg Route: IVP; Infused Over: 4 mins; Site: right forearm; as6 03:40 Follow up: Response: No adverse reaction; RASS: Alert and Calm (0) as6 01:00 Drug: Zofran (Ondansetron) 4 mg Route: IVP; Site: right forearm; as6 03:40 Follow up: Response: No adverse reaction as6 03:12 Drug: Rocephin (cefTRIAXone) 1 grams Route: IV; Rate: calculated rate; Site: right as6 forearm; 03:41 Follow up: Response: No adverse reaction; IV Status: Completed infusion; IV Intake: [id number] 06:41 Drug: HYDROcodone-acetaminophen 5 mg-325 mg 1 tabs Route: PO; bb 06:41 Follow up: Response: Medication administered at discharge. bb Disposition Summary: 09/06/21 06:23 Discharge Ordered Location: Home ms3 Condition: Stable(09/06/21 06:23) ms3 Diagnosis - Stage IV Colon CA ms3 - Colovesicular fistula ms3 Followup: ms3 - With: Private Physician - When: 1 - 2 days - Reason: Re-evaluation by your physician Discharge Instructions: - Discharge Summary Sheet ms3 - Urinary Tract Infection, Adult ms3 Forms: - Medication Reconciliation Form ms3 - Thank You Letter ms3 - Antibiotic Education ms3 - Prescription Opioid Use ms3 Signatures: Dispatcher [employer] EDMS Neeta Moore RN RN Sebastián Toribio DO DO ms3 Rico Sweeney RN RN as6 Kristin Mccormick, PA PA sb3 Corrections: (The following items were deleted from the chart) 00:23 00:23 PMHx: colon cancer; agueda romeo 01:21 00:31 URINALYSIS+U.LAB.BRZ ordered. EDMS EDMS 06:22 03:35 . ms3 ms3 06:22 03:35 [facility] ms3 ms3 06:22 03:35 Higher level of care ms3 ms3 06:22 03:35 Stable ms3 ms3 06:22 03:35 new ms3 ms3 06:22 03:35 are unchanged ms3 ms3 06:22 03:35 Colovesicular fistula ms3 ms3 06:22 03:35 Stage IV Colon Cancer ms3 ms3
[2021-09-06] MEDS ORDERED: HYDROCODONE/APAP 5/325 MG TAB ONE (06:45)
[2021-09-06 06:56] VITALS: TEMP 99
[2021-09-06 07:00] VITALS: O2SAT 97
[2021-09-06 07:02] VITALS: BP 113/63
== END 2021-09-06 06:43 | disposition home or self-care (01) ==
LOC: ER 23:50
DX: C18.4 Malignant neoplasm of transverse colon (principal); N32.1 Vesicointestinal fistula; U07.1 COVID-19; Z88.5 Allergy status to narcotic agent; Z88.6 Allergy status to analgesic agent
CPT/HCPCS: 96365; 96361; 87040 ×2; 87088; 85025; 87086; 36415; 87077; 87186; 81015; 80053; 96375; 99284; U0003; J7030; J2405

== ENCOUNTER 2021-11-24 19:55 | Emergency (ER) | payer MEDICARE ==
--- OUTSIDE RECORDS SUMMARY | 2021-11-24 20:10 | XMS REPORT | Continuity of Care Document ---
:[address] [facility] t Address [address] [place] [address] Care Team Providers Name Role Phone Adrianna Starr Primary Care Physician DELROY SMITH Attending Clinician Unavailable JOSE JUAN GERARD Attending Clinician Unavailable DO DELL CORBETT Attending Clinician Unavailable RUBEN Attending Clinician Unavailable Zac Rosas MD Attending Clinician [phone] Mich Barrera Attending Clinician Carlos Otto MD Attending Clinician MD JOSE JUAN GERARD Attending Clinician Unavailable FARIBA MARION Attending Clinician Unavailable Rochelle Gerard DO Attending Clinician Fariba Marion MD Attending Clinician Liang SEE, Holly Roe Attending Clinician Unavailable Lili Foreman Attending Clinician [phone] JOVANY CROUCH Attending Clinician Unavailable DO JOVANY CROUCH Attending Clinician Unavailable MD ESTER WALKER Attending Clinician Unavailable Dell Danielson MD Attending Clinician DELL DANIELSON Attending Clinician Unavailable BANG PINON Attending Clinician Unavailable JAKE MAIN Attending Clinician Unavailable DR MARILYN MENENDEZ Attending Clinician Unavailable Joi SEE, Regulo Palma Attending Clinician Unavailable Jessenia Hernandez Attending Clinician Giuliano Hernandes MD Attending Clinician GIULIANO HERNANDES Attending Clinician Unavailable JOSE JUAN GERARD Admitting Clinician Unavailable FAVIAN_Lita Admitting Clinician Unavailable DELROY SMITH Admitting Clinician Unavailable MD JOSE JUAN GERARD OLambert Admitting Clinician Unavailable FARIBA MARION Admitting Clinician Unavailable Fariba Marion MD Admitting Clinician GERTRDUIS BUTTERFIELD Admitting Clinician Unavailable MD GERTRUDIS BUTTERFIELD Admitting Clinician Unavailable DELL DANIELSON Admitting Clinician Unavailable FREDERIC FUNES Admitting Clinician Unavailable DR MARILYN EMNENDEZ Admitting Clinician Unavailable Giuliano Hernandes MD Admitting Clinician GIULIANO HERNANDES Admitting Clinician Unavailable Payers Payer Name Policy Type Policy Number Effective Date Expiration Date S ource BCBS OUT OF [id number] 2020 2020 STATE 00:00:00 00:00:00 [facility] [id number] 2021 00:00:00 [place] [id number] 2020 ID (PPO) 00:00:00 [place] [id number] 2020 OUT OF STATE 00:00:00 Problems Condition [...] disease 00:00: Hospita involving involving 00 l [place] coronary coronary artery artery Type 2 Type 2 Disease Active 2020-04 Methodi diabetes diabetes 2-08 st mellitus mellitus 00:00: Hospit a 00 l Syncope Syncope Disease Active 2020-04 Univers and and 2-06 ity of collapse collapse 00:00: [place] 00 Medical Branch CHRISTIANO (acute CHRISTIANO (acute Disease Active 2020- U nivers kidney kidney 2-06 ity of injury) injury) 00:00: [place] 00 Medical Branch Perirectal Perirectal Disease Active 2020-0 M ethodi abscess abscess 6-18 st 00:00: Hospita 00 l CHRISTIANO (acute CHRISTIANO (acute Disease Active 2020-0 M ethodi kidney kidney 6-18 st injury) injury) 00:00: Hospita 00 l Emesis, Emesis, Disease Active 2019-[address] [facility] persistent persistent 3-05 Chloe kes 00:00: [facility] 00 Center Choledocho Choledocho Disease Active 2020-[address] lithiasis lithiasis 3-05 [facility] s 00:00: [facility] 00 Center Transamini Transamini Disease Active 2020-[address] tis tis 3-05 [facility] 00:[facility]: Medical 00 Center Acute Acute Disease Active 2020-0 Univers diastolic diastolic 2-17 ity of congestive congestive [place] heart heart 00 Medical failure failure Branch Pulmonary Pulmonary Disease Active 2020-0 Uni vers hypertensi hypertensi 2-17 it y of on on 00:00: [place] [id number] Medical Branch Chronic Chronic Disease Active 2020-0 Univers diastolic diastolic 2-17 ity of congestive congestive [place] heart heart 00 Medical failure failure Branch Dyslipidem Dyslipidem Disease Active 2020-0 U nivers ia ia 2-14 ity of 00:00: [place] 00 Medical Branch Coronary Coronary Disease Active 2020-0 Unive rs artery artery 2-14 ity of disease disease 00:00: [place] involving involving 00 Medi cherry [place] Branch coronary coronary artery of artery of [place] heart heart without without angina angina pectoris pectoris Coronary Coronary Disease Active 2020-0 [facility] artery artery 2-14 [facility] disease disease 00:00: Medical involving involving 00 Cent er [place] te[place] coronary coronary artery of artery of [place] heart heart without without angina angina pectoris pectoris Essential Essential Disease Active 2020-[address] hypertensi hypertensi 2-14 Chloe kes on on 00:00: Medical 00 Center New onset New onset Disease Active 2020-0 Uni vers of of 2-13 ity of congestive congestive [place] heart 00 Medical failure failure Branch Obesity Obesity Disease Active 2020-[address] (BMI (BMI 2-13 [facility] 30-39.9) 30-39.9) 00:00: Medica l 00 Center PROSTATIS- PROSTATIS Diagnosis Active 2018-042019-02-20 Memoria N41.9 / -N41.9 / 04-16 05:01:00 l UNSPECIFIE UNSPECIFIE 00:00: He rmann D INJURY D INJURY 00 OF OF Active 02/14/2019 [facility] [place] Chronic Chronic Disease Active 2018- [facility] diastolic diastolic 11-24 [facility] heart heart 00:00: Medical failure failure 00 Center Allergic Allergic Disease Active 2018- [facility] t rhinitis rhinitis 11-24 [facility] 00:00: Medical 00 Center Chronic Chronic Disease Active 2018- [facility] diarrhea diarrhea 11-24 [facility] 00:00: Medical 00 Center Chronic Chronic Disease Active 2018- [facility] kidney kidney 11-24 [facility] disease disease 00:00: Medical due to due to 00 Center type 2 type 2 diabetes diabetes mellitus mellitus Hyperlipid Hyperlipid Disease Active 2018- [facility] emia emia 11-24 [facility] 00:00: Medical 00 Center Peripheral Peripheral Disease Active 2018- [facility] venous venous 11-24 [facility] insufficie insufficie 00:00: Me dical ncy ncy 00 Center Polyneurop Polyneurop Disease Active 2018- C [facility] athy due athy due 11-24kes to type 2 to type 2 00:00: Medi cherry diabetes diabetes 00 Center mellitus mellitus Rectal Rectal Disease Active 2018- [facility] cancer cancer 11-15 [facility] 00:00: Medical 00 Center 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 n in 04-05 17:00:25 l resistant resistant 00:00: Herm katrina Staphyloco Staphyloco 00 ccus ccus aureus aureus (organism) (organism) Active 04/05/2006 Problem 06/11/2020 MRSA X2 2006 hand MD treated Forehead MD treated no recurrence , patient states from job [facility] Malignant Problem 2020-06-11 Me moria neoplasm Malignant 17:00:25 l of rectum neoplasm Hayley nn of rectum 06/11/2020 [facility] Polyp of Polyp of Problem 2020-06-11 Memoria colon colon 17:00:25 l 06/11/2020 Melecio kurtz [facility] Diabetes Diabetes Problem Resolve 2021-02-09 Memoria mellitus mellitus d 01:21:31 l (disorder) (disorder) He rmann Resolved Problem 02/09/2021 [facility] her Neuro,[facility] Myocardial Myocardia Problem Resolve 2021-02-09 Memoria infarction l d 01:21:31 l (disorder) infarction Saul rmkatrina (disorder) Resolved Problem 02/09/2021 [facility] her Neuro,[facility] [place] Hypertensi Problem Active 2021-02-09 M emoria ve Hypertensi 01:21:31 l disorder, ve [place] systemic disorder, arterial systemic (disorder) arterial (disorder) Active Problem 02/09/2021 [facility] her Neuro,[facility] Hypothyroi Problem Active 2021-02-09 M emoria dism Hypothyroi 01:21:31 l (disorder) dism Melecio n (disorder) Active Problem 02/09/2021 [facility] her Neuro,[facility] No known No known Disease [place] active active Health problems problems Morbid Morbid Problem Active 2021-02-09 Ulysses tala obesity obesity 01:21:31 l (disorder) (disorder) Saul rmann Active Problem 02/09/2021 [facility] her Neuro,[facility] Neuropathy Problem Active 2021-02-09 M emoria (disorder) Neuropathy 01:21:31 l (disorder) Melecio n Active Problem 02/09/2021 [facility] her [facility] [place] Tremor Tremor Problem Active 2021-02-09 Ulysses tala (finding) (finding) 01:21:31 l Active Yoel Problem 02/09/2021 [facility] her Neuro,[facility] Fistula Fistula Problem Active 2021-02-09 Me moria (disorder) (disorder) 01:21:31 l Active Yoel Problem 02/09/2021 [facility] Lumbar Lumbar Problem Active 2021-02-09 Ulysses tala radiculopa radiculopa 01:21:31 l thy thy Yoel (disorder) (disorder) Active Problem 02/09/2021 [facility] Acid Acid Problem Active 2020-06-11 Memor ia reflux reflux 17:00:25 l (finding) (finding) Herm katrina Active Problem 06/11/2020 [facility] Arthritis Arthritis Problem Active 2020-06-11 Memoria (disorder) (disorder) 17:00:25 l Active Yoel Problem 06/11/2020 [facility] Altered Altered Problem Active 2020-06-11 Me moria bowel bowel 17:00:25 l function function Melecio n (finding) (finding) Active Problem 06/11/2020 [facility] Malignant Problem Active 2020-06-11 Me moria tumor of Malignant 17:00:25 l large tumor of Yoel intestine large (disorder) intestine (disorder) Active Problem 06/11/2020 [facility] Constipati Constipat Problem Active 2020-06-11 Memoria on ion 17:00:25 l (disorder) (disorder) He rmann Active Problem 06/11/2020 [facility] Coronary Coronary Problem Active 2020-06-11 Memoria arterioscl arterioscl 17:00:25 l erosis erosis Yoel (disorder) (disorder) Active Problem 06/11/2020 no recent problems No CP or SOB, or dizzinesss tent X1 placed 2012 [facility] Diarrhea Diarrhea Problem Active 2020-06-11 Memoria (finding) (finding) 17:00:25 l Active Yoel Problem 06/11/2020 [facility] Foot pain Foot Problem Active 2020-06-11 Me moria (finding) pain 17:00:25 l (finding) Yoel Active Problem 06/11/2020 bilateral foot and nerve [facility] Gout Gout Problem Active 2020-06-11 Memor ia (disorder) (disorder) 17:00:25 l Active Yoel Problem 06/11/2020 [facility] Hyperchole Hyperchol Problem Active 2020-06-11 Memoria sterolemia esterolemi 17:00:25 l (disorder) a Melecio n (disorder) Active Problem 06/11/2020 [facility] Loss of Loss of Problem Active 2020-06-11 M emoria appetite appetite 17:00:25 l (finding) (finding) Herm katrina Active Problem 06/11/2020 [facility] Rectal Rectal Problem Active 2020-06-11 Ulysses tala hemorrhage hemorrhage 17:00:25 l (disorder) (disorder) Saul rmann Active Problem 06/11/2020 [facility] Colostomy Colostomy Problem Active 2020-06-11 Memoria - stoma - stoma 17:00:25 l (morpholog (morpholog He rmann ic ic abnormalit abnormalit y) y) Active Problem 06/11/2020 [facility] Foot-drop Foot-drop Problem Active 2020-06-11 Memoria gait gait 17:00:25 l (finding) (finding) Paz herndon Active Problem 06/11/2020 walks with a walker [facility] Incontinen Incontine Problem Active 2020-06-11 Memoria ce nce 17:00:25 l (finding) (finding) Paz katrina Active Problem 06/11/2020 [facility] INFLAMMATO INFLAMMAT Diagnosis Active 2019-02-20 Memoria RY DISEASE ORY 05:01:00 l OF DISEASE OF Melecio n PROSTATE, PROSTATE, UNSPEC UNSPEC Active [facility] Allergies, Adverse Reactions, Alerts Allergy Allergy Status Severity Reaction(s) Onset Inactive Treating Comm ents Source Name Type Date Date Clinician Tyloxapo Propensi Active [place] l ty to 19 Health adverse 00:00: reaction 00 s Oxycodon Drug Active Swelling Per pt, [facility] e-Ac[facility]am Allergy 06-[address] 00:[facility]: of the Medical 00 face. Center Oxycodon Propensi Active Anaphylaxis 2018-0 M ethodi e-Acetam ty to 11-02 st inophen adverse 00:00: Hospita reaction 00 l s to drug Oxycodon Propensi Active Anaphylaxis 2015-0 U nivers e-Acetam ty to 708 ity of inophen adverse 00:00: [place] reaction 00 Medical s Branch OXYCODON DRUG Active Anaphylaxis 0 Uni vers E-ACETAM 708 ity of INOPHEN 00:00: [place] 00 Medical Branch OXYCODON Allergy Active [facility] E-ACETAM [facility] Tylox Tylox Active Memoria l [place] No DA Active [facility] Allergy Medical Informat Center ion Availabl e Tylox DA Active Unknown [facility] Family History Family Member Diagnosis Comments Start Date Stop Date Source Natural father Diabetes [facility] Natural father Heart disease [facility] [place] [place] Natural mother COPD [facility] Natural mother Diabetes [facility] Natural mother Heart disease [facility] [place] [place] Natural sister Heart disease [facility] [place] [place] Social History Social Habit Start Date Stop Date Quantity Comments Source History SDOH [facility] Alcohol Std Drinks Medica l Center History SDOH [facility] Alcohol Binge Medical Kylee ter History SDOH [facility] Alcohol Comment Medical C enter Exposure to 2021-09-23 2021-10-03 Not sure [facility] SARS-CoV-2 (event) 00:00:00 10:55:00 Alcohol intake 2019-06-12 2019-06-[address] [facility] es 00:00:00 00:00:00 non-drinker of Medical Ce nter alcohol (finding) Tobacco use and 2019-06-08 2019-06-[address] Chloe kes exposure 00:00:00 00:00:00 Medical Center History SDOH 2019-06-08 2019-06-[address] [facility] Alcohol Frequency 00:00:00 00:00:00 Medical Center Social History 2019-02-17 2019-02-17 [facility] catherine 19:33:07 19:33:07 Sex Assigned At [address] [facility] Chloe kes 00:00:00 00:00:00 Medical Center Smoking Status Start Date Stop Date Source Never smoked tobacco [facility] Medications Ordered Filled Start Stop Current Ordering Indication Dosage Frequency Signature Comments Components Source Medication Medication Date Date Medication? Clinician (SIG) Name Name Sod Yes [id number] DISPENSE [facility] Picosulfate 2-24 [id number] ONE KIT Hea lth -Mag Ox-Cit 00:00: Acd 00 (Clenpiq) 10-3.5-12 MG-GM -GM/160ML solution Sod Yes [id number] DISPENSE [facility] Picosulfate 2-24 [id number] ONE KIT Hea lth -Mag Ox-Cit 00:00: Acd 00 (Clenpiq) 10-3.5-12 MG-GM -GM/160ML solution Sod Yes [id number] DISPENSE UT Picosulfate 2-24 [id number] ONE KIT Hea lth -Mag Ox-Cit 00:00: Acd 00 (Clenpiq) 10-3.5-12 MG-GM -GM/160ML solution Na Yes [id number] DISPENSE UT Sulfate-K 2-22 [id number] ONE KIT Healt h Sulfate-Mg 00:00: Sulf 00 (Suprep Bowel Prep Kit) 17.5-3.13-1 .6 GM/177ML solution Na Yes [id number] DISPENSE UT Sulfate-K 2-22 [id number] ONE KIT Healt h Sulfate-Mg 00:00: Sulf 00 (Suprep Bowel Prep Kit) 17.5-3.13-1 .6 GM/177ML solution Na Yes [id number] DISPENSE UT Sulfate-K - [id number] ONE KIT Healt h Sulfate-Mg 00:00: Sulf 00 (Suprep Bowel Prep Kit) 17.5-3.13-1 .6 GM/177ML solution HYDROcodone 2020-04 Yes 1{tbl} Q.5D Take 1 M ethodi -acetaminop 2-[address] [facility]) 21:16: mouth 2 Hos jessica 10-325 mg [...] M ethodi -acetaminop 2-[address] [facility]) 21:16: mouth 2 Hos jessica 10-325 mg [...] 00 (two) l times a day. metOLazone 2020-04 No 5mg [id number] Take 5 mg Methodi (ZAROXOLYN) 2-18 -17 [id number] mouth [address] 5 MG tablet 21:16: 00:00 3D (three) Ho spita 00 :00 times a l day. Only when experienci ng excess fluid retention metOLazone 2020-04 No 5mg Q.[id number] Take 5 mg Methodi (ZAROXOLYN) 2-18 12-17 [id number] by mouth 3 [address] 5 MG tablet 21:16: 00:00 3D (three) Ho spita 00 :00 times a l day. Only when experienci ng excess fluid retention clopidogreL 2020-04 75mg QD Take 1 Met hodi (PLAVIX) 75 -18 -18 tablet (75 s t mg tablet 00:00: 05:59 mg total) Ho spita 00 :00 by mouth l daily for 30 days. clopidogreL 2020-04 75mg QD Take 1 Met hodi (PLAVIX) 75 05-23-18 tablet (75 s t mg tablet 00:00: 05:59 mg total) Ho spita 00 :00 by mouth l daily for 30 days. metFORMIN 2020-04 1000mg QD Take 1,000 Methodi (GLUCOPHAGE 2-17 12-[address] ) 1,000 mg 21:16: 00:00 mouth Hospi ta tablet 22 :00 daily with l breakfast. insulin 2020-04 No 62U QD Inject 62 Meth michael glargine 2-17 12-[address] U-300 conc 21:16: 00:00 under the H ospita (Toujeo Max 22 :00 skin l U-300 nightly. SoloStar) 300 unit/mL (3 mL) insulin pen metFORMIN 2020-04 1000mg QD Take 1,000 Methodi (GLUCOPHAGE 2-17 12-[address] ) 1,000 mg 21:16: 00:00 mouth Hospi ta tablet 22 :00 daily with l breakfast. insulin 2020-04 No 62U QD Inject 62 Meth michael [...] mouth l daily. insulin 2020-04- No 7U [id number] Inject M ethodi LISPRO 2-17 - [id number] 0.07 mL (7 st (ADMELOG) 00:00: 05:59 3D Units Hospit a 100 unit/mL 00 :00 total) l subcutaneou under the s vial skin 3 (three) times a day with meals for 30 days. insulin 2020-04 No 7U Q.[id number] Inject M ethodi LISPRO 2-17 - [id number] 0.07 mL (7 st (ADMELOG) 00:00: 05:59 [...] per tablet day for 7 days. amoxicillin 2020-04 No 1{tbl} Q.5D Take 1 M ethodi [...] l injection for 1 (vial) dose. insulin 2020-04- No 31U Inject 31 Meth [...] 2020-04 No 1{tbl} 1 tablet, Univers -acetaminop 2-08 12-08 Oral, ity of hen (NORCO) 07:45: 06:52 ONCE, 1 [place] 10-325 mg 00 :00 dose, On Medica l tablet 1 Wed Branch tablet 03/12/21 at 0145, Routine DULoxetine 2020-04 Yes 30mg Take 30 mg U nivers 30 mg 2-08 by mouth ity of capsule 03:04: daily. [address] gabapentin 2020-04 Yes 900mg Take 900 Un amauri 300 mg 2-08 mg by ity of capsule 03:04: mouth 2 [place] [address] (two) Medical times [place] daily. omeprazole 2020-04 Yes 20mg Take 20 mg U nivers 20 mg 2-08 by mouth ity of capsule 03:04: daily. [address] metFORMIN 2020-04 Yes 1000mg Take 1,000 Univers 1,000 mg 2-08 mg by ity of tablet 03:04: mouth 2 [place] [address] (two) Medical times [place] daily with meals. empaglifloz 2020-04 Yes 25mg Take 25 mg Univers in 2-08 by mouth ity of (JARDIANCE) 03:04: [place]. [place] 25 mg [place] 23 Medical Branch dulaglutide 2020-04 Yes 1.5mg inject 1.5 Univers (TRULICITY) 2-08 mg under ity of 1.5 mg/0.5 03:04: the skin Gunnar as mL PnIj 23 weekly. Medical Indication Branch s: on wednesday insulin 2020-04 Yes 62U inject 62 Unive rs degludec 2-08 Units ity of (TRESIBA 03:04: under the [place] FLEXTOUCH 23 skin at [facility] U-200) 200 bedtime. Branc h unit/mL (3 mL) InPn insulin 2020-04 Yes inject Univers lispro 2-08 under the ity of (HUMALOG 03:04: skin. [place] [address] Indication Medical KWIKPEN s: per Branch U-100) [...] 23 daily. Medical Branch sulfur 2020-04- No [id number] 5mL 5 mL, Univ ers hexafluorid 05-12 Intravenou i ty of e microsphr 17:30: 17:30 s, ONCE, 1 [place] (LUMASON) 00 :00 dose, On Medica l injection 5 [facility] 03/11/21 at 1130, Routine
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 Restricted medication : ANGELINE GRANDE omeprazole 2020-04 Yes 20mg 20 mg, Unive rs (PRILOSEC) 2- Oral, ity of capsule 20 15:00: DAILY, [place] mg 00 First dose Medical on [facility] 03/11/21 at 0900, Until Discontinu ed, Routine tamsulosin 2020-04 Yes .4mg 0.4 mg, Univ ers (FLOMAX) 2-07 Oral, ity of capsule 0.4 15:00: DAILY, [place] mg 00 First dose Medical on [facility] 03/11/21 at 0900, Until Discontinu ed, Routine DULoxetine 2020-04 Yes 30mg 30 mg, Unive rs (CYMBALTA) 2-07 Oral, ity of capsule 30 15:00: DAILY, [place] mg 00 First dose Medical on [facility] 03/11/21 at 0900, Until Discontinu ed, Routine atorvastati 2020-04 Yes 40mg 40 mg, Univ ers n (LIPITOR) 2-07 Oral, ity of tablet 40 15:00: DAILY, [place] mg 00 First dose Medical on [facility] 03/11/21 at 0900, Until Discontinu ed, Routine aspirin 2020-04 Yes 325mg 325 mg, Univer s tablet 325 2- Oral, ity of mg 15:00: DAILY, [place] 00 First dose Medical on [facility] 03/11/21 at 0900, Until Discontinu ed, Routine furosemide 2020-04 No 40mg 40 mg, Univ ers (LASIX) 2 12- Oral, ity of tablet 40 15:00: 22:35 QAM+PM, [place] mg 00 :24 First dose Medical on [facility] 03/11/21 at 0900, Until Discontinu ed, Routine Sliding 2020-[address] [facility] ers Scale 2-07 us, TID ity of Insulin - 14:00: MEALS, [place] Lispro 00 First dose Medical (HumaLOG) + on [facility] Fsbg 03/11/21 at Testing 0800, Until Discontinu ed, Routine levothyroxi 2020-04 Yes 50ug 50 mcg, Uni vers ne 2-07 Oral, ity of (SYNTHROID) 12:00: QAM-0600, [place] tablet 50 00 First dose Medi cherry mcg on [facility] 03/11/21 at 0600, Until Discontinu ed, Routine metoprolol 2020-04 Yes 100mg 100 mg, Uni vers tartrate 2-07 Oral, BID, ity o f (LOPRESSOR) 02:00: First dose [place] tablet 100 00 on [facility] mg 03/10/21 at Branch 1999, Until Discontinu ed, Routine gabapentin 2020-04 Yes 900mg 900 mg, Uni vers (NEURONTIN) 2-07 Oral, BID, it y of capsule 900 02:00: First dose [place] mg 00 on [facility] 03/10/21 at Branch 1999, Until Discontinu ed, Routine HYDROcodone 2020-04 Yes 1{tbl} 1 tablet, Univers -acetaminop 2-06 Oral, ity of hen (NORCO 23:55: Q6HPRN, [place] 5) 5-325 mg 52 Starting Medi cherry tablet 1 on [facility] tablet 03/10/21 at 1755, Until Discontinu ed, Routine, Pain (scale 4-6) glucagon 2020-04 Yes 1mg 1 mg, Univers (GLUCAGEN 2-06 Intramuscu ity of DIAGNOSTIC 23:53: lar, PRN, [place] KIT) 18 Starting Medical injection 1 on [facility] Branch mg 03/10/21 at 1753, Until Discontinu ed, KRISTY, Blood Glucose < or = 70 mg/dL and patient is unable to swallow or has mental changes. dextrose 50 2020-04 Yes 25mL 25 mL, Univ ers % in water 2-06 Slow IV ity of (D50W) 23:53: Push, PRN, [place] injection 18 Starting Medica l 25 mL on [facility] Branch 03/10/21 at 1753, Until Discontinu ed, KRISTY, Blood Glucose < or = 70 mg/dL and patient is unable to swallow or has mental status changes. enoxaparin 2020-04 Yes 30mg 30 mg, Unive rs (LOVENOX) 2-06 Subcutaneo ity of injection 23:00: us, DAILY, [place] 30 mg 00 First dose Medical on [facility] Branch 03/10/21 at 1700, Until Discontinu ed, Routine acetaminoph 2020-04 Yes 650mg 650 mg, Un amauri en 2-06 Oral, ity of (TYLENOL) 21:34: Q6HPRN, [place] tablet 650 54 Starting Medic al mg on [facility] Branch 03/10/21 at 1534, Until Discontinu ed, Routine, Pain (scale 1-3) levothyroxi 2020-04- No 25ug Take 25 Un amauri ne 25 mcg 2- 12-06 mcg by ity of tablet 17:01: 00:00 mouth [place] 06 :00 every Medical morning. [place] topiramate 2020-04 Yes 100 mg = 1 M emoria 100 mg oral 1-04 tab, PO, l tablet 14:57: BID, # 60 Melecio n 00 tab, 5 Refill(s), Pharmacy: 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 loperamide Yes 2mg Take 2 mg UT (Imodium -24 by mouth 4 Healt h A-D) 2 MG 03:03: (four) tablet 39 times a day if needed. HYDROcodone Yes UT -acetaminop -24 Health hen (Mobile) 03:03: 7.5-325 MG 39 tablet gabapentin Yes 300mg Q.[id number] Take 300 UT (Neurontin) 24 [id number] mg by H ealth 300 MG 03:03: 3D mouth 3 capsule 39 (three) times a day. DULoxetine Yes 20mg QD Take 20 mg U T (Cymbalta) 24 by mouth 1 Hea lth [address] 03:03: (one) time capsule 39 each day. Do not crush or chew. spironolact Yes QD Take by UT one 5-24 mouth 1 [facility] (Aldactone) 03:03: (one) time 25 MG 39 each day. tablet levothyroxi Yes Take by UT ne 5-24 mouth 1 Health (Tirosint) 03:03: (one) time 25 MCG 39 each day capsule before breakfast. Insulin Yes Inject UT Degludec -24 under the Health (TRESIBA 03:03: skin. FLEXTOUCH 39 SC) dulaglutide Yes 1.5mg Inject 1.5 UT (Trulicity) 5-24 mg under Heal th 1.5 03:03: the skin 1 MG/0.5ML 39 (one) time solution per week. pen-injecto r ATORVASTATI Yes Take by UT N CALCIUM 5-24 mouth. Health PO 03:03: 39 empaglifloz 0 Yes Take by UT in 5-24 mouth. Health (Jardiance) 03:03: 25 MG 39 allopurinol 2021-0 Yes 100mg QD Take 100 U T (Zyloprim) 5-24 mg by Health 100 MG 03:03: mouth 1 tablet 39 [...] mouth. Health MG tablet 03:03: 39 isosorbide Yes 30mg QD Take 30 [...] mouth 1 39 (one) time each day. metoprolol 2020-0 Yes 100mg Q.5D Take 100 [...] (two) tablet 39 times a day. loperamide 2020-0 Yes 2mg Take 2 mg UT (Imodium 5-23 by mouth 4 Healt h A-D) 2 MG 22:03: (four) tablet 39 times a day if needed. HYDROcodone 2020-0 Yes UT -acetaminop 5-23 Health hen (Mobile) 22:03: 7.5-325 MG 39 tablet gabapentin 2020-0 Yes 300mg Q.[id number] Take 300 UT (Neurontin) 5-23 [id number] mg by H ealth 300 MG 22:03: 3D mouth 3 capsule 39 (three) times a day. DULoxetine Yes 20mg QD Take 20 mg U T (Cymbalta) 5-23 by mouth 1 Hea lth [address] 22:03: (one) time capsule 39 each day. Do not crush or chew. spironolact 0 Yes QD Take by UT one 5-23 [...] ATORVASTATI Yes Take by UT N CALCIUM 5- mouth. Health PO 22:03: 39 empaglifloz 0 Yes Take by UT in 5-23 mouth. Health (Jardiance) 22:03: 25 MG 39 allopurinol Yes 100mg QD Take 100 U T (Zyloprim) 5-23 mg by [facility] 100 MG 22:03: mouth 1 tablet 39 (one) time each day. METFORMIN Yes Take by UT HCL PO 5-23 mouth. Health 22:03: 39 omeprazole 0 Yes 20mg QD Take 20 mg U T (PriLOSEC) 5-23 by mouth 1 Hea lth [address] 22:03: (one) time capsule 39 each day. Do not crush or chew. furosemide 0 Yes Take by UT (Lasix) 40 5-23 mouth. Health MG tablet 22:03: 39 isosorbide 0 Yes 30mg QD Take 30 mg U T mononitrate -23 by mouth 1 He alth ER (Imdur) [...] if needed. HYDROcodone 0 Yes UT -acetaminop -23 Health hen (Mobile) 22:03: 7.5-325 MG 39 tablet gabapentin Yes 300mg Q.[id number] Take 300 UT (Neurontin) 5-23 [id number] mg by H ealth 300 MG 22:03: 3D mouth 3 capsule 39 (three) times a day. DULoxetine Yes 20mg QD Take 20 mg U T (Cymbalta) - by mouth 1 Hea lth [address] 22:03: (one) time capsule 39 each day. Do not crush or chew. spironolact Yes QD Take by UT one -23 mouth 1 Health (Aldactone) 22:03: (one) time [...] ATORVASTATI Yes Take by UT N CALCIUM 5- mouth. Health PO 22:03: 39 empaglifloz Yes [...] QD Take 30 mg U T mononitrate 08-25 by mouth 1 He alth ER (Imdur) [...] Yes Q.5D Take by UT in (Cipro) - mouth 2 Health 500 MG 22:03: (two) tablet 39 times a day. loperamide Yes 2mg Take 2 mg UT (Imodium 5-23 by mouth 4 Healt h A-D) 2 MG 22:03: (four) tablet 39 times a day if needed. HYDROcodone 0 Yes UT -acetaminop 5-23 Health hen (Mobile) 22:03: 7.5-325 MG 39 tablet gabapentin 0 Yes 300mg Q.[id number] Take 300 UT (Neurontin) 5-23 [id number] mg by H ealth 300 MG 22:03: 3D mouth 3 capsule 39 (three) times a day. DULoxetine 0 Yes 20mg QD Take 20 mg U T (Cymbalta) 5-23 by mouth 1 Hea lth [address] 22:03: (one) time capsule 39 each day. Do not crush or chew. spironolact 2020-0 Yes QD Take by UT one 5-23 mouth 1 Health (Aldactone) 22:03: (one) time 25 MG 39 each day. tablet levothyroxi 0 Yes Take by UT ne 5-23 mouth 1 Health (Tirosint) 22:03: (one) time 25 MCG 39 each day capsule before breakfast. Insulin 0 Yes Inject UT Degludec 5-23 under the Health (TRESIBA 22:03: skin. FLEXTOUCH 39 SC) dulaglutide Yes 1.5mg Inject 1.5 UT (Trulicity) 5-23 mg under Heal th 1.5 22:03: the skin 1 MG/0.5ML 39 (one) time solution per week. pen-injecto r ATORVASTATI 0 Yes Take by UT N CALCIUM 5-23 mouth. Health PO 22:03: 39 empaglifloz 0 Yes Take by UT in 5-23 mouth. Health (Jardiance) 22:03: 25 MG 39 allopurinol 0 Yes 100mg QD Take 100 U T (Zyloprim) 5-23 mg by [facility] 100 MG 22:03: mouth 1 tablet 39 (one) time each day. METFORMIN Yes Take by UT HCL PO 5-23 mouth. Health 22:03: 39 omeprazole 2020-0 Yes 20mg QD Take 20 mg U T (PriLOSEC) 5-23 by mouth 1 Hea lth 20 MG 22:03: (one) time capsule 39 each day. Do not crush or chew. furosemide 2020-0 Yes Take by UT (Lasix) 40 5-23 mouth. Health MG tablet 22:03: 39 isosorbide 2020-0 Yes 30mg QD Take [...] if needed. HYDROcodone 2020-0 Yes UT -acetaminop 5-23 Health hen (Mobile) 22:03: 7.5-325 MG 39 tablet gabapentin Yes 300mg Q.[id number] Take 300 UT (Neurontin) 5-23 [id number] mg by H ealth 300 MG 22:03: 3D mouth 3 capsule 39 (three) times a day. DULoxetine Yes 20mg QD Take 20 mg U T (Cymbalta) 5-23 by mouth 1 Hea lth [address] 22:03: (one) time capsule 39 each day. Do not crush or chew. spironolact Yes QD Take by UT one 5-23 mouth 1 [facility] (Aldactone) 22:03: (one) time 25 MG 39 each day. tablet levothyroxi Yes Take by [place] ne 5-23 mouth 1 Health (Tirosint) 22:03: (one) time 25 MCG 39 each day capsule before breakfast. Insulin Yes Inject UT Degludec 5-23 under the Health (TRESIBA 22:03: skin. FLEXTOUCH 39 SC) dulaglutide Yes 1.5mg Inject 1.5 UT (Trulicity) 5-23 mg under Heal th 1.5 22:03: the skin 1 MG/0.5ML 39 (one) time solution per week. pen-injecto r ATORVASTATI 2021-0 Yes Take by UT N CALCIUM 5-23 mouth. Health PO 22:03: 39 empaglifloz 0 Yes Take by UT in 5-23 mouth. Health (Jardiance) 22:03: 25 MG 39 allopurinol 0 Yes 100mg QD Take 100 U T (Zyloprim) 5-23 mg by Health 100 MG 22:03: mouth 1 tablet 39 (one) time each day. METFORMIN Yes Take by UT HCL PO 5-23 mouth. Health 22:03: 39 omeprazole 0 Yes 20mg QD Take 20 mg U [...] Yes Q.5D Take by UT in (Cipro) 5- mouth 2 Health 500 MG 22:03: (two) tablet 39 times a day. loperamide Yes 2mg Take 2 mg UT (Imodium 5-23 by mouth 4 Healt h A-D) 2 MG 22:03: (four) tablet 39 times a day if needed. HYDROcodone 0 Yes UT -acetaminop 5-23 Health hen (Mobile) 22:03: 7.5-325 MG 39 tablet gabapentin 2020-0 Yes 300mg Q.[id number] Take 300 UT (Neurontin) 5-23 [id number] mg by H ealth 300 MG 22:03: 3D mouth 3 capsule 39 (three) times a day. DULoxetine 0 Yes 20mg QD Take 20 mg U T (Cymbalta) 5-23 by mouth 1 Hea lth [address] 22:03: (one) time capsule 39 each day. Do not crush or chew. spironolact 0 Yes QD Take by UT one 5-23 mouth 1 Health (Aldactone) 22:03: (one) time 25 MG 39 each day. tablet levothyroxi 0 Yes Take by UT ne 5-23 mouth 1 Health (Tirosint) 22:03: (one) time 25 MCG 39 each day capsule before breakfast. Insulin 0 Yes Inject UT Degludec 5-23 under the Health (TRESIBA 22:03: skin. FLEXTOUCH 39 SC) dulaglutide Yes 1.5mg Inject 1.5 UT (Trulicity) 5-23 mg under Heal th 1.5 22:03: the skin 1 MG/0.5ML 39 (one) time solution per week. pen-injecto r ATORVASTATI 0 Yes Take by UT N CALCIUM 5-23 mouth. Health PO 22:03: 39 empaglifloz 0 Yes Take by UT in 5-23 mouth. Health (Jardiance) 22:03: 25 MG 39 allopurinol 0 Yes 100mg QD Take 100 U T (Zyloprim) 5-23 mg by Health 100 MG 22:03: mouth 1 tablet 39 (one) time each day. METFORMIN 0 Yes Take by UT HCL PO 5-23 mouth. Health 22:03: 39 omeprazole 2020-0 Yes 20mg QD Take 20 mg U T (PriLOSEC) 5-23 by mouth 1 Hea lth [address] 22:03: (one) time capsule 39 each day. Do not crush or chew. furosemide 2020-0 Yes Take by UT (Lasix) 40 5-23 mouth. Health MG tablet 22:03: 39 isosorbide 2020-0 Yes 30mg QD Take 30 mg U T mononitrate 5-23 by mouth 1 He alth ER (Imdur) 22:03: (one) time 30 MG 24 hr 39 each day. tablet Do not crush or chew. topiramate 2021-0 Yes 50 mg = 1 Me moria 50 MG Oral 2-10 tab, PO, l Tablet 17:26: BID, # 60 Melecio n [Topamax] 00 tab, 4 Refill(s), Pharmacy: [facility] 482, 175.26, cm, 05/15/20 11:11:00 [employer], Height, 108.636, kg, 05/15/20 11:11:00 [employer], Weight Lactated No IV, start Ulysses tala Ringers 1-25 date l Injection 19:56: 04/29/20 Herm katrina 00 13:56:00 [employer], stop date 04/29/20 13:56:00 [employer] propofol No 40 mg = 4 Ulysses tala 1-25 mL, l 19:33: Emulsion, Yoel IV, Once, first dose 04/29/20 13:33:00 [employer], stop date 04/29/20 13:33:00 [employer]ING [employer] propofol No 40 mg = 4 Ulysses tala 1-25 mL, l 19:29: Emulsion, [place] 00 IV, Once, first dose 04/29/20 13:29:00 [employer]ING [employer], stop date 04/29/20 13:29:00 [employer]ING [employer] SUPERVISOR LR 1,000 mL No 1,000 mL, M emoria 1-25 IV, 75 l 19:29: mL/hr, Yoel start date 04/29/20 13:29:00 [employer], 2.28, m2 Saline Lock No 10 mL, Ulysses tala Flush 1-25 Soln, IV l 19:29: Push, As [place] Indicated PRN for flush, first dose 04/29/20 13:29:00 [employer] Demerol HCl No 12.5 mg = M emoria 1-25 0.5 mL, l 19:29: Injection, Yoel IV Push, Once PRN for shivers, first dose 04/29/20 13:29:00 [employer] Albuterol No 2.5 mg = 3 Me moria 0.83 MG/ML 1-25 mL, Soln, l Inhalant 19:29: NEB, Once Herm katrina Solution 00 PRN for wheezing, first dose 04/29/20 13:29:00 [employer] Levalbutero No 0.63 mg = M emoria l 0.21 1-25 3 mL, l MG/ML 19:29: Soln, NEB, Melecio n Inhalant 00 Once PRN Solution for [Xopenex] wheezing, first dose 04/29/20 13:29:00 [employer]ING [employer] Ondansetron No 4 mg = 2 Me moria 1-25 mL, l 19:29: Injection, Yoel 00 IV Push, q15min PRN for nausea, order duration: 2 doses, first dose 04/29/20 13:29:00 [employer]PER[employer], stop date Limited # of times Promethazin No 12.5 mg = M emoria e 1-25 0.5 mL, l 19:29: Injection, Yoel 00 IM, Once PRN for vomiting, first dose 04/29/20 13:29:00 [employer]ING [employer] Hydralazine No 10 mg = Mem oria 1-25 0.5 mL, l 19:29: Injection, [place] 00 IV Push, As Indicated PRN for hypertensi on, first dose 04/29/20 13:29:00 [employer]ING [employer] SUPER[employer]OR, SBP Hold Parameter: less than 100 mmHg Diphenhydra No 25 mg = Mem oria mine 1-25 0.5 mL, l 19:29: Injection, [place] 00 IV Push, Once PRN for itching, first dose 04/29/20 13:29:00 [employer]ING [employer] SUPER[employer]OR propofol No 40 mg = 4 Ulysses tala 1-25 mL, l 19:26: Emulsion, [place] 00 IV, Once, first dose 04/29/20 13:26:00 [employer]ING [employer] SUPER[employer]OR, stop date 04/29/20 13:26:00 [employer]ING [employer] SUPER[employer]OR Lactated No IV, start Ulysses tala Ringers 1-25 date l Injection 19:25: 04/29/20 Herm katrina 00 13:25:00 [employer]ING [employer]PER[employer], stop date 04/29/20 13:25:00 [employer]UDING [employer] SUPER[employer]OR lidocaine No 100 mg = 5 Me moria 1-25 mL, l 19:24: Injection, [place] 00 IV, Once, first dose 04/29/20 13:24:00 EX[employer]UDING [employer] SUPER[employer]OR, stop date 04/29/20 13:24:00 [employer]TRUDING [employer]MENT SUPERVISOR LR 1,000 mL No 1,000 mL, M emoria 1-25 IV, 30 l 17:00: mL/hr, Yoel 00 start date 04/29/20 11:00:00 [employer]ING [employer] SUPERVISOR, 2.28, m2 Lidocaine Yes 0.2 mL, Memor ia 2% 0.2 mL -25 Injection, l IV Start 17:00: Subcutaneo Her bradshaw [[place]] 00 us, Once PRN for other (see comment), first dose 04/29/20 11:00:00 [employer]ING [employer]OR topiramate 2019- Yes 50 mg = 1 Me moria 50 MG Oral 01-01 tab, PO, l Tablet 16:25: BID, # 60 Melecio n [Topamax] 00 tab, 4 Refill(s), Pharmacy: [facility] 482, 175.26, cm, 01/02/20 11:03:00 CDT, Height, 107.273, kg, 01/02/20 11:03:00 CDT, Weight Metolazone 2019- Yes 5 mg, PO, Me moria 01-01 Daily, # l 16:11: 15 tab, 0 Yoel 00 Refill(s) proMETHazin 2019- 2020- No 12.5mg 12.5 mg, Univers e 09-19 IV ity of (PHENERGAN) 06:30: 05:25 [place], [place] 12.5 mg in 00 :00 ONCE, 1 Medica l NaCl 0.9% dose, [facility] h (NS) 50 mL 09/20/19 at piggyback 0130, 50 mL metroNIDAZO 2019- No 500mg 500 mg, U nivers LE (FLAGYL) 09-19 Oral, ity of tablet 500 06:15: 05:10 ONCE, 1 [place] as mg 00 :00 dose, [facility] Medical 09/20/19 at Branch 0115, KRISTY
Re ason for Anti-Infec tive: Documented Infection< br>Documen wesley Infection Site: Urine
D uration of Therapy: 7 days levoFLOXaci 2019-0 2020- No 500mg 500 mg, IV Univers n in D5W 09-19 Piggyback, ity of (LEVAQUIN) 05:15: 05:33 ONCE, 1 [place] as 500 mg/100 00 :00 dose, Wed Medi cherry mL 09/20/19 at Branch Piggyback 0015, 100 500 mg mL
Reas on for Anti-Infec tive: Documented Infection< br>Documen wesley Infection Site: Urine
D uration of Therapy: 7 days FENTanyl PF 2019-2019- No 50ug 50 mcg, Un amauri (SUBLIMAZE 09-19 Slow IV ity o f (PF)) 04:30: 03:29 Push, [place] injection 00 :00 ONCE, 1 Medical 50 mcg dose, [facility] 09/19/19 at 2330, STAT iohexol 2019- No 115mL 115 mL, Unive rs (OMNIPAQUE 09-19 Intravenou it y of 350 02:15: 02:06 s, ONCE, 1 [place] BULK-100 00 :00 dose, Tue Medica l mL) 09/19/19 at [place] injection 2115, 115 mL Routine FENTanyl PF 2019-2019- No 50ug 50 mcg, Un amauri (SUBLIMAZE 09-19 Slow IV ity o f (PF)) 01:45: 01:00 Push, [place] injection 00 :00 ONCE, 1 Medical 50 mcg dose, [facility] 09/19/19 at 2045, STAT NaCl 0.9% No 500mL at 999 Univ ers (NS) bolus 09-19 mL/hr, 500 it y of infusion 01:15: 02:55 mL, IV [place] 500 mL 00 :00 Infusion, Medical ONCE, 1 Branch dose, [facility] 09/19/19 at 2015, KRISTY proMETHazin 2019- Yes [id number] 25mg Take 1 Univers e 25 mg 6-17 tablet by ity of tablet 00:00: mouth [place] 00 every 6 Medical (six) Branch hours as needed for Nausea and Vomiting (N/V). proMETHazin 2019-0 2020- No [id number] 25mg Take 1 Univers e 25 mg 6-17 12-06 tablet by ity of tablet 00:00: 00:00 mouth [place] 00 :00 every 6 Medical (six) Branch hours as needed for Nausea and Vomiting (N/V). levoFLOXaci 2019-0 2019- No [id number] 500mg Take 1 Univers n 500 mg 09-19 tablet by ity o f tablet 00:00: 04:59 mouth [place] 00 :00 every 24 Medical (twenty-fo Branch ur) hours for 10 days. metroNIDAZO 2020-0 2020- No [id number] 500mg Take 1 Univers LE 500 mg 09-19 tablet by ity of tablet 00:00: 04:59 [...] 12:19: once in Medical capsule 08 evening. [place] gabapentin 2020-0 Yes 300mg Q.5D Take 300 [...] once in Medi cherry tablet 08 morning. [place] insulin 2020-[address] [facility] lispro [...] 08 usly every Center 7 days Every [place].Onc e a week. . bromfenac 2020-0 Yes .075% Q.5D Apply [facility] (BROMSITE) 3-09 0.075 % to [place] es 0.075 % 12:19: eye(s) 2 Medica l Drop 08 (two) Center times daily Administer ed by post shots in the eye. . AMILoride 2019-0 Yes 5mg Take [address] [facility] (MIDAMOR) 5 3-09 by mouth 2 Chloe kes MG tablet 12:19: (two) Medical 08 times Center daily with breakfast and dinner Patient states he takes two 5mg tablets twice daily before breakfast and dinner. . ergocalcife 2020-0 Yes [id number] Take Univers rol, 2-22 50,000 ity of vitamin d2, 00:00: Units by [place] 2,500 unit 00 mouth Medical Cap weekly. Branch ergocalcife 2019-0 Yes [id number] Take Univers rol, 2-22 50,000 ity of vitamin d2, 00:00: Units by [place] 2,500 unit 00 mouth Medical Cap weekly. Branch ergocalcife 2019-0 Yes [id number] Take Univers rol, 2-22 50,000 ity of vitamin d2, 00:00: Units by [place] 2,500 unit 00 mouth Medical Cap weekly. Branch ergocalcife 2019-0 2020- No [id number] Take Univers rol, 2-22 12-06 50,000 ity of vitamin d2, 00:00: 00:00 Units by [place] 2,500 unit 00 :00 mouth Medical Cap weekly. Branch calcitrioL 2019-0 Yes [id number] .5ug Take 1 U nivers 0.5 mcg 2-21 capsule by ity of capsule 00:00: mouth [place] 00 daily. Medical Branch calcitrioL 2020-0 Yes [id number] .5ug Take 1 U nivers 0.5 mcg 2-21 capsule by ity of capsule 00:00: mouth [place] 00 daily. Medical Branch calcitrioL 2020-0 Yes [id number] .5ug Take 1 U nivers 0.5 mcg 2-21 capsule by ity of capsule 00:00: mouth [place] 00 daily. Medical Branch calcitrioL 2019-0 2020- No [id number] .5ug Take 1 Univers 0.5 mcg 2-21 12-06 capsule by ity o f capsule 00:00: 00:00 mouth [place] 00 :00 daily. Medical Branch DULoxetine 2019-0 Yes 30mg Take 30 mg U nivers 30 mg 2-20 by mouth ity of capsule 21:41: daily. [place] [address] Medical Branch gabapentin 2020-0 Yes 900mg Take 900 Un amauri 300 mg 2-20 mg by ity of capsule 21:41: mouth 2 [place] [address] (two) Medical times Branch daily. omeprazole 2020-0 Yes 20mg Take 20 mg U nivers 20 mg 2-20 by mouth ity of capsule 21:41: daily. [place] [address] Medical Branch metFORMIN 2020-0 Yes 1000mg Take 1,000 Univers 1,000 mg 2-20 mg by ity of tablet 21:41: mouth 2 [place] [address] (two) Medical times [place] daily with meals. empaglifloz 2020-0 Yes 25mg Take 25 mg Univers in 2-20 by mouth ity of (JARDIANCE) 21:41: daily. [place] 25 mg [facility] Medical Branch dulaglutide 2020-0 Yes 1.5mg inject 1.5 Univers (TRULICITY) 2-20 mg under ity of 1.5 mg/0.5 21:41: the skin Gunn[place] as mL PnIj 16 weekly. Medical Indication Branch s: on wednesday insulin 2020-0 Yes 60U inject 60 Unive rs degludec 2-20 Units ity of (TRESIBA 21:41: under the [place] FLEXTOUCH 16 skin at [facility] U-200) 200 bedtime. Branc h unit/mL (3 mL) InPn levothyroxi 2020-0 Yes 25ug Take 25 Uni vers ne 25 mcg 2-20 mcg by ity of tablet 21:41: mouth [place] [address] every Medical morning. Branch insulin 2020-0 Yes inject Univers lispro 2-20 under the ity of (HUMALOG 21:41: skin. [facility] 16 Indication Medical KWIKPEN s: per Branch U-100) 100 sliding unit/mL scale as inph needed. DULoxetine 2020-0 Yes 30mg Take 30 mg U nivers 30 mg 2-20 by mouth ity of capsule 21:41: daily. [place] [address] Medical Branch gabapentin 2020-0 Yes 900mg Take 900 Un amauri 300 mg 2-20 mg by ity of capsule 21:41: mouth 2 [place] [address] (two) Medical times [place] daily. omeprazole 2020-0 Yes 20mg Take 20 mg U nivers 20 mg 2-20 by mouth ity of capsule 21:41: daily. [place] [address] Medical Branch metFORMIN 2020-0 Yes 1000mg Take 1,000 Univers 1,000 mg 2-20 mg by ity of tablet 21:41: mouth 2 [place] [address] (two) Medical times [place] daily with meals. empaglifloz 2020-0 Yes 25mg [...] mcg by ity of tablet 21:41: mouth [place] [address] every Medical morning. Branch insulin 2020-0 Yes inject Univers lispro 2-20 under the ity of (HUMALOG 21:41: skin. [place] [address] Indication Medical KWIKPEN s: per Branch U-100) 100 sliding unit/mL scale as inph needed. DULoxetine 2020-0 Yes 30mg Take 30 mg U nivers 30 mg 2-20 by mouth ity of capsule 21:41: daily. [address] Branch gabapentin 2020-0 Yes 900mg Take 900 Un amauri 300 mg 2-20 mg by ity of capsule 21:41: mouth 2 [place] [address] (two) Medical times Branch daily. omeprazole 2020-0 Yes 20mg Take 20 mg U nivers 20 mg 2-20 by mouth ity of capsule 21:41: daily. [address] Branch metFORMIN 2020-0 Yes 1000mg Take 1,000 Univers 1,000 mg 2-20 mg by ity of tablet 21:41: mouth 2 [place] [address] (two) Medical times [place] daily with meals. empaglifloz 2020-0 Yes 25mg [...] Branc h unit/mL (3 mL) InPn levothyroxi 2019-0 Yes 25ug Take 25 Uni vers ne 25 mcg 2-20 mcg by ity of tablet 21:41: mouth [place] 16 every Medical morning. Branch insulin 2019-0 Yes inject Univers lispro 2-20 under the ity of (HUMALOG 21:41: skin. [place] JOE 16 Indication Medical KWIKPEN s: per [...] [place] mg 00 First dose Medical on [facility] 05/25/19 at 0900, Until Discontinu ed, Routine losartan 2019-0 Yes 50mg 50 mg, Univers (COZAAR) 2-20 Oral, ity of tablet 50 15:00: DAILY, [place] mg 00 First dose Medical on [facility] 05/25/19 at 0900, Until Discontinu ed, Routine furosemide 2019-0 2020- No 10mg/h 10 mg/hr Univers (LASIX) 250 2-20 -20 (10 ity of mg in NaCl 00:30: 14:44 mL/hr), IV [place] 0.9% (NS) 00 :00 Infusion, Medic al infusion CONTINUOUS Branc h , Starting 05/24/19 at 1830, Until [place] 05/25/19 at 0844 aMILoride 5 2020-0 Yes [id number] 10mg Take 2 Univers mg tablet 2-20 tablets by ity of 00:00: mouth 2 [place] 00 (two) Medical times Branch daily before breakfast and dinner. HYDROcodone 2020-0 Yes [id number] 1{tbl} Take 1 Univers -acetaminop 2-20 tablet by ity of hen 10-325 00:00: mouth [place] mg tablet 00 every 6 Medical (six) Branch hours as needed for Pain (scale 4-6). metOLazone 2020-0 Yes [id number] Take 1 U nivers 5 mg tablet 2-20 tablet po ity of 00:00: qd prn for [place] 00 weight Medical gain more Branch than 2 pounds or swelling thiamine 2020-0 Yes [id number] 500mg Take 1 Un amauri HCl 2-20 tablet by ity of (VITAMIN 00:00: mouth [place] B-1) 500 mg 00 daily. Medica l tablet Branch bumetanide 2020-0 Yes [id number] 2mg Take 1 U nivers 2 mg tablet 2-20 tablet by ity of 00:00: mouth 2 [place] 00 (two) Medical times Branch daily. aMILoride 5 2020-0 Yes [id number] 10mg Take 2 Univers mg tablet 2-20 tablets by ity of 00:00: mouth 2 (two) Medical times Branch daily before breakfast and dinner. HYDROcodone 2020-0 Yes [id number] 1{tbl} Take 1 Univers -acetaminop 2-20 tablet by ity of hen 10-325 00:00: mouth [place] mg tablet 00 every 6 Medical (six) Branch hours as needed for Pain (scale 4-6). metOLazone 2020-0 Yes [id number] Take 1 U nivers 5 mg tablet 2-20 tablet po ity of 00:00: qd prn for [place] 00 weight Medical gain more Branch than 2 pounds or swelling thiamine 2020-0 Yes [id number] 500mg Take 1 Un amauri HCl 2-20 tablet by ity of (VITAMIN 00:00: mouth [place] B-1) 500 mg 00 daily. Medica l tablet Branch bumetanide 2020-0 Yes [id number] 2mg Take 1 U nivers 2 mg tablet 2-20 tablet by ity of 00:00: mouth 2 [place] 00 (two) Medical times Branch daily. HYDROcodone 2020-0 Yes [id number] 1{tbl} Take 1 Univers -acetaminop 2-20 tablet by ity of hen 10-325 00:00: mouth [place] mg tablet 00 every 6 Medical (six) Branch hours as needed for Pain (scale 4-6). metOLazone 2020-0 Yes [id number] Take 1 U nivers 5 mg tablet 2-20 tablet po ity of 00:00: qd prn for 00 weight Medical gain more Branch than 2 pounds or swelling aMILoride 5 2020-0 Yes [id number] 10mg Take 2 Univers mg tablet 2-20 tablets by ity of 00:00: mouth 2 [place] (two) Medical times Branch daily before breakfast and dinner. HYDROcodone 2020-0 Yes [id number] 1{tbl} Take 1 Univers -acetaminop 2-20 tablet by ity of hen 10-325 00:00: mouth [place] mg tablet 00 every 6 Medical (six) Branch hours as needed for Pain (scale 4-6). metOLazone 2019-0 Yes [id number] Take 1 U nivers 5 mg tablet 2-20 tablet po ity of 00:00: qd prn for weight Medical gain more Branch than 2 pounds or swelling thiamine 2019-0 Yes [id number] 500mg Take 1 Un amauri HCl 2-20 tablet by ity of (VITAMIN 00:00: mouth [place] B-1) 500 mg 00 daily. Medica l tablet Branch bumetanide 2019-0 Yes [id number] 2mg Take 1 U nivers 2 mg tablet 2-20 tablet by ity of 00:00: mouth 2 (two) Medical times Branch daily. aMILoride 5 2019-0 2020- No [id number] 10mg Take 2 Univers mg tablet 2-20 12-06 tablets by ity of 00:00: 00:00 mouth 2 [place] 00 :00 (two) Medical times Branch daily before breakfast and dinner. thiamine 2019-0 2020- No [id number] 500mg Take 1 U nivers HCl 2-20 12-06 tablet by ity of (VITAMIN 00:00: 00:00 mouth [place] B-1) 500 mg 00 :00 daily. Medica l tablet Branch bumetanide 2019-0 2020- No [id number] 2mg Take 1 Univers 2 mg tablet 2-20 12-06 tablet by it y of 00:00: 00:00 mouth 2 [place] 00 :00 (two) Medical times Branch daily. thiamine 2019-0 Yes 100mg 100 mg, Unive rs (VITAMIN 2-18 Slow IV ity of B1) 22:45: Push, [place] injection 00 DAILY, Medical 100 mg First dose Branch on Wed05/23/19 at 1645, Until Discontinu ed, Routine aMILoride 2020-0 Yes 10mg 10 mg, Univer s (MIDAMOR) 2-17 Oral, ity of tablet 10 22:30: BIDAC, [place] mg 00 First dose Medical on [facility] 05/22/19 at 1630, Until Discontinu ed, Routine furosemide 2020-0 2020- No 80mg 80 mg, IV U nivers (LASIX) 05-22 Push, TID, ity o f injection 20:00: 23:25 First dose [place] 80 mg 00 :56 on [facility] 05/22/19 at Branch 1400, Until Discontinu ed, KRISTY KCL 2020-0 2020- No 40meq 40 mEq, Univers (KLOR-CON 05-22 Oral, ity of M20) tablet 16:45: 17:35 ONCE, 1 [place] 40 mEq 00 :00 dose, [facility] 05/22/19 at Branch 1045, Routine metOLazone 2020-0 Yes 5mg 5 mg, Univer s (ZAROXOLYN) 2- Oral, ity of tablet 5 mg 16:00: DAILY, [place] 00 First dose Medical on [facility] 05/22/19 at 1000, Until Discontinu ed, Routine insulin 2020-0 Yes 65U 65 Units, Unive rs glargine 2-17 Subcutaneo ity o f (LANTUS 03:00: , [facility], [place] U-100) 00 First dose Medical injection on [facility] 65 Units 05/21/19 at 2100, Until Discontinu ed omeprazole 2020-0 Yes 20mg 20 mg, Unive rs (PRILOSEC) 2-17 Oral, BID, ity of capsule 20 02:00: First dose [place] mg 00 on [facility] 05/21/19 at Branch 2000, Until Discontinu ed, Routine furosemide 2020-0 2020- No 80mg 80 mg, IV U nivers (LASIX) 05-22 Push, ity of injection 02:00: 15:49 Q12H, [place] 80 mg 00 :39 First dose Medical on [facility] 05/21/19 at 2000, Until Discontinu ed, KRISTY KCL 2020-0 2020- No 40meq 40 mEq, Univers (KLOR-CON 05-21-16 Oral, ity of M20) tablet 18:00: 18:12 [place]CE, [place] 40 mEq 00 :00 dose, [facility] 05/21/19 at Branch 1200, Routine HYDROcodone 2020-0 Yes 1{tbl} 1 tablet, Univers -acetaminop -16 Oral, ity of hen (NORCO) 03:11: Q6HPRN, [place] as 10-325 mg 35 Starting Medica l tablet 1 [facility] tablet 05/20/19 at 2110, Until Discontinu ed, Routine, Pain (scale 4-6) calcitrioL 2020-0 Yes .5ug 0.5 mcg, Uni vers (ROCALTROL) 2-15 Oral, ity of capsule 0.5 15:00: DAILY[place] mcg 00 First dose Medical on [facility] 05/20/19 at 0900, Until Discontinu ed, Routine ergocalcife 2020-0 Yes [id number] 50,000 Un amauri rol 2-15 Units, ity of (vitamin 15:00: Oral, [place] d2) 00 QWEEKLY, Medical (CALCIFEROL First dose Br anch ) capsule on [facility] 50,000 05/20/19 at Units 0900, Until Discontinu ed, Routine losartan 2020-0 2020- No 100mg 100 mg, Univ ers (COZAAR) 05-20- Oral, ity of tablet 100 15:00: 03:05 DAILY, [place] mg 00 :38 First dose Medical on [facility] 05/20/19 at 0900, Until Discontinu ed, Routine simethicone 2020-0 Yes 80mg 80 mg, Univ ers (GAS RELIEF 2-15 Oral, ity of (SIMETHICON 02:46: PC+HSPRN, [place] E)) 44 Starting Medical chewable Fri Branch tablet 80 05/19/19 at mg 2045, Until Discontinu ed, Routine, Gas alum-mag 2020-0 Yes 30mL 30 mL, Univers hydroxide-s 2-15 Oral, ity of imeth 02:46: Q6HPRN, [place] (MAALOX 31 Starting Medical PLUS / Fri Branch MAG-AL 05/19/19 at PLUS) 2046, 200-200-20 Until mg/5 mL Discontinu suspension ed, 30 mL Routine, Indigestio n aMILoride 2019-0 2020- No 10mg 10 mg, Unive rs (MIDAMOR) 05-19-17 Oral, ity of tablet 10 17:30: 15:37 DAILY, [place] mg 00 :24 First dose Medical on Wed Branch 05/19/19 at 1130, Until Discontinu ed, Routine DULoxetine 2019-0 Yes 30mg 30 mg, Unive rs (CYMBALTA) -14 Oral, ity of capsule 30 15:00: DAILY, [place] mg 00 First dose Medical on Wed Branch 05/19/19 at 0900, Until Discontinu ed, Routine Sliding 2019-0 Yes Subcutaneo Univ ers Scale -14 us, TID ity of Insulin - 14:00: MEALS+HS, [place] Lispro 00 First dose Medical (HumaLOG) + on Wed Branch Fsbg 05/19/19 at Testing 0800, Until Discontinu ed, Routine furosemide 2019-0 2019- No 40mg 40 mg, IV U nivers (LASIX) 05-19-16 Push, ity of injection 14:00: 21:46 Q12H, [place] 40 mg 00 :11 First dose Medical on Wed Branch 05/19/19 at 0800, Until Discontinu ed, KRISTY glucagon 2019-0 Yes 1mg 1 mg, Univers (GLUCAGEN 05-19 Intramuscu ity of DIAGNOSTIC 03:22: lar, PRN, [place] KIT) 19 Starting Medical injection 1 [place] [facility] mg 05/18/19 at 2121, Until Discontinu ed, KRISTY, Blood Glucose < or = 70 mg/dL and patient is unable to swallow or has mental changes. dextrose 50 2020-0 Yes 25mL 25 mL, Univ ers % in water 2-14 Slow IV ity of (D50W) 03:22: Push, PRN, [place] injection 19 Starting Medica l 25 mL [place] [facility] 05/18/19 at 2121, Until Discontinu ed, KRISTY, Blood Glucose < or = 70 mg/dL and patient is unable to swallow or has mental status changes. gabapentin 2019-0 Yes 900mg 900 mg, Uni vers (NEURONTIN) 2-14 Oral, BID, it y of capsule 900 03:00: First dose [place] mg 00 on [facility] Medical 05/18/19 at Branch 2100, Until Discontinu ed, Routine metoprolol Yes 100mg 100 mg, Uni vers tartrate 14 Oral, BID, ity o f (LOPRESSOR) 03:00: First dose [place] tablet 100 00 on [place] Medical mg 05/18/19 at Branch 2100, Until Discontinu ed, Routine insulin 2019- No 60U 60 Units, [facility] ers glargine 05-1916 Subcutaneo ity of (LANTUS 03:00: 21:46 us, HS, [place] U-100) 00 :48 First dose Medical injection on [place] Branch 60 Units 05/18/19 at 2100, Until Discontinu ed aspirin 325 2019- No 325mg Take 325 Univers mg tablet 05-19 mg by ity of 02:47: 00:00 mouth [place] 45 :00 daily. [facility] acetaminoph 2019- No 650mg 650 mg, U nivers en 05-1914 Oral, ity of (TYLENOL) 02:30: 01:23 ONCE, 1 [place] tablet 650 00 :00 dose, [place] Medi cherry mg 05/18/19 at Branch 2030, KRISTY acetaminoph Yes 650mg 650 mg, Un amauri en 14 Oral, ity of (TYLENOL) 02:14: Q6HPRN, [place] tablet 650 52 Starting Medic al mg [facility] 05/18/19 at 2014, Until Discontinu ed, Routine, Pain (scale 1-3) furosemide 2019- No 40mg 40 mg, IV U nivers (LASIX) 05-1914 Push, ity of injection 02:00: 01:06 ONCE, 1 [place] 40 mg 00 :00 dose, [place] [facility] 05/18/19 at Branch 2000, KRISTY Phenazopyri 2018-04 Yes 200 mg = 1 Memoria dine 1-18 tab, PO, l hydrochlori 14:37: TID, PRN He rmkatrina de 200 MG 00 Dysuria, X Oral Tablet 3 day, # 9 [Pyridium] tab, 0 Refill(s), Pharmacy: 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 ceFAZolin 2018-04 No Route: IV, Me moria (ANES) - Drug form: l 14:35: INJ, ONCE, Stop date: 02/20/19 8:35:00 EX[employer]UDING [employer]MENT SUPER[employer]OR ondansetron 2018-04 No Route: IV, Memoria (ANES) 04-22 Drug form: l 14:35: INJ, ONCE, Stop date: 02/20/19 8:35:00 EX[employer]UDING [employer] SUPER[employer]OR dexamethaso 2018-04 No Route: IV, Memoria ne (ANES) 04-22 Drug form: l 14:35: INJ, ONCE, Stop date: 02/20/19 8:35:00 EXTRUDING [employer]PARTMENT SUPER[employer]OR Hydralazine 2018-04 No Notes: Ulysses tala 1-18 (Same as: l 14:24: Apresoline ) Push over 5 minutes Labetalol 2018-04 No 10 mg, 2 Ulysses tala 1-18 mL, Route: l 14:24: IVP, Drug form: INJ, Q5Min, Dosing Weight 105, kg, PRN Elevated BP, Start date: 02/20/19 8:24:00 [employer]ING [employer]PER[employer]OR, Duration: 5 doses or times, Stop date: Limited # of times, 0 Ketorolac 2018-04 Yes 4 days Memor ia 18 l 14:24: MEDICATION WASTE Product Size: 30 mg Product Wasted: ___ mg Oxycodone 2018-04 No 5 mg, Memoria Hydrochlori 18 Route: PO, l de 5 MG 14:24: Drug form: Herm katrina Oral Tablet 00 TAB, Q4H, Dosing Weight 105, kg, PRN Pain Score 4-6, Start date: 02/20/19 8:24:00 [employer]ING [employer] SUPER[employer]OR, Duration: 30 day, Stop date: 03/22/19 8:23:00 [employer]ING [employer] SUPER[employer]OR Fentanyl 2018-04 No Notes: Memoria 1-18 (Same as: l 14:24: Sublimaze) Preservati ve free. Oxycodone 2018-04 No 10 mg, Memori a 1-18 Route: NG, l 14:24: Drug form: LIQ, Q4H, Dosing Weight 105, kg, PRN Pain Score 7-10, Start date: 02/20/19 8:24:00 EX[employer]ING [employer] SUPERVISOR, Duration: 30 day, Stop date: 03/22/19 8:23:00 EX[employer]ING [employer]MENT SUPERVISOR Hydromorpho 2018-04 No Notes: Ulysses tala ne 1-18 Same as: l 14:24: Dilaudid Flumazenil 2018-04 No Notes: Memor ia 1-18 (Same as: l 14:24: Romazicon) Naloxone 2018-04 No Notes: Memoria 1-18 Same as l 14:24: Narcan Atropine 2018-04 No Notes: Mem oria 1-18 MEDICATION l 14:24: WASTE Product Size: 0.4 mg Product Wasted: ___ mg Diphenhydra 2018-04 No Notes: Ulysses tala mine 1-18 (Same as: l 14:24: Benadryl) Racepinephr 2018-04 [...] Dexamethaso 2018-04 No Notes: Ulysses tala ne 1-18 Concentrat l 14:24: ion: 4mg/ml Promethazin 2018-04 No Notes: Do M emoria e -18 not give l 14:24: IV push. [place] 00 (Same as: Phenergan) 72 HR 2018-04 Yes Notes: Memoria Scopolamine -18 Change l 0.0139 14:24: patch [place] MG/HR 00 every 72 Transdermal hours Patch (Same as: Transderm- Scop) Insulin 2018-04 No Notes: Memoria Lispro -18 (Same as: l 14:24: Humalog) Yoel 00 Roll in palms of hands gently; Do not shake vigorously . WASTE: F/P - Black; E - Municipal Trash Bin Stable for 28 days at room temperatur e. Expires in days from ____Date midazolam 2018-04 No Route: IV, Me moria (ANES) 04-22 Drug form: l 14:24: SOLN, Yoel 00 ONCE, Stop date: 02/20/19 8:24:00 EX[employer]UDING [employer] SUPERVISOR Reglan 2018-04 No 20 mg, Memoria 18 Route: IV, l 14:00: PRE OP, Dosing Weight 105, kg, Start date: 02/20/19 8:00:00 EX[employer]ING [employer]PARTMENT SUPERVISOR, Duration: 30 day, Stop date: 03/22/19 7:59:00 EXTRUDING [employer]PARTMENT SUPERVISOR Famotidine 2018-04 No 20 mg, Memor ia 04-22 Route: IV, l 14:00: PRE OP, Dosing Weight 105, kg, Start date: 02/20/19 8:00:00 EXTRUDING [employer]PARTMENT SUPERVISOR, Duration: 30 day, Stop date: 03/22/19 7:59:00 EXTRUDING [employer]PARTMENT SUPERVISOR Acetaminoph 2018-04 No 1,000 mg, M emoria en 18 Route: PO, l 14:00: PRE OP, Dosing Weight 105, kg, Start date: 02/20/19 8:00:00 EXTRUDING [employer]PARTMENT SUPERVISOR, Duration: 30 day, Stop date: 03/22/19 7:59:00 EXTRUDING [employer]PARTMENT SUPERVISOR Lactated 2018-04 No Route: IV, Mem oria Ringers -18 Total l Injection 13:48: Volume: Hayley nn IV (ANES) 00 1,000, 1000 mL Start date: 02/20/19 7:48:00 EXTRUDING [employer]PARTMENT SUPERVISOR, Stop date: 02/20/19 8:48:00 EXTRUDING [employer]PARTMENT SUPERVISOR Calcium 2018-04 No 1,000 mL, Memor ia Chloride 1-18 Rate: 75 l 0.0014 12:07: ml/hr, Yoel MEQ/ML / 00 Infuse Potassium over: 13.3 Chloride hr, Route: 0.004 IV, Dosing MEQ/ML / Weight 105 Sodium kg, Total Chloride Volume: 0.103 1,000, MEQ/ML / Start Sodium date: Lactate 02/20/19 0.028 6:07:00 MEQ/ML [employer]PERVISOR, Injectable Duration: Solution 30 day, Stop date: 03/22/19 6:06:00 EXTRUDING [employer]MENT SUPERVISOR, 2.29, m2, 0 celecoxib 2018-04 No Notes: Memori a 1-18 NSAID. l 12:07: Please Yoel 00 check indication . Not for seizure. (Same As: CeleBREX) gabapentin 2018-04 No Notes: Memor ia 1-18 (Same as: l 12:07: Neurontin) [place] 00 Lidocaine 2018-04 No Notes: Memori a Hydrochlori 1-18 Preservati l de 10 MG/ML 12:07: ve free. He rmann Injectable 00 (Same as: Solution Xylocaine MPF) Hydralazine 2018-04 No Notes: Ulysses tala 1-18 (Same as: l 12:07: Apresoline Yoel 00 ) Push over 5 minutes 72 HR 2018-04 No Notes: Memoria Scopolamine 1-18 Change l 0.0139 12:07: patch Yoel MG/HR 00 every 72 Transdermal hours Patch (Same as: Transderm- Scop) Insulin 2018-04 No Notes: Memoria Lispro 1-18 (Same as: l 12:07: Humalog) [place] 00 Roll in palms of hands gently; [...] dulaglutide 1-15 Refill(s) l 3 MG/ML 19:43: [place] Prefilled 00 Syringe [Trulicity] rivaroxaban 2018-04 Yes 4 tabs, Mem oria 2.5 MG Oral 1-15 PO, QAM l Tablet 19:42: [place] [Xarelto] 00 duloxetine 2018-04 Yes 30 mg = 1 Me moria 30 MG 0-23 cap, PO, l Enteric 20:26: Daily, # Melecio n Coated 00 90 cap, 1 Capsule Refill(s), [Cymbalta] Pharmacy: [facility] Yes 250 mg = 1 Memoria in 250 MG 0-17 tab, PO, l Oral Tablet 16:11: Q12H, # 60 Yoel [Cipro] 00 tab, 0 Refill(s), Pharmacy: [facility] tramadol 2018-04 Yes 50 mg = 1 Ulysses tala hydrochlori 0-17 tab, PO, l de 50 MG 16:11: Q6H, PRN Hayley nn Oral Tablet 00 Pain Score [Ultram] 7-10, # 20 tab, 0 Refill(s) Phenazopyri Yes 200 mg = 1 Memoria dine 9-25 tab, PO, l hydrochlori 19:18: TID, PRN Saul ray de 200 MG 00 Dysuria, X Oral Tablet 5 day, # [Pyridium] 15 tab, 0 Refill(s), Pharmacy: [facility] Fluconazole Yes 150 mg = 1 Memoria 150 MG Oral 9-23 tab, PO, l Tablet 15:24: ONCE, # 1 Melecio n [Diflucan] 00 tab, 0 Refill(s), Pharmacy: [facility] Cephalexin No 500 mg = 1 M emoria 500 MG Oral 9-23 cap, PO, l Capsule 14:15: BID, start Herm katrina [Keflex] 00 the day before scope procedure, X 3 day, # 6 cap, 0 Refill(s), Pharmacy: [facility] Ciprofloxac Yes 500 mg = 1 Memoria in 500 MG 9-20 tab, PO, l Oral Tablet 16:46: Q12H, Hayley nn [Cipro] 00 Start the day before your scope procedure, X 3 day, # 6 tab, 0 Refill(s), Pharmacy: [facility] 482 Tamsulosin 2019-0 Yes 0.4 mg = 1 M emmanuel hydrochlori 9-20 cap, PO, l de 0.4 MG 14:55: Daily, # Herm katrina Oral 00 90 cap, 3 Capsule Refill(s), [Flomax] Pharmacy: [facility] 482 tamsulosin 2019-0 Yes .4mg QD Take 0.4 Met hodi (FLOMAX) 9-[address] 0.4 mg 00:00: [facility] capsule 00 daily. l tamsulosin 2019-0 Yes .4mg QD Take 0.4 Met hodi (FLOMAX) 9-[address] 0.4 mg 00:00: [facility] capsule 00 daily. l Misc 2019-0 No 350 mL, Memoria Medication 3-11 Soln-IV, l 15:13: IV, Once, first dose 06/13/18 10:13:00 CDT, stop date 06/13/18 10:13:00 CDT propofol 2019-0 No 30 mg = 3 Ulysses tala 3-11 mL, l 15:05: Emulsion, Yoel 00 IV, Once, first dose 06/13/18 10:05:00 CDT, stop date 06/13/18 10:05:00 CDT propofol 2019-0 No 50 mg = 5 Ulysses tala 3-11 mL, l 15:04: Emulsion, [place] 00 IV, Once, first dose 06/13/18 10:04:00 CDT, stop date 06/13/18 10:04:00 CDT lidocaine 2019-0 No 1 mL, Memoria 3-11 Injection, l 15:04: IV, Once, first dose 06/13/18 10:04:00 CDT, stop date 06/13/18 10:04:00 CDT lidocaine 2019-0 No 1 mL, Memoria 3-11 Injection, l 15:01: IV, Once, Yoel 00 first dose 06/13/18 10:01:00 CDT, stop date 06/13/18 10:01:00 CDT propofol 2019-0 No 50 mg = 5 Ulysses tala 3-11 mL, l 15:01: Emulsion, Yoel 00 IV, Once, first dose 06/13/18 10:01:00 CDT, stop date 06/13/18 10:01:00 CDT lidocaine 2019-0 No 1 mL, Memoria 3-11 Injection, l 14:58: IV, Once, first dose 06/13/18 9:58:00 CDT, stop date 06/13/18 9:58:00 CDT propofol 2019-0 No 50 mg = 5 Ulysses tala 3-11 mL, l 14:58: Emulsion, [place] 00 IV, Once, first dose 06/13/18 9:58:00 CDT, stop date 06/13/18 9:58:00 CDT midazolam 2019-0 No 1 mg = 1 Ulysses tala 3-11 mL, l 14:45: Injection, IV, Once, first dose 06/13/18 9:45:00 CDT, stop date 06/13/18 9:45:00 CDT fentaNYL 2019-0 No 50 mcg = 1 Mem oria 3-11 mL, l 14:45: Injection, IV, Once, first dose 06/13/18 9:45:00 CDT, stop date 06/13/18 9:45:00 CDT midazolam 2019-0 No 1 mg = 1 Ulysses tala 3-11 mL, l 14:40: Injection, IV, Once, first dose 06/13/18 9:40:00 CDT, stop date 06/13/18 9:40:00 CDT fentaNYL 2019-0 No 50 mcg = 1 Mem oria 3-11 mL, l 14:40: Injection, IV, Once, first dose 06/13/18 9:40:00 CDT, stop date 06/13/18 9:40:00 CDT Lidocaine 2019-0 No 0.2 mL, Memor ia 2% 0.2 mL 3-11 Injection, l IV Start 13:19: [facility] 00 , Once PRN for other (see comment), first dose 06/13/18 8:19:00 CDT LR 1,000 mL 2019-0 No 1,000 mL, M emoria 3-11 IV, 30 l 13:19: mL/hr, start date 06/13/18 8:19:00 CDT Aspirin 325 2019- Yes 325 mg = 1 Memoria MG Enteric 3-06 tabs, l Coated 18:10: Oral, [place] Tablet 00 Daily, heart health Metoprolol Yes 100 mg = 1 M emoria Tartrate 3-06 tabs, l 100 MG Oral 18:10: Oral, BID, [place] Tablet 00 HTN 24 HR 2019 No 30 mg = 1 Memoria Isosorbide 3-06 tabs, l Mononitrate 18:10: Oral, qAM, [place] 30 MG 00 heart Extended Release Tablet furosemide Yes 40 mg = 1 Me moria 40 mg oral 3-06 tabs, l tablet 18:10: Oral, [place] 00 Daily, fluid Omeprazole Yes 20 mg = 1 Me moria 20 MG 3-06 caps, l Enteric 18:10: Oral, [place] Coated 00 Daily, Capsule acid reflux allopurinol No 100 mg = 1 Memoria 100 mg oral 3-06 tabs, l tablet 18:06: Oral, BID, Hayley nn 00 Gout atorvastati Yes 20 mg = 1 M emoria n 20 mg 3-06 tabs, l oral tablet 18:06: Oral, Hayley nn 00 Daily, cholestero l Metformin Yes 1,000 mg = Me moria hydrochlori [...] on Syringe Mondays, [Trulicity] DM 3 ML 2018- Yes 60 units, Memoria insulin 3-06 Subcutaneo l degludec 18:04: us, Daily, Her bradshaw 100 UNT/ML 00 DM Pen Injector [Tresiba] Spironolact No 25 mg = 1 M emoria one 25 MG 3-06 tabs, l Oral Tablet 17:59: Oral, Hayley nn 00 Daily, diuretic duloxetine Yes 20 mg = 1 Me moria 20 MG 3-06 caps, l Enteric 17:59: Oral, Yoel Coated 00 Daily, Capsule depression [Cymbalta] gabapentin Yes 300 mg = 1 M emoria 300 MG Oral 3-06 caps, l Capsule 17:59: Oral, TID, Herm katrina 00 nerve pain Acetaminoph Yes 1 tabs, Mem oria en 325 MG / 3-06 Oral, As l Hydrocodone 17:59: Indicated, [place] Bitartrate 00 PRN only, 7.5 MG Oral 0 Tablet Refill(s), pain duloxetine No 20 mg = 1 Me moria 20 MG 2-06 cap, PO, l Enteric 22:26: Daily, X Melecio n Coated 00 30 day, # Capsule 30 cap, 3 [Cymbalta] Refill(s), Pharmacy: [id number] levothyroxi Yes 25 Memori a ne 25 [...] Yoel 00 90 tab, 1 Refill(s) Tresiba 20190 Yes SUB-Q, Memoria FlexTouch 1-15 Daily, 0 l 17:30: Refill(s) [place] 00 metoprolol Yes 100 mg = 1 [...] PO, l oral tablet 17:30: Bedtime, # [place] 00 30 tab, 0 Refill(s) isosorbide Yes [...] tab, PO, l Tablet 17:30: BID, 0 Yoel 00 Refill(s) Acetaminoph Yes 1 tab, PO, Memoria en 325 MG / 1-15 Q6H, PRN l Hydrocodone 17:30: Pain, # 28 Yoel Bitartrate 00 tab, 0 7.5 MG Oral Refill(s) Tablet spironolact Yes 25 mg = 1 M emoria one 25 mg 1-15 tab, PO, l oral tablet 17:30: Daily, # He rmann 00 30 tab, 3 Refill(s) Metformin Yes 1,000 mg = Me moria hydrochlori 1-15 1 tab, PO, l de 1000 MG 17:30: BID-Meals, H ermann Oral Tablet 00 # 30 tab, 0 Refill(s) Insulin Yes Use three Unive rs Syringe-Nee 7-08 needles ity o f dle U-100 00:00: daily Dilip (BD INSULIN 00 Medical SYRINGE Branch ULTRA-FINE) 0.5 mL 31 gauge x 5/16 Syrg Insulin Yes Use as Univers [place], 7-08 directed ity of Disposable, 00:00: daily Dilip (PEN 00 Medical NEEDLE) 31 Branch gauge x 5/16" Ndle Insulin Yes Use three Unive rs Syringe-Nee 7-08 needles ity o f dle U-100 00:00: daily Dilip (BD INSULIN 00 Medical SYRINGE Branch ULTRA-FINE) 0.5 mL 31 gauge x 5/16 Syrg Insulin Yes Use as Univers [place], 708 directed ity of Disposable, 00:00: daily [place] (PEN 00 Medical NEEDLE) 31 Branch gauge x 5/16" Ndle Insulin Yes Use three Unive rs Syringe-Nee 7-08 needles ity o f dle U-100 00:00: daily [place] (BD INSULIN 00 Medical SYRINGE Branch ULTRA-FINE) 0.5 mL 31 gauge x 5/16 Syrg Insulin Yes Use as Univers [place], 708 directed ity of Disposable, 00:00: daily [place] (PEN 00 Medical NEEDLE) 31 Branch gauge x 5/16" Ndle Insulin Yes Use three Unive rs Syringe-Nee 7-08 needles ity o f dle U-100 00:00: daily [place] (BD INSULIN 00 Medical SYRINGE Branch ULTRA-FINE) 0.5 mL 31 gauge x 5/16 Syrg Insulin Yes Use as Univers [place], 10-10 directed ity of Disposable, 00:00: daily [place] (PEN 00 Medical NEEDLE) 31 Branch gauge x 5/16" Ndle Insulin 2020- No 40U inject 40 Univ ers Detemir 7 02-13 Units ity of (LEVEMIR 00:00: 00:00 under the [place] as FLEXTOUCH) 00 :00 skin at Medica l 100 unit/mL bedtime. Bran ch (3 mL) injection insulin 2020- No 8U inject 8 Unive rs regular 7-08 02-13 Units ity of human 00:00: 00:00 under the [place] (NOVOLIN R) 00 :00 skin 3 Medica l 100 unit/mL (three) Branc h injection times daily before meals. losartan-hy 2020- No 1{tbl} Take 1 U nivers drochloroth 6- 02-13 tablet by it y of iazide 00:00: 00:00 mouth [place] (HYZAAR) 00 :00 daily. Medical 100-25 mg Branch per tablet acetaminoph 2020- No TAKE 1 Uni vers en-codeine 6- 02-13 TABLET BY ity of (TYLENOL 00:00: 00:00 [...] hr 00 :00 Medical tablet Branch sulfamethox 2019- No TAKE 2 Uni vers azole-trime 08-25 TABLETS BY i ty of thoprim 00:00: [...] of 40 mg 00:00: daily. [place] tablet 00 Medical Branch atorvastati Yes 40mg Take 40 mg Univers n (LIPITOR) 5-19 by mouth ity of 40 mg 00:00: daily. [place] tablet 00 Medical Branch atorvastati Yes 40mg Take 40 mg Univers n (LIPITOR) 5-19 by mouth ity of 40 mg 00:00: daily. [place] tablet 00 Medical Branch atorvastati Yes 40mg Take 40 mg Univers n (LIPITOR) 5-19 by mouth ity of 40 mg 00:00: daily. [address] Vital Signs Vital Name Observation Time Observation Value Comments Source Systolic blood 2021-03-12 05:36:00 134 mm[Hg] Univer sity of pressure [facility] Diastolic blood 2021-03-12 05:36:00 78 mm[Hg] Unive rsity of pressure [facility] Heart rate 2021-03-12 05:36:00 80 /min Universi ty of [facility] Body temperature 2021-03-12 05:36:00 36.5 Geri Univ ersity of [facility] Respiratory rate 2021-03-12 05:36:00 16 /min Univ ersity of [place] [facility] Oxygen saturation in 2021-03-12 05:36:00 98 /min University of Arterial blood by [facility] Pulse oximetry Branch Body weight 2021-03-11 10:18:00 113.399 kg Universi ty of [facility] BMI 2021-03-11 10:18:00 36.92 kg/m2 Universi ty of [facility] Body height 2021-03-10 22:45:00 175.3 cm Universi ty of [facility] Systolic blood 2019-09-20 05:00:00 136 mm[Hg] Univer sity of pressure [facility] Diastolic blood 2019-09-20 05:00:00 94 mm[Hg] Unive rsity of [facility] Heart rate 2019-09-20 05:00:00 93 /min Universi ty of [facility] Respiratory rate 2019-09-20 05:00:00 19 /min Univ ersity of [facility] Oxygen saturation in 2019-09-20 05:00:00 94 /min University of Arterial blood by [facility] Pulse oximetry Branch Body temperature 2019-09-20 03:02:05 37.22 Geri Univ ersity of [facility] Body height 2019-09-20 00:15:00 175.3 cm Universi ty of [place] [facility] Body weight 2019-09-20 00:15:00 102.059 kg Universi ty of [facility] BMI 2019-09-20 00:15:00 33.23 kg/m2 Universi ty of [facility] Systolic blood 2019-09-20 05:00:00 136 mm[Hg] Univer sity of pressure [facility] Diastolic blood 2019-09-20 05:00:00 94 mm[Hg] Unive rsity of pressure [place] [facility] Heart rate 2019-09-20 05:00:00 93 /min Universi ty of [place] [facility] Respiratory rate 2019-09-20 05:00:00 19 /min Univ ersity of [place] [facility] Oxygen saturation in 2019-09-20 05:00:00 94 /min University of Arterial blood by [facility] cherry Pulse oximetry Branch Body temperature 2019-09-20 03:02:05 37.22 Geri Univ ersity of [place] [facility] Body height 2019-09-20 00:15:00 175.3 cm Universi ty of [place] [facility] Body weight 2019-09-20 00:15:00 102.059 kg Universi ty [facility] [place] [facility] BMI 2019-09-20 00:15:00 33.23 kg/m2 [facility] ty [facility] [place] [facility] Height 2019-06-04 21:53:00 175.26 CM Weight 2019-06-04 21:53:00 101.78 KG Systolic blood 2019-05-25 17:00:00 126 mm[Hg] Univer sity of pressure [place] [facility] Diastolic blood 2019-05-25 17:00:00 70 mm[Hg] Unive rsity of pressure [place] [facility] Heart rate 2019-05-25 17:00:00 77 /min Universi ty [facility] [place] [facility] Body temperature 2019-05-25 17:00:00 36.61 Geri Univ ersity of [place] [facility] Respiratory rate 2019-05-25 17:00:00 18 /min Univ ersity of [place] [facility] Oxygen saturation in 2019-05-25 17:00:00 92 /min University of Arterial blood by [facility] cherry Pulse oximetry Branch Body weight 2019-05-24 13:21:00 112.492 kg [facility]i ty [facility] [place] [facility] BMI 2019-05-24 13:21:00 36.62 kg/m2 [facility] [place] [facility] Body height 2019-05-22 10:18:00 175.3 cm [facility] [place] [facility] Systolic blood 2019-05-25 17:00:00 126 mm[Hg] Univer sity of pressure [place] [facility] Diastolic blood 2019-05-25 17:00:00 70 mm[Hg] Unive rsity of pressure [place] [facility] Heart rate 2019-05-25 17:00:00 77 /min [facility] Body temperature 2019-05-25 17:00:00 36.61 Geri [facility] Respiratory rate 2019-05-25 17:00:00 18 /min [facility] Oxygen saturation in 2019-05-25 17:00:00 92 /min University of Arterial blood by [facility] Pulse oximetry Branch Body weight 2019-05-24 13:21:00 112.492 kg [facility] BMI 2019-05-24 13:21:00 36.62 kg/m2 [facility] Body height 2019-05-22 10:18:00 175.3 cm [facility] Systolic blood 2021-03-22 01:35:51 127 mm[Hg] [facility] pressure Diastolic blood 2021-03-22 01:35:51 76 mm[Hg] [facility] pressure Heart rate 2021-03-22 01:35:51 67 /min [facility] Body temperature 2021-03-22 01:35:51 35.89 Geri [facility] Respiratory rate 2021-03-22 01:35:51 18 /min [facility] Oxygen saturation in 2021-03-22 01:35:51 98 /min [facility] Arterial blood by Pulse oximetry Body weight 2021-03-21 10:36:20 118.888 kg [facility] BMI 2021-03-21 10:36:20 39.85 kg/m2 [facility] Body height 2021-03-12 10:00:00 172.7 cm [facility] Systolic (mm Hg) 2021-02-06 14:32:00 Ulysses rial Yoel Diastolic (mm Hg) 2021-02-06 14:32:00 [facility] [place] Heart Rate 2021-02-06 14:32:00 [facility] Respitory Rate 2021-02-06 14:32:00 [facility] Systolic (mm Hg) 2020-05-15 17:11:00 Ulysses rial Yoel Diastolic (mm Hg) 2020-05-15 17:11:00 [facility] Heart Rate 2020-05-15 17:11:00 [facility] Height 2020-05-15 17:11:00 175.26 cm [facility] Weight 2020-05-15 17:11:00 [facility] BMI Calculated 2020-05-15 17:11:00 [facility] Respitory Rate 2020-04-29 20:41:00 [facility] Systolic (mm Hg) 2020-04-29 20:41:00 Ulysses rial [facility] Diastolic (mm Hg) 2020-04-29 20:41:00 [facility] Heart Rate 2020-04-29 20:20:00 [facility] Respitory Rate 2020-04-29 20:20:00 [facility] Systolic (mm Hg) 2020-04-29 20:20:00 Ulysses rial Yoel Diastolic (mm Hg) 2020-04-29 20:20:00 [facility] Heart Rate 2020-04-29 20:10:00 [facility] Respitory Rate 2020-04-29 20:10:00 [facility] Systolic (mm Hg) 2020-04-29 20:10:00 Ulysses [facility] Diastolic (mm Hg) 2020-04-29 20:10:00 [facility] Heart Rate 2020-04-29 20:00:00 [facility] Temperature Oral (F) 2020-04-29 19:50:00 36.1 Geri [facility] Temperature Oral (F) 2020-04-29 17:05:00 36.8 Geri [facility] Height 2020-04-29 17:05:00 175.26 cm [facility] Height 2020-04-24 23:24:00 175.26 cm [facility] Systolic (mm Hg) 2020-01-02 16:03:00 Ulysses rial Yoel Diastolic (mm Hg) 2020-01-02 16:03:00 [facility] Heart Rate 2020-01-02 16:03:00 [facility] Respitory Rate 2020-01-02 16:03:00 [facility] Height 2020-01-02 16:03:00 175.26 cm [facility] Weight 2020-01-02 16:03:00 [facility] BMI Calculated 2020-01-02 16:03:00 [facility] Systolic (mm Hg) 2019-08-25 19:37:00 Ulysses rial [facility] Diastolic (mm Hg) 2019-08-25 19:37:00 [facility] Heart Rate 2019-08-25 19:37:00 [facility] Respitory Rate 2019-08-25 19:37:00 [facility] Yoel Temperature Oral (F) 2019-08-25 19:37:00 98.2 F [facility] Height 2019-08-25 19:37:00 175.26 cm [facility] Weight 2019-08-25 19:37:00 [facility] BMI Calculated 2019-08-25 19:37:00 [facility] Systolic (mm Hg) 2019-03-09 17:04:00 Ulysses rial Yoel Diastolic (mm Hg) 2019-03-09 17:04:00 [facility] Heart Rate 2019-03-09 17:04:00 [facility] Height 2019-03-09 17:04:00 175.26 cm [facility] Weight 2019-03-09 17:04:00 [facility] BMI Calculated 2019-03-09 17:04:00 [facility] Respitory Rate 2019-02-20 15:40:00 [facility] Systolic (mm Hg) 2019-02-20 15:40:00 Ulysses rial Yoel Diastolic (mm Hg) 2019-02-20 15:40:00 [facility] Respitory Rate 2019-02-20 15:25:00 [facility] Systolic (mm Hg) 2019-02-20 15:25:00 Ulysses rial Yoel Diastolic (mm Hg) 2019-02-20 15:25:00 [facility] Respitory Rate 2019-02-20 15:10:00 [facility] Systolic (mm Hg) 2019-02-20 15:10:00 Ulysses rial Yoel Diastolic (mm Hg) 2019-02-20 15:10:00 [facility] Heart Rate 2019-02-20 12:30:00 [facility] Weight 2019-02-20 12:15:00 [facility] BMI Calculated 2019-02-20 12:15:00 [facility] Heart Rate 2019-02-17 19:15:00 [facility] Height 2019-02-17 19:15:00 175.26 cm [facility] Systolic (mm Hg) 2019-01-25 19:48:00 Ulysses rial [place] Diastolic (mm Hg) 2019-01-25 19:48:00 Mem o[facility] Heart Rate 2019-01-25 19:48:00 [facility] Respitory Rate 2019-01-25 19:48:00 [facility] Height 2019-01-25 19:48:00 175.26 cm [facility] Weight 2019-01-25 19:48:00 [facility] BMI Calculated 2019-01-25 19:48:00 [facility] Systolic (mm Hg) 2019-01-19 15:41:00 Ulysses rial Yoel Diastolic (mm Hg) 2019-01-19 15:41:00 [facility] Heart Rate 2019-01-19 15:41:00 [facility] Height 2019-01-19 15:41:00 175.26 cm [facility] Weight 2019-01-19 15:41:00 [facility] BMI Calculated 2019-01-19 15:41:00 [facility] Systolic (mm Hg) 2018-12-28 18:17:00 Ulysses rial [facility] Diastolic (mm Hg) 2018-12-28 18:17:00 [facility] Heart Rate 2018-12-28 18:17:00 [facility] Temperature Oral (F) 2018-12-28 18:17:00 97.8 F [facility] Height 2018-12-28 18:17:00 175.26 cm [facility] Weight 2018-12-28 18:17:00 [facility] BMI Calculated 2018-12-28 18:17:00 [facility] Height 2018-12-23 14:14:00 175.26 cm [facility] Weight 2018-12-23 14:14:00 [facility] BMI Calculated 2018-12-23 14:14:00 [facility] Systolic (mm Hg) 2018-12-23 14:14:00 Ulysses rial [facility] Diastolic (mm Hg) 2018-12-23 14:14:00 Mem o[facility] Heart Rate 2018-12-23 14:14:00 [facility] Systolic (mm Hg) 2018-11-21 18:52:00 Ulysses rial [facility] Diastolic (mm Hg) 2018-11-21 18:52:00 [facility] Heart Rate 2018-11-21 18:52:00 [facility] Height 2018-11-21 18:52:00 175.26 cm [facility] Weight 2018-11-21 18:52:00 [facility] BMI Calculated 2018-11-21 18:52:00 [facility] Systolic (mm Hg) 2018-06-13 15:51:00 Ulysses rial Yoel Diastolic (mm Hg) 2018-06-13 15:51:00 [facility] Respitory Rate 2018-06-13 15:51:00 [facility] Systolic (mm Hg) 2018-06-13 15:20:00 Ulysses rial [facility] Diastolic (mm Hg) 2018-06-13 15:20:00 [facility] Heart Rate 2018-06-13 15:20:00 [facility] Respitory Rate 2018-06-13 15:20:00 [facility] Respitory Rate 2018-06-13 15:10:00 [facility] Systolic (mm Hg) 2018-06-13 15:10:00 Ulysses rial [place] Diastolic (mm Hg) 2018-06-13 15:10:00 [facility] Heart Rate 2018-06-13 15:10:00 [facility] Temperature Oral (F) 2018-06-13 15:00:00 36.6 Geri [facility] Heart Rate 2018-06-13 15:00:00 [facility] Height 2018-06-13 13:17:00 175.26 cm [facility] Temperature Oral (F) 2018-06-13 13:17:00 37 Geri [facility] Height 2018-06-08 17:11:00 175.26 cm [facility] Systolic (mm Hg) 2018-05-11 22:33:00 Ulysses rial [facility] Heart Rate 2018-05-11 22:33:00 [facility] Respitory Rate 2018-05-11 22:33:00 [facility] Height 2018-05-11 22:33:00 175.26 cm [facility] Weight 2018-05-11 22:33:00 [facility] BMI Calculated 2018-05-11 22:33:00 [facility] BMI Calculated 2018-04-19 16:50:00 [facility] Height 2018-04-19 16:50:00 172.72 cm [facility] Weight 2018-04-19 16:50:00 [facility] Heart Rate 2018-04-19 16:50:00 Luzma [facility] Systolic (mm Hg) 2018-04-19 16:50:00 Ulysses goodwin Yoel Diastolic (mm Hg) 2018-04-19 16:50:00 Mem o[facility] Yo[facility] Respitory Rate 2018-04-19 16:50:00 [facility] Procedures Procedure Date / Time Performing Source Performed Clinician POC GLUCOSE 2021-03-22 Jose Juan Gerard [facility] 01:38:00 BASIC METABOLIC PANEL 2021-03-21 [facility] 22:08:00 ESTIMATED GFR 2021-03-21 [facility] 22:08:00 POC GLUCOSE 2021-03-21 Jose Juan Gerard [facility] 20:38:00 POC GLUCOSE 2021-03-21 Jose Juan Gerard [facility] 18:09:00 POC GLUCOSE 2021-03-21 Jose Juan Gerard [facility] 13:55:00 POC GLUCOSE 2021-03-21 Jose Juan Gerard [facility] 12:34:00 POC GLUCOSE 2021-03-21 Jose Juan Gerard [facility] 03:46:00 POC GLUCOSE 2021-03-21 Jose Juan Gerard [facility] 01:23:00 POC GLUCOSE 2021-03-21 Jose Juan Gerard [facility] 00:44:00 POC GLUCOSE 2021-03-21 Jose Juan Gerard [facility] 00:24:00 POC GLUCOSE 2021-03-20 Jose Juan Gerard [facility] 23:36:00 POC GLUCOSE 2021-03-20 Jose Juan Gerard [facility] 22:00:00 IR STENT CERVICAL CAROTID W 2021-03-20 [facility] EMBOLIZATION PROTEC RIGHT 21:43:15 US GUIDED VASCULAR ACCESS 2021-03-20 Yuko [facility] 21:43:15 Wilberto ARTERIAL LINE 2021-03-20 [facility] 20:06:45 Samuel POC GLUCOSE 2021-03-20 Jose Juan Ger[facility] 19:02:00 POC GLUCOSE 2021-03-20 Moustapha, Jose Juan O. Mandaen [facility] 17:47:00 POC GLUCOSE 2021-03-20 Moustapha Jose Juan Jacquelyn Mandaen [facility] 13:39:00 POC GLUCOSE 2021-03-20 Jose Juan Gerard Manda[facility] 12:44:00 HC COMPLETE BLD COUNT W/AUTO 2021-03-20 Jose Juan Gerard [facility] DIFF 10:26:00 BASIC METABOLIC PANEL 2021-03-20 Jose Juan Gerard [facility] 10:26:00 ESTIMATED GFR 2021-03-20 Jose Juan Gerard [facility] 10:26:00 MAGNESIUM LEVEL 2021-03-20 Jose Juan Gerardist [facility] 10:26:00 PHOSPHORUS LEVEL 2021-03-20 Jose Juan Gerard [facility] 10:26:00 POC GLUCOSE 2021-03-20 Jose Juan Gerardist [facility] 03:29:00 POC GLUCOSE 2021-03-19 Jose Juan Gerardist [facility] 22:49:00 POC GLUCOSE 2021-03-19 Jose Juan [facility] 18:22:00 POC GLUCOSE 2021-03-19 Jose Juan [facility]ard[facility] 15:11:00 BASIC METABOLIC PANEL 2021-03-19 Jos eJuan Gerard [facility] 10:25:00 HC COMPLETE BLD COUNT W/AUTO 2021-03-19 Jose Juan Gerard [facility] DIFF 10:25:00 ESTIMATED GFR 2021-03-19 Jose Juan Gerardist [facility] 10:25:00 POC GLUCOSE 2021-03-19 Jose Juan Gerard Mandaen [facility] 03:03:00 POC GLUCOSE 2021-03-18 Jose Juan Gerard Mandaen [facility] 22:48:00 POC GLUCOSE 2021-03-18 Jose Juan Gerardist [facility] 18:34:00 COVID-19 QUALITATIVE RT-PCR 2021-03-18 Jose Juan Gerard [facility] 18:30:00 POC GLUCOSE 2021-03-18 Jose Juan Ger[facility] 13:43:00 BASIC METABOLIC PANEL 2021-03-18 Jose Juan Gerard [facility] 12:25:00 ESTIMATED GFR 2021-03-18 Jose Juan Gerardist [facility] 12:25:00 POC GLUCOSE 2021-03-18 Jose Juan [facility] 03:46:00 POC GLUCOSE 2021-03-17 Jose Juan [facility] 23:20:00 POC GLUCOSE 2021-03-17 Jose Juan [facility] 17:26:00 PLATELET FUNCTION P2Y12 2021-03-17 Yuko Matthias [facility] 15:13:00 Wilberto POC GLUCOSE 2021-03-17 Jose Juan [facility] 13:32:00 BASIC METABOLIC PANEL 2021-03-17 Jose Juan Gerard [facility] 11:33:00 ESTIMATED GFR 2021-03-17 Jose Juan Gerard [facility] 11:33:00 POC GLUCOSE 2021-03-17 Jose Juan Gerard [facility] 10:51:00 URINE CULTURE 2021-03-17 [facility] 05:50:00 SODIUM LEVEL, URINE, RANDOM 2021-03-17 [facility] 03:51:00 UREA NITROGEN, URINE, RANDOM 2021-03-17 [facility] 03:51:00 CREATININE LEVEL, URINE, 2021-03-17 [facility] RANDOM 03:51:00 URINALYSIS SCREEN AND 2021-03-17 [facility] MICROSCOPY, WITH REFLEX TO 03:49:00 CULTURE POC GLUCOSE 2021-03-17 Jose Juan [facility] 03:08:00 POC GLUCOSE 2021-03-16 Jose Juan [facility] 22:56:00 US RENAL 2021-03-16 Jose Juan Gerard [facility] 22:15:00 BASIC METABOLIC PANEL 2021-03-16 Jose Juan Gerard [facility] 20:41:00 ESTIMATED GFR 2021-03-16 Jose Juan [facility] 20:41:00 POC GLUCOSE 2021-03-16 Jose Juan Ger[facility] 17:54:00 POC GLUCOSE 2021-03-16 Jose Juan Gerardist [facility] 12:43:00 POC GLUCOSE 2021-03-16 Jose Juan Gerard [facility] 01:07:00 POC GLUCOSE 2021-03-15 Jose Juan Gerardist [facility] 23:17:00 POC GLUCOSE 2021-03-15 Jose Juan [facility]ardist [facility] 19:14:00 POC GLUCOSE 2021-03-15 Jose Juan [facility]ardist [facility] 14:06:00 BASIC METABOLIC PANEL 2021-03-15 Jose Juan Gerard [facility] 11:07:00 ESTIMATED GFR 2021-03-15 Jose Juan Gerardist [facility] 11:07:00 CBC HEMOGRAM 2021-03-15 Jose Juan Gerardist [facility] 11:07:00 POC GLUCOSE 2021-03-15 Jose Juan Gerardist [facility] 02:06:00 POC GLUCOSE 2021-03-15 Jose Juan [facility]ardist [facility] 00:16:00 POC GLUCOSE 2021-03-14 Jose Juan [facility] 17:34:00 POC GLUCOSE 2021-03-14 Jose Juan [facility]ardist [facility] 12:28:00 HC COMPLETE BLD COUNT W/AUTO 2021-03-14 Jose Juan Gerard [facility] DIFF 11:40:00 BASIC METABOLIC PANEL 2021-03-14 Jose Juan Gerard [facility] 11:40:00 ESTIMATED GFR 2021-03-14 Jose Juan [facility] 11:40:00 POC GLUCOSE 2021-03-14 Jose Juan [facility] 03:14:00 MRA NECK WO CONTRAST 2021 [facility] 23:50:00 Russel MRI BRAIN WO CONTRAST 2021 Jose Juan Gerard [facility] 23:30:00 MRA HEAD WO CONTRAST 2021 [facility] 23:15:00 Russel POC GLUCOSE 2021 Jose Juan [facility]ist [facility] 22:37:00 POC GLUCOSE 2021 Jose Juan [facility]ist [facility] 21:24:00 POC GLUCOSE 2021 Jose Juan [facility]ardist [facility] 17:28:00 POC GLUCOSE 2021 [facility] spital 15:04:00 HC COMPLETE BLD COUNT W/AUTO 2021 [facility] DIFF 10:50:00 BASIC METABOLIC PANEL 2021 [facility] 10:50:00 ESTIMATED GFR 2021 [facility] Ho spital 10:50:00 ECG PRE/POST OP 2021 [facility], [facility] al 08:24:59 Leobardo ECG PRE/POST OP 2021 [facility], [facility] 04:01:19 Leobardo POC GLUCOSE 2021 [facility] spital 02:30:00 CV LEFT HEART CATH LV GRAM 2021 [facility], [facility] WITH CORS 01:58:18 CV PCI 2021 [facility] 01:[facility]18 CV ANGIOGRAM CAROTID OR 2021 [facility], [facility] INNOMINATE ARTERY UNILATERAL 01:58:18 BASIC METABOLIC PANEL 2021-03-12 [facility], [facility] 19:32:00 ESTIMATED GFR 2021-03-12 [facility] 19:32:00 TROPONIN T 2021-03-12 [facility], [facility] 19:32:00 TTE COMPLETE, W CONTRAST, W 2021-03-12 [facility] DOPPLER ([id number]) 19:29:00 POC GLUCOSE 2021-03-12 [facility] spital 19:11:00 POC GLUCOSE 2021-03-12 [facility] spital 14:23:00 US CAROTID DUPLEX BILATERAL 2021-03-12 [facility] 14:15:00 COVID-19 ANTI-SPIKE IGG 2021-03-12 [facility] ANTIBODY TITER 12:25:00 COVID-19 SEROLOGY PATIENT 2021-03-12 [facility] SURVEILLANCE 12:25:00 HC COMPLETE BLD COUNT W/AUTO 2021-03-12 [place] [facility] DIFF 12:25:00 HEMOGLOBIN A1C 2021-03-12 Jose Juan Gerard [facility] spital 12:25:00 LIPID PANEL 2021-03-12 Jose Juan Gerard [facility] spital 12:25:00 THYROID STIMULATING HORMONE 2021-03-12 MoustaphaJose Juan [facility] 12:25:00 T4, FREE 2021-03-12 Jose Juan Gerard [facility] spital 12:25:00 TROPONIN T 2021-03-12 [place] [facility] spital 12:25:00 PROTHROMBIN TIME WITH INR 2021-03-12 MoustaphaJose Juan [facility] 12:25:00 SMEAR REVIEW 2021-03-12 Jose Juan Gerard [facility] spital 12:25:00 ECG 12-LEAD 2021-03-12 Jose Juan Gerard [facility] spital 12:21:06 POC GLUCOSE 2021-03-12 Jose Juan Gerard [facility] spital 11:05:00 POCT GLUCOSE (AUTOMATED) 2021-03-12 Fariba Marion [facility] 01:37:00 [facility] POCT GLUCOSE (AUTOMATED) 2021-03-11 Fariba Marion [facility] 22:40:00 [facility] TRANSTHORACIC ECHO (TTE) 2021-03-11 Fariba Marion [facility] COMPLETE W/ CONTRAST 16:51:00 [facility] CAROTID DUPLEX BILATERAL - BY 2021-03-11 Fariba Marion [facility] VASCULAR [facility] 16:07:22 [facility] POCT GLUCOSE (AUTOMATED) 2021-03-11 Fariba Marion [facility] 13:34:00 [facility] BASIC METABOLIC PANEL (NA, K, 2021-03-11 Fariba Marion [facility] CL, CO2, GLUCOSE, BUN, 10:52:00 [facility] ran CREATININE, CA) LIPID PANEL ([id number])(TOTAL 2021-03-11 Dustin Carpio [facility] CHOLESTEROL, TRIGLYCERIDES, 10:52:00 [facility] HDL) CBC WITH DIFF 2021-03-11 Fariba Marion [facility] xas 10:52:00 [facility] GLYCOSYLATED HEMOGLOBIN (A1C) 2021-03-11 Dustin Carpio [facility] 10:52:00 Medical [facility] XR CHEST 1 VW 2021-03-11 [facility] 06:27:00 [facility] COVID-19 (ID NOW RAPID 2021-03-10 Rochelle Gerard [facility] TESTING) 18:28:00 [facility] [place] LAB ONLY COVID INTERPRETATION 2021-03-10 Rochelle Gerard [facility] 18:28:00 [facility] MAGNESIUM 2021-03-10 Rochelle Gerard [facility] 18:27:00 [facility] TROPONIN I 2021-03-10 Rochelle Gerard [facility] 18:27:00 [facility] COMP. METABOLIC PANEL ([id number]) 2021-03-10 Rochelle Gerard [facility] 18:27:00 [facility] CBC WITH DIFF 2021-03-10 Rochelle Gerard [facility] 18:27:00 [facility] N-TERMINAL PRO-BNP 2021-03-10 Rochelle Gerard [facility] 18:27:00 [facility] HB ECG ROUTINE & RHYTHM STRIP 2021-03-10 Rochelle Gerard [facility] 17:53:52 [facility] CONSENT/REFUSAL FOR DIAGNOSIS 2021-03-10 Doctor Unassigned, [facility] AND TREATMENT 17:49:43 [place] [facility] [place] COLONOSCOPY FLEXIBLE; 2020-04-[address] [facility] DIAGNOSTIC; INCL. COLLECTION 19:31:00 OF SPECIMENS [id number] (N/A)<sup>1</sup> Colon<sup>2</sup> 2019-10-04 [facility] 05:00:00 CT ABDOMEN PELVIS W CONTRAST 2019-09-20 Dell Danielson [facility] 02:10:51 [facility] US TESTICULAR TORSION 2019-09-20 Kelly Sauer [facility] 01:45:30 [facility] COMP. METABOLIC PANEL ([id number]) 2019-09-20 Kelly Sauer [facility] 01:01:00 [facility] CBC WITH DIFFERENTIAL 2019-09-20 Kelly Sauer [facility] 01:01:00 [facility] URINALYSIS 2019-09-20 Dell Danielson [facility] 01:01:00 [facility] NOTICE OF PRIVACY PRACTICES 2019-09-20 Doctor Unassigned, [facility] 00:09:47 [place] [facility] CONSENT/REFUSAL FOR DIAGNOSIS 2019-09-20 Doctor Unassigned, [facility] AND TREATMENT 00:08:07 [place] [facility] POCT GLUCOSE (AUTOMATED) 2019-05-25 [facility] 17:04:00 [facility] POCT GLUCOSE (AUTOMATED) 2019-05-25 [facility] 14:05:00 [facility] BASIC METABOLIC PANEL (NA, K, 2019-05-25 [facility], CO2, GLUCOSE, BUN, 10:28:00 [facility] [place] CREATININE, CA) N-TERMINAL PRO-BNP 2019-05-25 [facility] 10:28[facility]00 [facility] POCT GLUCOSE (AUTOMATED) 2019-05-25 [facility] 06:14:00 [facility] POCT GLUCOSE (AUTOMATED) 2019-05-25 [facility] ity [facility] 02:51:00 [facility] POCT GLUCOSE (AUTOMATED) 2019-05-24 [facility] ity [facility] 21:17:00 [facility] POCT GLUCOSE (AUTOMATED) 2019-05-24 [facility] 17:28:00 [facility] POCT GLUCOSE (AUTOMATED) 2019-05-24 [facility] 13:29:00 [facility] BASIC METABOLIC PANEL (NA, K, 2019-05-24 [facility], CO2, GLUCOSE, BUN, 10:29:00 [facility] CREATININE, CA) CBC WITH DIFFERENTIAL 2019-05-24 Fariba Marion [facility] 10:29:00 [facility] POCT GLUCOSE (AUTOMATED) 2019[facility]05-24 [facility] POCT GLUCOSE (AUTOMATED) 2019-05-24 [facility] 01:25:00 [facility] POCT GLUCOSE (AUTOMATED) 2019-05-23 Cecilio [facility] 22:21:00 [facility] POCT GLUCOSE (AUTOMATED) 2019-05-23 [facility] 16:49:00 [facility] POCT GLUCOSE (AUTOMATED) 2019-05-23 [facility] 13:39:00 [facility] BASIC METABOLIC PANEL (NA, K, 2019-05-23 Cecilio [facility], CO2, GLUCOSE, BUN, 09:08:00 [facility] CREATININE, CA) POCT GLUCOSE (AUTOMATED) 2019-05-23 Cecilio [facility] ity [facility] 01:46:00 [facility] POCT GLUCOSE (AUTOMATED) 2019-05-22 Cecilio, [facility] ity [facility] 22:18:00 [facility] POCT GLUCOSE (AUTOMATED) 2019-05-22 Cecilio [facility] ity [facility] 17:20:00 [facility] US RETROPERITONEAL COMPLETE 2019-05-22 Cecilio [facility] 17:00:17 [facility] POCT GLUCOSE (AUTOMATED) 2019-05-22 Cecilio [facility] 13:12:00 [facility] MAGNESIUM 2019-05-22 Cecilio [facility] xas 09:49:00 [facility] BASIC METABOLIC PANEL (NA, K, 2019-05-22 Giul[facility] [place] [facility], CO2, GLUCOSE, BUN, 09:49:00 [facility] CREATININE, CA) POCT GLUCOSE (AUTOMATED) 2019-05-22 Cecilio [facility] 03:07:00 [facility] POCT GLUCOSE (AUTOMATED) 2019-05-21 [facility] 22:37:00 [facility] POCT GLUCOSE (AUTOMATED) 2019-05-21 [facility] 17:34:00 [facility] POCT GLUCOSE (AUTOMATED) 2019-05-21 [facility] 13:23:00 [facility] BASIC METABOLIC PANEL (NA, K, 2019-05-21 Cecilio [facility] [place] [facility], CO2, GLUCOSE, BUN, 09:20:00 [facility] CREATININE, CA) POCT GLUCOSE (AUTOMATED) 2019-05-21 Cecilio [facility] ity [facility] 01:49:00 [facility] POCT GLUCOSE (AUTOMATED) 2019-05-20 Cecilio [facility] ity [facility] 21:43:00 [facility] POCT GLUCOSE (AUTOMATED) 2019-05-20 Cecilio [facility] ity [facility] 17:28:00 Medical Branch MICROALBUMIN URINE 2019-05-20 Keenan Morales [facility] 14:18:00 [facility] URINALYSIS 2019-05-20 Keenan Morales [facility] exas 14:18:00 Medical Branch ELECTROPHORESIS, URINE FOR 2019-05-20 Keenan Morales [facility] PANEL 14:18:00 [facility] POCT GLUCOSE (AUTOMATED) 2019-05-20 Giuliano Hernandes [facility] 13:35:00 [facility] NEUTROPHIL CYTOPLASMIC AB, 2019-05-20 Keenan Morales [facility] IGG 11:04:00 [facility] PHOSPHORUS 2019-05-20 Keenan Morales [facility] 11:04:00 [facility] MAGNESIUM 2019-05-20 Cecilio [facility] xas 11:04:00 [facility] RHEUMATOID FACTOR 2019-05-20 Keenan Morales [facility] 11:04:00 [facility] BASIC METABOLIC PANEL (NA, K, 2019-05-20 Giuliano Hernandes [facility] CL, CO2, GLUCOSE, BUN, 11:04:00 [facility] ranch CREATININE, CA) ELECTROPHORESIS, SERUM 2019-05-20 Keenan Morales [facility] 11:03:00 [facility] ANTI-NUCLEAR ANTIBODY SCREEN 2019-05-20 [facility] 11:03:00 [facility] HEPATITIS B SURFACE ANTIBODY 2019-05-20 Keenan Morales [facility] 11:03:00 [facility] HEPATITIS B SURFACE ANTIGEN 2019-05-20 Keenan Morales [facility] 11:03:00 [facility] HCV ANTIBODY 2019-05-20 Keenan Morales [facility] 11:03:00 [facility] HBC ANTIBODY (IGM & IGG) 2019-05-20 Keenan Morales [facility] 11:03:00 Medical Branch IMMUNOFIXATION, SERUM 2019-05-[address] [facility] 11:03:00 Medical Branch POCT GLUCOSE (AUTOMATED) 2019-05-20 Giuliano Hernandes [facility] 01:53:00 Medical Branch POCT GLUCOSE (AUTOMATED) 2019-05-19 Giuliano Hernandes [facility] 22:32:00 Medical Branch POCT GLUCOSE (AUTOMATED) 2019-05-19 Giuliano Hernandes [facility] 17:17:00 [facility] Branch ECHO ROUTINE W/DOPPLER COLOR 2019-05-19 Angeline Grande [facility] 15:40:23 [facility] BILATERAL VENOUS DUPLEX LOWER 2019-05-19 Angeline Grande [facility] EXTREMITY BY VASCULAR LAB 15:00:26 Medica Branch POCT GLUCOSE (AUTOMATED) 2019-05-19 Giuliano Hernandes [facility] 14:04:00 [facility] Branch URINALYSIS 2019-05-19 [facility] 11:45[facility]00 [facility] PROTEIN CREAT RATIO URINE 2019-05-19 [facility] RANDOM 11:45:00 [facility] VITAMIN B12, LEVEL 2019-05-19 [facility] 09[facility]57[facility]00 [facility] FOLATE 2019-05-19 [facility] 09:57:00 [facility] BASIC METABOLIC PANEL (NA, K, 2019-05-19 [facility] CL, CO2, GLUCOSE, BUN, 09:57:00 [facility] ranch CREATININE, CA) IRON PANEL 2019-05-19 [facility] 09:57[facility]00 [facility] CBC WITH DIFFERENTIAL 2019-05-19 [facility] 09:57[facility]00 [facility] VITAMIN D, 25-OH 2019-05-19 [facility] exas 09:57:00 [facility] VITAMIN B1 (THIAMINE), WHOLE 2019-05-19 [facility] BLOOD 09:57:00 [facility] POCT GLUCOSE (AUTOMATED) 2019-05-19 Giuliano Hernandes [facility] 02:34:00 [facility] Branch EKG-12 LEAD 2019-05-18 Epifanio Cahpman [facility] ex 23:27:21 [facility] GAMMA GLUTAMYLTRANSFERASE 2019-05-18 [facility] 22:33:00 [facility] CREATINE KINASE 2019-05-18 [facility] 22:33:00 [facility] Branch LIPASE 2019-05-[address] [facility] 22:33:00 Medical Branch FERRITIN SERUM 2019-05-18 Fariba Marion [facility] xa 22:33:00 Medical Branch TROPONIN I 2019-05-[address] [facility] 22:33:00 [facility] Branch THYROID STIMULATING HORMONE 2019-05-18 Fariba Marion [facility] 22:33:00 Medical Branch COMP. METABOLIC PANEL (38140) 2019-05-18 Jessenia Barragan [facility] 22:33:00 [facility] Branch CBC WITH DIFFERENTIAL 2019-05-18 Jessenia Barragan [facility] 22:33:00 [facility] GLYCOSYLATED HEMOGLOBIN (A1C) 2019-05-18 [facility] 22:33:00 [facility] Branch N-TERMINAL PRO-BNP 2019-05-18 Jessenia Barragan [facility] 22:33:00 [facility] Branch XR CHEST 2 VW 2019-05-18 Jessenia Barragan [facility] xa 21:29:15 [facility] Branch EKG-12 LEAD 2019-05-18 Jessenia Barragan [facility] xas 21:11:21 Medical Branch CONSENT/REFUSAL FOR DIAGNOSIS 2019-05-18 Doctor Unassigned, [facility] AND TREATMENT 20:56:58 [place] [facility] [place] Measurement of post-voiding 2019-03-09 Ulysses Diallo residual urine and/or bladder 17:15:00 capacity by ultrasound, non-imaging Cystoscopy<sup>1</sup> 2019-02-20 [facility] 06:00:00 SIGMOIDOSCOPY FLEXIBLE 2018-06-13 [facility] W/DIRECTED SUBMUCOSAL 14:59:00 INJECTION ANY SUBSTANCE 86625 (N/A)<sup>1</sup> cardiac stent 2012-04-05 [facility] 00:00:00 Amputation [facility] Angiogram [facility] Arthroscopy of knee [facility] bradshaw Colectomy [facility] Colonoscopy [facility] Foot joint operations [facility] Hernia repair [facility] Tonsillectomy [facility] Foot<sup[facility]2</sup> [facility]<sup>3</sup> [facility] Plan of Care Planned Activity Planned Date Details Comments Source Future Scheduled 2021-05-13 COVID-19 VACCINE (1) Met [facility] Test 15:06:30 [code = COVID-19 VACCINE (1)] Future Scheduled 2021-05-13 DIABETES: RETINAL EYE Me [facility] Test 15:06:30 EXAM [code = DIABETES: RETINAL EYE EXAM] Future Scheduled 2021-05-13 [facility]IC [facility] Test 15:06:30 [code = DIABETIC FOOT EXAM] Future Scheduled 2021-05-13 Hepatitis C screening [facility] Test 15:06:30 (procedure) [code = 574936536] Future Scheduled 2021-05-13 COLONOSCOPY SCREENING [facility] Test 15:06:30 [code = COLONOSCOPY SCREENING] Future Scheduled 2021-05-13 SHINGLES VACCINES (#1) [facility] Test 15:06:30 [code = SHINGLES VACCINES (#1)] Future Scheduled 2021-05-13 INFLUENZA VACCINE [facility] Test 15:06:30 [code = INFLUENZA VACCINE] Future Scheduled 2021-05-06 COVID-19 VACCINE (1) [facility] Test 15:21:26 [code = COVID-19 VACCINE (1)] Future Scheduled 2021-05-06 DIABETES: RETINAL EYE [facility] Test 15:21:26 EXAM [code = DIABETES: RETINAL EYE EXAM] Future Scheduled 2021-05-06 DIABETIC FOOT EXAM [facility] Test 15:21:26 [code = DIABETIC FOOT EXAM] Future Scheduled 2021-05-06 Hepatitis C screening [facility] Test 15:21:26 (procedure) [code = 877241036] Future Scheduled 2021-05-06 COLONOSCOPY SCREENING [facility] Test 15:21:26 [code = COLONOSCOPY SCREENING] Future Scheduled 2021-05-06 SHINGLES VACCINES (#1) [facility] Test 15:21:26 [code = SHINGLES VACCINES [...] 00:00:00 protein (procedure) Medical Center [code = 489038807] Future Scheduled 2020-05-20 Urine screening for [facility] Test 00:00:00 protein (procedure) Medical Center [code = 614683796] Future Scheduled 2020-04-[address] [facility] Test 00:00:00 (12+) [code = Medical Center DEPRESSION SCREENING (12+)] Future Scheduled 2020-04-[address] [facility] Test 00:00:00 (12+) [code = Medical Center DEPRESSION SCREENING (12+)] Future Scheduled 2019-06-[address] [facility] Test 00:[facility]:00 measurement Medical Center (procedure) [code = 55877631] Future Scheduled 2019-06-[address] [address] [facility] Test 00:00:00 measurement Medical Center (procedure) [code = 28610717] Future Scheduled 2015 SHINGLES VACCINES ([address] [facility] Test 00:00:00 of 2) [code = SHINGLES Medic al Center VACCINES (1 of 2)] Future Scheduled 2015 SHINGLES VACCINES ([address] [facility] Test 00:00:00 of 2) [code = SHINGLES Medic al Center VACCINES (1 of 2)] Future Scheduled [address] [facility] Test 00:00:00 (procedure) [code = Medical Center 14809204] Future Scheduled [address] [facility] Test 00:00:00 (procedure) [code = Medical Center 60913078] Future Scheduled 1984 DTAP/TDAP/TD VACCINES CH I [...] 00:00:00 examination Medical Center (regime/therapy) [code = 704934984] Future Scheduled 1975 DIABETIC EYE EXAM [facility] Test 00:00:00 [code = DIABETIC EYE Medical Center EXAM] Future Scheduled [address] [facility] Test 00:00:00 examination Medical Center (regime/therapy) [code = 182766741] Future Scheduled [address] [...] Skye es Test 00:00:00 malignant neoplasm of Medica l Center colon (procedure) [code = 680420775] Future Scheduled [address] [facility] Test 00:00:00 malignant neoplasm of Medica l Center colon (procedure) [code = 265746501] Encounters Start End Encounter Admission Attending Care Care Encounter Source Date/Time Date/Time Type Type Clinicians Facility Department ID 2021-11-10 Outpatient [facility] [id number] [place] 10:10:15 [id number] [facility] 2021-10-27 Outpatient [facility] [id number] [place] 11:51:00 [id number] [facility] 2021-10-03 Outpatient DELROY SMITH [facility] [id number] [place] 11:07:49 [id number] [facility] 2021-09-29 Outpatient SMITH, [facility] [id number] [place] 09:03:15 [id number] [facility] 2021-09-02 [facility] [id number] [place] 11:57:08 [id number] [facility] 2021-06-25 Outpatient SMITH, [facility] [id number] 20 [place] 12:06:05 [id number] [facility] 2021-06-24 Outpatient SMITH, [facility] [id number] [place] 10:47:00 [id number] [facility] 2021-05-19 Outpatient SMITH, [facility] [id number] [place] 12:41:00 [facility] 2021-01-06 Outpatient SMITH, [facility] [id number] [place] 12:28:28 [facility] 2020-08-22 Outpatient SMITH, [facility] [id number] [place] 17:28:02 [facility] 2020-08-10 Outpatient SMITH, [facility] [id number] [place] 03:01:55 [facility] 2019-06-07 Inpatient [facility] [id number] [facility] 22:22:00 [id number] 2022-02-19 2022-02-19 Outpatient SMITH, [facility] [id number] [place] 14:45:00 14:45:00 [facility] 2021-11-20 2021-11-20 Office SMITH, DELROY [facility] 1.2.840.114 [id number] [place] 15:00:00 15:00:00 Visit SUGAR [id number] He [facility] 9.2.7.2.686 [address] [id number] AND 3 WOMENS 2021-10-10 2021-10-10 [facility] [id number] [place] 00:00:00 00:00:[address] 2021-10-03 2021-10-03 Office Smith, Delroy [facility] 1.2.840.114 [id number] [place] 11:30:00 13:15:31 Visit TOWER [id number] [facility] 9.2.7.2.686 [id number] 2021-09-22 2021-09-28 Inpatient MOUSTAPHA, [facility] [id number] [place] 00:00:00 00:00:00 JOSE JUAN [address] 2021-09-06 2021-09-09 Inpatient MOUSTAPHA, [facility] [id number] [place] 00:00:00 00:00:00 JOSE JUAN [address] 2021-09-08 2021-09-08 Inpatient MOUSTAPHA [facility] [id number] [place] 00:00:00 00:00:00 JOSE JUAN [address] 2021-08-25 2021-08-25 Outpatient [facility] 108 [place] 10:01:00 10:01:00 _L 0523 [facility] 2021-08-06 2021-08-06 [facility] [id number] [facility] 09:30:00 09:30:00 23 l Yoel 2021-06-25 2021-06-25 Office Smith Delroy [facility] 1.2.840.114 [id number] [place] 11:45:00 13:16:41 Visit TOWER 350.1.13.58 He alth 9.2.7.2.686 [id number] 2021-06-13 2021-06-13 [id number] [place] 00:00:00 00:00:[address] 2021-06-09 2021-06-09 [facility] [id number] [place] 00:00:00 00:00:[address] 2021-05-19 2021-05-19 Office SmithDelroy [facility] 1.2.840.114 [id number] [place] 12:00:00 12:48:58 Visit SUGAR 350.1.13.58 He [facility] MED 9.2.7.2.686 [address] [id number] AND 3 WOMENS 2021-04-03 2021-04-03 Outpatient [facility] 108 [place] 10:16:00 10:16:00 _L 1230 [facility] 2021-03-12 2021-03-21 [facility] 1.2.840.1 [id number] Methodi 03:21:00 21:16:00 Encounter Jose Juan Valladares 17255.1.[address] 3.430.2.7 Hospit a .3.099724 l .8 2021-03-20 2021-03-20 Anesthesia Zac Rosas 1.2.840.1 [id number] Methodi 13:39:00 15:55:00 Event Mich Barrera 52245.1.[address] 3.430.2.7 Hospit a .3.626574 l .8 2021-03-12 2021-03-12 Surgery Attar, 1.2.840.1 [id number] Methodi 18:20:00 19:45:[address] 3.430.2.7 Hospit a .3.167672 l .8 2021-03-10 2021-03-12 Outpatient X MARCE [place] [id number] Univers 11:51:00 02:14:00 FARIBA landaverde [facility] 2021-03-10 2021-03-12 Emergency Rochelle Gerard Pastor [facility] 1.2.8 40.114 [id number] Univers 11:51:00 02:14:00 Fariba [facility]13.10 [facility] 4.2.7.2.686 [facility] [id number] [address] 2021-03-12 2021-03-12 Orders Liang, 1.2.840.1 [id number] Methodi 00:00:00 00:00:00 Only Holly Roe [address]3745.1.[address] 3.430.2.7 Hospit a .3.950223 l .8 2021-03-12 2021-03-12 Travel 1.2.840.1 1.2.885.165 [id number] Methodi 00:00:00 00:00:[address] 3.430.2.7 0.2.7.3.698 Ho spita .3.269896 084.8 l .8 2021-02-06 2021-02-07 Outpatient nullFlavo MNA [id number] Memoria 14:00:00 04:59:59 r Neurology 22 l Vivien Diallo 2021-01-06 2021-01-06 Office Delroy Smith [facility] 1.2.840.114 [id number] [place] 11:27:34 12:48:30 Visit SUGAR 350.1.13.58 He alth [place] 9.2.7.2.686 [address] 1 [id number] AND 3 WOMENS 2020-11-18 2020-11-18 Outpatient [facility] 108 [id number] [place] 05:14:00 05:14:00 _L 0816 [facility] 2020-11-18 2020-11-18 Outpatient [facility] cd4 [id number] 00:00:00 00:00:00 , Lili ed6-11eb-9 Tiffany [id number] 2020-11-18 2020-11-18 Outpatient [facility] 2ae bp75y-z 00:00:00 00:00:00 , Lili ef3-11eb-b Tiffany [id number] [id number] 2020-09-04 2020-09-04 Ambulatory nullFlavo MNA [id number] Memoria 16:00:00 16:00:00 Pre-Reg r Neurology 21 l [place] 2020-08-22 2020-08-22 Office Delroy Smith [facility] 1.2.840.114 [id number] [place] 16:06:20 17:25:30 Visit SUGAR 350.1.13.58 He alth [place] 9.2.7.2.686 [address] 8 [id number] AND 3 WOMENS 2020-05-15 2020-05-16 Outpatient nullFlavo MNA [id number] Memoria 16:45:00 05:59:59 r Neurology 20 l [place] 2020-04-29 2020-04-29 Outpatient nullFlavo [facility] 9706 2 Memoria 16:35:25 20:47:00 r Yoel l [facility] 2020-01-02 2020-01-03 Outpatient nullFlavo MNA [id number] Mem[facility] 16:00:00 04:59:59 r Neurology 19 l Vivien Diallo 2019-10-31 2019-10-31 Outpatient MHIE MHIE [id number] [facility] 11:00:00 11:00:00 18 l Yoel 2019-10-27 2019-10-27 Ambulatory nullFlavo MNA [id number] Memoria 19:15:00 19:15:00 Pre-Reg r Neurology 17 l Vivien Diallo 2019-09-21 2019-10-11 Inpatient [facility], [facility] [id number] [place] 00:00:00 00:00:[address] [facility] 2019-10-10 2019-10-10 Ambulatory nullFlavo MNA [id number] Memoria 19:45:00 19:45:00 Pre-Reg r Neurology 14 l Vivien Diallo 2019-10-10 2019-10-10 Ambulatory nullFlavo MNA [id number] Memoria 19:45:00 19:45:00 Pre-Reg r Neurology 16 l Vivien Diallo 2019-10-10 2019-10-10 Ambulatory nullFlavo MNA [id number] Mem[facility] 19:45:00 19:45:00 Pre-Reg r Neurology 15 l Vivien Diallo 2019-09-19 2019-09-20 Emergency [facility] 1.2.121.877 [id number] Univers 19:09:28 00:57:00 Dell Sung 350.1.13.10 [place] [address] [place] [id number] 2019-09-19 2019-09-20 Emergency X [facility] [id number] Univers 19:09:28 00:57:00 DELL landaverde [facility] 2019-09-19 2019-09-20 Emergency [address]591[address]447 [id number] 19:09:28 00:57:00 Dell Sung 350.1.13.10 [place] [address] [place] [address] [id number] [facility] 2019-08-30 2019-08-30 Emergency BANG PINON [facility] [id number] [place] 00:00:00 00:00:[address] 2019-08-25 2019-08-26 Outpatient nullFlavo MNA [id number] Memoria 19:15:00 04:59:59 r Neurology 13 l [place] 2019-08-23 2019-08-23 Outpatient DELROY SMITH [facility] [id number] [place] 00:00:00 00:00:[address] 2019-07-21 2019-07-21 Outpatient DELROY SMITH [facility] [id number] [place] 00:00:00 00:00:[address] 2019-06-27 2019-06-27 Ambulatory nullFlavo MNA [id number] [facility] 21:00:00 21:00:00 Pre-Reg r Neurology 12 l [place] 2019-06-20 2019-06-20 Ambulatory nullFlavo [facility] [id number] Mem[facility] 14:30:00 14:30:00 Pre-Reg r Urology 11 l [place] [facility] 2019-06-04 2019-06-06 Inpatient C MARILYN MENENDEZ [facility] 1000 [id number] [place] 18:11:00 12:35:00 Medica [facility] 2019-05-31 2019-05-31 Ambulatory nullFlavo MNA [id number] Memoria 17:15:00 17:15:00 Pre-Reg r Neurology 09 l [place] 2019-05-26 2019-05-26 Transition Milla Tamez 1.2.840.114 [id number] [facility] 00:00:00 00:00:00 of Care Regulo [place] 350.1.13.10 [place]2.[place] [id number] [place] [address] Branch 2019-05-26 2019-05-26 Transition Milla Tamez 1.2.840.114 [id number] 00:00:00 00:00:00 of Care Regulo [place] 350.1.13.10 [place] 4.2.7.2.686 [id number] 2019-05-18 2019-05-25 [facility] Jessenia Barragan [facility] 1.2.840.11 [id number] Univers 16:11:39 15:40:00 Encounter Cecilio Giuliano [place] 350.1.13.10 ity [facility] 4.2.7.2.686 [facility] [id number] [address] 2019-05-18 2019-05-25 Inpatient X CECILIO GIULIANO [facility] [id number] Univers 16:11:39 15:40:00 ity [facility] 2019-05-18 2019-05-25 [facility] Jessenia Barragan [facility] 1.2.840.11 [id number] 16:11:39 15:40:00 Encounter Cecilio Giuliano [place] 350.1.13.10 [place] 4.2.7.2.686 [place] [id number] [facility] 2019-04-03 2019-04-03 Outpatient DELROY SMITH [facility] 021 [id number] [place] 00:00:00 00:00:00 585 Method i 2019-03-09 2019-03-10 Outpatient nullFlavo [facility] [id number] Memoria 17:00:00 05:59:59 r Urology 08 l [place] [facility] 2019-02-20 2019-02-20 Day nullFlavo [facility] [id number] Mem[facility] 11:01:00 15:45:00 Surgery r Yoel 08 l [place] 2019-02-20 2019-02-20 Outpatient [facility] URO 7508 [facility] 05:01:00 05:01:00 2019-02-17 2019-02-17 Outpatient DELROY SMITH [facility] [id number] [place] 00:00:00 00:00:00 285 Method i 2019-02-09 2019-02-09 [place] [id number] Memoria 20:00:00 20:00:00 Pre-Reg r Urology 10 l [place] [facility] 2019-01-25 2019-01-26 Outpatient nullFlavo IDA [id number] Memoria 19:45:00 04:59:59 r Neurology 03 l [place] 2019-01-19 2019-01-20 [place] [id number] Memoria 15:45:00 04:59:59 r Urology 07 l [place] [facility] 2018-12-28 2018-12-29 Outpatient nullFlavo [facility] [id number] Memoria 18:30:00 04:59:59 r Urology 06 l [place] [facility] 2018-12-26 2018-12-28 Phone nullFlavo [facility] [id number] Memoria 14:14:37 04:59:59 Message r Urology 01 l [place] [facility] 2018-12-26 2018-12-27 Between nullFlavo [facility] [id number] Memoria 15:23:07 15:23:07 Visit r Urology 05 l [place] [facility] 2018-12-23 2018-12-24 Outpatient nullFlavo [facility] [id number] Memoria 14:15:00 04:59:59 r Urology 05 l [place] [facility] 2018-11-21 2018-11-22 Outpatient nullFlavo [facility] [id number] Memoria 18:30:00 04:59:59 r Urology 04 l [place] [facility] 2018-06-22 2018-06-22 Outpatient [facility] [id number] Memoria 14:45:00 14:45:00 02 [facility] 2018-06-13 2018-06-13 Outpatient nullFlavo [facility] [id number] Memoria 12:37:00 16:00:00 r [facility] 2018-05-11 2018-05-12 Outpatient nullFlavo IDA [id number] Mem[facility] 21:00:00 05:59:59 r Neurology 01 [facility] 2018-04-19 2018-04-20 Outpatient nullFlavo [facility] [id number] Memoria 17:15:00 05:59:59 r Neurology 00 [facility] Results Test Description Test Time Test Comments Results Result Comments Source SARS-CoV-2 (COVID-19) RNA [Presence] in Respiratory sp ecimen by 2021-09-22 15:04:07 SEBASTIÁN with probe detection Test Item Value Reference Range Interpretation Comme nts SARS-CoV-2 (COVID-19) RNA [Presence] in Respiratory specimen by Not detected SEBASTIÁN with probe detection (test code = 18885-5) Whether patient is employed in a healthcare setting (test code = Un known 58221-0) Whether the patient has symptoms related to condition of interest U nknown (test code = 83696-2) Whether the patient was hospitalized for condition of interest Unkn own (test code = 64215-0) Whether the patient was admitted to intensive care unit (ICU) for U nknown condition of interest (test code = 27968-3) Whether patient resides in a congregate care setting (test code = U nknown 01589-0) status (test code = 18259-1) Unknown Date and time of symptom onset (test code = 65394-1) Unknown SARS-CoV-2 (COVID-19) RNA [Presence] in Respiratory specimen by SEBASTIÁN with probe [id number] 03:01:41 Test Item Value Reference Range Interpretation Comments SARS-CoV-2 (COVID-19) RNA Not detected [Presence] in Respiratory specimen by SEBASTIÁN with probe detection (test code = 46397-5) Whether patient is employed in a Unknown healthcare setting (test code = 24206-2) Whether the patient has symptoms Unknown related to condition of interest (test code = 08611-1) Whether the patient was Unknown hospitalized for condition of interest (test code = 07853-7) Whether the patient was admitted Unknown to intensive care unit (ICU) for condition of interest (test code = 12682-9) Whether patient resides in a Unknown congregate care setting (test code = 54782-5) status (test code = Unknown 48142-3) Date and time of symptom onset Unknown (test code = 49972-7) SARS-CoV-2 (COVID-19) RNA [Presence] in Respiratory specimen by SEBASTIÁN with probe [id number] 00:32:00 Test Item Value Reference Range Interpretation Comments SARS-CoV-2 (COVID-19) RNA Not detected [Presence] in Respiratory specimen by SEBASTIÁN with probe detection (test code = 93338-2) Whether patient is employed in a Unknown healthcare setting (test code = 13231-2) Whether the patient has symptoms Unknown related to condition of interest (test code = 33255-7) Whether the patient was Unknown hospitalized for condition of interest (test code = 16940-2) Whether the patient was admitted Unknown to intensive care unit (ICU) for condition of interest (test code = 61612-6) Whether patient resides in a Unknown congregate care setting (test code = 61312-9) status (test code = Unknown 76862-6) Date and time of symptom onset Unknown (test code = 18842-3) POC [id number] 01:39:32 Test Item Value Reference Range Interpretation Comments POC glucose (test code 128 mg/dL 65-99 H Opera tor Name: = 40090-0) Elton Constance Device ID: [id number] able: [facility] 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 Interpretation Abnormal (test code = 24471-7) [facility] [id number] 01:39:32 Test Item Value Reference Range Interpretation Comments POC glucose (test code 128 mg/dL 65-99 H Opera tor Name: = 83088-2) Elton Constance Device ID: [id number] able: [facility] 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 Interpretation Abnormal (test code = 12171-2) [facility] [Presence] in Respiratory specimen by SEBASTIÁN with probe [id number] 13:42:31 Test Item Value Reference Range Interpretation Comments SARS-CoV-2 (COVID-19) RNA Not detected Not-Detected [Presence] in Respiratory specimen by SEBASTIÁN with probe detection (test code = 05074-5) Whether patient is employed in a healthcare setting (test code = 32806-2) Whether the patient has symptoms related to condition of interest (test code = 26635-5) Patient was hospitalized because of this condition (test code = 07413-1) Whether the patient was admitted to intensive care unit (ICU) for condition of interest (test code = 07166-1) Whether patient resides in a congregate care setting (test code = 09543-2) ECG Pre/Post Op (PRN)2021 17:59:26 Test Item [...] block has replaced Right bundle branch block- [facility] Pre/Post Op (PRN)2021 17:59:26 Test Item Value [...] block has replaced Right bundle branch block- [address]2021-12-08 22:45:11 Test Item Value Reference Range [...] sinus rhythm-Left axis deviation-Right bundle branch block- [place] [address] [id number] 22:45:11 Test Item Value Reference Range Interpretation [...] sinus rhythm-Left axis deviation-Right bundle branch block- [facility] GLUCOSE (AUTOMATED)2021-03-12 03:00:06 Test Item Value Reference Range Interpretation Comments POCT GLU (test code = 4367697368) 279 mg/dL 70-110 H Lab Interpretation (test code = Abnormal 14305-1) [facility] GLUCOSE (AUTOMATED)2021-03-11 22:53:20 Test Item Value Reference Range Interpretation Comments POCT GLU (test code = 5938244609) 262 mg/dL 70-110 H Lab Interpretation (test code = Abnormal 10391-9) [facility] GLUCOSE (AUTOMATED)2021-03-11 13:49:43 Test Item Value Reference Range Interpretation Comments POCT GLU (test code = 7431344486) 225 mg/dL 70-110 H Lab Interpretation (test code = Abnormal 67146-8) [facility] Metabolic Panel (NA, K, CL, CO2, GLUCOSE, BUN, CREATININE, CA)2021-03-11 13:32:17 Test Item Value Reference Range Interpretation Comments NA (test code = 137 mmol/L 135-145 7652199772) K (test code = 3.8 mmol/L 3.5-5.0 0846666640) CL (test code = 99 mmol/L 98-108 6568026295) CO2 TOTAL (test code = 28 mmol/L 23-31 1773126626) AGAP (test code = 2-16 7172520470) BUN (test code = 50 mg/dL 7-23 H 8364447150) GLUCOSE (test code = 243 mg/dL 70-110 H 2189168454) CREATININE (test code = 1.55 mg/dL 0.60-1.25 H 4472234589) CALCIUM (test code = 9.4 mg/dL 8.6-10.6 8764259303) eGFR (test code = mL/min/1.73m2 8043241952) CAROLIN (test code = CAROLIN) Association of [...] tests). Lab Interpretation Abnormal (test code = 23333-4) [facility]2021-[facility]-11 13:29:15 Test Item Value Reference Range Interpretation Comments HGB A1C (test code = 8.9 % 4.0-5.7 H 4548-4) CAROLIN (test code = CAROLIN) Reference RangesNormal: <5.7%Prediabetes: 5.7 - 6.4%Diabetes: > 6.5% Lab Interpretation (test Abnormal code = 70218-3) [facility]Total Cholesterol, Triglycerides, HDL) - [id number] 12:53:15 Test Item Value Reference Range Interpretation Comments CHOL (test code = 149 mg/dL 120-200 8813868972) HDL (test code = 21 mg/dL >40 L 3654926034) HDLC RATIO (test code = See_Comment H [Au tomated message] 9507540004) The system [employer] generated this result transmit wesley reference range : <=5.0. The refe rence range was not u sed to interpret th is result as normal/abnormal . TRIG (test code = 275 mg/dL 30-170 H 5918073298) LDL CHOL (test code = 73 mg/dL See_Comment [Auto mated message] 13162-1) The system [employer] generated this result transmit wesley reference range : <=160. The refe rence range was not u sed to interpret th is result as normal/abnormal . VLDL (test code = 55 mg/dL 5-60 9486091300) Lab Interpretation (test Abnormal code = 97428-5) [facility] with Zsijjqrjzeij7224-56-93 12:19:51 Test Item Value Reference Range Interpretation [...] RDW-SD (test code = 47.0 fL 38.5-51.6 66578-3) RDW-CV (test code = 16.3 % 12.1-15.4 H 788-0) PLT (test code = See_Comment [Automated 777-3) message] The sy stem which generated this result transmitted reference range : 150 - 328 10*3/ ?L. The reference r siddharth was not used to interpret this result as normal/abnormal . MPV (test code = 10.0 fL 9.8-13.0 95594-7) NRBC/100 WBC (test See_Comment [Automat ed code = 0144735024) message] The system which generated this result transmitted reference range : 0.0 - 10.0 /100 WBCs. The refer ence range was not u sed to interpret th is result as normal/abnormal . NRBC x10^3 (test code <0.01 See_Comment [Auto mated = 5913612488) message] The s ystem which generated this result transmitted reference range : 10*3/?L. The reference range was not used to interpret this result as normal/abnormal . GRAN MAT (NEUT) % 67.9 % (test code = 770-8) IMM GRAN % (test code 0.60 % = 0421360228) LYMPH % (test code = 16.3 % 736-9) MONO % (test code = 7.2 % 5905-5) EOS % (test code = 6.6 % 713-8) BASO % (test code = 1.4 % 706-2) GRAN MAT x10^3(ANC) 6.42 10*3/uL 1.99-6.95 (test code = 6585049200) IMM GRAN x10^3 (test 0.06 10*3/uL 0.00-0.06 code = 8767126573) LYMPH x10^3 (test code 1.54 10*3/uL 1.09-3.23 = 731-0) MONO x10^3 (test code 0.68 10*3/uL 0.36-1.02 = 742-7) EOS x10^3 (test code = 0.62 10*3/uL 0.06-0.53 H 711-2) BASO x10^3 (test code 0.13 10*3/uL 0.01-0.09 H = 704-7) Lab Interpretation Abnormal (test code = 93766-7) [facility] [id number] 19:00:01 Test Item Value Reference Interpretation Comments Range TROPONIN I (test 0.019 ng/mL See_Comment [Automated code = 2603871768) message] The system which generated this result [...] biotin. Lab Interpretation Normal (test code = 08948-1) [facility] [id number] 18:56:59 Test Item Value Reference Range Interpretation Comments NT-proBNP (test code 1970 pg/mL See_Comment H [Autom ated = 8473771321) message] The system which generated this result transmitted reference range : <=125. The reference range was not used to interpret this result as normal/abnormal . CAROLIN (test code = CAROLIN) Biotin has been reported to cause a negative bias, interpret results relative to patient's use of biotin. Lab Interpretation Abnormal (test code = 35081-9) [facility]2021-12-06 18:48:20 Test Item Value Reference Range Interpretation Comments MAGNESIUM (test code = 3365011450) 2.0 mg/dL 1.7-2.4 Lab Interpretation (test code = Normal 10642-3) [facility] METABOLIC PANEL (69506)2021-03-10 18:48:19 Test Item Value Reference Range Interpretation Comments NA (test code = 134 mmol/L 135-145 L 8070164129) K (test code = 4.9 mmol/L 3.5-5.0 1019063968) CL (test code = 98 mmol/L 98-108 4380730878) CO2 TOTAL (test code = 24 mmol/L 23-31 1811925490) AGAP (test code = 2-16 4426970688) BUN (test code = 54 mg/dL 7-23 H 2401661526) GLUCOSE (test code = 307 mg/dL 70-110 H 3496561312) CREATININE (test code = 1.52 mg/dL 0.60-1.25 H 8674295819) TOTAL BILI (test code = 0.7 mg/dL 0.1-1.1 3366342588) CALCIUM (test code = 9.0 mg/dL 8.6-10.6 6140916509) T PROTEIN (test code = 7.1 g/dL 6.3-8.2 4009336869) ALBUMIN (test code = 3.8 g/dL 3.5-5.0 8038006701) ALK PHOS (test code = 91 U/L 34-122 6790276400) ALTv (test code = 15 U/L 5-50 2-6) AST(SGOT) (test code = 32 U/L 13-40 5412430340) eGFR (test code = mL/min/1.73m2 2206963605) CAROLIN (test code = CAROLIN) Association of [...] tests). Lab Interpretation Abnormal (test code = 60453-1) [facility] WITH [id number] 18:36:20 Test Item Value Reference Range Interpretation Comments WBC (test code = See_Comment H [Automated 6690-2) message] The sy stem which [...] RDW-SD (test code = 47.2 fL 38.5-51.6 78945-8) RDW-CV (test code = 16.2 % 12.1-15.4 H 788-0) PLT (test code = See_Comment [Automated 777-3) message] The sy stem which generated this result transmitted reference range : 150 - 328 10*3/ ?L. The reference r siddharth was not used to interpret this result as normal/abnormal . MPV (test code = 9.5 fL 9.8-13.0 L 62489-5) NRBC/100 WBC (test See_Comment [Automat ed code = 0023641988) message] The system which generated this result transmitted reference range : 0.0 - 10.0 /100 WBCs. The refer ence range was not u sed to interpret th is result as normal/abnormal . NRBC x10^3 (test code <0.01 See_Comment [Auto mated = 1905515779) message] The s ystem which generated this result transmitted reference range : 10*3/?L. The reference range was not used to interpret this result as normal/abnormal . GRAN MAT (NEUT) % 76.2 % (test code = 770-8) IMM GRAN % (test code 0.70 % = 4409913003) LYMPH % (test code = 10.3 % 736-9) MONO % (test code = 6.4 % 5905-5) EOS % (test code = 5.1 % 713-8) BASO % (test code = 1.3 % 706-2) GRAN MAT x10^3(ANC) 8.46 10*3/uL 1.99-6.95 H (test code = 8917021798) IMM GRAN x10^3 (test 0.08 10*3/uL 0.00-0.06 H code = 3673737340) LYMPH x10^3 (test code 1.14 10*3/uL 1.09-3.23 = 731-0) MONO x10^3 (test code 0.71 10*3/uL 0.36-1.02 = 742-7) EOS x10^3 (test code = 0.57 10*3/uL 0.06-0.53 H 711-2) BASO x10^3 (test code 0.14 10*3/uL 0.01-0.09 H = 704-7) Lab Interpretation Abnormal (test code = 04049-5) [facility]2021-[facility] 17:52:00 Test Item Value Reference Range Interpretation Comments Blood Glucose, Capillary (test code = 140 74-106 Blood Glucose, Capillary) [facility] coronavirus 2 RNA [Presence] in Respiratory specimen by SEBASTIÁN with probe [id number] 17:49:09 Test Item Value Reference Range Interpretation Comments SARS coronavirus 2 RNA Not detected Not-Detected [Presence] in Respiratory specimen by SEBASTIÁN with probe detection (test code = 59842-4) SARS coronavirus 2 RNA [Presence] in Respiratory specimen by SEBASTIÁN with probe [id number] 07:53:35 Test Item Value Reference Range Interpretation Comments SARS coronavirus 2 RNA Not detected Not-Detected [Presence] in Respiratory specimen by SEBASTIÁN with probe detection (test code = 74533-6) SARS coronavirus 2 RNA [Presence] in Respiratory specimen by SEBASTIÁN with probe [id number] 05:34:32 Test Item Value Reference Range Interpretation Comments SARS coronavirus 2 RNA Not detected Not-Detected [Presence] in Respiratory specimen by SEBASTIÁN with probe detection (test code = 18612-8) CT ABDOMEN PELVIS W [id number] 03:51:27 1. ?Focal circumferential thickening of the [...] (22.2 cm in the craniocaudal dimension). The hepa ticparenchyma is mildly heterogenous, suggestive of geographic regions [...] calcifications VESSELS: Calcifications of the ostium of the celiac trunk and proximal SHERRIE. BONES AND SOFT TISSUES: No suspicious lytic or sclerotic bony lesions. Diffuse caudal body wall anasarca. [facility], Radiant Results Inft User - 09/19/2019 10:52 PM CDTEXAM: CT ABDOMEN AND PELVIS WITH CONTRASTHISTORY: History of metastatic rectal cancer.COMPARISON: None.DOSE: Total exam DLP 642 mGy- cmTECHNIQUE AND FINDINGS: Contiguous axial imaging from the level of the lungbases through the pubic symphysis was performed after the uncomplicatedadministration of 120 cc of intravenous Omnipaque contrast. Coronal andsagittal reconstructions were obtained. Auto mA and/or iterative reconstruction were used to reduce radiation dose.FINDINGS:LOWER THORAX: The lungs bases are clear. Left lower lobe pleuralthickening. No cardiomegaly. Dense coronary arterial calcification of theleft anterior descending coronary artery. Multivessel coronarycalcifications.LIVER: Hepatomegaly (22.2 cm in the craniocaudal dimension). The hepaticparenchyma is mildly heterogenous, suggestive of geographic regions ofill-defined fatty sparing. No focal hepatic [...] node (2:2). Multiple nonspecificretroperitoneal lymph nodes as wellas lymph nodes at the root of themesentery [...] SHERRIE.BONES AND SOFT TISSUES: No suspicious lytic orsclerotic bony lesions.Diffuse caudal body wall anasarca.IMPRESSION1. Focal circumferential thickening of the rectum is consistent patient'shistory of known rectal malignancy. Locules of free air surrounding thisthickened segment of rectum likely represent contained perforation.2. 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 No perirenalfluid collections.4. Hepatosplenomegaly with diffuse hepatic steatosis.These findings were relayed to and acknowledged by at 2237 on09/19/2019.Preliminary Report Dictated by Resident: Bhavya Jay, Hugo Deluna MD., have reviewed this study and agree with the abovereport.[facility] TEST[facility]ULAR [id number] 02:41:28 No sonographic features of testicular torsion. Small left hydrocele, possibly reactive. PreliminaryReport Dictated by Resident: Jakob Watson I, Hugo Haque MD., have reviewed this study and agree [...] reviewed this study and agree with the abovereport.[facility]. METABOLIC PANEL (77070)2019-09-20 01:49:00 Test Item Value Reference Range Interpretation Comments NA (test code = 141 mmol/L 135-145 1347178747) K (test code = 4.2 mmol/L 3.5-5 0883205883) CL (test code = 100 mmol/L 98-108 7186504845) CO2 TOTAL (test code = 29 mmol/L 23-31 9526147472) AGAP (test code = 2-16 4288767198) BUN (test code = 20 mg/dL 7-23 9219872248) GLUCOSE (test code = 150 mg/dL 70-110 H 1089862423) CREATININE (test code = 0.96 mg/dL 0.6-1.25 5101202655) TOTAL BILI (test code = 0.4 mg/dL 0.1-1.4 1769753423) CALCIUM (test code = 8.8 mg/dL 8.6-10.6 3413685457) T PROTEIN (test code = 7.0 g/dL 6.3-8.2 9737841175) ALBUMIN (test code = 3.4 g/dL 3.5-5 L 4212458005) ALK PHOS (test code = 95 U/L 34-122 3837970146) ALTv (test code = 8 U/L 5-50 1742-6) AST(SGOT) (test code = 12 U/L 13-40 L 9095310271) eGFR Calculation mL/min/1.73m2 (Non-) (test code = 4598373777) eGFR Calculation mL/min/1.73m2 () (test code = 0450177566) CAROLIN (test code = CAROLIN) Association of [...] tests). Lab Interpretation Abnormal (test code = 68279-7) [facility]IS2020-06-17 01:39:00 Test Item Value Reference Range Interpretation Comments APPEARANCE (test code = Cloudy Clear A 0827265518) COLOR (test code = Yellow Yellow 5744911851) PH (test code = 4.8-8.0 9942398890) SP GRAVITY (test code = 1.003-1.030 2187801475) GLU U QUAL (test code = 500 mg/dL Normal A 6202472258) BLOOD (test code = 2+ Negative A 9694642289) KETONES (test code = Negative Negative 1601466464) PROTEIN (test code = 100 mg/dL Negative A 2887-8) UROBILIN (test code = Normal Normal 7922672383) BILIRUBIN (test code = Negative Negative 4776561671) NITRITE (test code = Negative Negative 3480886873) LEUK RALÚ (test code = 500/uL Negative A 2429642648) RBC/HPF (test code = See_Comment H [Autom ated message] 7922426641) The system [employer] generated this result transmit wesley reference range : 0 - 3 HPF. The refe rence range was not u sed to interpret th is result as normal/abnormal . WBC/HPF (test code = >182 See_Comment H [Autom ated message] 3942514261) The system [employer] generated this result transmit ewsley reference range : 0 - 5 HPF. The refe rence range was not u sed to interpret th is result as normal/abnormal . BACTERIA (test code = Many Negative A 9200261822) MUCOUS (test code = Slight Negative LPF A 2486564470) WBC CLUMPS (test code = See_Comment H [Au tomated message] 4255724433) The system [employer] generated this result transmit wesley reference range : <=1 HPF. The refere nce range was not u sed to interpret th is result as normal/abnormal . YEAST BUD (test code = See_Comment [Aut omated message] 8859171004) The system [employer] generated this result transmit wesley reference range : <=1 HPF. The refere nce range was not u sed to interpret th is result as normal/abnormal . Lab Interpretation (test Abnormal code = 04079-2) [facility] WITH [id number] 01:11:00 Test Item Value Reference Range Interpretation [...] RDW-SD (test code = 42.2 fL 38.5-51.6 51661-1) RDW-CV (test code = 14.5 % 12.1-15.4 788-0) PLT (test code = See_Comment H [Automated 777-3) message] The sy stem which generated this result transmitted reference range : 150 - 328 10*3/ ?L. The reference r siddharth was not used to interpret this result as normal/abnormal . MPV (test code = 8.8 fL 9.8-13 L 62186-6) NRBC/100 WBC (test See_Comment [Automat ed code = 8713079150) message] The system which generated this result transmitted reference range : 0.0 - 10.0 /100 WBCs. The refer ence range was not u sed to interpret th is result as normal/abnormal . NRBC x10^3 (test code <0.01 See_Comment [Auto mated = 9114314721) message] The s ystem which generated this result transmitted reference range : 10*3/?L. The reference range was not used to interpret this result as normal/abnormal . GRAN MAT (NEUT) % 78.5 % (test code = 770-8) IMM GRAN % (test code 0.60 % = 5926859709) LYMPH % (test code = 9.7 % 736-9) MONO % (test code = 7.3 % 5905-5) EOS % (test code = 3.0 % 713-8) BASO % (test code = 0.9 % 706-2) GRAN MAT x10^3(ANC) 7.75 10*3/uL 1.99-6.95 H (test code = 4908081489) IMM GRAN x10^3 (test 0.06 10*3/uL 0-0.06 code = 0399059536) LYMPH x10^3 (test code 0.96 10*3/uL 1.09-3.23 L = 731-0) MONO x10^3 (test code 0.72 10*3/uL 0.36-1.02 = 742-7) EOS x10^3 (test code = 0.30 10*3/uL 0.06-0.53 711-2) BASO x10^3 (test code 0.09 10*3/uL 0.01-0.09 = 704-7) Lab Interpretation Abnormal (test code = 74586-5) [facility], FLUORO, NON-SPECIFIC, UP TO 1 HOUR 2019-06-27 09:22:00Reason for exam:->ERCPFINAL REPORT A fluoroscopic unit was utilized for a procedure performed in the operating room. No interpretation was requested. Please refer to the operative report regarding findings. Please refer to PACS for patient radiation dose information. Signed: JR Robledo Robert MDReport Verified Date/Time: 06/27/2019 09:22:30 Reading Location: [facility] Radiology Reading Room TISSUE [id number] 19:28:00 Surgical Pathology Report Case: [id number] Authorizing Provider: Rubén Thakur MD Collected: 06/09/20198 Ordering Location: [address] Received: 06/12/2019 0849 Service Pathologist: Cristina Ruano MD Specimen: Gallbladder A. GALLBLADDER, CHOLECYSTECTOMY: - ACUTE GANGRENOUS CHOL ECYSTITIS WITH CHOLELITHIASIS - NEGATIVE FOR DYSPLASIA OR MALIGNANCY Signing Pathologist Direct Phone Line: [phone] signed by Cristina Ruano MD on 06/18/2019 at 7:28 [id number] cholecystitis Gallbladder Received in formalin labeled with [...] the cystic duct. The wall measures 0.3 cm thick. Hose Maker sections are submitted as follows in A1-A2, with the inked cystic structure margin in A1. PA/ew Performed.POCT-GLUCOSE [id number] 07:56:00 Test Item Value Reference Range Interpretation Comments POC-GLUCOSE METER 313 mg/dL 70-110 H : TESTED A T [facility] 6720 (BEAKER) (test code = RON ALDANA ID, 1538) 61409: [facility]/Techni edward ID = [id number] for TERESA CELESTE BASIC METABOLIC [id number] 05:30:00 Test Item Value Reference Range Interpretation [...] 1092) DATA TO CALCULA TE ESTIMATED GFR. [facility] ID - NICO [id number] 05:29:00 Test Item Value Reference Range Interpretation Comments PHOSPHORUS (BEAKER) (test code = 2.0 mg/dL 2.3-4.7 L 604) [facility] ID - PIDESIREE [id number] 05:29:00 Test Item Value Reference Range Interpretation Comments MAGNESIUM (BEAKER) (test code = 2.1 mg/dL 1.6-2.6 627) [facility] ID - PIAYA LHEPATIC FUNCTION [id number] 05:29:00 Test Item Value Reference Range Interpretation [...] (test code = 34 U/L 6-55 347) [facility] ID - PIAYA LCBC W/PLT COUNT & AUTO [id number] 05:07:00 Test Item Value Reference Range Interpretation [...] PERCENT (BEAKER) (test code = 2801) POCT-GLUCOSE [id number] 21:49:00 Test Item Value Reference Range Interpretation Comments POC-GLUCOSE METER 298 mg/dL 70-110 H : TESTED A T [facility] 6720 (BEAKER) (test code = [facility], 153) 37394: [facility]/Techni edward ID = [id number] for GR AHAM, DANIELLE POCT-GLUCOSE [id number] 16:11:00 Test Item Value Reference Range Interpretation Comments POC-GLUCOSE METER 250 mg/dL 70-110 H : TESTED A T [facility] 6720 (BEAKER) (test code = [facility], 153) 83247: [facility]/Techni edward ID = [id number] for SHIELDS-YANEZ, D OROTHY POCT-GLUCOSE [id number] 12:15:00 Test Item Value Reference Range Interpretation Comments POC-GLUCOSE METER 202 mg/dL 70-110 H : TESTED A T [facility] 6720 (BEAKER) (test code = [facility], 153) 03863: [facility]/Techni edward ID = [id number] for SHILEDS-YANEZ, D OROTHY POCT-GLUCOSE [id number] 08:23:00 Test Item Value Reference Range Interpretation Comments POC-GLUCOSE METER 206 mg/dL 70-110 H : TESTED Minerva Lawler [facility] 6720 (BEAKER) (test code = RON ALDANA ID, 1538) 29022: [facility]/Techni edward ID = [id number] for SHIELDS-YANEZ, D OROTHY CBC W/PLT COUNT & AUTO [id number] 07:45:00 Test Item Value Reference Range Interpretation [...] (BEAKER) (test code = 2801) BASIC METABOLIC [id number] 07:37:00 Test Item Value Reference Range Interpretation [...] 1092) DATA TO CALCULA TE ESTIMATED GFR. [facility] ID - NICO [id number] 07:33:00 Test Item Value Reference Range Interpretation Comments PHOSPHORUS (BEAKER) (test code = 3.5 mg/dL 2.3-4.7 604) [facility] ID - NICO [id number] 07:33:00 Test Item Value Reference Range Interpretation Comments MAGNESIUM (BEAKER) (test code = 2.0 mg/dL 1.6-2.6 627) [facility] ID - NICO LHEPATIC FUNCTION [id number] 07:33:00 Test Item Value Reference Range Interpretation [...] code = 57 U/L 6-55 H 347) [facility] ID - NICO LPOCT-GLUCOSE [id number] 21:46:00 Test Item Value Reference Range Interpretation Comments POC-GLUCOSE METER 258 mg/dL 70-110 H : TESTED A T [facility] 6720 (BEAKER) (test code = [facility], 1538) 56184: [facility]ist [facility]/Techni edward ID = [id number] for GR AHAM, DANIELLE POCT-GLUCOSE [id number] 16:01:00 Test Item Value Reference Range Interpretation Comments POC-GLUCOSE METER 229 mg/dL 70-110 H : TESTED A T [facility] 6720 (BEAKER) (test code = [facility], 1538) 61749: [facility]ist [facility]/Techni edward ID = [id number] for SHIELDS-YANEZ, D OROTHY CBC W/PLT COUNT & AUTO [id number] 06:42:00 Test Item Value Reference Range Interpretation [...] 0-1 PERCENT (BEAKER) (test code = 2801) [id number] 06:42:00 Test Item Value Reference Range Interpretation Comments PHOSPHORUS (BEAKER) (test code = 4.9 mg/dL 2.3-4.7 H 604) [facility] ID - SAMMY [id number] 06:42:00 Test Item Value Reference Range Interpretation Comments MAGNESIUM (BEAKER) (test code = 2.2 mg/dL 1.6-2.6 627) [facility] ID - SAMMY MHEPATIC FUNCTION [id number] 06:42:00 Test Item Value Reference Range Interpretation [...] code = 83 U/L 6-55 H 347) [facility] ID - SAMMY MBASIC METABOLIC [id number] 06:42:00 Test Item Value Reference Range Interpretation [...] 1092) DATA TO CALCULA TE ESTIMATED GFR. [facility] ID - SAMMY MPOCT-GLUCOSE [id number] 22:31:00 Test Item Value Reference Range Interpretation Comments POC-GLUCOSE METER 185 mg/dL 70-110 H : TESTED A T [facility] 6720 (BEAKER) (test code = RON [place], 1538) 55680: Pharmacist [facility]/Techni edwadr ID = [id number] for SA CO, JULIANNA POCT-GLUCOSE [id number] 18:54:00 Test Item Value Reference Range Interpretation Comments POC-GLUCOSE METER 165 mg/dL 70-110 H : TESTED A T [facility] 6720 (BEAKER) (test code = [facility], 1538) 21066: Pharmacist Hospital/Techni edward ID = [id number] for LILIBETH CORTEZ POCT-GLUCOSE [id number] 16:45:00 Test Item Value Reference Range Interpretation Comments POC-GLUCOSE METER 175 mg/dL 70-110 H : TESTED A T [facility] 6720 (BEAKER) (test code = [facility], 1538) 34986: Pharmacist Hospital/Techni edward ID = [id number] for MJ RHOADES POCT-GLUCOSE [id number] 13:11:00 Test Item Value Reference Range Interpretation Comments POC-GLUCOSE METER 212 mg/dL 70-110 H : TESTED A T [facility] 6720 (BEAKER) (test code = [facility], 1538) 62064: Pharmacist Hospital/Techni edward ID = [id number] for Blake OLEATHY BASIC METABOLIC [id number] 07:00:00 Test Item Value Reference Range Interpretation [...] 1092) DATA TO CALCULA TE ESTIMATED GFR. Pharmacist Hospital ID - SAMMY [id number] 06:51:00 Test Item Value Reference Range Interpretation Comments PHOSPHORUS (BEAKER) (test code = 4.0 mg/dL 2.3-4.7 604) Pharmacist Hospital ID - SAMMY [id number] 06:51:00 Test Item Value Reference Range Interpretation Comments MAGNESIUM (BEAKER) (test code = 2.1 mg/dL 1.6-2.6 627) Pharmacist Hospital ID - SAMMY MHEPATIC FUNCTION [id number] 06:51:00 Test Item Value Reference Range Interpretation [...] code = 125 U/L 6-55 H 347) Pharmacist Hospital ID - SAMMY MCBC W/PLT COUNT & AUTO [id number] 06:29:00 Test Item Value Reference Range Interpretation [...] (BEAKER) (test code = 2801) CREATININE, RANDOM [id number] 20:38:00 Test Item Value Reference Range Interpretation Comments CREATININE URINE (BEAKER) (test 28.9 mg/dL code = 375) Reference Range: No NormalsOperator ID - BSUREA NITROGEN, RANDOM [id number] 20:38:00 Test Item Value Reference Range Interpretation Comments UREA NITROGEN URINE (BEAKER) (test 213 mg/dL code = 538) Reference Range: No NormalsOperator ID - BSMR, ABDOMEN, [id number] 17:57:00 Reason for exam:->elevated lftsWhat is the patient's sedation requirement?- >No SedationIs the patient claustrophobic?->NoFINAL REPORT TECHNIQUE: MRI of the abdomen and MRCP WITHOUT intravenous contrast. 3- D volume reconstructions were obtained to evaluate the biliary ductal system. INDICATION: 54-year-old man with elevated LFTs and biliary obstruction suspected. COMPARISON: Abdomen ultrasound 06/08/2019. FINDINGS: ABSENCE OF INTRAVENOUS CONTRAST DECREASES SENSITIVITY FOR DETECTION OF FOCAL LESIONS AND VASCULAR PATHOLOGY. LOWER THORAX: Unremarkable. LIVER: No hepatic signal abnormality. No focal hepatic lesions. BILIARY: Gallbladder is contracted, limiting its evaluation. Apparent focal thickened wall of the midportion of the gallbladder. Punctate T1 hyperintense foci in the gallbladder lumen. No pe richolecystic edema/fluid. 0.5 cm round T2 hypointense filling defect in the distal common bile duct, likely a stone. Intrahepatic and extrahepatic bile ducts are normal in caliber.SPLEEN: No splenomegaly.PANCREAS: No focal masses or ductal dilatation. ADRENALS: No adrenal nodules.KIDNEYS/URETERS: No h ydronephrosis or solid mass lesions. PERITONEUM/RETROPERITONEUM: No free fluid.LYMPH NODES: No lymphadenopathy.VESSELS: Unremarkable. GI TRACT: No distention or wall thickening. BONES AND SOFT TISSUES:Unremarkable. IMPRESSION:Contracted gallbladder with apparent focal thickened wall in its midportion. This finding is nonspecific, however sessile gallbladder polyp/neoplasm cannot be excluded. Suspected gallbladder sludge and/or cholelithiasis. Choledocholithiasis in the distal common bile duct without biliary ductal dilatation. Signed: Nimo De Dios MDReport Verified Date/Time: 06/08/2019 17:57:22 Reading Location: [address] Body Reading Room POCT- GLUCOSE [id number] 17:01:00 Test Item Value Reference Range Interpretation Comments POC-GLUCOSE METER 309 mg/dL 70-110 H : TESTED A T [facility] 6720 (BENELY) (test code = [facility], 1538) 83951: Pharmacist Hospital/Techni edward ID = [id number] for DA VIS, KEYAIRA U/S, ABDOMINAL, [id number] 10:54:00Abdomen limited area? Add comment if clarification [...] of the gallbladder may represent stones or sludge.The spleen measures 12 cm no splenic masses visualized. The pancreas is within normal limits. No ascites is present. The right kidney measures 12.6 x 6.6 x 5.9 cm and left kidney measures 11.6 x 6.4 x 4.9 cm, both within normal limits. No pleural effusions are seen. The proximal aorta and IVC are unremarkable. Doppler interrogation of the liver demonstrates a main portal vein diameter measuring 8.6 cm with a peak systolic velocity of 26 cm/sec. Hepatopetal inflow is seen in the right, left, main port al and splenic veins. The resistive indices in the proper, right and left hepatic arteries are 0.7, 0.6, and 0.6 respectively. Outflow with appropriate directionality is seen in the IVC, hepatic venousconfluence as well as the right, middle and left hepatic veins. Impression: 1. Markedly contracted ga llbladder with possible stones or sludge. Recommend HIDA scan to exclude cholecystitis.2. Normal hepatic Doppler. Signed: Ashkan Palmer MDReport Verified Date/Time: 06/08/2019 10:54:35 Reading Location: [address] Radiology Reading Room U/S, DUPLEX, [id number] 10:54:00Reason for exam:- >Rule out portal vein thrombosisShould this be performed [...] duct measuring 3.2 mm. The gallbladder is marke dly contracted. Echogenic foci seen in the region of the gallbladder may represent stones or sludge.The spleen measures 12 cm no splenic masses visualized. The pancreas is within normal limits. No ascites is present. The right kidney measures 12.6 x 6.6 x 5.9 cm and left kidney measures 11.6 x 6.4 x 4.9 cm, both within normal limits. No pleural effusions are seen. The proximal aorta and IVC are unremarkable. Doppler interrogation of the liver demonstrates a main portal vein diameter measuring 8.6 cm with a peak systolic velocity of 26 cm/sec. Hepatopetal inflow is seen in the right, left, main portal and splenic veins. The resistive indices in the proper, right and left hepatic arteries are 0.7, 0.6, and 0.6 respectively. Outflow with appropriate directionality is seen in the IVC, hepatic venousconfluence as well as the right, middle and left hepatic veins. Impression: 1. Markedly contracted gallbladder with possible stones or sludge. Recommend HIDA scan to exclude cholecystitis.2. Normal hepatic Doppler. Signed: Ashkan Palmereport Verified Date/Time: 06/08/2019 10:54:35 Reading Location: [address] Radiology Reading Room Electronically signed by: ASHKAN PALMER MD on06/08/2019 10:54 AMCOMPREHENSIVE METABOLIC [id number] 07:11:00 Test Item Value Reference Range Interpretation [...] 1092) DATA TO CALCULA TE ESTIMATED GFR. Pharmacist Hospital ID - TYRA WSpecimen slightly [id number] 07:02:00 Test Item Value Reference Range Interpretation Comments LIPASE (BEAKER) (test code = 749) 52 U/L 8-78 Pharmacist Hospital ID - TYRA WSpecimen slightly ictericCBC W/PLT COUNT & AUTO [id number] 06:41:00 Test Item Value Reference Range Interpretation [...] (BEAKER) (test code = 2801) COMPREHENSIVE METABOLIC [id number] 04:22:00 Test Item Value Reference Range Interpretation [...] 1092) DATA TO CALCULA TE ESTIMATED GFR. Pharmacist Hospital ID Jie Barakat slightly ictericHEPATIC FUNCTION [id number] 04:05:00 Test Item Value Reference Range Interpretation [...] code = 208 U/L 6-55 H 347) Pharmacist Hospital ID Jie Barakat slightly ictericCBC W/PLT COUNT & AUTO [id number] 03:43:00 Test Item Value Reference Range Interpretation [...] 31A) 62 IU/L <=78 CBC (INCLUDES AUTOMATED DIFFERENTIAL)*[id number] 03:22:00 Test Item Value Reference Range Interpretation [...] = NORMAL WRBCMOR) GLUCOMETER GLUCOSE- LAB USE [id number] 20:50:00 Test Item Value Reference Range Interpretation Comments GLUCOMETER (test code 438 mg/dL 70-100 H CLEANE D METERMeter ID: = GMG) [id number] tor: 3103 EPI FLORES GLUCOMETER GLUCOSE- LAB USE [id number] 20:48:00 Test Item Value Reference Range Interpretation Comments GLUCOMETER (test code 264 mg/dL 70-100 H CLEANE D METERMeter ID: = GMG) [id number] tor: 3103 EPI FLORES GLUCOMETER GLUCOSE- LAB USE [id number] 17:04:00 Test Item Value Reference Range Interpretation Comments GLUCOMETER (test code = 350 mg/dL 70-100 H Mete r ID: GMG) [id number] tor: 9507 HAYDE K AUR GLUCOMETER GLUCOSE- LAB USE [id number] 12:36:00 Test Item Value Reference Range Interpretation Comments GLUCOMETER (test code = 138 mg/dL 70-100 H Mete r ID: GMG) [id number] tor: 9507 HAYDE K AUR GLUCOMETER GLUCOSE- LAB USE [id number] 08:47:00 Test Item Value Reference Range Interpretation Comments GLUCOMETER (test code = 140 mg/dL 70-100 H Mete r ID: GMG) [id number] tor: 9507 HAYDE K AUR GLYCOHEMOGLOBIN *WW*2019-06-05 [...] 2.8 mg/dL 1.8-2.4 H CBC (INCLUDES AUTOMATED DIFFERENTIAL)*[id number] 05:07:00 Test Item Value Reference Range Interpretation [...] = NORMAL WRBCMOR) GLUCOMETER GLUCOSE- LAB USE [id number] 04:53:00 Test Item Value Reference Range Interpretation Comments GLUCOMETER (test code 240 mg/dL 70-100 H CLEANE D METERMeter ID: = GMG) [id number] tor: 5533 SG WAR A COMPREHENSIVE METABOLIC [...] 4.9 0.0-3.4 H GLUCOMETER GLUCOSE- LAB USE [id number] 00:29:00 Test Item Value Reference Range Interpretation Comments GLUCOMETER (test code 299 mg/dL 70-100 H CLEANE D METERMeter ID: = GMG) [id number] tor: 5533 SG WAR A MAGNESIUM WW2019-06-05 00:29:00 Test Item Value Reference Range Interpretation Comments MAGNESIUM (test code = 48A) 2.5 mg/dL 1.8-2.4 H CBC (INCLUDES AUTOMATED DIFFERENTIAL)*[id number] 00:18:00 Test Item Value Reference Range Interpretation [...] = NORMAL WRBCMOR) GLUCOMETER GLUCOSE- LAB USE [id number] 20:50:00 Test Item Value Reference Range Interpretation Comments GLUCOMETER (test code 306 mg/dL 70-100 H CLEANE D METERMeter ID: = GMG) [id number] tor: 2013 ADRIANNA MORALES ELECTROPHORESIS, [id number] 18:20:00 Test Item Value Reference Range Interpretation Comments T PROTEIN (test code = 5.7 g/dL 6.3-8.2 L 9033681452) ALBUMIN (test code = 2.4 g/dL 3-4.8 L 1649558333) ALPHA 1 (test code = 0.4 g/dL 0.2-0.4 8734964432) ALPHA 2 (test code = 1.2 g/dL 0.6-1.2 5804546447) BETA (test code = 0.9 g/dL 0.7-1.4 5241015392) GAMMA (test code = 0.8 g/dL 1-1.8 L 6891227257) Electrophoresis M-spike present in the Interpretation (test gamma region of serum code = 9595820493) (0.2 g/dL) (identified as IgM-Driggs by immunofixation electrophoresis) and urine (identified as free kappa light chain by immunofixation electrophoresis).Moder ate hypoalbuminemia. Hypogammaglobulinemia. Non-selective proteinuria. Lab Interpretation Abnormal (test code = 11630-5) [facility] LakeIMMUNOFIXATION, [id number] 18:19:00 Test Item Value Reference Range Interpretation Comments T PROTEIN (test code = 5.8 g/dL 6.3-8.2 L 4943904163) ALBUMIN (test code = 2.8 g/dL 3.5-5 L 9633546246) IgG (test code = 665 mg/dL 636-1600 5191124477) IgA (test code = 316 mg/dL 70-312 H 4371375577) IgM (test code = 222 mg/dL 56-352 8043667289) VAL INTERP (test code = M-spike present in 0241297706) the gamma region of serum, identified as IgM-Driggs. There is an additional faint band present in urine identified as kappa free light chain. ?Gamma globulin at upper limit of normal in serum, IgA. Lab Interpretation (test Abnormal code = 04759-1) [facility] GL[facility] (AUTOMATED)2019-05-25 17:37:00 Test Item Value Reference Range Interpretation Comments POCT GLU (test code = 8282586150) 242 mg/dL 70-110 H Lab Interpretation (test code = Abnormal 37300-4) [facility] Lake[facility]OVA GLUCOSE (AUTOMATED)2019-05-25 14:18:00 Test Item Value Reference Range Interpretation Comments POCT GLU (test code = 3721117586) 184 mg/dL 70-110 H Lab Interpretation (test code = Abnormal 59999-2) [facility] LakeN-TERMINAL [id number] 12:16:00 Test Item Value Reference Range Interpretation Comments NT-proBNP (test code 1630 pg/mL See_Comment H [Autom ated = 7681048821) message] The system which generated this result transmitted reference range : <=125. The reference range was not used to interpret this result as normal/abnormal . CAROLIN (test code = CAROLIN) Biotin has been reported to cause a negative bias, interpret results relative to patient's use of biotin. Lab Interpretation Abnormal (test code = 54935-4) [facility] METABOLIC PANEL (NA, K, CL, CO2, GLUCOSE, BUN, CREATININE, CA)2019-05-25 12:09:00 Test Item Value Reference Range Interpretation Comments NA (test code = 136 mmol/L 135-145 4620497093) K (test code = 4.5 mmol/L 3.5-5 3577315846) CL (test code = 101 mmol/L 98-108 9530804546) CO2 TOTAL (test code = 26 mmol/L 23-31 3949353619) AGAP (test code = 2-16 9248222775) BUN (test code = 44 mg/dL 7-23 H 1809818478) GLUCOSE (test code = 215 mg/dL 70-110 H 8665626872) CREATININE (test code = 1.27 mg/dL 0.6-1.25 H 2878964970) CALCIUM (test code = 8.9 mg/dL 8.6-10.6 6282398823) eGFR Calculation mL/min/1.73m2 (Non-) (test code = 6161675513) eGFR Calculation mL/min/1.73m2 () (test code = 5873780627) CAROLIN (test code = CAROLIN) Association of [...] tests). Lab Interpretation Abnormal (test code = 53580-3) [facility] GLUCOSE (AUTOMATED)2019-05-25 06:20:00 Test Item Value Reference Range Interpretation Comments POCT GLU (test code = 2188982901) 296 mg/dL 70-110 H Lab Interpretation (test code = Abnormal 76656-0) [facility] GLUCOSE (AUTOMATED)2019-05-25 02:54:00 Test Item Value Reference Range Interpretation Comments POCT GLU (test code = 8333680053) 316 mg/dL 70-110 H Lab Interpretation (test code = Abnormal 99572-8) [facility] GLUCOSE (AUTOMATED)2019-05-24 23:20:00 Test Item Value Reference Range Interpretation Comments POCT GLU (test code = 1585932459) 236 mg/dL 70-110 H Lab Interpretation (test code = Abnormal 83311-6) [facility] LakeGB AB, IGG (IFA)2019-05-24 19:08:00 Test Item Value Reference Range Interpretation Comments GBM IgG(IFA) Negative Negative Specimen is he molyzed. (test code = Results may be adversely 70020-3) affected.INTERP RETIVE INFORMATION: ?G BM Ab, IgG [...] be confi rmed by renal biopsy. Test de veloped and characteristics determined by [facility]. See Compliance Stat ement D: Weele/CSP erformed by [facility],[address], [place] [address] vrg .[facility], Jimmie Womack MD, Lab. [facility] (AUTOM[facility])2019-05-24 17:55:00 Test Item Value Reference Range Interpretation Comments POCT GLU (test code = 1982502768) 234 mg/dL 70-110 H Lab Interpretation (test code = Abnormal 04884-2) [facility] GLUCOSE (AUTOMATED)2019-05-24 13:46:00 Test Item Value Reference Range Interpretation Comments POCT GLU (test code = 0573175904) 193 mg/dL 70-110 H Lab Interpretation (test code = Abnormal 13917-1) [facility] (NA, K, CL, CO2, GLUCOSE, BUN, CREATININE, CA)2019-05-24 12:42:00 Test Item Value Reference Range Interpretation Comments NA (test code = 136 mmol/L 135-145 8602172547) K (test code = 4.3 mmol/L 3.5-5 5182091929) CL (test code = 99 mmol/L 98-108 2130261503) CO2 TOTAL (test code = 27 mmol/L 23-31 9513467180) AGAP (test code = 2-16 2588084083) BUN (test code = 40 mg/dL 7-23 H 7708934241) GLUCOSE (test code = 202 mg/dL 70-110 H 5471723359) CREATININE (test code = 1.26 mg/dL 0.6-1.25 H 1689308124) CALCIUM (test code = 8.4 mg/dL 8.6-10.6 L 0146690297) eGFR Calculation mL/min/1.73m2 (Non-) (test code = 4039129144) eGFR Calculation mL/min/1.73m2 () (test code = 3037193051) CAROLIN (test code = CAROLIN) Association of [...] tests). Lab Interpretation Abnormal (test code = 77730-9) [facility] WITH [id number] 12:15:00 Test Item Value Reference Range Interpretation [...] RDW-SD (test code = 47.8 fL 38.5-51.6 54585-0) RDW-CV (test code = 15.0 % 12.1-15.4 788-0) PLT (test code = See_Comment H [Automated 777-3) message] The sy stem which generated this result transmitted reference range : 150 - 328 10*3/ ?L. The reference r siddharth was not used to interpret this result as normal/abnormal . MPV (test code = 10.0 fL 9.8-13 60810-1) NRBC/100 WBC (test See_Comment [Automat ed code = 6713552883) message] The system which generated this result transmitted reference range : 0.0 - 10.0 /100 WBCs. The refer ence range was not u sed to interpret th is result as normal/abnormal . NRBC x10^3 (test code <0.01 See_Comment [Auto mated = 8556002586) message] The s ystem which generated this result transmitted reference range : 10*3/?L. The reference range was not used to interpret this result as normal/abnormal . GRAN MAT (NEUT) % 65.5 % (test code = 770-8) IMM GRAN % (test code 0.70 % = 8638189794) LYMPH % (test code = 17.8 % 736-9) MONO % (test code = 7.6 % 5905-5) EOS % (test code = 7.1 % 713-8) BASO % (test code = 1.3 % 706-2) GRAN MAT x10^3(ANC) 4.40 10*3/uL 1.99-6.95 (test code = 6203846242) IMM GRAN x10^3 (test 0.05 10*3/uL 0-0.06 code = 4709389927) LYMPH x10^3 (test code 1.20 10*3/uL 1.09-3.23 = 731-0) MONO x10^3 (test code 0.51 10*3/uL 0.36-1.02 = 742-7) EOS x10^3 (test code = 0.48 10*3/uL 0.06-0.53 711-2) BASO x10^3 (test code 0.09 10*3/uL 0.01-0.09 = 704-7) Lab Interpretation Abnormal (test code = 03280-7) [facility] GLUCOSE (AUTOMATED)2019-05-24 07:05:00 Test Item Value Reference Range Interpretation Comments POCT GLU (test code = 1479191529) 249 mg/dL 70-110 H Lab Interpretation (test code = Abnormal 12527-9) [facility] GLUCOSE (AUTOMATED)2019-05-24 01:27:00 Test Item Value Reference Range Interpretation Comments POCT GLU (test code = 9128226654) 301 mg/dL 70-110 H Lab Interpretation (test code = Abnormal 99926-9) [facility] LakeNEUTROPHIL CYTOPLASMIC AB, [id number] 22:59:00 Test Item Value Reference Range Interpretation Comments ANCA TITER (test code <1:20 See_Comment The AN CA IFA is <1:20; = 54849-0) therefore, no f urther testing will be [...] vascul ar disease or arthritis.Pe rformed by [facility],[address], [place] [address] mnx .[facility] , Jimmie Womack MD, Lab. Director [Autom ated message] The sy stem which generated this result transmitted ref erence range: <1:20. T he reference range was not u sed to interpret this result as normal/abnormal . [facility] (AUTOMATED)2019-05-23 22:28:00 Test Item Value Reference Range Interpretation Comments POCT GLU (test code = 6172305442) 239 mg/dL 70-110 H Lab Interpretation (test code = Abnormal 37254-8) [facility] LakeElectrophoresis, [id number] 20:20:00 Test Item Value Reference Range Interpretation Comments ALB U EP (test code = 1754-1) 2+ [facility] LakeVITAMIN B1 (THIAMINE), WHOLE [id number] 19:41:00 Test Item Value Reference Range Interpretation Comments Vitamin B1, Whole 52 nmol/L 70-180 L INTERPRETI VE Blood (test code = INFORMATI ON: Vitamin 68325-6) B1, Whole Blood This assay measures the concentration o f thiamine diphos phate (TDP), the prim pierre active form of vitamin B1. Approximate ly 90 percent of rene min B1 present in whol e blood is TDP. Thiamin e and thiamine monophosphate, which comprise the re maining 10 percent, are not measured. Test developed and characteristics determined by [facility]. S ee Compliance Stat ement B: Weele/CSP erforme d by [employer],[address] [place] [address] azo .[employer], Jimmie Young MD, Lab. Direct or Lab Interpretation Abnormal (test code = 42263-5) [facility] LakeANTI-NUCLEAR ANTIBODY [id number] 19:16:00 Test Item Value Reference Range Interpretation Comments FRANKY (test code = Negative Negative 2944542287) CAROLIN (test code = CAROLIN) Negative - [...] separately. Lab Interpretation (test Normal code = 43441-1) [facility] GLUCOSE (AUTOMATED)2019-05-23 18:58:00 Test Item Value Reference Range Interpretation Comments POCT GLU (test code = 6063154423) 174 mg/dL 70-110 H Lab Interpretation (test code = Abnormal 60926-0) [facility] GLUCOSE (AUTOMATED)2019-05-23 17:17:00 Test Item Value Reference Range Interpretation Comments POCT GLU (test code = 3707360463) 281 mg/dL 70-110 H Lab Interpretation (test code = Abnormal 82939-1) [facility] METABOLIC PANEL (NA, K, CL, CO2, GLUCOSE, BUN, CREATININE, CA)2019-05-23 10:25:00 Test Item Value Reference Range Interpretation Comments NA (test code = 135 mmol/L 135-145 7577488308) K (test code = 4.3 mmol/L 3.5-5 0589962401) CL (test code = 99 mmol/L 98-108 9193748445) CO2 TOTAL (test code = 28 mmol/L 23-31 4573305017) AGAP (test code = 2-16 4315788773) BUN (test code = 34 mg/dL 7-23 H 2838291422) GLUCOSE (test code = 230 mg/dL 70-110 H 8751099782) CREATININE (test code = 1.13 mg/dL 0.6-1.25 3806597814) CALCIUM (test code = 8.6 mg/dL 8.6-10.6 3399694131) eGFR Calculation mL/min/1.73m2 (Non-) (test code = 8584588019) eGFR Calculation mL/min/1.73m2 () (test code = 3813449964) CAROLIN (test code = CAROLIN) Association of [...] tests). Lab Interpretation Abnormal (test code = 24745-8) [facility] GLUCOSE (AUTOMATED)2019-05-23 02:02:00 Test Item Value Reference Range Interpretation Comments POCT GLU (test code = 8686648457) 289 mg/dL 70-110 H Lab Interpretation (test code = Abnormal 77095-2) [facility] GLUCOSE (AUTOMATED)2019-05-22 22:38:00 Test Item Value Reference Range Interpretation Comments POCT GLU (test code = 5257954414) 228 mg/dL 70-110 H Lab Interpretation (test code = Abnormal 48520-4) [facility] GLUCOSE (AUTOMATED)2019-05-22 17:22:00 Test Item Value Reference Range Interpretation Comments POCT GLU (test code = 1990163923) 201 mg/dL 70-110 H Lab Interpretation (test code = Abnormal 15821-5) [facility] LakeUS RETROPERITONEAL [id number] 17:06:40 Unremarkable sonographic appearance of kidneys and bladder. EXAM: US RETROPERITONEAL COMPLETE HISTORY: 54 year-old man with CHRISTIANO . TECHNIQUE: Ultrasound of kidneys and bladder was performed with grayscaleand selected color Doppler imaging. Hose Maker images were obtained forthe record. COMPARISON: None [...] unremarkable OTHER: None. [facility], Radiant Results Inft User - 05/22/2019 11:07 AM CSTEXAM: US RETROPERITONEAL COMPLETEHISTORY: 54 year-old man with CHRISTIANO .TECHNIQUE: Ultrasound of kidneys and bladder was performed with grayscaleand selected color Doppler imaging. Hose Maker images were obtained forthe record.COMPARISON: NoneFINDINGS: KIDNEYS:RIGHT:Length: Normal,11.7 cm.Parenchyma: Normal renal cortical echogenicity and thickness. No focalsolid or cystic renal lesions are detected.Collecting System: No hydronephrosis.Other: None.LEFT:Length: Normal, 11.9 cm.Parenchyma: Normal renal cortical echogenicity and thickness. No focalsolid or cystic renal lesions aredetected.Collecting System: No hydronephrosis.Other: None.BLADDER: Bladder is distended and unremarkableOTHER: None.IMPRESSIONUnremarkable sonographic appearance of kidneys and bladder. [facility] LakeP[facility] GLUCOSE (AUTOMATED)2019-05-22 13:42:00 Test Item Value Reference Range Interpretation Comments POCT GLU (test code = 3054745277) 162 mg/dL 70-110 H Lab Interpretation (test code = Abnormal 12800-9) [facility] Lake[facility] METABOLIC PANEL (NA, K, CL, CO2, GLUCOSE, BUN, CREATININE, CA)2019-05-22 12:05:00 Test Item Value Reference Range Interpretation Comments NA (test code = 137 mmol/L 135-145 6940848392) K (test code = 3.8 mmol/L 3.5-5 0206425165) CL (test code = 101 mmol/L 98-108 5366784986) CO2 TOTAL (test code = 30 mmol/L 23-31 3758911037) AGAP (test code = 2-16 1264408838) BUN (test code = 30 mg/dL 7-23 H 7988230747) GLUCOSE (test code = 204 mg/dL 70-110 H 0729501381) CREATININE (test code = 1.08 mg/dL 0.6-1.25 2036621185) CALCIUM (test code = 8.3 mg/dL 8.6-10.6 L 1576496600) eGFR Calculation mL/min/1.73m2 (Non-) (test code = 7503511361) eGFR Calculation mL/min/1.73m2 () (test code = 2024234511) CAROLIN (test code = CAROLIN) Association of [...] tests). Lab Interpretation Abnormal (test code = 59783-4) [facility] 12[facility]05:00 Test Item Value Reference Range Interpretation Comments MAGNESIUM (test code = 8556174377) 2.2 mg/dL 1.7-2.4 Lab Interpretation (test code = Normal 75441-2) [facility] GLUCOSE (AUTOMATED)2019-05-22 03:38:00 Test Item Value Reference Range Interpretation Comments POCT GLU (test code = 9230645294) 274 mg/dL 70-110 H Lab Interpretation (test code = Abnormal 34502-7) [facility] GLUCOSE (AUTOMATED)2019-05-21 22:57:00 Test Item Value Reference Range Interpretation Comments POCT GLU (test code = 8245020201) 238 mg/dL 70-110 H Lab Interpretation (test code = Abnormal 12278-7) [facility] GLUCOSE (AUTOMATED)2019-05-21 17:37:00 Test Item Value Reference Range Interpretation Comments POCT GLU (test code = 7152594341) 213 mg/dL 70-110 H Lab Interpretation (test code = Abnormal 08703-1) [facility] LakeMICROALBUMIN [id number] 15:31:00 Test Item Value Reference Interpretation Comments Range CREAT U (test code 72.2 mg/dL = 4324853776) MICROALB U (test 1380 ug/mL 0-45 H code = 32417-4) MICROAL/CR (test See_Comment H [Automated code = 9318-7) message] The system which generated this result transmitted reference range: 0 - 30 mg/g of creatinine. The reference range was not used to interpret this result as normal/abnormal . CAROLIN (test code = Normal: <30 mg/g CAROLIN) creatinineMicroalbuminu tala: 30 - 299 mg/g creatinineClinical albuminuria: > 300 mg/g creatinine Lab Interpretation Abnormal (test code = 58315-6) [facility] GLUCOSE (AUTOMATED)2019-05-21 13:55:00 Test Item Value Reference Range Interpretation Comments POCT GLU (test code = 1298132819) 153 mg/dL 70-110 H Lab Interpretation (test code = Abnormal 40968-4) [facility] (NA, K, CL, CO2, GLUCOSE, BUN, CREATININE, CA)2019-05-21 10:28:00 Test Item Value Reference Range Interpretation Comments NA (test code = 137 mmol/L 135-145 2483765278) K (test code = 3.7 mmol/L 3.5-5 5003018762) CL (test code = 101 mmol/L 98-108 5902183401) CO2 TOTAL (test code = 31 mmol/L 23-31 6119515954) AGAP (test code = 2-16 0003920423) BUN (test code = 24 mg/dL 7-23 H 3818514320) GLUCOSE (test code = 199 mg/dL 70-110 H 2490618941) CREATININE (test code = 1.08 mg/dL 0.6-1.25 5804902646) CALCIUM (test code = 8.2 mg/dL 8.6-10.6 L 6683679951) eGFR Calculation mL/min/1.73m2 (Non-) (test code = 0669657847) eGFR Calculation mL/min/1.73m2 () (test code = 8395853008) CAROLIN (test code = CAROLIN) Association of [...] tests). Lab Interpretation Abnormal (test code = 29602-3) [facility] GLUCOSE (AUTOMATED)2019-05-21 01:54:00 Test Item Value Reference Range Interpretation Comments POCT GLU (test code = 6601910678) 240 mg/dL 70-110 H Lab Interpretation (test code = Abnormal 33574-7) [facility] GLUCOSE (AUTOMATED)2019-05-20 22:11:00 Test Item Value Reference Range Interpretation Comments POCT GLU (test code = 3493508601) 207 mg/dL 70-110 H Lab Interpretation (test code = Abnormal 94359-1) [facility] LakeRHEUMATOID [id number] 19:22:00 Test Item Value Reference Range Interpretation Comments RF (test code = <20 See_Comment [Automated message] 0173077648) The system [employer] generated this result transmitted ref erence range: <20 IU/m L. The reference range was not used to int erpret this result as normal/abnormal . Lab Interpretation (test Normal code = 35828-6) [facility] B SURFACE [id number] 17:41:00 Test Item Value Reference Range Interpretation Comments HBsAB (test code = Negative 1748721002) HBsAb mIU/mL Semi-Quantitative (test code = 3994248481) CAROLIN (test code = Interpretation: CAROLIN) ?Hepatitis B Surface Antibody ? Negative - Patient is considered to be not immune to infection with HBV. ? ? Positive - Anti-HBs detected at greater than or equal to 12 mIU/mL. ?Patient is considered to be immune to infection with HBV. ? [facility] LakeHCV [id number] 17:41:00 Test Item Value Reference Range Interpretation Comments HCV Ab (test code = 40875-2) Negative HCV Semi-Quantitative (test code = 65875-1) [facility] LakeHBC ANTIBODY (IGM & IGG)2019-05-20 17:41:00 Test Item Value Reference Range Interpretation Comments HBC (test code = 0766633494) Negative HBC Semi-Quantitative (test code = 4131776932) [facility] GLUCOSE (AUTOMATED)2019-05-20 17:40:00 Test Item Value Reference Range Interpretation Comments POCT GLU (test code = 4195272876) 195 mg/dL 70-110 H Lab Interpretation (test code = Abnormal 93198-2) [facility] B SURFACE [id number] 17:22:00 Test Item Value Reference Range Interpretation Comments HBsAg Semi-Quantitative (test code = Negative Negative 5195-3) [facility] LakeURINALYSIS2020-02-15 14:59:00 Test Item Value Reference Range Interpretation Comments APPEARANCE (test code = Clear Clear 4679320295) COLOR (test code = Zuleyma Yellow A 2899702409) PH (test code = 4.8-8.0 8314320711) SP GRAVITY (test code = 1.003-1.030 7552627122) GLU U QUAL (test code = 500 mg/dL Normal A 0942048950) BLOOD (test code = 1+ Negative A 4414435095) KETONES (test code = Negative Negative 2309195227) PROTEIN (test code = 100 mg/dL Negative A 2887-8) UROBILIN (test code = 4.0 mg/dL Normal A 1540842219) BILIRUBIN (test code = 2 mg/dL Negative A 5394968802) NITRITE (test code = Negative Negative 4432122473) LEUK RAÚL (test code = Negative Negative 6195175575) RBC/HPF (test code = See_Comment H [Autom ated message] 0546954113) The system [employer] generated this result transmit wesley reference range : 0 - 3 HPF. The refe rence range was not u sed to interpret th is result as normal/abnormal . WBC/HPF (test code = See_Comment [Autom ated message] 7824109834) The system [employer] generated this result transmit wesley reference range : 0 - 5 HPF. The refe rence range was not u sed to interpret th is result as normal/abnormal . BACTERIA (test code = Few Negative A 7382023536) MUCOUS (test code = Slight Negative LPF A 9868129326) Lab Interpretation (test Abnormal code = 15193-6) [facility] Lake[facility] GLUCOSE (AUTOMATED)2019-05-20 13:41:00 Test Item Value Reference Range Interpretation Comments POCT GLU (test code = 1489859171) 191 mg/dL 70-110 H Lab Interpretation (test code = Abnormal 50055-1) [facility] METABOLIC PANEL (NA, K, CL, CO2, GLUCOSE, BUN, CREATININE, CA)2019-05-20 11:39:00 Test Item Value Reference Range Interpretation Comments NA (test code = 137 mmol/L 135-145 2146852018) K (test code = 4.5 mmol/L 3.5-5 0823451705) CL (test code = 101 mmol/L 98-108 1604792164) CO2 TOTAL (test code = 32 mmol/L 23-31 H 1046200274) AGAP (test code = 2-16 6485561767) BUN (test code = 20 mg/dL 7-23 3309832364) GLUCOSE (test code = 195 mg/dL 70-110 H 7285535305) CREATININE (test code = 0.87 mg/dL 0.6-1.25 5787428860) CALCIUM (test code = 8.5 mg/dL 8.6-10.6 L 1556819479) eGFR Calculation mL/min/1.73m2 (Non-) (test code = 2186819185) eGFR Calculation mL/min/1.73m2 () (test code = 1650008662) CAROLIN (test code = CAROLIN) Association of [...] tests). Lab Interpretation Abnormal (test code = 56082-9) [facility]IUM2020-02-15 11:39:00 Test Item Value Reference Range Interpretation Comments MAGNESIUM (test code = 5301599888) 2.1 mg/dL 1.7-2.4 Lab Interpretation (test code = Normal 22399-2) [facility] LakePHOSPHORUS2020-02-15 11:39:00 Test Item Value Reference Range Interpretation Comments PHOSPHORUS (test code = 6891435675) 3.4 mg/dL 2.5-5 Lab Interpretation (test code = Normal 50928-8) [facility] GLUCOSE (AUTOMATED)2019-05-20 02:21:00 Test Item Value Reference Range Interpretation Comments POCT GLU (test code = 9407793249) 284 mg/dL 70-110 H Lab Interpretation (test code = Abnormal 89034-9) [facility] GLUCOSE (AUTOMATED)2019-05-19 22:36:00 Test Item Value Reference Range Interpretation Comments POCT GLU (test code = 5228068288) 235 mg/dL 70-110 H Lab Interpretation (test code = Abnormal 85664-9) [facility] GLUCOSE (AUTOMATED)2019-05-19 18:01:00 Test Item Value Reference Range Interpretation Comments POCT GLU (test code = 3467357040) 284 mg/dL 70-110 H Lab Interpretation (test code = Abnormal 10814-8) [facility] LakeVITAMIN B12, [id number] 17:49:00 Test Item Value Reference Range Interpretation Comments VIT B12 (test code = 331 pg/mL 240-930 3381357534) CAROLIN (test code = CAROLIN) Biotin has been reported to cause a positive bias, interpret results relative to patient's use of biotin. Lab Interpretation (test Normal code = 09271-1) [facility] LakeFOLATE2020-02-14 17:49:00 Test Item Value Reference Range Interpretation Comments FOLATE SER (test code = 9.1 ng/mL 3-20 Biot in has been 7499123034) reported to cau se a positive bias, interpret resul ts relative to patient's use o f biotin. Lab Interpretation (test Normal code = 64198-9) [facility] LakeVITAMIN D, [id number] 17:03:00 Test Item Value Reference Range Interpretation Comments VIT D 25OH (test code = <13 25-80 L 80459-1) CAROLIN (test code = CAROLIN) Deficiency: <20 ng/mLInsufficiency: 20-24 ng/mLOptimal: 25-80 ng/mL Lab Interpretation (test Abnormal code = 93769-9) [facility]2019-05-19 14:10:00 Test Item Value Reference Range Interpretation Comments POCT GLU (test code = 7778890927) 152 mg/dL 70-110 H Lab Interpretation (test code = Abnormal 84793-2) [facility] LakePROTEIN CREAT RATIO URINE [id number] 12:34:00 Test Item Value Reference Range Interpretation Comments T. PROT U (test code = 81 mg/dL 2888-6) CREAT U (test code = 34.6 mg/dL 2426344096) Protein/Creatinine Ratio 0.0-2.0 H Urine (test code = 6248458858) CAROLIN (test code = CAROLIN) Random Urine Total Protein Reference Ranges Random Specimen: ? Less than 10 mg/dLFirst Morning Specimen: ? ?Less than 20 mg/dL ? Lab Interpretation (test Abnormal code = 59358-7) [facility] Lake[facility]INALYSIS2020-02-14 12:34:00 Test Item Value Reference Range Interpretation Comments APPEARANCE (test code = Clear Clear 3890323748) COLOR (test code = Yellow Yellow 2797828193) PH (test code = 4.8-8.0 3941007586) SP GRAVITY (test code = 1.003-1.030 2059497458) GLU U QUAL (test code = 500 mg/dL Normal A 4912108393) BLOOD (test code = 1+ Negative A 3892129422) KETONES (test code = Negative Negative 3129832185) PROTEIN (test code = 30 mg/dL Negative A 2887-8) UROBILIN (test code = 2.0 mg/dL Normal A 9357383997) BILIRUBIN (test code = Negative Negative 3397539738) NITRITE (test code = Negative Negative 7441843390) LEUK RAÚL (test code = Negative Negative 5535183506) RBC/HPF (test code = See_Comment [Autom ated message] 5747926183) The system [employer] generated this result transmit wesley reference range : 0 - 3 HPF. The refe rence range was not u sed to interpret th is result as normal/abnormal . WBC/HPF (test code = See_Comment [Autom ated message] 4869742497) The system [employer] generated this result transmit wesley reference range : 0 - 5 HPF. The refe rence range was not u sed to interpret th is result as normal/abnormal . BACTERIA (test code = Negative Negative 9090972990) MUCOUS (test code = Slight Negative LPF A 3442688467) Lab Interpretation (test Abnormal code = 99581-9) [facility] LakeIRO [id number] 12:12:00 Test Item Value Reference Range Interpretation Comments IRON (test code = 6897139179) 63 ug/dL 50-160 TIBC (test code = 9047615928) 224 ug/dL 250-410 L % FE SAT (test code = 9497399566) 28 % 20-50 Lab Interpretation (test code = Abnormal 65451-9) [facility] Metabolic Panel (NA, K, CL, CO2, GLUCOSE, BUN, CREATININE, CA)2019-05-19 11:25:00 Test Item Value Reference Range Interpretation Comments NA (test code = 140 mmol/L 135-145 7744997527) K (test code = 3.8 mmol/L 3.5-5 1741322131) CL (test code = 102 mmol/L 98-108 1678601550) CO2 TOTAL (test code = 34 mmol/L 23-31 H 2287042101) AGAP (test code = 2-16 1462867276) BUN (test code = 16 mg/dL 7-23 9606216291) GLUCOSE (test code = 203 mg/dL 70-110 H 5450753242) CREATININE (test code = 0.99 mg/dL 0.6-1.25 7774472041) CALCIUM (test code = 8.5 mg/dL 8.6-10.6 L 1357284405) eGFR Calculation mL/min/1.73m2 (Non-) (test code = 2463704007) eGFR Calculation mL/min/1.73m2 () (test code = 4370109728) CAROLIN (test code = CAROLIN) Association of [...] tests). Lab Interpretation Abnormal (test code = 56877-9) [facility] WITH [id number] 11:00:00 Test Item Value Reference Range Interpretation Comments WBC (test code = See_Comment [Automated 8965-2) message] The sy stem which generated this result transmitted reference range : 4.20 - 10.70 10*3/?L. The reference range was not used to interpret this result as normal/abnormal . RBC (test code = See_Comment L [Automated 239-3) message] The sy stem which generated this [...] RDW-SD (test code = 43.7 fL 38.5-51.6 17625-3) RDW-CV (test code = 14.3 % 12.1-15.4 788-0) PLT (test code = See_Comment [Automated 777-3) message] The sy stem which generated this result transmitted reference range : 150 - 328 10*3/ ?L. The reference r siddharth was not used to interpret this result as normal/abnormal . MPV (test code = 9.5 fL 9.8-13 L 03332-8) NRBC/100 WBC (test See_Comment [Automat ed code = 0834831403) message] The system which generated this result transmitted reference range : 0.0 - 10.0 /100 WBCs. The refer ence range was not u sed to interpret th is result as normal/abnormal . NRBC x10^3 (test code <0.01 See_Comment [Auto mated = 8128457273) message] The s ystem which generated this result transmitted reference range : 10*3/?L. The reference range was not used to interpret this result as normal/abnormal . GRAN MAT (NEUT) % 77.3 % (test code = 770-8) IMM GRAN % (test code 0.40 % = 6888885823) LYMPH % (test code = 11.5 % 736-9) MONO % (test code = 6.3 % 5905-5) EOS % (test code = 3.8 % 713-8) BASO % (test code = 0.7 % 706-2) GRAN MAT x10^3(ANC) 6.94 10*3/uL 1.99-6.95 (test code = 6613079574) IMM GRAN x10^3 (test 0.04 10*3/uL 0-0.06 code = 6924819070) LYMPH x10^3 (test code 1.03 10*3/uL 1.09-3.23 L = 731-0) MONO x10^3 (test code 0.57 10*3/uL 0.36-1.02 = 742-7) EOS x10^3 (test code = 0.34 10*3/uL 0.06-0.53 711-2) BASO x10^3 (test code 0.06 10*3/uL 0.01-0.09 = 704-7) Lab Interpretation Abnormal (test code = 02404-1) [facility] LakeFERRITIN [id number] 04:29:00 Test Item Value Reference Range Interpretation Comments FERRITIN (test code = 392.0 ng/mL 18-464 9027044115) CAROLIN (test code = CAROLIN) Biotin has been reported to cause a negative bias, interpret results relative to patient's use of biotin. Lab Interpretation (test Normal code = 66823-4) [facility] LakeTHYROID STIMULATING [id number] 04:25:00 Test Item Value Reference Range Interpretation Comments TSH (test code = See_Comment [Automated message] 1149637953) The system [employer] generated this result transmitted ref erence range: 0.45 - 4 .70 mIU/L. The refe rence range was not u sed to interpret this result as normal/abnor mal. Lab Interpretation (test Normal code = 37961-8) [facility] LakeCREATINE [id number] 03:53:00 Test Item Value Reference Range Interpretation Comments CK (test code = 0858108263) 111 U/L 33-194 Lab Interpretation (test code = Normal 46356-9) [facility] LakeGAMMA [id number] 03:53:00 Test Item Value Reference Range Interpretation Comments GGT (test code = 7940603172) 273 U/L 13-58 H Lab Interpretation (test code = Abnormal 36701-6) [facility] LakeGLYCOSYLATED HEMOGLOBIN (A1C)2019-05-19 03:11:00 Test Item Value Reference [...] Indicated Lab Interpretation Abnormal (test code = 86028-6) [facility] LakePO[facility] GLUCOSE (AUT[facility]ATED)2019-05-19 02:38:00 Test Item Value Reference Range Interpretation Comments POCT GLU (test code = 4596012900) 291 mg/dL 70-110 H Lab Interpretation (test code = Abnormal 31545-0) [facility] LakeTROPONIN [id number] 00:47:00 Test Item Value Reference Range Interpretation Comments TROPONIN I (test 0.026 ng/mL See_Comment [Automated code = 8827142851) message] The system which generated this result [...] ? Lab Interpretation Normal (test code = 01127-3) [facility] LakeN-TERMINAL [id number] 00:44:00 Test Item Value Reference Range Interpretation Comments NT-proBNP (test code 3530 pg/mL See_Comment H [Autom ated = 1709812435) message] The system which generated this result transmitted reference range : <=125. The reference range was not used to interpret this result as normal/abnormal . CAROLIN (test code = CAROLIN) Biotin has been reported to cause a negative bias, interpret results relative to patient's use of biotin. Lab Interpretation Abnormal (test code = 06415-6) [facility] LakeLIPASE2020-02-14 00:35:00 Test Item Value Reference Range Interpretation Comments LIPASE (test code = 6068305842) 34 U/L 0-220 Lab Interpretation (test code = Normal 57887-8) [facility] LakeCOM. METABOLIC PANEL (21098)2019-05-19 00:35:00 Test Item Value Reference Range Interpretation Comments NA (test code = 139 mmol/L 135-145 0105164201) K (test code = 3.5 mmol/L 3.5-5 8888195189) CL (test code = 101 mmol/L 98-108 3994619510) CO2 TOTAL (test code = 29 mmol/L 23-31 4037111882) AGAP (test code = 2-16 6283741736) BUN (test code = 14 mg/dL 7-23 9341374891) GLUCOSE (test code = 212 mg/dL 70-110 H 9963166364) CREATININE (test code = 0.99 mg/dL 0.6-1.25 7832669533) TOTAL BILI (test code = 1.1 mg/dL 0.1-1.2 5230144196) CALCIUM (test code = 8.8 mg/dL 8.6-10.6 4882522795) T PROTEIN (test code = 6.5 g/dL 6.3-8.2 0450411929) ALBUMIN (test code = 3.6 g/dL 3.5-5 5272683245) ALK PHOS (test code = 501 U/L 34-122 H 7714787308) ALTv (test code = 84 U/L 5-50 H 1742-6) AST(SGOT) (test code = 121 U/L 13-40 H 1532707863) eGFR Calculation mL/min/1.73m2 (Non-) (test code = 2292044441) eGFR Calculation mL/min/1.73m2 () (test code = 0079684995) CAROLIN (test code = CAROLIN) Association of [...] tests). Lab Interpretation Abnormal (test code = 76440-4) [facility] WITH [id number] 00:26:00 Test Item Value Reference Range Interpretation Comments WBC (test code = See_Comment [Automated 4690-2) message] The sy stem which generated this result transmitted reference range : 4.20 - 10.70 10*3/?L. The reference range was not used to interpret this result as normal/abnormal . RBC (test code = See_Comment L [Automated 289-8) message] The sy stem which generated this [...] RDW-SD (test code = 43.2 fL 38.5-51.6 51710-8) RDW-CV (test code = 14.3 % 12.1-15.4 788-0) PLT (test code = See_Comment H [Automated 777-3) message] The sy stem which generated this result transmitted reference range : 150 - 328 10*3/ ?L. The reference r siddharth was not used to interpret this result as normal/abnormal . MPV (test code = 9.6 fL 9.8-13 L 88443-3) NRBC/100 WBC (test See_Comment [Automat ed code = 3099435638) message] The system which generated this result transmitted reference range : 0.0 - 10.0 /100 WBCs. The refer ence range was not u sed to interpret th is result as normal/abnormal . NRBC x10^3 (test code See_Comment [Auto mated = 4895469417) message] The s ystem which generated this result transmitted reference range : 10*3/?L. The reference range was not used to interpret this result as normal/abnormal . GRAN MAT (NEUT) % 79.2 % (test code = 770-8) IMM GRAN % (test code 0.80 % = 0681267005) LYMPH % (test code = 10.8 % 736-9) MONO % (test code = 4.8 % 5905-5) EOS % (test code = 3.7 % 713-8) BASO % (test code = 0.7 % 706-2) GRAN MAT x10^3(ANC) 7.64 10*3/uL 1.99-6.95 H (test code = 5987535604) IMM GRAN x10^3 (test 0.08 10*3/uL 0-0.06 H code = 2699804021) LYMPH x10^3 (test code 1.04 10*3/uL 1.09-3.23 L = 731-0) MONO x10^3 (test code 0.46 10*3/uL 0.36-1.02 = 742-7) EOS x10^3 (test code = 0.36 10*3/uL 0.06-0.53 711-2) BASO x10^3 (test code 0.07 10*3/uL 0.01-0.09 = 704-7) Lab Interpretation Abnormal (test code = 43276-9) [facility] LakeXR CHEST 2 [id number] 21:34:42HISTORY: SOB. TECHNIQUE: 1 PA and 2 [...] lungs, probablyacute inflammatory congestion from viral infe ction/bronchitis.[facility], Radiant Results Inft User - 05/18/2019 3:35 [...] approximately 14/36.2 cm isconsistent with normal cardiac size.Minimal old fracture deformity of T10 vertebral body noted. No acutecompression fracture detected. No aggressive bone lesions are visualized.CONCLUSIONS: Mild increased markings in central and lower lungs, probablyacute inflammatory congestion from viral infection/bronchitis.[facility] LakeHEMATOLOGY 2019-02-17 19:49:00 Test Item Value Reference Range Interpretation Comments Monocytes # (test code 0.4 See_Comment [Aut omated message] The = Monocytes #) system which generated this result tra nsmitted reference range : <=0.8. The reference r siddharth was not used to int erpret this result as normal/abnormal . [facility]eq[facility]qEDQFBCCRWT5629-22-53 19:49:00 Test Item Value Reference Range Interpretation Comments Eosinophils # (test code 0.3 See_Comment [A utomated message] The = Eosinophils #) system whic h generated this result tra nsmitted reference range : <=0.5. The reference r siddharth was not used to int erpret this result as normal/abnormal . [id number] 19:49:00 Test Item Value Reference Range Interpretation Comments Basophils # (test code 0.1 See_Comment [Aut omated message] The = Basophils #) system which generated this result tra nsmitted reference range : <=0.2. The reference r siddharth was not used to int erpret this result as normal/abnormal . [facility] [id number] 19:49:00 Test Item Value Reference Range Interpretation Comments Hgb A1C (test code = Hgb A1C) 10.4 [facility]2019-11-15 19:49:00 Test Item Value Reference Range Interpretation Comments Glucose Lvl (test code = Glucose Lvl) 305 70-99 [facility]2019-11-15 19:49:00 Test Item Value Reference Range Interpretation Comments BUN (test code = BUN) 30 7-22 [facility]2019-11-15 19:49:00 Test Item Value Reference Range Interpretation Comments Creatinine Lvl (test code = Creatinine 1.44 0.50-1.40 Lvl) [facility]2019-11-15 19:49:00 Test Item Value Reference Range Interpretation Comments Sodium Lvl (test code = Sodium Lvl) 137 135-145 [facility]2019-11-15 19:49:00 Test Item Value Reference Range Interpretation Comments Potassium Lvl (test code = Potassium 4.5 3.5-5.1 Lvl) [facility]2019-11-15 19:49:00 Test Item Value Reference Range Interpretation Comments Chloride Lvl (test code = Chloride Lvl) 105 95-109 [facility]2019-11-15 19:49:00 Test Item Value Reference Range Interpretation Comments CO2 (test code = CO2) 21 24-32 [facility]2019-11-15 19:49:00 Test Item Value Reference Range Interpretation Comments Calcium Lvl (test code = Calcium Lvl) 8.7 8.5-10.5 [facility]2019-11-15 19:49:00 Test Item Value Reference Range Interpretation Comments eGFR (test code = eGFR) 55 [facility]2019-11-15 19:49:00 Test Item Value Reference Range Interpretation Comments AGAP (test code = AGAP) 15.5 10.0-20.0 [facility]JblaeqoYGUOQNMKRQ1193-30-66 19:49:00 Test Item Value Reference Range Interpretation Comments WBC (test code = WBC) 9.6 3.7-10.4 [id number] 19:49:00 Test Item Value Reference Range Interpretation Comments RBC (test code = RBC) 5.02 4.70-6.10 [id number] 19:49:00 Test Item Value Reference Range Interpretation Comments Hgb (test code = Hgb) 14.2 14.0-18.0 [facility] HospitalWspbaziJWVKTKPPYW1230-04-97 19:49:00 Test Item Value Reference Range Interpretation Comments Hct (test code = Hct) 41.6 42.0-54.0 [facility] HospitalWlhcznxHQCZPEVGYF4051-11-01 19:49:00 Test Item Value Reference Range Interpretation Comments MCV (test code = MCV) 82.9 80.0-94.0 [facility] Ho[id number] 19:49:00 Test Item Value Reference Range Interpretation Comments MCH (test code = MCH) 28.3 pg 27.0-31.0 [facility] HospitalVdpwkxpVXZKCNLPYQ7479-36-57 19:49:00 Test Item Value Reference Range Interpretation Comments MCHC (test code = MCHC) 34.1 32.0-36.0 [facility] Hospit[id number] 19:49:00 Test Item Value Reference Range Interpretation Comments RDW (test code = RDW) 19.4 11.5-14.5 [facility] HospitalEcocekrUDOQMMMOKK7040-94-07 19:49:00 Test Item Value Reference Range Interpretation Comments Platelet (test code = Platelet) 297 133-450 [facility] HospitalMgrbykaENIXJGSYVK8885-53-36 19:49:00 Test Item Value Reference Range Interpretation Comments MPV (test code = MPV) 7.0 7.4-10.4 [facility] HospitalTkgctrlSIISJRHHSR9630-56-64 19:49:00 Test Item Value Reference Range Interpretation Comments Segs (test code = Segs) 81.8 45.0-75.0 [facility] HospitalG[id number] 19:49:00 Test Item Value Reference Range Interpretation Comments Lymphocytes (test code = Lymphocytes) 9.6 20.0-40.0 [facility] HospitalWagpsmcARNMHEGGSJ9246-21-71 19:49:00 Test Item Value Reference Range Interpretation Comments Monocytes (test code = Monocytes) 4.5 2.0-12.0 [facility] Hospit[id number] 19:49:00 Test Item Value Reference Range Interpretation Comments Eosinophils (test code = 2.8 See_Comment [A utomated message] The Eosinophils) system which ge nerated this result tra nsmitted reference range : <=4.0. The reference r siddharth was not used to int erpret this result as normal/abnormal . [facility] H[id number] 19:49:00 Test Item Value Reference Range Interpretation Comments Basophils (test code = 1.3 See_Comment [Aut omated message] The Basophils) system which ge nerated this result tra nsmitted reference range : <=1.0. The reference r siddharth was not used to int erpret this result as normal/abnormal . [facility] HospitalRaftpuuEQKQHEMJHB0250-69-27 19:49:00 Test Item Value Reference Range Interpretation Comments Neutrophils # (test code = Neutrophils 7.8 1.5-8.1 #) [facility] HospitalH[id number] 19:49:00 Test Item Value Reference Range Interpretation Comments Lymphocytes # (test code = Lymphocytes 0.9 1.0-5.5 #) [facility]AsnptchBRNBJLEPJL8938-51-15 13:28:00 Test Item Value Reference Range Interpretation Comments Blood Glucose, Capillary (test code = 236 74-106 Blood Glucose, Capillary) [facility]
[2021-11-24] MEDS ORDERED: ONDANSETRON 4 MG/2 ML VIAL ONE ×2 (21:51→23:48)
[2021-11-24] MEDS ORDERED: NA CHLORIDE 0.9% 1,000 ML ONE (21:51)
[2021-11-24] MEDS ORDERED: MORPHINE 4 MG/ML SYR ONE ×2 (21:51→23:48)
[2021-11-24 21:57] LABS: Absolute Lymphocytes (CBC) 0.6 K/uL (0.7-4.9); Hematocrit 24.7 % (39.6-49.0); Lymphocytes % 7.9 % (15.3-44.8); MCV 75.3 fL (80-100); MPV 6.7 fL (7.6-11.3); RBC Red Blood Cell Count 3.28 M/uL (4.33-5.43)
[2021-11-24 21:58] LABS: Protime INR 1.89
[2021-11-24 22:08] LABS: SARS-CoV-2 Antigen Rapid Res Negative (Negative)
[2021-11-24 22:13] LABS: Albumin 2.6 g/dL (3.4-5.0); Bilirubin Direct 0.2 mg/dL (0-0.2); Bilirubin Total 0.4 mg/dL (0.2-1.0); Magnesium 1.9 mg/dL (1.8-2.4); Potassium 4.3 mmol/L (3.5-5.1); Protein, Total 6.9 g/dL (6.4-8.2)
--- NOTE | 2021-11-24 22:13 | RAD REPORT ---
EXAM DESCRIPTION: Raina Single View11/24/2021 10:04 pm CLINICAL HISTORY: Cough COMPARISON: 2018 FINDINGS: Chronic elevation right hemidiaphragm. The lungs appear clear of acute infiltrate. The heart is normal size. Central venous line in place IMPRESSION: No acute abnormalities displayed
[2021-11-24 22:15] LABS: Troponin High Sensitivity 61.4 pg/mL (<58.9)
--- NOTE | 2021-11-24 22:34 | RAD REPORT ---
EXAM DESCRIPTION: CT - Stone Protocol - 11/24/2021 10:12 pm CLINICAL HISTORY: Abdominal pain. COMPARISON: August 2021 TECHNIQUE: Computed axial tomography of the abdomen pelvis was obtained without oral or IV contrast. Lack of IV and oral contrast limits evaluation of solid organs, appendix, bowel, and vessels. Red l reformatted images were obtained and reviewed. All CT scans are performed using dose optimization technique as appropriate and may include automated exposure control or mA/KV adjustment according to patient size. FINDINGS: A renal calculus is not seen. An ureteral calculus is not noted. A bladder calculus is not present. Mild bilateral hydronephrosis. Proximal and mid ureters are dilated. Distal ureters are poo rly visualized but do not appear to be dilated. Bladder wall is thickened with stranding in the adjac ent fat. Left upper quadrant colostomy. Presacral fluid and soft tissue extends inferiorly and to the left of the anus. It then extends poste riorly into the subcutaneous fat abutting to the skin. The fluid component measures approximately 10 centimeters in cranial caudal length. The amount of fluid has increased since the prior exam. The liver, spleen, pancreas and adrenals appear grossly normal IMPRESSION: Negative for a genitourinary calculus Mild hydronephrosis. Proximal and mid ureters are mildly dilated. The distal ureters are poorly seen within ill-defined soft tissue near the bladder bilaterally. The dilatation has mildly increased sinc e the prior exam and I suspect the ill-defined soft tissue partially obstructs the ureters. Presacral soft tissue and fluid which extends inferiorly and to the left of the anus to the posterior left skin near the buttocks. This has been a chronic finding for the patient but the fluid has incre ased. 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
[2021-11-24 23:06] LABS: Urine Blood 3+ (Negative); Urine Glucose 1+ (Negative); Urine Protein 3+ (Negative)
--- NOTE | 2021-11-24 23:32 | ER ---
Nurse's Notes [facility] [place] Name: Tl Goodwin Age: 56 yrs Sex: Male : 1965 Arrival Date: 11/24/2021 Time: 19:56 Bed 3 Private MD: Diagnosis: Hydronephrosis with ureteral stricture, not elsewhere classified;Gross hematuria;UTI/ Urinary tract infection, site not specified;Acute kidney failure, unspecified-ON CHRONIC;Anemia, unspecified;GI Bleed/ Gastrointestinal hemorrhage, unspecified-lower;Colostomy status Presentation: 11/24 20:36 Chief complaint: Patient states: Patient reports difficulty urinating, pain with kb3 urination, blood in urine and bloody mucous discharge from rectum x1 week. Pt is currently being treated for pelvic tumor, reports pain is increased x1 week. Coronavirus screen: Vaccine status: Patient reports being unvaccinated. Client denies travel out of the [place] in the last 14 days. Ebola Screen: Patient negative for fever greater than or equal to 101.5 degrees Fahrenheit, and additional compatible Ebola Virus Disease symptoms Patient denies exposure to infectious person. Patient denies travel to an Ebola-affected area in the 21 days before illness onset. No symptoms or risks identified at this time. Initial Sepsis Screen: Does the patient meet any 2 criteria? No. Patient's initial sepsis screen is negative. Does the patient have a suspected source of infection? No. Patient's initial sepsis screen is negative. Risk Assessment: Do you want to hurt yourself or someone else? Patient reports no desire to harm self or others. Onset of symptoms was November 17, 2021. 20:36 Method Of Arrival: Ambulatory kb3 20:36 Acuity: ROSA 3 kb3 Triage Assessment: 20:42 General: Appears distressed, uncomfortable, Behavior is calm, cooperative. Pain: kb3 Complains of pain in groin and suprapubic area Pain does not radiate. GI: Reports nausea, vomiting. Historical: - Allergies: 20:40 OxyContin; kb3 20:40 Tylox; kb3 - PMHx: 20:40 Pelvic Cancer; Hypercholesterolemia; Depressive disorder; Right carotid stent; Diabetes kb3 mellitus; 20:42 Myocardial infarction; kb3 - Immunization history:: Adult Immunizations up to date, Client reports having NOT received the Covid vaccine. Last tetanus immunization: up to date. - Social history:: Smoking status: Patient denies any tobacco usage or history of. - Family history:: not pertinent. Screenin:40 Abuse screen: Denies threats or abuse. Nutritional screening: No deficits noted. ja4 Tuberculosis screening: No symptoms or risk factors identified. Fall Risk Secondary diagnosis (15 points) impaired mobility, IV access (20 points). Assessment: 21:40 General: Appears distressed, uncomfortable. Pain: Denies pain. Complains of pain in ja4 pelvis Pain currently is 10 out of 10 on a pain scale. Quality of pain is described as aching. : Reports incontinence, inability to void, pain in suprapubic area with urination. 23:19 Reassessment: No changes from previously documented assessment. vc1 11/25 01:00 Reassessment: No changes from previously documented assessment. Patient and/or family vc1 updated on plan of care and expected duration. Pain level reassessed. Patient is alert, oriented x 3, equal unlabored respirations, skin warm/dry/pink. 01:24 Reassessment:. ja4 03:42 Reassessment: polk output of 800ml. ja4 Vital Signs: 11/24 20:36 BP 111 / 54; Pulse 79; Resp 16; Temp 98.0; Pulse Ox 99% ; Weight 110.22 kg; Height 5 kb3 ft. 9 in. (175.26 cm); Pain 10/10; 22:04 BP 126 / 70; Pulse 76; Resp 16; Pulse Ox 99% ; vc1 23:19 BP 130 / 69; Pulse 80; Resp 17; Pulse Ox 100% ; vc1 11/25 00:00 BP 138 / 74; Pulse 81; Resp 16; Pulse Ox 100% ; vc1 01:00 BP 126 / 68; Pulse 79; Resp 17; Pulse Ox 97% ; vc1 11/24 20:36 Body Mass Index 35.88 (110.22 kg, 175.26 cm) kb3 ED Course: 11/24 19:56 Patient arrived in ED. ja2 20:40 Triage completed. kb3 20:42 Arm band placed on left wrist. kb3 21:25 Ra Wolf MD is Attending Physician. [facility] 21:28 Luis F Reeves RN is Primary Nurse. ja4 21:40 Patient has correct armband on for positive identification. Bed in low position. Call ja4 light in reach. Side rails up X2. 21:40 No provider procedures requiring assistance completed. Inserted saline lock: 22 gauge ja4 in right antecubital area, using aseptic technique. Blood collected. 22:07 XRAY Chest (1 view) In Process Unspecified. EDMS 22:14 CT Stone Protocol In Process Unspecified. EDMS 23:43 Initiated a transfer with Jimmie from [facility]. Transfer denied due to [facility] capacity. 23:46 initiated a transfer with Ana Marroquin from [facility]. mw2 11/25 00:12 Polk cath inserted, using sterile technique, 12 Fr., by or, balloon inflated. ja4 00:20 Ana checking for capacity at [facility]. Patient and Family members mw2 informed of plan. 00:32 intiated a transfer with Solange from [facility]. mw2 00:32 [facility] denied due to capacity. mw2 01:[address] Wolf [address] Dr. Pacheco from [facility]. mw2 01:[address] Wolf with the Urologist from [facility]. mw2 02:22 administrative approval given by Ana Marroquin/patient has been accepted to [address] bed B523/ Dr. Pacheco accepted the patient in transfer/report to be called to [phone]. Administered Medications: 11/24 21:59 Drug: Zofran (Ondansetron) 4 mg Route: IVP; Site: right antecubital; [facility] 22:00 Drug: NS 0.9% 1000 ml Route: IV; Rate: 125 ml/hr; Site: right antecubital; 4 22:00 Drug: morphine 4 mg Route: IVP; Infused Over: 4 mins; Site: right antecubital; [facility] 11/25 00:00 Drug: Rocephin (cefTRIAXone) 1 grams Route: IV; Rate: per protocol; Site: right vc1 antecubital; 00:00 Drug: LevaQUIN (levofloxacin) 500 mg Route: PO; vc1 00:00 Drug: Flomax (tamsulosin) 0.4 mg Route: PO; vc1 00:00 Drug: Viscous Lidocaine Liquid (4 %) 8 ml Route: Mucous Membrane; vc1 00:49 Drug: Zofran (Ondansetron) 4 mg Route: IVP; Site: right antecubital; ja4 00:50 Drug: morphine 4 mg Route: IVP; Infused Over: 4 mins; Site: right antecubital; ja4 Medication: 11/24 21:40 VIS not applicable for this client. ja4 Outcome: 23:32 ER care complete, transfer ordered by MD. barry 11/25 03:03 Transferred by ground EMS to [facility], Transfer form completed. ja4 Note: report called to sera 03:43 Patient left the ED. ja4 03:51 Patient left the ED. lp1 Signatures: Dispatcher [employer] EDMS Ra Wolf MD MD cha Pena, Laura, RN RN lp1 Ben Lorenzo 2 Mavis James 2 Connie Dennis RN RN vc1 Katey Tello RN RN 3 Luis F Reeves RN RN ja4 Corrections: (The following items were deleted from the chart) 03:31 01:[address] Wolf with Dr. Michelle from [address]
--- NOTE | 2021-11-24 23:33 | EDPHYS ---
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 23:09 The patient presents with abdominal pain in the lower abdomen. Onset: The jhonny symptoms/episode began/occurred 2 day(s) ago. The patient presents with swelling, tenderness, urinary symptoms, dribbling of urine, dysuria, urinary frequency, retention. Onset: The symptoms/episode began/occurred 2 day(s) ago. Modifying factors: The symptoms are alleviated by nothing, the symptoms are aggravated by nothing. Associated signs and symptoms: Pertinent positives: abdominal pain, hematuria. The symptoms do not radiate. Associated signs and symptoms: Pertinent positives: hematuria, nausea. Severity of pain: At its worst the pain was moderate in the emergency department the pain is unchanged. Historical: - Allergies: 20:40 OxyContin; kb3 20:40 Tylox; kb3 - PMHx: 20:40 Pelvic Cancer; Hypercholesterolemia; Depressive disorder; Right carotid stent; Diabetes kb3 mellitus; 20:42 Myocardial infarction; kb3 - Immunization history:: Adult Immunizations up to date, Client reports having NOT received the Covid vaccine. Last tetanus immunization: up to date. - Social history:: Smoking status: Patient denies any tobacco usage or history of. - Family history:: not pertinent. ROS: 23:09 Constitutional: Negative for fever, chills, and weight loss, Eyes: Negative for injury, jhonny pain, redness, and discharge, ENT: Negative for injury, pain, and discharge, Neck: Negative for injury, pain, and swelling, Cardiovascular: Negative for chest pain, palpitations, and edema, Respiratory: Negative for shortness of breath, cough, wheezing, and pleuritic chest pain, Abdomen/GI: Negative for abdominal pain, nausea, vomiting, diarrhea, and constipation, Back: Negative for injury and pain, MS/Extremity: Negative for injury and deformity, Skin: Negative for injury, rash, and discoloration, Neuro: Negative for headache, weakness, numbness, tingling, and seizure, Psych: Negative for depression, anxiety, suicide ideation, homicidal ideation, and hallucinations, Allergy/Immunology: Negative for hives, rash, and allergies, Endocrine: Negative for neck swelling, polydipsia, polyuria, polyphagia, and marked weight changes, Hematologic/Lymphatic: Negative for swollen nodes, abnormal bleeding, and unusual bruising. 23:09 : Positive for pelvic pain, hematuria, difficulty urinating. Exam: 23:27 Constitutional: This is a well developed, well nourished patient who is awake, alert, jhonny and in no acute distress. Head/Face: Normocephalic, atraumatic. Eyes: Pupils equal round and reactive to light, extra-ocular motions intact. Lids and lashes normal. Conjunctiva and sclera are non-icteric and not injected. Cornea within normal limits. Periorbital areas with no swelling, redness, or edema. ENT: Nares patent. No nasal discharge, no septal abnormalities noted. Tympanic membranes are normal and external auditory canals are clear. Oropharynx with no redness, swelling, or masses, exudates, or evidence of obstruction, uvula midline. Mucous membranes moist. Neck: Trachea midline, no thyromegaly or masses palpated, and no cervical lymphadenopathy. Supple, full range of motion without nuchal rigidity, or vertebral point tenderness. No Meningismus. Chest/axilla: Normal chest wall appearance and motion. Nontender with no deformity. No lesions are appreciated. Cardiovascular: Regular rate and rhythm with a normal S1 and S2. No gallops, murmurs, or rubs. Normal PMI, no JVD. No pulse deficits. Respiratory: Lungs have equal breath sounds bilaterally, clear to auscultation and percussion. No rales, rhonchi or wheezes noted. No increased work of breathing, no retractions or nasal flaring. Back: No spinal tenderness. No costovertebral tenderness. Full range of motion. Skin: Warm, dry with normal turgor. Normal color with no rashes, no lesions, and no evidence of cellulitis. MS/ Extremity: Pulses equal, no cyanosis. Neurovascular intact. Full, normal range of motion. Neuro: Awake and alert, GCS 15, oriented to person, place, time, and situation. Cranial nerves II-XII grossly intact. Motor strength 5/5 in all extremities. Sensory grossly intact. Cerebellar exam normal. Normal gait. Psych: Awake, alert, with orientation to person, place and time. Behavior, mood, and affect are within normal limits. 23:27 ECG was reviewed by the Attending Physician. 23:27 Abdomen/GI: Inspection: abdomen appears normal, Bowel sounds: normal, Palpation: nontender, Liver: no appreciated palpable abnormalities, Hernia: not appreciated, BLOOD AT COLOSTOMY. Vital Signs: 20:36 BP 111 / 54; Pulse 79; Resp 16; Temp 98.0; Pulse Ox 99% ; Weight 110.22 kg; Height 5 kb3 ft. 9 in. (175.26 cm); Pain 10/10; 22:04 BP 126 / 70; Pulse 76; Resp 16; Pulse Ox 99% ; vc1 23:19 BP 130 / 69; Pulse 80; Resp 17; Pulse Ox 100% ; vc1 11/25 00:00 BP 138 / 74; Pulse 81; Resp 16; Pulse Ox 100% ; vc1 01:00 BP 126 / 68; Pulse 79; Resp 17; Pulse Ox 97% ; vc1 11/24 20:36 Body Mass Index 35.88 (110.22 kg, 175.26 cm) kb3 MDM: 11/24 21:25 Patient medically screened. [facility] 23:29 Differential diagnosis: nonspecific abdominal pain, UTI, urinary retention, Rico jhonny catheter problem, prostatitis, urethritis, gastritis, GI Bleed, pancreatitis, Peptic Ulcer Disease, Prostatitis, Ureterolithiasis, urinary tract infection. Data reviewed: vital signs, nurses notes, lab test result(s), EKG, radiologic studies, CT scan, plain films. 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 Test interpretation: by ED physician or midlevel provider: ECG, plain radiologic studies. Counseling: I had a detailed discussion with the patient and/or guardian regarding: the historical points, exam findings, and any diagnostic results supporting the discharge/admit diagnosis, lab results, radiology results, the need to transfer to another facility, for higher level of care, [facility] does not immediately have the required specialist. 11/24 21:26 Order name: Basic Metabolic Panel; Complete Time: 22:51 jhonny 11/24 21:26 Order name: CBC with Diff; Complete Time: 22:51 [facility] 11/24 21:26 Order name: LFT's; Complete Time: 22:51 [facility] 11/24 21:26 Order name: Magnesium; Complete Time: 22:51 [facility] 11/24 21:26 Order name: NT PRO-BNP; Complete Time: 22:51 [facility] 11/24 21:26 Order name: PT-INR; Complete Time: 22:51 [facility] 11/24 21:26 Order name: Troponin HS; Complete Time: 22:51 [facility] 11/24 21:26 Order name: XRAY Chest (1 view); Complete Time: 22:51 [facility] 11/24 21:26 Order name: SARS RAPID; Complete Time: 22:51 [facility] 11/24 21:34 Order name: Urine Culture [facility] 11/24 21:34 Order name: CT Stone Protocol; Complete Time: 22:51 [facility] 11/24 21:59 Order name: Lipase; Complete Time: 22:51 EDTX 11/24 23:07 Order name: Urine Dipstick-Ancillary; Complete Time: 23:17 EDTX 11/24 21:26 Order name: EKG; Complete Time: 21:27 [facility] 11/24 21:26 Order name: Cardiac monitoring; Complete Time: 22:20 [facility] 11/24 21:26 Order name: EKG - Nurse/Tech; Complete Time: 22:20 [facility] 11/24 21:26 Order name: IV Saline Lock; Complete Time: 22:03 [facility] 11/24 21:26 Order name: Labs collected and sent; Complete Time: 22:04 [facility] 11/24 21:26 Order name: O2 Per Protocol; Complete Time: 22:04 [facility] 11/24 21:26 Order name: O2 Sat Monitoring; Complete Time: 22:04 [facility] 11/24 21:34 Order name: Urine Dipstick-Ancillary (obtain specimen); Complete Time: 23:18 [facility] 11/24 23:30 Order name: Rico; Complete Time: 01:23 [facility] EC:27 Rate is 78 beats/min. Rhythm is regular. QRS [place] is Normal. OK interval is normal. QRS jhonny interval is normal. QT interval is normal. No Q waves. T waves are Normal. No ST changes noted. Clinical impression: Normal ECG and No evidence of ischemia. Interpreted by me. Reviewed by me. Administered Medications: 21:59 Drug: Zofran (Ondansetron) 4 mg Route: IVP; Site: right antecubital; 4 22:00 Drug: NS 0.9% 1000 ml Route: IV; Rate: 125 ml/hr; Site: right antecubital; ja4 22:00 Drug: morphine 4 mg Route: IVP; Infused Over: 4 mins; Site: right antecubital; ja4 11/25 00:00 Drug: Rocephin (cefTRIAXone) 1 grams Route: IV; Rate: per protocol; Site: right vc1 antecubital; 00:00 Drug: LevaQUIN (levofloxacin) 500 mg Route: PO; vc1 00:00 Drug: Flomax (tamsulosin) 0.4 mg Route: PO; vc1 00:00 Drug: Viscous Lidocaine Liquid (4 %) 8 ml Route: Mucous Membrane; vc1 00:49 Drug: Zofran (Ondansetron) 4 mg Route: IVP; Site: right antecubital; ja4 00:50 Drug: morphine 4 mg Route: IVP; Infused Over: 4 mins; Site: right antecubital; [facility] Disposition Summary: 11/24/21 23:32 Transfer Ordered Transfer Location: [facility] jhonny Reason: Higher level of care jhonny Condition: Fair jhonny Problem: new jhonny Symptoms: have improved jhonny Accepting Physician: TO [facility](11/25/21 03:51) lp1 Diagnosis - Hydronephrosis with ureteral stricture, not elsewhere classified jhonny - Gross hematuria jhonny - UTI/ Urinary tract infection, site not specified jhonny - Acute kidney failure, unspecified - ON CHRONIC jhonny - Anemia, unspecified jhonny - GI Bleed/ Gastrointestinal hemorrhage, unspecified - lower jhonny - Colostomy status jhonny Forms: - Medication Reconciliation Form jhonny - SBAR form jhonny Signatures: Dispatcher [employer] EDRa Roper MD MD cha Pena, Laura RN RN lp1 Connie Dennis RN RN vc1 Katey Tello RN RN kb3 Luis F Reeves RN RN ja4 Corrections: (The following items were deleted from the chart) 11/24 21:59 21:35 LIPASE+C.LAB.BRZ ordered. [facility] 11/25 03:43 11/24 23:32 TO [facility] jhonny [facility] 11/25 03:51 03:43 TO [facility] ja4 jhonny 03:51 03:51 TO [facility] lp1
[2021-11-24] MEDS ORDERED: levoFLOXacin 250 MG TAB ONE (23:53)
[2021-11-24] MEDS ORDERED: LIDOCAINE VISCOUS 2% SOLN 15 ML UDC ONE (23:54)
[2021-11-24] MEDS ORDERED: CEFTRIAXONE 1000 MG/VIAL ONE (23:54)
[2021-11-24] MEDS ORDERED: TAMSULOSIN 0.4 MG SR CAP ONE (23:54)
[2021-11-25 05:46] VITALS: TEMP 98
[2021-11-25 06:41] VITALS: BP 126/68; O2SAT 97
--- NOTE | 2021-11-25 13:49 | EKG ---
Test Date: 2021-11-24 Test Time: 22:30:12 Team Driver: MEASUREMENT RESULTS: Intervals: Rate: 78 UT: 192 QRSD: 140 QT: 430 QTc: 490 [place]: P: 64 UT: 192 QRS: -75 T: 86 INTERPRETIVE STATEMENTS: Normal sinus rhythm Left axis deviation Right bundle branch block Inferior infarct, age undetermined Possible Anterolateral infarct, age undetermined Abnormal ECG No previous ECG available for comparison Electronically Signed On 11-25-21 13:48:07 CDT by Yayo Jenkins
== END 2021-11-25 03:51 | disposition short-term general hospital (02) ==
LOC: ER 19:55
DX: N13.1 Hydronephrosis with ureteral stricture, not elsewhere classified (principal); N39.0 Urinary tract infection, site not specified; N17.9 Acute kidney failure, unspecified; E11.22 Type 2 diabetes mellitus with diabetic chronic kidney disease; N18.9 Chronic kidney disease, unspecified; D64.9 Anemia, unspecified; K92.2 Gastrointestinal hemorrhage, unspecified; I25.2 Old myocardial infarction; Z93.3 Colostomy status; Z20.822 Contact with and (suspected) exposure to COVID-19; Z85.53 Personal history of malignant neoplasm of renal pelvis; Z88.5 Allergy status to narcotic agent
CPT/HCPCS: 93005; 87088; 85025; 87086; 80048; 36415; 83735; 85610; 80076; 81003; 84484; 83690; 83880; 76377; 74176; 71045; 87811; J7030; J2405 ×2; 51702; 96374; 96375; 99285